=== PATIENT | female | born 1935 | race Caucasian/White ===

== ENCOUNTER 2017-08-16 13:00 | Outpatient (CLI) | payer MEDICARE, SELFPAY ==
[2017-08-16 13:05] VITALS: BMI 19.0
[2017-08-16 13:20] VITALS: BP 146/78; PULSE 76; RESP 16
--- NOTE | 2017-08-16 17:05 | PC.NURSE ---
PROLIA 60 MG GIVEN IN RIGHT TRICEP AT 1320.
== END 2017-08-16 13:35 | disposition home or self-care (01) ==
PROVIDERS: Family Provider Nurse Practitioner; PCP Nurse Practitioner Family; Visit Provider Family Medicine
DX: M81.0 Age-related osteoporosis without current pathological fracture (principal)
CPT/HCPCS: 96372; J0897

== ENCOUNTER 2017-08-21 08:33 | Day surgery (SDC) | payer MEDICARE, SELFPAY ==
[2017-08-20 13:24] VITALS: BMI 19.1
[2017-08-21] VITALS (8 sets, daily range): BP systolic 172–218; BP diastolic 84–97; PULSE 69–83; RESP 18; TEMP 36.6–37.2; O2SAT 92–98
== END 2017-08-21 12:10 | disposition home or self-care (01) ==
PROVIDERS: Family Provider Nurse Practitioner; PCP Family Medicine; Visit Provider Ophthalmology
DX: H26.9 Unspecified cataract (principal)
CPT/HCPCS: 66984; V2632

== ENCOUNTER 2017-09-04 06:21 | Day surgery (SDC) | payer MEDICARE, SELFPAY ==
[2017-08-31 15:40] VITALS: BMI 19.0
[2017-09-04] VITALS (8 sets, daily range): BP systolic 150–196; BP diastolic 61–91; PULSE 63–89; RESP 18–20; TEMP 36.7–37.5; O2SAT 93–100
== END 2017-09-04 08:39 | disposition home or self-care (01) ==
LOC: OR 06:30
PROVIDERS: Family Provider Nurse Practitioner; PCP Family Medicine; Visit Provider Ophthalmology
DX: H26.9 Unspecified cataract (principal)
CPT/HCPCS: 66984; V2632

== ENCOUNTER → 2018-02-20 14:45 | Outpatient (CLI) | payer MEDICARE, SELFPAY ==
--- NOTE | 2018-02-20 14:51 | XR_ITS ---
XR chest 2V HISTORY: ITS.REASON: COUGH ORDERING PHYSICIAN: Kobe Ramsey MD PATIENT AGE: 82 years COMPARISON: 12/28/2014 FINDINGS: The cardiomediastinal silhouette and pulmonary vascularity are within normal limits. There is hyperinflation with attenuation of the peripheral pulmonary vessels consistent with COPD with hyperlucency in the right midlung which could be due to underlying bullous change. No lobar consolidation or collapse. Mild upper thoracic kyphosis unchanged. IMPRESSION: COPD/emphysema, no change with no acute finding
== END ==
PROVIDERS: PCP Family Medicine; Visit Provider Family Medicine
DX: R05 Cough (principal)
CPT/HCPCS: 71046

== ENCOUNTER 2018-06-06 11:10 | Outpatient (CLI) | payer MEDICARE, SELFPAY ==
[2018-06-06 11:25] VITALS: BP 124/78; PULSE 81; RESP 18; TEMP 36.6; O2SAT 98
[2018-06-06 11:55] VITALS: BP 122/69; PULSE 78; RESP 18; TEMP 36.6; O2SAT 97
== END 2018-06-06 12:00 | disposition home or self-care (01) ==
LOC: INF 11:17
PROVIDERS: Visit Provider Family Medicine
DX: M81.0 Age-related osteoporosis without current pathological fracture (principal)
CPT/HCPCS: 96372; J0897

== ENCOUNTER 2018-12-05 11:17 | Outpatient (CLI) | payer MEDICARE, SELFPAY ==
[2018-12-05 11:22] VITALS: BP 137/88; PULSE 78; RESP 20; TEMP 36.5; O2SAT 94
== END 2018-12-05 11:40 | disposition home or self-care (01) ==
LOC: INF 11:17
PROVIDERS: Visit Provider Family Medicine
DX: M81.0 Age-related osteoporosis without current pathological fracture (principal)
CPT/HCPCS: 96372; J0897

== ENCOUNTER → 2019-01-14 12:05 | Outpatient (CLI) | payer MEDICARE, SELFPAY ==
--- NOTE | 2019-01-14 12:28 | XR_ITS ---
XR hip RT 2-3V w/pelvis HISTORY: ITS.REASON: RT HIP PAIN ORDERING PHYSICIAN: Kobe Ramsey MD PATIENT AGE: 83 years COMPARISON: None FINDINGS: No significant degenerative change. No lytic or blastic change. There are some faint increased density superior to the greater trochanter suggesting some minimal soft tissue calcification or an avulsion injury. No other significant anomalies are evident. IMPRESSION: There is a faint triangular-shaped density superior to the greater trochanter measuring approximately 1 cm and could be due to early heterotopic ossification or an avulsion fracture age indeterminate
== END ==
PROVIDERS: PCP Family Medicine; Visit Provider Family Medicine
DX: M25.551 Pain in right hip (principal)
CPT/HCPCS: 73502

== ENCOUNTER 2019-06-17 11:01 | Outpatient (CLI) | payer MEDICARE, SELFPAY ==
[2019-06-17 11:15] VITALS: BP 139/72; PULSE 83; RESP 18
== END 2019-06-17 11:15 | disposition home or self-care (01) ==
LOC: INF 11:01
PROVIDERS: Visit Provider Nurse Practitioner Family
DX: M81.0 Age-related osteoporosis without current pathological fracture (principal)
CPT/HCPCS: 96372; J0897

== ENCOUNTER → 2019-08-20 14:29 | Outpatient (CLI) | payer MEDICARE, SELFPAY ==
--- NOTE | 2019-08-20 14:34 | XR_ITS ---
PROCEDURE: XR LUMBAR SPINE MIN 4V CLINICAL INDICATION: BACK PAIN COMPARISON: No exams were available for comparison FINDINGS: Mild lumbar curvature convex right. There are degenerative changes of the SI joints on both sides. There is mild degenerative disc disease at L3-L4 and L4-5 with 3 mm anterolisthesis of L4 and 2-3 mm anterolisthesis of L3. There are mild facet arthritic changes at L5-S1. No acute fracture or dislocation. No lytic or blastic change. IMPRESSION: Degenerative changes as described above Dictated by: Dallas Osorio MD 08/20/2019 17:58 Electronically signed by Dallas Osorio MD in [place] 08/20/2019 17:58
== END ==
PROVIDERS: PCP Family Medicine; Visit Provider Family Medicine
DX: M54.9 Dorsalgia, unspecified (principal)
CPT/HCPCS: 72110

== ENCOUNTER 2019-12-16 10:40 | Outpatient (CLI) | payer MEDICARE, SELFPAY ==
[2019-12-16 10:55] VITALS: BP 157/78; PULSE 87; RESP 18; TEMP 37.3; O2SAT 93
== END 2019-12-16 10:55 | disposition home or self-care (01) ==
LOC: INF 10:43
PROVIDERS: Visit Provider Nurse Practitioner Family
DX: M81.0 Age-related osteoporosis without current pathological fracture (principal)
CPT/HCPCS: 96372; J0897

== ENCOUNTER → 2020-06-17 14:15 | Outpatient (CLI) | payer MEDICARE, SELFPAY ==
--- NOTE | 2020-06-17 14:16 | MR_ITS ---
PROCEDURE: MR LUMBAR SPINE WO CON CLINICAL INDICATION: ACUTE BACK PAIN WITH SCIATICA, RIGHT LOW BACK PAIN, RIGHT HIP PAIN DOWN LEG TO FOOT X1 MONTH. PRIOR XRAYS 1-8-20 COMPARISON: CR XR LUMBAR SPINE MIN 4V from 08/20/2019 TECHNIQUE: Standard multiplanar multiecho sequences are performed without contrast. 3-D MIP and myelographic images are also rendered and reviewed FINDINGS: Spinal cord ends at the L1 level. T12-L1: Unremarkable. L1-L2: Unremarkable. L2-L3: Minimal bulging disc. Mild facet and ligamentum hypertrophy. L3-L4: Degenerative disc disease with bulging disc. 5 mm anterolisthesis of L3. There is facet and ligamentum hypertrophy with severe bilateral lateral recess and foraminal narrowing along with canal stenosis L4-5: Degenerative disc disease with bulging disc and a medium sized right paracentral disc herniation with superior extrusion. This superior extruded portion of the disc measures approximately 10 mm. This is causing severe right lateral recess narrowing as well as severe right-sided foraminal narrowing impinging upon the right L5 nerve root and the exiting L4 nerve root. There is severe canal stenosis at this level at 7 mm. There is facet and ligamentum hypertrophy with severe right foraminal narrowing and mild left foraminal narrowing. L5-S1: Mild bulging disc. 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 IMPRESSION: 1. Mild multilevel lumbar spondylosis. Please see above for detailed description at each level. 2. L3-L4: Degenerative disc disease with bulging disc. 5 mm anterolisthesis of L3. There is facet and ligamentum hypertrophy with severe bilateral lateral recess and foraminal narrowing along with canal stenosis 3. L4-5: Degenerative disc disease with bulging disc and a medium sized right paracentral disc herniation with superior extrusion. This superior extruded portion of the disc measures approximately 10 mm. This is causing severe right lateral recess narrowing as well as severe right-sided foraminal narrowing impinging upon the right L5 nerve root and the exiting L4 nerve root. There is severe canal stenosis at this level at 7 mm. There is facet and ligamentum hypertrophy with severe right foraminal narrowing and mild left foraminal narrowing. Dictated by: Dallas Osorio MD 06/18/2020 10:00 Dallas Osorio MD in [place] 06/18/2020 10:00
== END ==
PROVIDERS: PCP Family Medicine; Visit Provider Family Medicine
DX: M54.41 Lumbago with sciatica, right side (principal)
CPT/HCPCS: 72148; 76376

== ENCOUNTER 2020-06-29 11:21 | Outpatient (CLI) | payer MEDICARE, SELFPAY ==
[2020-06-29 11:23] VITALS: BP 136/67; PULSE 88; RESP 18; TEMP 36.7; O2SAT 95
== END 2020-06-29 11:23 | disposition home or self-care (01) ==
LOC: INF 11:21
PROVIDERS: Visit Provider Family Medicine
DX: M81.0 Age-related osteoporosis without current pathological fracture (principal)
CPT/HCPCS: 96372; J0897

== ENCOUNTER → 2020-08-11 10:39 | Outpatient (CLI) | payer MEDICARE, SELFPAY ==
--- NOTE | 2020-08-11 10:47 | XR_ITS ---
PROCEDURE: XR CHEST 2V CLINICAL HISTORY: COPD, PREOP COMPARISON: DX CXR2V XR chest 2V from 02/20/2018 FINDINGS: Moderate emphysematous changes seen with hyperexpansion lung moralez and depression of the hemidiaphragms. 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 The lung moralez are clear of infiltrate. Overall cardiac size is normal though there is mild aortic tortuosity. There is no pulmonary congestion and no pleural fluid. IMPRESSION: Moderate COPD, no acute chest pathology noted Dictated by: Dr. Delano Lebron MD 08/11/2020 11:18 Dr. Delano Lebron MD in [place] 08/11/2020 11:18
== END ==
PROVIDERS: PCP Family Medicine; Visit Provider Family Medicine
DX: Z01.811 Encounter for preprocedural respiratory examination (principal); J44.9 Chronic obstructive pulmonary disease, unspecified
CPT/HCPCS: 71046

== ENCOUNTER 2020-12-28 11:04 | Outpatient (CLI) | payer MEDICARE, SELFPAY ==
[2020-12-28 11:00] VITALS: BP 147/81; PULSE 68; RESP 20; TEMP 36.9; O2SAT 95
== END 2020-12-28 11:20 | disposition home or self-care (01) ==
LOC: INF 11:04
PROVIDERS: Visit Provider Family Medicine
DX: M81.0 Age-related osteoporosis without current pathological fracture (principal)
CPT/HCPCS: 96372; J0897

== ENCOUNTER 2021-07-05 11:02 | Outpatient (CLI) | payer MEDICARE, SELFPAY ==
[2021-07-05 11:19] VITALS: BP 154/75; PULSE 75; RESP 20; TEMP 36.6; O2SAT 93
== END 2021-07-05 11:19 | disposition home or self-care (01) ==
LOC: INF 11:04
PROVIDERS: PCP Family Medicine; Visit Provider Family Medicine
DX: M81.0 Age-related osteoporosis without current pathological fracture (principal)
CPT/HCPCS: 96372; J0897

== ENCOUNTER 2022-01-03 11:08 | Outpatient (CLI) | payer MEDICARE, SELFPAY ==
[2022-01-03 11:25] VITALS: BP 140/72; PULSE 84; O2SAT 100
[2022-01-03 11:30] VITALS: BP 141/74; PULSE 84; O2SAT 100
== END 2022-01-03 11:30 | disposition home or self-care (01) ==
LOC: INF 11:11
PROVIDERS: PCP Family Medicine; Visit Provider Family Medicine
DX: M81.0 Age-related osteoporosis without current pathological fracture (principal)
CPT/HCPCS: 96372; J0897

== ENCOUNTER 2022-08-31 10:11 | Outpatient (CLI) | payer MEDICARE, SELFPAY ==
[2022-08-31 10:26] VITALS: BP 130/72; PULSE 95; RESP 18; TEMP 36.4; O2SAT 96
== END 2022-08-31 11:00 | disposition home or self-care (01) ==
LOC: INF 10:13
PROVIDERS: PCP Family Medicine; Visit Provider Family Medicine
DX: M81.0 Age-related osteoporosis without current pathological fracture (principal)
CPT/HCPCS: 96372; J0897

== ENCOUNTER → 2022-09-22 14:31 | Outpatient (CLI) | payer MEDICARE, SELFPAY ==
--- NOTE | 2022-09-22 14:42 | XR_ITS ---
FINAL REPORT CLINICAL HISTORY: CHEST PAIN IN THORACIC,COPD FINDINGS: TWO-VIEW CHEST The heart size is normal. The mediastinum is normal. There is scarring in the right perihilar region. The lungs are clear. There is no pneumothorax. IMPRESSION: No acute cardiopulmonary process. Reviewed, Interpreted and Dictated by Indra Ortiz MD Transcribed by Kathy Maguire Authenticated and [facility]
== END ==
PROVIDERS: PCP Family Medicine; Visit Provider Family Medicine
DX: M54.6 Pain in thoracic spine (principal); G89.29 Other chronic pain
CPT/HCPCS: 71046

== ENCOUNTER 2022-12-05 09:23 | Day surgery (SDC) | payer MEDICARE, SELFPAY ==
[2022-12-04 10:03] VITALS: BMI 19.1
[2022-12-05 10:12] VITALS: BP 172/93; PULSE 90; RESP 16; TEMP 36.9; O2SAT 91
[2022-12-05 11:01] VITALS: BP 172/93; PULSE 90; RESP 16; TEMP 36.9; O2SAT 91
== END 2022-12-05 11:02 | disposition home or self-care (01) ==
LOC: OUTP 09:27
PROVIDERS: PCP Family Medicine; Visit Provider Ophthalmology
PROC: (CPT 66821; principal; 2022-12-05 10:00)
DX: H26.40 Unspecified secondary cataract (principal); Z79.899 Other long term (current) drug therapy
CPT/HCPCS: 66821

== ENCOUNTER 2023-02-28 11:23 | Outpatient (CLI) | payer MEDICARE, SELFPAY ==
[2023-02-28 11:49] VITALS: BP 149/74; PULSE 76; RESP 18; TEMP 36.5; O2SAT 93
== END 2023-02-28 11:49 | disposition home or self-care (01) ==
LOC: INF 11:24
PROVIDERS: PCP Family Medicine; Visit Provider Family Medicine
DX: M81.0 Age-related osteoporosis without current pathological fracture (principal)
CPT/HCPCS: 96372; J0897

== ENCOUNTER → 2023-04-19 10:01 | Outpatient (CLI) | payer MEDICARE, SELFPAY ==
--- NOTE | 2023-04-19 10:09 | CT_ITS ---
FINAL REPORT CLINICAL HISTORY: DDD, right anterior leg pain x 7 mon COMPARISON: None FINDINGS: Axial imaging of the lumbar spine was obtained without contrast. Sagittal and coronal reformatted images were also obtained and reviewed.This study was performed with techniques to keep radiation doses as low as reasonably achievable (ALARA). Individualized dose reduction techniques using automated exposure control or adjustment of mA and/or kV according to the patient's size were employed. There is no fracture. There is 6 mm of anterolisthesis of L4 on L5. There are mild and moderate degenerative changes. There is facet arthropathy in the lower lumbar spine. L1-2: Annular disc bulge is present. No evidence of significant central canal stenosis or neuroforaminal narrowing. L2-3: Annular disc bulge is present. Mild bilateral neuroforaminal narrowing. L3-4: Annular disc bulge and facet arthropathy. Moderate bilateral neuroforaminal narrowing. Mild central canal stenosis with AP diameter of the thecal sac of 8 mm. L4-5: Annular disc bulge and facet arthropathy. Right paracentral and foraminal superiorly extruded disc. Right lateral recess stenosis. Right L5 nerve root impingement. Mild central canal stenosis with AP diameter of the thecal sac of 7 mm. Severe right and moderate left neuroforaminal narrowing. L5-S1: Annular disc bulge and facet arthropathy. Mild left neuroforaminal narrowing. IMPRESSION: Multilevel degenerative disc disease without acute bony abnormality. Extruded disc at L4-5 with recess stenosis and nerve root impingement as above. Reviewed, Interpreted and Dictated by Oumar Dukes III, MD Transcribed by Twila Marion Authenticated and [facility]
== END ==
PROVIDERS: PCP Family Medicine; Visit Provider Family Medicine
DX: M51.37 Other intervertebral disc degeneration, lumbosacral region (principal)
CPT/HCPCS: 72131

== ENCOUNTER 2023-09-07 10:49 | Outpatient (CLI) | payer MEDICARE, SELFPAY ==
[2023-09-07] MEDS: DENOSUMAB 60 MG/ML SYRINGE SQ (11:06)
[2023-09-07 11:16] VITALS: BP 128/86; PULSE 86; RESP 18; TEMP 36.8; O2SAT 95
== END 2023-09-07 11:18 | disposition home or self-care (01) ==
LOC: INF 10:51
PROVIDERS: PCP Family Medicine; Visit Provider Family Medicine
DX: M81.0 Age-related osteoporosis without current pathological fracture (principal)
CPT/HCPCS: 96372; J0897

== ENCOUNTER 2024-03-07 14:34 | Outpatient (CLI) | payer MEDICARE, SELFPAY ==
[2024-03-07] MEDS: DENOSUMAB 60 MG/ML SYRINGE SQ (14:50)
[2024-03-07 14:51] VITALS: BP 181/68; PULSE 78; RESP 18; O2SAT 91
== END 2024-03-07 14:54 | disposition home or self-care (01) ==
LOC: INF 14:36
PROVIDERS: PCP Family Medicine; Visit Provider Family Medicine
DX: M81.0 Age-related osteoporosis without current pathological fracture (principal)
CPT/HCPCS: 96372; J0897

== ENCOUNTER 2024-06-27 12:01 | Outpatient (CLI) | payer MEDICARE, SELFPAY ==
--- OUTSIDE RECORDS SUMMARY | 2024-06-27 12:05 | XMS_ITS | Encounter Summary ---
Author Organization [facility] Address [address] [place] [address] Care Team Providers Care Thermodynamic Physicist Name Role Phone Marck Ramsey MD Primary Care Provider [phone] Reason for Visit * Cardiac (Routine) - Closed Specialty Diagnoses / Procedures Referred By Rossy childs Referred To Contact Diagnoses Paroxysmal atrial fibrillation Dizziness Essential hypertension LBBB (left bundle branch block) Abnormal EKG Procedures Holter Monitor - 72 Hour Up To 15 Days Penine Antony APRN [address] [place] [address] Phone: tel: fax: [facility] [address] [place] [address] Phone: tel: Referral ID Status Reason Start Date Expiration Date Visits Re quested Visits Authorized [id number] Closed 03/19/2024 03/19/2025 1 1 Encounter Details Date Type Department Care Team (Late st Contact Info) Description 03/19/2024 2:45 PM EDT Ancillary Procedure [facility] [address] [id number] Social History Tobacco Use Types Packs/Day Years Used Date Smoking Tobacco: Former Cigarettes 0.5 10 0 08/13/1952 - 08/13/1962 Passive Smoke Exposure: Past Smokeless Tobacco: Never Alcohol Use Standard Drinks/Week Comments Yes 0 (1 standard drink = 0.6 oz pur e alcohol) social Abuse Screen Answer Date Recorded Unsafe at Home or Work/School Not on file Feels Threatened by Someone? Not on file 07/2023 Does Anyone Keep You from Co ntacting Others or Doint Things Outside the Home? Not on file 05/24/2023 Physical Sign of Abuse Present Not on file 1 Housing Stability Answer Date Recorded Current Living Arrangements Not on file 05/13 Potentially Unsafe Housing Conditions Not on cha e 05/24/2023 Family and Community Support Answer Odell e Recorded Help with Day-to-Day Activities Not on file 05/24/2023 Lonely or Isolated Not on file 05/24/2023 Employment Answer Date Recorded Do you want help finding or keeping work or a danielle b? Not on file 05/24/2023 Disabilities Answer Date Recorded Concentrating, Remembering, or Making Decisions Difficulty Not on file 05/24/2023 Doing Errands Independently Difficulty Not on fi le 05/24/2023 Education Answer Date Recorded Help with school or training? Not on file Preferred Language Not on file 05/24/2023 Comments No Sex and Gender Information Value Date Recorded Sex Assigned at Not on file Legal Sex Female 10:32 AM EST Gender Identity Not on file Sexual Orientation Not on file documented as of this encounter Plan of Treatment Upcoming Encounters Date Type Department Care Team (Late st Contact Info) Description 10/27/2024 11:00 AM EDT Office Visit [facility] [address] [place] [address] Patrica Otto MD [address] [place] [address] documented as of this encounter Procedures Procedure Name Priority Date/Time Associated Diagnosis Comments HOLTER MONITOR >7 DAYS UP TO 15 DAYS HOOK-UP & INTERP Routine 03/19/2024 2:50 PM EDT Paroxysmal atrial fibrillation Dizziness Essential hypertension LBBB (left bundle branch block) Abnormal EKG documented in this encounter Results * HOLTER MONITOR >7 DAYS UP TO 15 DAYS HOOK-UP & INTERP (03/19/2024 2:50 PM EDT) Anatomical Region Laterality Modality Ultrasound Narrative 04/21/2024 5:29 PM EDT ?A relatively benign monitor study. ?Some nonsustained SVT. ??Longest 19 beats. ??No atrial fibrillation seen. Otherwise no pauses. Study Description Monitor placed on patient by Rosalina Noel MA on 03/19/2024 at 10:30 EDT. Instructions were provided to patient on use of holter monitor and duration of monitoring. The monitor was scanned on 04/18/2024. The patient was monitored for 11 days 10 hours. Indications for this exam include Chronic atrial fibrillation. Average HR: 78. Min HR: 56. Max HR: 114. Study Impressions A relatively benign monitor study. Some nonsustained SVT. Longest 19 beats. No atrial fibrillation seen. Otherwise no pauses. Pennie Antony APRN [facility] ORDER[facility]LES Final Result documented in this encounter Visit Diagnoses Not on filedocumented in this encounter Care Teams Thermodynamic Physicist Relationship Specialty Start Date End Date Marck Ramsey MD [address] [place] [address] PCP - General Family Medicine 07/12/20 documented as of this encounter
--- OUTSIDE RECORDS SUMMARY | 2024-06-27 12:05 | XMS_ITS | Encounter Summary ---
Author Organization [facility] Address [address] [place] [address] Care Team Providers Care Hand Welt Butter Name Role Phone Marck Ramsey MD Primary Care Provider [phone] Reason for Visit * Reason Onset Date Comments Med Refill 12/27/2022 Encounter Details Date Type Department Care Team (Late st Contact Info) Description 12/27/2022 Refill [facility] [address] [phone] Kaye Cam PA-C [address] [place] [place] [id number] Social History Tobacco Use Types Packs/Day Years Used Date Smoking Tobacco: Former Cigarettes 0.5 10 0 08/13/1952 - 08/13/1962 Smokeless Tobacco: Never Alcohol Use Standard Drinks/Week Comments Yes 0 (1 standard drink = 0.6 oz pur e alcohol) social Comments No Sex and Gender Information Value Date Recorded Sex Assigned at Not on file Legal Sex Female 10:32 AM EST Gender Identity Not on file Sexual Orientation Not on file documented as of this encounter Plan of Treatment Upcoming Encounters Date Type Department Care Team (Late st Contact Info) Description 10/27/2024 11:00 AM EDT Office Visit [facility] [address] [phone] Patrica Otto MD [address] [address] documented as of this encounter Visit Diagnoses Not on filedocumented in this encounter Care Teams Hand Welt Butter Relationship Specialty Start Date End Date Marck Ramsey MD [address] [place] [address] PCP - General Family Medicine 07/12/20 documented as of this encounter
--- OUTSIDE RECORDS SUMMARY | 2024-06-27 12:05 | XMS_ITS | Encounter Summary ---
Author Organization [facility] Address [address] [place] [address] Care Team Providers Care Loss Prevention Auditor Name Role Phone Marck Ramsey MD Primary Care Provider [phone] Reason for Referral * Consultation (Routine) - Authorized - Pending Scheduling Specialty Diagnoses / Procedures Referred By Rossy t Referred To Contact Diagnoses Pulmonary emphysema, unspecified emphysema type Procedures NH OFFICE/OUTPATIENT NEW MODERATE MDM 45 MINUTES Patrica Otto MD [address] [address] Phone: tel: fax: Levy Em MD [address] [facility] [address] [place] [address] Phone: tel: fax: Referral ID Status Reason Start Date Expiration Date Visits Requested Visits Authorized [id number] Authorized - Pending Scheduling Specialty Services Required 04/28/2024 04/28/2025 1 1 Reason for Visit * Reason Comments Atrial Fibrillation Study results Encounter Details Date Type Department Care Team (Late st Contact Info) Description 04/28/2024 2:15 PM EDT Office Visit [facility] [address] [phone] Patrica Otto MD [address] [address] Pulmonary emphysema, unspecified emphysema type (Primary Dx); Paroxysmal atrial fibrillation; Essential hypertension; Dizziness Social History Tobacco Use Types Packs/Day Years [...] on file documented as of this encounter Last Filed Vital Signs Vital Sign Reading Time Taken Comments Blood Pressure 118/78 04/28/2024 2:25 PM EDT Pulse 92 04/28/2024 2:25 PM EDT Temperature - - Respiratory Rate - - Oxygen Saturation 98% 04/28/2024 2:25 PM EDT 2L O2 Inhaled Oxygen Concentration - - Weight 36.3 kg (80 lb) 04/28/2024 2:25 PM EDT Height 160 cm (5' 3 ) 04/28/2024 2:25 PM EDT Body Mass Index 14.17 04/28/2024 2:25 PM EDT documented in this encounter Progress Notes * Patrica Otto MD - 04/28/2024 5:12 PM EDTAssociated Problem(s): Paroxysmal atrial fibrillation Diagnosis unclear. She said it was something like atrial fibrillation but she is never been on anticoagulation. She says has not come back and maintained on digoxin alone. Monitor showed no A-fib. I think at this point putting her on anticoagulation would outweigh benefits. Especially since she is frail and underweight. * Patrica Otto MD - 04/28/2024 5:11 PM EDTAssociated Problem(s): Essential hypertension Well-controlled. I wonder if some of her dizziness is because of low body weight and over control. But she says her blood pressure will get higher at home. Continue to monitor. * Patrica Otto MD - 04/28/2024 5:11 PM EDTAssociated Problem(s): Dizziness Stable. No syncope. Monitor did not show any arrhythmias or pauses. I wonder if some of her dizziness is because of low body weight and over control. But she says her blood pressure will get higher at home. Continue to monitor. * Patrica Otto MD - 04/28/2024 2:15 PM EDT Images from the original note were not included. [facility] Provider Note Date: 04/28/2024 Name: Trudi Gleason : 1935 PCP: Marck Ramsey MD Chief Complaint Patient presents with ??? Atrial Fibrillation Study results Subjective History of Present Illness Trudi Gleason is a 88 y.o. female who presents today for follow-up on testing. After nuclear stress test she was sent to the emergency room for hypoxia. Wearing oxygen now. Has not fallen less than 90% at home. She now has a nebulizer but not using as regularly as she should. No chest pain, does getpain between shoulder blades withCOPD. Since last OV, no syncope. Dizziness stable. Monitoring BP at home. Can get very high. Not getting too low. Mostly controlled. 1. A-fib, paroxysmal. Questionable dx, remote history from [place]. Treated with digoxin only and was using vagal maneuvers to stop. Never on OAC. 2. Worsening dizziness, unclear cause. 3. COPD, Asthma since age 19. Using 2L o2 - sent to ER 04/07/24 after nuclear stress for hypoxia. 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 4. LBBB 04/08/2024 carotid ultrasound-bilateral less than 50%. 04/08/2024 echo-EF 51 to 55%. Mild pulmonary hypertension. 04/07/24 Nuclear stress- normal EF, moderate size septal scar, patient sent to the Er for hypoxia. 03/19/2024 history of A-fib. Declines sleep study. Ordered baseline echo, nuclear stress test due to left bundle branch block, Holter, and carotid artery duplex. 03/19/2024 EKG-sinus tachycardia with heart rate of 104. Possible left atrial enlargement. Inferior infarct. Moderate ST depression. Left bundle branch block. Abnormal EKG. Similar to 02/22/2020 for EKG. Allergies Allergen Reactions ??? Diazepam Mental Status Change and Irritability Agitation ??? Meperidine GI Intolerance and Nausea And Vomiting Current Outpatient Medications: ??? albuterol sulfate HFA 108 (90 Base) MCG/ACT inhaler, Inhale 2 puffs Every 4 (Four) Hours As Needed for Wheezing., Disp: , Rfl: ??? atorvastatin (LIPITOR) 10 MG tablet, Take 1 tablet by mouth Every Night., Disp: , Rfl: ??? OJLUCWJ-FCJLZJRXT-CAYR PO, Take 1 dose by mouth Every Morning., Disp: , Rfl: ??? celecoxib (CeleBREX) 200 MG capsule, Take 1 capsule by mouth Every Night., Disp: , Rfl: ??? cholecalciferol (VITAMIN D3) 25 MCG (1000 UT) tablet, Take 1 tablet by mouth Daily., Disp: , Rfl: ??? coenzyme Q10 100 MG capsule, Take 1 capsule by mouth Every Night., Disp: , Rfl: ??? Denosumab (PROLIA SC), Inject 1 dose under the skin into the appropriate area as directed Every6 (Six) Months., Disp: , Rfl: ??? digoxin (LANOXIN) 250 MCG tablet, Take 1 tablet by mouth Every Night., Disp: , Rfl: ??? EQ Aspirin Adult Low Dose 81 MG EC tablet, Take 1 tablet by mouth Daily., Disp: , Rfl: ??? ipratropium-albuterol (DUO-NEB) 0.5-2.5 mg/3 ml nebulizer, Take 3 mL by nebulization Every 4 (Four) Hours As Needed for Wheezing., Disp: , Rfl: ??? latanoprost (XALATAN) 0.005 % ophthalmic solution, Administer 1 drop to both eyes Every Night.,Disp: , Rfl: ??? multivitamin with minerals (MULTIVITAMIN ADULTS PO), Take 1 tablet by mouth Daily., Disp: , Rfl: ??? vitamin C (ASCORBIC ACID) 500 MG tablet, Take 1 tablet by mouth Daily., Disp: , Rfl: ??? amLODIPine (NORVASC) 2.5 MG tablet, Take 1 tablet by mouth Daily., Disp: , Rfl: Past Medical History: Diagnosis Date ??? Arthritis ??? Asthma nebs daily; inhaler ??? Back pain ??? COPD (chronic obstructive pulmonary disease) ??? Glaucoma ??? Hearing loss ??? History of bronchitis frequent; last time 08/09/20 ??? History of pneumonia hospitalized ??? Hypertension ??? Osteoporosis ??? PONV (postoperative nausea and vomiting) severe Past Surgical History: Procedure Laterality Date ??? APPENDECTOMY ??? BLADDER SURGERY 3 surgeries; last surgery required sphincter repair ??? CARDIAC CATHETERIZATION ??? CATARACT EXTRACTION Bilateral ??? COLONOSCOPY ??? GALLBLADDER SURGERY ??? HYSTERECTOMY ??? LUMBAR DISCECTOMY Right 08/27/2020 Procedure: LUMBAR DISCECTOMY L4-L5 RIGHT; Surgeon: Georgi Lewis MD; Location: [facility]; Service: Neurosurgery; Laterality: Right; ??? TONSILLECTOMY AND ADENOIDECTOMY ??? TUBAL ABDOMINAL LIGATION Family History Problem Relation Age of Onset ??? Cancer Father rectum ??? Stroke Brother ??? Hypertension Brother Social History Socioeconomic History ??? Marital status: Tobacco Use ??? Smoking status: Former Current packs/day: 0.00 Average packs/day: 0.5 packs/day for 10.0 years (5.0 ttl pk-yrs) Types: Cigarettes Start date: 08/13/1952 Quit date: 08/13/1962 Years since quittin.7 Passive exposure: Past ??? Smokeless tobacco: Never Vaping Use ??? Vaping status: Never Used Substance and Sexual Activity ??? Alcohol use: Yes Comment: social ??? Drug use: Defer ??? Sexual activity: Defer Objective Vital Signs: BP 118/78 Pulse 92 Ht 160 cm (63 ) Wt 36.3 kg (80 lb) SpO2 98% Comment: 2L O2 BMI 14.17 kg/m?? Estimated body mass index is 14.17 kg/m?? as calculated from the following: Height as of this encounter: 160 cm (63 ). Weight as of this encounter: 36.3 kg (80 lb). Physical Exam Constitutional: Appearance: Normal appearance. She is well-developed. HENT: Head: Normocephalic and atraumatic. Eyes: General: No scleral icterus. Pupils: Pupils are equal, round, and reactive to light. Cardiovascular: Rate and Rhythm: Normal rate and regular rhythm. Heart sounds: Normal heart sounds. No murmur heard. Pulmonary: Breath sounds: Wheezing present. No rhonchi. Musculoskeletal: Right lower leg: No edema. Left lower leg: No edema. Skin: Capillary Refill: Capillary refill takes less than 2 seconds. Coloration: Skin is not cyanotic. Nails: There is no clubbing. Neurological: Mental Status: She is alert and oriented to person, place, and time. Motor: No weakness. Gait: Gait normal. Psychiatric: Mood and Affect: Mood normal. Behavior: Behavior is cooperative. Thought Content: Thought content normal. Cognition and Memory: Memory normal. Assessment and Plan Diagnoses and all orders for this visit: 1. Pulmonary emphysema, unspecified emphysema type (Primary) Comments: Will refer to pulmonary. Encouraged to use nebulizer especially in the morning. Make sure she especially uses oxygen if sats get to 90 or below Orders: - Ambulatory Referral to Pulmonology 2. Paroxysmal atrial fibrillation Assessment & Plan: Diagnosis unclear. She said it was something like atrial fibrillation but she is never been on anticoagulation. She says has not come back and maintained on digoxin alone. Monitor showed no A-fib. I think at this point putting her on anticoagulation would outweigh benefits. Especially since she is frail and underweight. 3. Essential hypertension Assessment & Plan: Well-controlled. I wonder if some of her dizziness is because of low body weight and over control. But she says her blood pressure will get higher at home. Continue to monitor. 4. Dizziness Assessment & Plan: Stable. No syncope. Monitor did not show any arrhythmias or pauses. I wonder if some of her dizziness is because of low body weight and over control. But she says her blood pressure will get higher at home. Continue to monitor. Recommendations: Report if any new/changing symptoms immediately Follow Up Return in about 6 months (around 10/26/2024) for Next scheduled follow up. Patrica Otto MD 04/28/2024 Please note that this explicitly excludes time spent on other separate billable services such as performing procedures or test interpretation, when applicable. This note was created using dictation software which occasionally transcribes nonsensical phrases. Please contact the provider if any clarification is needed. documented in this encounter Plan of Treatment Upcoming Encounters Date Type Department Care Team (Late st Contact Info) Description 10/27/2024 11:00 AM EDT Office Visit [facility] [address] [phone] Patrica Otto MD [address] [address] documented as of this encounter Visit Diagnoses Diagnosis Pulmonary emphysema, unspecified emphysema type- Primary Paroxysmal atrial fibrillation Atrial fibrillation Essential hypertension Unspecified essential hypertension Dizziness Dizziness and giddiness documented in this encounter Care Teams Loss Prevention Auditor Relationship Specialty Start Date End Date Marck Ramsey MD [address] [place] [address] PCP - General Family Medicine 07/12/20 documented as of this encounter
--- OUTSIDE RECORDS SUMMARY | 2024-06-27 12:05 | XMS_ITS | Encounter Summary ---
Author Organization [facility] Address [address] [place] [address] Care Team Providers Care Web Development Manager Name Role Phone Marck Ramsey MD Primary Care Provider [phone] Encounter Details Date Type Department Care Team (Late st Contact Info) Description 10/06/2020 Telephone [facility] [address] [place] [address] Georgi Lewis MD Social History Tobacco Use Types Packs/Day Years [...] on file documented as of this encounter Miscellaneous Notes * Telephone Encounter - Ventura Martinez MA - 10/06/2020 4:51 PM EST Cathie dubon. * Telephone Encounter - Cathie Keene PA-C - 10/06/2020 4:49 PM EST Please call them and tell them she can be discharged. * Telephone Encounter - Areli Frederick - 10/06/2020 3:48 PM EST Provider: Joshua Caller: Cathie @ [facility] Time of call: 3:49pm Phone #: [phone] Surgery: L4-5 discectomy Surgery Date: 08/27/20 Last visit: 07/22/20 Next visit: 10/07/20 LUBNA: Reason for call: [facility] (home health) went to patient's home today for a visit. Patient declined services stating that she is doing well. Cathie called to get a verbal order to discharge patient. Her call back number is [phone]. documented in this encounter Plan of Treatment Upcoming Encounters Date Type Department Care Team (Late st Contact Info) Description 10/27/2024 11:00 AM EDT Office Visit [facility] C[facility] [address] [place] [address] Patrica Otto MD [address] [place] [address] documented as of this encounter Visit Diagnoses Not on filedocumented in this encounter Care Teams Web Development Manager Relationship Specialty Start Date End Date Marck Ramsey MD [address] [place] [address] PCP - General Family Medicine 07/12/20 documented as of this encounter
--- OUTSIDE RECORDS SUMMARY | 2024-06-27 12:05 | XMS_ITS | Encounter Summary ---
Author Organization [facility] Address [address] [place] [address] Care Team Providers Care Practice Or Student Teacher Name Role Phone Marck Ramsey MD Primary Care Provider [phone] Reason for Visit * Reason Comments Post-op Encounter Details Date Type Department Care Team (Late st Contact Info) Description 10/07/2020 3:00 PM EST Office Visit [facility]UR[facility] [address] [facility] [address] [place] [address] Cathie Keene PA-C [address] [facility] [address] [facility] [place] [address] Age-related osteoporosis without current pathological fracture (Primary Dx) Social History Tobacco Use Types Packs/Day Years [...] Sign Reading Time Taken Comments Blood Pressure 170/82 10/07/2020 3:05 PM EST Pulse - - Temperature 36.4 ??C (97.5 ??F) 10/07/2020 3:05 PM ES T Respiratory Rate - - Oxygen Saturation - - Inhaled Oxygen Concentration - - Weight 42.9 kg (94 lb 9.6 oz) 10/07/2020 3:05 PM EST Height 149.9 cm (4' 11 ) 10/07/2020 3:05 PM EST Body Mass Index 19.11 10/07/2020 3:05 PM EST documented in this encounter Progress Notes * Cathie Keene PA-C - 10/07/2020 3:00 PM EST Trudi Gleason 1935 10/07/2020 [id number] CC: chronic back pain HPI: S/P L4-5, right HNP. She has done well. Past Medical History: Diagnosis Date ??? Arthritis ??? Asthma nebs daily; inhaler ??? Back pain ??? COPD (chronic obstructive pulmonary disease) (CMS/HCC) ??? Glaucoma ??? Hearing loss ??? History of bronchitis frequent; last time 08/09/20 ??? History of pneumonia hospitalized ??? Hypertension ??? Osteoporosis ??? PONV (postoperative nausea and vomiting) severe Allergies Allergen Reactions ??? Demerol [Meperidine] GI Intolerance ??? Valium [Diazepam] Mental Status Change Agitation Current Outpatient Medications: ??? albuterol sulfate HFA 108 (90 Base) MCG/ACT inhaler, Inhale 2 puffs Every 4 (Four) Hours As Needed for Wheezing., Disp: , Rfl: ??? amLODIPine (NORVASC) 2.5 MG tablet, Take 2.5 mg by mouth Daily. FOR 30 DAYS, Disp: , Rfl: ??? atorvastatin (LIPITOR) 10 MG tablet, Take 10 mg by mouth Every Night., Disp: , Rfl: ??? ATIHTTA-VFYLLTIUU-KBDY PO, Take 1 dose by mouth Every Morning., Disp: , Rfl: ??? celecoxib (CeleBREX) 200 MG capsule, Take 200 mg by mouth Every Night., Disp: , Rfl: ??? cholecalciferol (VITAMIN D3) 25 MCG (1000 UT) tablet, Take 1,000 Units by mouth Daily., Disp: ,Rfl: ??? coenzyme Q10 100 MG capsule, Take 100 mg by mouth Every Night., Disp: , Rfl: ??? Denosumab (PROLIA SC), Inject 1 dose under the skin into the appropriate area as directed Every6 (Six) Months., Disp: , Rfl: ??? digoxin (LANOXIN) 250 MCG tablet, Take 250 mcg by mouth Every Night., Disp: , Rfl: ??? ipratropium-albuterol (DUO-NEB) 0.5-2.5 mg/3 ml nebulizer, Take 3 mL by nebulization Every 4 (Four) Hours As Needed for Wheezing., Disp: , Rfl: ??? latanoprost (XALATAN) 0.005 % ophthalmic solution, Administer 1 drop to both eyes Every Night.,Disp: , Rfl: ??? multivitamin with minerals (MULTIVITAMIN ADULTS PO), Take 1 tablet by mouth Daily., Disp: , Rfl: ??? oxyCODONE-acetaminophen (PERCOCET) 5-325 MG per tablet, Take 1 tablet by mouth Every 6 (Six) Hours As Needed for Severe Pain ., Disp: 45 tablet, Rfl: 0 ??? vitamin C (ASCORBIC ACID) 500 MG tablet, Take 500 mg by mouth Daily., Disp: , Rfl: ??? Wixela Inhub 250-50 MCG/DOSE DISKUS, Inhale 1 puff 2 (Two) Times a Day., Disp: , Rfl: Review of Systems Constitutional: Negative for activity change, appetite change, chills, diaphoresis, fatigue, fever and unexpected weight change. HENT: Positive for hearing loss, postnasal drip and sneezing. Negative for congestion, dental problem, drooling, ear discharge, ear pain, facial swelling, mouth sores, nosebleeds, rhinorrhea, sinus pressure, sinus pain, sore throat, tinnitus, trouble swallowing and voice change. Eyes: Negative for photophobia, pain, discharge, redness, itching and visual disturbance. Respiratory: Positive for cough and shortness of breath. Negative for apnea, choking, chest tightness, wheezing and stridor. Cardiovascular: Negative for chest pain, palpitations and leg swelling. Gastrointestinal: Negative for abdominal distention, abdominal pain, anal bleeding, blood in stool,constipation, diarrhea, nausea, rectal pain and vomiting. Endocrine: Positive for cold intolerance. Negative for heat intolerance, polydipsia, polyphagia andpolyuria. Genitourinary: Negative for decreased urine volume, difficulty urinating, dyspareunia, dysuria, enuresis, flank pain, frequency, genital sores, hematuria, menstrual problem, pelvic pain, urgency, vaginal bleeding, vaginal discharge and vaginal pain. Musculoskeletal: Positive for back pain and neck stiffness. Negative for arthralgias, gait problem,joint swelling, myalgias and neck pain. Skin: Negative for color change, pallor, rash and wound. Allergic/Immunologic: Positive for environmental allergies. Negative for food allergies and immunocompromised state. Neurological: Positive for dizziness, light-headedness and numbness. Negative for tremors, seizures, syncope, facial asymmetry, speech difficulty, weakness and headaches. Hematological: Negative for adenopathy. Does not bruise/bleed easily. Psychiatric/Behavioral: Positive for decreased concentration. Negative for agitation, behavioral problems, confusion, dysphoric mood, hallucinations, self- injury, sleep disturbance and suicidal ideas. The patient is not nervous/anxious and is not hyperactive. All other systems reviewed and are negative. PE: BP 170/82 (BP Location: Left arm, Patient Position: Sitting, Cuff Size: Adult) Temp 97.5 ??F (36.4 ??C) Ht 149.9 cm (59 ) Wt 42.9 kg (94 lb 9.6 oz) BMI 19.11 kg/m?? Heart- RRR Lungs- no wheezing, normal expansion Wound-healing well Neurologic Exam Ambulating without weakness. MDM S/p discectomy with resolution of her severe leg pain, she has a little residual pain at times. This should improve with time. Activities and restrictions were discussed. Wound care was discussed with the patient. It was a pleasure providing neurosurgical care. MARQUIS Payne documented in this encounter Plan of Treatment Upcoming Encounters Date Type Department Care Team (Late st Contact Info) Description 10/27/2024 11:00 AM EDT Office Visit [facility]IOLOG[facility] [address] [phone] Patrica Otto MD [address] [address] documented as of this encounter Visit Diagnoses Diagnosis Age-related osteoporosis without current pathological fracture- Primary documented in this encounter Care Teams Practice Or Student Teacher Relationship Specialty Start Date End Date Marck Ramsey MD [address] [place] [address] PCP - General Family Medicine 07/12/20 documented as of this encounter
--- OUTSIDE RECORDS SUMMARY | 2024-06-27 12:05 | XMS_ITS | Encounter Summary ---
Author Organization [facility] Address [address] [place] [address] Care Team Providers Care Guidance Director Name Role Phone Marck Ramsey MD Primary Care Provider [phone] Encounter Details Date Type Department Care Team (Latest Contact Info) Description 04/09/2024 1:56 PM EDT - 04/09/2024 11:59 PM EDT Hospital Encounter [facility] [address] [facility] [place] [address] Paroxysmal atrial fibrillation; Dizziness; Essential hypertension; LBBB (left bundle branch block); Abnormal EKG Discharge Disposition: Home or Self Care Social History Tobacco Use Types Packs/Day Years [...] on file documented as of this encounter Medications at Time of Discharge albuterol sulfate HFA 108 (90 Base) MCG/ACT inhaler Inhale 2 puffs Every 4 (Four) Hours As Needed for Wheezing. atorvastatin (LIPITOR) 10 MG tablet Take 1 tablet by mouth Every Night. 0 IUGBPEH-LVHUDSEEE-R INC PO Take 1 dose by mouth Every Morning. celecoxib (CeleBREX) 200 MG capsule Take 1 capsule by mouth Every Night. 0 cholecalciferol (VITAMIN D3) 25 MCG (1000 UT) tablet Take 1 tablet by mouth Daily. coenzyme Q10 100 MG capsule Take 1 capsule by mouth Every Night. Denosumab (PROLIA SC) Inject 1 dose under the skin into the appropriate area as directed Every 6 (Six) Months. digoxin (LANOXIN) 250 MCG tablet Take 1 tablet by mouth Every Night. 0 EQ Aspirin Adult Low Dose 81 MG EC tablet Take 1 tablet by mouth Daily. 4 ipratropium-albuter ol (DUO-NEB) 0.5-2.5 mg/3 ml nebulizer Take 3 mL by nebulization Every 4 (Four) Hours As Needed for Wheezing. latanoprost (XALATAN) 0.005 % ophthalmic solution Administer 1 drop to both eyes Every Night. 0 multivitamin with minerals (MULTIVITAMIN ADULTS PO) Take 1 tablet by mouth Daily. vitamin C (ASCORBIC ACID) 500 MG tablet Take 1 tablet by mouth Daily. oxyCODONE-acetamino phen (PERCOCET) 5-325 MG per tabletIndications:H erniated lumbar intervertebral disc Take 1 tablet by mouth Every 6 (Six) Hours As Needed for Severe Pain . 45 tablet 08/29/2020 1:33 PM EST 1 04/28/20 24 Sod Picosulfate-Mag Ox-Cit Acd 10-3.5-12 MG-GM -GM/160ML solution Take 350 mL by mouth Take As Directed. Please follow instructions that were mailed to your home. If you did not receive these instructions please call our office at [phone]. 350 mL 3 04/28/20 24 documented as of this encounter Plan of Treatment Upcoming Encounters Date Type Department Care Team (Late st Contact Info) Description 10/27/2024 11:00 AM EDT Office Visit [facility]IOLOG[facility] [address] [phone] Patrica Otto MD [address] [address] documented as of this encounter Procedures Procedure Name Priority Date/Time Associated Diagnosis Comments OUTSIDE NON-INVASIVE CARDIOLOGY STUDY Routine 04/09/2024 1:56 PM EDT Paroxysmal atrial fibrillation Dizziness Essential hypertension LBBB (left bundle branch block) Abnormal EKG documented in this encounter Results * External Stress Procedure (04/09/2024 1:56 PM EDT) Narrative 04/09/2024 1:56 PM EDT This procedure was auto-finalized with no dictation required. Procedure Note 04/09/2024 This procedure was auto-finalized with no dictation required. Pennie Antony APRN [facility] ORDERABLES Final Result documented in this encounter Visit Diagnoses Diagnosis Paroxysmal atrial fibrillation Atrial fibrillation Dizziness Dizziness and giddiness Essential hypertension Unspecified essential hypertension LBBB (left bundle branch block) Other left bundle branch block Abnormal EKG Nonspecific abnormal electrocardiogram (ECG) (EKG) documented in this encounter Care Teams Guidance Director Relationship Specialty Start Date End Date Marck Ramsey MD [address] [place] [address] PCP - General Family Medicine 07/12/20 documented as of this encounter
--- OUTSIDE RECORDS SUMMARY | 2024-06-27 12:05 | XMS_ITS | Encounter Summary ---
Author Organization [facility] Address [address] [place] [address] Care Team Providers Care Luster Repairer Name Role Phone Marck Ramsey MD Primary Care Provider [phone] Reason for Visit * Reason Comments Med Refill Encounter Details Date Type Department Care Team (Late Contact Info) Description 11/23/2022 Refill [facility] FAMILY MEDICINE [address] [place] [address] Thompson Rodas MD [address] [place] [address] Social History Tobacco Use Types Packs/Day Years [...] Encounters Date Type Department Care Team (Late Contact Info) Description 10/27/2024 11:00 AM EDT Office Visit [facility] CARDIOLOGY [address] [phone] Patrica Otto MD [address] [address] documented as of this encounter Visit Diagnoses Not on filedocumented in this encounter Care Teams Luster Repairer Relationship Specialty Start Date End Date Marck Ramsey MD [address] [place] [address] PCP - General Family Medicine 07/12/20 documented as of this encounter
--- OUTSIDE RECORDS SUMMARY | 2024-06-27 12:05 | XMS_ITS | Encounter Summary ---
Author Organization [facility] Address [address] [place] [address] Care Team Providers Care Regional Merchandising Manager Name Role Phone Marck Ramsey MD Primary Care Provider [phone] Encounter Details Date Type Department Care Team (Late st Contact Info) Description 08/31/2020 Telephone [facility] NEUROSURGERY [address] [place] [address] Georgi Lewis MD Social History [...] encounter Miscellaneous Notes * Telephone Encounter - Zahra Alexandre RegSched Rep - 09/10/2020 9:42 AM EST PT HAS SCHEDULED. * Telephone Encounter - Zahra Alexandre RegSched Rep - 09/06/2020 3:28 PM EST LVM WITH APARNAUNE/DAUGHTER. BEST TIME TO CALL HER IS 12:30 OR 2:30. SPOKE WITH PT AND SHE WILL REACH OUT TO KENN TO CALL OFFICE. * Telephone Encounter - Shanna Zimmerman MA - 09/03/2020 4:22 PM EST Daughter called regarding Trudi's follow-up that she would like to schedule. * Telephone Encounter - Shiloh Rubalcava MA - 08/31/2020 2:41 PM EST [facility] notified and was thankful for the call. * Telephone Encounter - Shiloh Sainz PA-C - 08/31/2020 12:38 PM EST Ok for verbal * Telephone Encounter - Shiloh Rubalcava MA - 08/31/2020 12:05 PM EST Provider: Joshua Caller: Jessica [facility] Time of call: 12:05 Phone #: [phone] Surgery: Lumbar discectomy Surgery Date: 08/27/20 Last visit: same Next visit: LUBNA: Reason for call: Home health called and would like a verbal order to see patient 2ce weekly for 2 weeks, then 1 time for 2 weeks and 1 visit every other week for the next 4 weeks. documented in this encounter Plan of Treatment Upcoming Encounters Date Type Department Care Team (Late st Contact Info) Description 10/27/2024 11:00 AM EDT Office Visit [facility] CARDIOLOGY [address] [phone] Patrica Otto MD [address] [address] documented as of this encounter Visit Diagnoses Not on filedocumented in this encounter Care Teams Regional Merchandising Manager Relationship Specialty Start Date End Date Marck Ramsey [place] [address] PCP - General Family Medicine 07/12/20 documented as of this encounter
--- OUTSIDE RECORDS SUMMARY | 2024-06-27 12:05 | XMS_ITS | Encounter Summary ---
Author Organization [facility] Address [address] [place] [address] Care Team Providers Care Base Filler Operator Name Role Phone Marck Ramsey MD Primary Care Provider [phone] Reason for Visit * Diagnostic Medical (Routine) - Closed Specialty Diagnoses / Procedures Referred By Rossy childs Referred To Contact Gastroenterology Diagnoses Encounter for screening for malignant neoplasm of colon Marck Ramsey MD [address] [place] [address] Phone: tel: fax: Dima Pickens MD [address] [address] Phone: tel: fax: Referral ID Status Reason Start Date Expiration Date Visits Re quested Visits Authorized [id number] Closed 09/21/2022 09/21/2023 1 1 Encounter Details Date Type Department Care Team (Late st Contact Info) Description 01/04/2023 9:00 AM EDT Outside Facility Service [facility] GASTROENTEROLOGY [address] [phone] Dima Pickens MD [address] [place] [address] Social History Tobacco Use Types Packs/Day Years [...] [facility] CARDIOLOGY [address] [place] [id number] Patrica Otto MD [address] [place] [address] documented as of this encounter Visit Diagnoses Not on filedocumented in this encounter Care Teams Base Filler Operator Relationship Specialty Start Date End Date Marck Ramsey MD [address] [place] [address] PCP - General Family Medicine 07/12/20 documented as of this encounter
--- OUTSIDE RECORDS SUMMARY | 2024-06-27 12:05 | XMS_ITS | Encounter Summary ---
Author Organization [facility] Address [address] [place] [address] Care Team Providers Care Historian Research Assistant Name Role Phone Marck Ramsey MD Primary Care Provider [phone] Reason for Visit * Reason Onset Date Comments BOWEL PREP PRESCRIPTION 12/29/2022 Encounter Details Date Type Department Care Team (Late Contact Info) Description 12/29/2022 Telephone [facility] GASTROENTEROLOGY [address] [phone] Kristopher Loya MA BOWEL PREP PRESCRIPTION Social History Tobacco Use Types Packs/Day Years [...] encounter Miscellaneous Notes * Telephone Encounter - Kristopher Loya MA - 12/29/2022 1:17 PM EDT PATIENT CALLED WITH QUESTIONS ABOUT BOWEL PREP, WHEN AND WHERE IT WAS SENT. QUESTIONS ANSWERED. documented in this encounter Plan of Treatment Upcoming Encounters Date Type Department Care Team (Late Contact Info) Description 10/27/2024 11:00 AM EDT Office Visit [facility] CARDIOLOGY [address] [place] [phone] Patrica Otto MD [address] [place] [address] documented as of this encounter Visit Diagnoses Not on filedocumented in this encounter Care Teams Historian Research Assistant Relationship Specialty Start Date End Date Marck Ramsey MD [address] [place] [address] PCP - General Family Medicine 07/12/20 documented as of this encounter
--- OUTSIDE RECORDS SUMMARY | 2024-06-27 12:05 | XMS_ITS | Encounter Summary ---
Author Organization [facility] Address [address] [place] [address] Care Team Providers Care Sock Examiner Name Role Phone Marck Ramsey MD Primary Care Provider [phone] Reason for Visit * Reason Onset Date Comments pathology results 01/10/2023 Encounter Details Date Type Department Care Team (Late st Contact Info) Description 01/10/2023 Telephone [facility] GASTROENTEROLOGY [address] [facility] [address] [place] [phone] Tamika Samano RMA pathology results Social History Tobacco Use Types Packs/Day Years [...] encounter Miscellaneous Notes * Telephone Encounter - Tamika Samano RMA - 01/10/2023 9:59 AM EDT I spoke with Ms Gleason. Pathology results given. * Telephone Encounter - Tamika Samano RMA - 01/10/2023 9:57 AM EDT ----- Message from Dima Pickens MD sent at 01/09/2023 2:16 PM EDT ----- Please let Trudi know she had adenomas. Follow up on a PRN basis is fine as discussed. documented in this encounter Plan of Treatment Upcoming Encounters Date Type Department Care Team (Late st Contact Info) Description 10/27/2024 11:00 AM EDT Office Visit [facility] CARDIOLOGY [address] [place] [address] Patrica Otto MD [address] [place] [address] documented as of this encounter Visit Diagnoses Not on filedocumented in this encounter Care Teams Sock Examiner Relationship Specialty Start Date End Date Marck Ramsey MD [address] [place] [address] PCP - General Family Medicine 07/12/20 documented as of this encounter
--- OUTSIDE RECORDS SUMMARY | 2024-06-27 12:05 | XMS_ITS | Encounter Summary ---
Author Organization [facility] Address [address] [place] [address] Care Team Providers Care Director Design Name Role Phone Marck Ramsey MD Primary Care Provider [phone] Reason for Referral * Physical Therapy (Urgent) - Closed Specialty Diagnoses / Procedures Referred By Rossy childs Referred To Contact Diagnoses Herniated lumbar intervertebral disc Lumbar herniated disc Lisbeth Lewis MD [place] [address] [facility], [place] [address] Phone: tel: fax: Referral ID Status Reason Start Date Expiration Date V isits Requested Visits Authorized [id number] Closed Specialty Services Required 08/29/2020 08/29/2021 1 1 * Physical Therapy (Urgent) - Closed Specialty Diagnoses / Procedures Referred By Rossy childs Referred To Contact Diagnoses Herniated lumbar intervertebral disc Lumbar herniated disc Lisbeth Lewis MD [facility] [address] [facility], [address] [place] [address] Phone: tel: fax: Referral ID Status Reason Start Date Expiration Date V isits Requested Visits Authorized [id number] Closed Specialty Services Required 08/29/2020 08/29/2021 1 1 * Home Health (Routine) - Closed Specialty Diagnoses / Procedures Referred By Contac t Referred To Contact Diagnoses Herniated lumbar intervertebral disc Lumbar herniated disc Lisbeth Lewis MD [facility] [address] [facility], [address] [place] [address] Phone: tel: fax: Referral ID Status Reason Start Date Expiration Date V isits Requested Visits Authorized [id number] Closed Specialty Services Required 08/29/2020 08/29/2021 1 1 * Home Health (Routine) - Closed Specialty Diagnoses / Procedures Referred By Rossy t Referred To Contact Home Health Services Diagnoses Herniated lumbar intervertebral disc Lumbar herniated disc Lisbeth Lewis MD Referral ID Status Reason Start Date Expiration Date V isits Requested Visits Authorized [id number] Closed Specialty Services Required 08/28/2020 08/28/2021 1 1 Reason for Visit * Auth/Cert Specialty Diagnoses / Procedures Referred By Contac t Referred To Contact Diagnoses Herniated lumbar intervertebral disc Herniated lumbar intervertebral disc [M51.26] Procedures DC LAMNOTMY INCL W/DCMPRSN NRV ROOT 1 INTRSPC LUMBR LUMBAR DISCECTOMY L4-L5, right Referral ID Status Reason Start Date Expiration Date Visits Re quested Visits Authorized [id number] 1 1 Encounter Details Date Type Department Care Team (Latest Contact Info) Description 08/27/2020 9:21 AM EST - 08/29/2020 3:27 PM EST Hospital Encounter [address] [place] [phone] Lisbeth Lewis MD Lumbar herniated disc (Primary Dx); Herniated lumbar intervertebral disc Discharge Disposition: Home or Self Care Social [...] Sign Reading Time Taken Comments Blood Pressure 144/76 08/29/2020 7:08 AM EST Pulse 77 08/29/2020 8:24 AM EST Temperature 36.4 ??C (97.6 ??F) 08/29/2020 7:08 AM ES T Respiratory Rate 16 08/29/2020 8:24 AM EST Oxygen Saturation 93% 08/29/2020 8:24 AM EST Inhaled Oxygen Concentration - - Weight - - Height - - Body Mass Index - - documented in this encounter Discharge Summaries * Lisbeth Lewis MD - 08/29/2020 12:55 PM EST Date of Discharge: 08/29/2020 Marck Ramsey MD Discharge Diagnosis: Herniated intervertebral disc L4-L5; spondylolisthesis L4-L5 Procedures Performed Procedure(s): LUMBAR DISCECTOMY L4-L5, right Summary of Hospitalization: 84-year-old female admitted to hospital at this time for surgical excision of a disc fragment extruded from the intradiscal space at L4-L5 with cephalad migration compressing the L5 nerve root manifesting itself is severe, unrelenting radiculopathy. This is in association with a grade 1 acquired spondylolisthesis. This appeared to be relatively stable therefore she wasadmitted to hospital only for the excision of the disc fragment. Surgical findings indeed showed a fragment of disc material which is migrated cephalad herniation compressing the dural cylinder and nerve root. She did well postoperatively. She has some mild confusion which prolonged hospitalization and resolved. She is discharged with home health services. [facility]. Condition on Discharge: Satisfactory Discharge Disposition Home or Self Care Discharge Medications Discharge Medications Continue These Medications Instructions Start Date albuterol sulfate HFA 108 (90 Base) MCG/ACT inhaler Commonly known as: PROVENTIL HFA;VENTOLIN HFA;PROAIR HFA 2 puffs, Inhalation, Every 4 Hours PRN amLODIPine 2.5 MG tablet Commonly known as: NORVASC 2.5 mg, Oral, Daily, FOR 30 DAYS atorvastatin 10 MG tablet Commonly known as: LIPITOR 10 mg, Oral, Nightly [id number] PO 1 dose, Oral, Every Morning celecoxib 200 MG capsule Commonly known as: CeleBREX 200 mg, Oral, Nightly cholecalciferol 25 MCG (1000 UT) tablet Commonly known as: VITAMIN D3 1,000 Units, Oral, Daily coenzyme Q10 100 MG capsule 100 mg, Oral, Nightly digoxin 250 MCG tablet Commonly known as: LANOXIN 250 mcg, Oral, Nightly ipratropium-albuterol 0.5-2.5 mg/3 ml nebulizer Commonly known as: DUO-NEB 3 mL, Nebulization, Every 4 Hours PRN latanoprost 0.005 % ophthalmic solution Commonly known as: XALATAN 1 drop, Both Eyes, Nightly multivitamin with minerals tablet tablet 1 tablet, Oral, Daily oxyCODONE-acetaminophen 5-325 MG per tablet Commonly known as: PERCOCET 1 tablet, Oral, Every 6 Hours PRN PROLIA SC 1 dose, Subcutaneous, Every 6 Months vitamin C 500 MG tablet Commonly known as: ASCORBIC ACID 500 mg, Oral, Daily Wixela Inhub 250-50 MCG/DOSE DISKUS Generic drug: fluticasone-salmeterol 1 puff, Inhalation, 2 Times Daily - RT Follow-up Appointments No future appointments. Additional Instructions for the Follow-ups that You Need to Schedule Ambulatory Referral to Home Health As directed Face to Face Visit Date: 08/28/2020 Follow-up provider for Plan of Care?: I treated the patient in an acute care facility and will not continue treatment after discharge. Follow-up provider: MARCK RAMSEY [[id number]] Reason/Clinical Findings: post op laminectomy Describe mobility limitations that make leaving home difficult: pain, limited endurance Nursing/Therapeutic Services Requested: Intermediate Physical Therapy nursing home orders: Other (Post surgical care) PT orders: Therapeutic exercise Gait Training Transfer training Strengthening Home safety assessment Weight Bearing Status: Full Weight Bearing Frequency: 1 Week 1 Ambulatory Referral to Home Health As directed Please check incision 2 days a week for 2 weeks. Thank you Order Comments: Please check incision 2 days a week for 2 weeks. Thank you Face to Face Visit Date: 08/29/2020 Follow-up provider for Plan of Care?: I will be treating the patient on an ongoing basis. Please send me the Plan of Care for signature. Follow-up provider: LISBETH LEWIS [[id number]] Reason/Clinical Findings: Wound check Describe mobility limitations that make leaving home difficult: Spinal surgery Nursing/Therapeutic Services Requested: Intermediate nursing home orders: Wound care dressing/changes Frequency: 1 Week 1 Ambulatory Referral to Physical Therapy Evaluate and treat; Strengthening As directed Patient had herniated disc excised. Has a spondylolisthesis L4-L5. Needs gentle increase activities. Avoid excessive range of motion's, etc. Order Comments: Patient had herniated disc excised. Has a spondylolisthesis L4- L5. Needs gentle increase activities. Avoid excessive range of motion's, etc. Specialty needed: Evaluate and treat Exercises: Strengthening Discharge Follow-up with Specialty: Neurosurgery; 6 Weeks As directed Specialty: Neurosurgery Follow Up: 6 Weeks Follow Up Details: Postoperative follow-up with Jassi/Joshua Referral to Occupational Therapy As directed Status post excision of herniated disc and marked deconditioning and generalized weakness. Order Comments: Status post excision of herniated disc and marked deconditioning and generalized weakness. Specialty needed: Evaluate and treat Lisbeth Lewis MD 08/29/20 12:55 EST * Celeste Crawley RN - 08/28/2020 12:29 PM EST Mohinder Walters (84 y.o. Female) Celeste Crawley, hotel maid [facility] [phone] Date of Social Security Number Address Home Phone MRN [id number] [id number] [employer] Marital Status None Admission Date Admission Type Admitting Provider Attending Provider Department, Room/Bed 08/27/20 Elective Lisbeth Lewis MD Brooks, William H, MD [facility] 3G, S364/1 Discharge Date Discharge Disposition Discharge Destination Attending Provider: Lisbeth Lewis MD Allergies: Demerol [Meperidine], Valium [Diazepam] Isolation: None Infection: None Code Status: CPR Ht: 149.9 cm (59 ) Wt: 43.6 kg (96 lb 3.2 oz) Admission Cmt: None Principal Problem: Herniated lumbar intervertebral disc [M51.26] More... Active Insurance as of 08/27/2020 Primary Coverage Payor Plan Insurance Group Employer/Plan Group HUMANA MEDICARE REPLACEMENT HU[employer]NA MEDICARE REPLACEMENT [id number] Payor Plan Address Payor Plan Phone Number Payor Plan Fax Number Effective Dates [address] [address] 08/13/2019 - None Entered [facility] [address] Subscriber Name Subscriber Date Member ID MOHINDER WALTERS 1935 [id number] Emergency Contacts Vegetable Farm Worker (Rel.) Home Phone Work Phone Mobile Phone VINI WALTERS (Son) -- -- [phone] BaudetteKaren solorzano (Relative) -- -- [phone] [address] Fax: Date: Aug 28, 2020 ?? Ambulatory Referral to Home Health ?? Patient: Mohinder Walters [address] [place] [address] : 1935 SSN: [id number] Sex: F ?? INSURANCE PAYOR PLAN GROUP # SUBSCRIBER ID Primary: ?? HU[employer]NA MEDICARE REPLACEMENT [id number] ?? Referring Provider Information: LISBETH LEWIS Fax: ?? Referral Information: # Visits: 1 Referral Type: Home Health [42] Urgency: Routine Referral Reason: Specialty Services Required Start Date: Aug 28, 2020 End Date: To be determined by Insurer Diagnosis: Herniated lumbar intervertebral disc (M51.26 [ICD-10-CM] 722.10 [ICD-9-CM]) Lumbar herniated disc (M51.26 [ICD-10-CM] 722.10 [ICD-9-CM]) ?? Refer to Dept: Refer to Provider: Refer to Facility: ?? Face to Face Visit Date: 08/28/2020 Follow-up provider for Plan of Care? I treated the patient in an acute care facility and will not continue treatment after discharge. Follow-up provider: MARCK RAMSEY [[id number]] Reason/Clinical Findings: post op laminectomy Describe mobility limitations that make leaving home difficult: pain, limited endurance Nursing/Therapeutic Services Requested: Intermediate Nursing/Therapeutic Services Requested: Physical Therapy nursing home orders: Other (Post surgical care) PT orders: Therapeutic exercise PT orders: Gait Training PT orders: Transfer training PT orders: Strengthening PT orders: Home safety assessment Weight Bearing Status: Full Weight Bearing Frequency: 1 Week 1 ?? This document serves as a request of services and does not constitute Insurance authorization or approval of services.?? To determine eligibility, please contact the members Insurance carrier to verify and review coverage. ?? If you have medical questions regarding this request for services. Please contact [address] at [phone] during normal business hours. ?? Verbal Order Mode: Verbal with readback Authorizing Provider: Lisbeth Lewis MD Authorizing Provider's ?? Order Entered By: Celeste Crawley RN 08/28/2020 11:46 AM ?? Electronically signed by: Lisbeth Lewis MD 08/28/2020 12:08 PM ?? History & Physical Gabi Arce APRN at 08/27/20 1050 Attestation signed by Lisbeth Lewis MD at 08/27/20 1056 k Pre-Op H&P Mohinder Walters [id number] 1935 Chief complaint: Back pain Subjective: Patient is a 84 y.o.female presents for scheduled surgery by Dr. Lewis. She anticipates a LUMBAR DISCECTOMY L4-L5, right today. Her back has been painful since May; she denies injury. She has intermittent pain that radiates down her RLE. She denies use of assistive device for ambulation or recent falls. She denies saddle anesthesia. Review of Systems: Constitutional-- No fever, chills or sweats. No fatigue. CV-- No chest pain, palpitation or syncope. +HTN, HLD Resp-- No SOB, cough, hemoptysis Skin--No rashes or lesions Allergies: Allergies Allergen Reactions ??? Demerol [Meperidine] GI Intolerance ??? Valium [Diazepam] Mental Status Change Agitation Home Meds: Medications Prior to Admission Medication Sig Dispense Refill Last Dose ??? amLODIPine (NORVASC) 2.5 MG tablet Take 2.5 mg by mouth Daily. FOR 30 DAYS 08/27/2020 at 0730 ??? atorvastatin (LIPITOR) 10 MG tablet Take 10 mg by mouth Every Night. 08/26/2020 at 2100 ??? [id number] PO Take 1 dose by mouth Every Morning. 08/26/2020 at 1000 ??? celecoxib (CeleBREX) 200 MG capsule Take 200 mg by mouth Every Night. 08/26/2020 at 2100 ??? cholecalciferol (VITAMIN D3) 25 MCG (1000 UT) tablet Take 1,000 Units by mouth Daily. 08/26/2020t 1000 ??? coenzyme Q10 100 MG capsule Take 100 mg by mouth Every Night. 08/26/2020 at 2100 ??? digoxin (LANOXIN) 250 MCG tablet Take 250 mcg by mouth Every Night. 08/26/2020 at 200 ??? ipratropium-albuterol (DUO-NEB) 0.5-2.5 mg/3 ml nebulizer Take 3 mL by nebulization Every 4 (Four) Hours As Needed for Wheezing. 08/27/2020 at 0600 ??? latanoprost (XALATAN) 0.005 % ophthalmic solution Administer 1 drop to both eyes Every Night. 08/26/2020 at 2100 ??? multivitamin with minerals (MULTIVITAMIN ADULTS PO) Take 1 tablet by mouth Daily. 08/26/2020 at 1000 ??? oxyCODONE-acetaminophen (PERCOCET) 5-325 MG per tablet Take 1 tablet by mouth Every 6 (Six) Hours As Needed for Severe Pain . 45 tablet 0 08/27/2020 at 0600 ??? vitamin C (ASCORBIC ACID) 500 MG tablet Take 500 mg by mouth Daily. 08/26/2020 at 1000 ??? Wixela Inhub 250-50 MCG/DOSE DISKUS Inhale 1 puff 2 (Two) Times a Day. 08/27/2020 at 0600 ??? albuterol sulfate HFA 108 (90 Base) MCG/ACT inhaler Inhale 2 puffs Every 4 (Four) Hours As Needed for Wheezing. More than a month at Unknown time ??? Denosumab (PROLIA SC) Inject 1 dose under the skin into the appropriate area as directed Every 6 (Six) Months. 06/27/2020 PMH: Past Medical History: Diagnosis Date ??? Arthritis ??? Asthma nebs daily; inhaler ??? Back pain ??? COPD (chronic obstructive pulmonary disease) (CMS/HCC) ??? Glaucoma ??? Hearing loss ??? History of bronchitis frequent; last time 08/09/20 ??? History of pneumonia hospitalized ??? Hypertension ??? Osteoporosis ??? PONV (postoperative nausea and vomiting) severe PSH: Past Surgical History: Procedure Laterality Date ??? APPENDECTOMY ??? BLADDER SURGERY 3 surgeries; last surgery required sphincter repair ??? CARDIAC CATHETERIZATION ??? CATARACT EXTRACTION Bilateral ??? COLONOSCOPY ??? GALLBLADDER SURGERY ??? HYSTERECTOMY ??? TONSILLECTOMY AND ADENOIDECTOMY ??? TUBAL ABDOMINAL LIGATION Immunization History: Influenza: 2019 Pneumococcal: UTD Tetanus: No Social History: Tobacco: Social History Tobacco Use Smoking Status Former Smoker ??? Packs/day: 0.50 ??? Years: 10.00 ??? Pack years: 5.00 ??? Types: Cigarettes ??? Quit date: 08/13/1962 ??? Years since quittin.0 Smokeless Tobacco Never Used Alcohol: Social History Substance and Sexual Activity Alcohol Use Yes Comment: social Physical Exam:BP 176/89 (BP Location: Right arm, Patient Position: Lying) Pulse 90 Temp 98.2 ??F (36.8 ??C) (Temporal) Resp 18 SpO2 91% General Appearance: Alert, cooperative, no distress, appears stated age Head: Normocephalic, without obvious abnormality, atraumatic Lungs: Clear to auscultation bilaterally, respirations unlabored Heart: Regular rate and rhythm, S1 and S2 normal Abdomen: Soft without tenderness Breast Exam: deferred Genitalia: deferred Extremities: Extremities normal, atraumatic, no cyanosis or edema Skin: Skin color, texture, turgor normal, no rashes or lesions Neurologic: Grossly intact Results Review: LABS: Lab Results Component Value Date WBC 20.63 (H) 08/25/2020 HGB 15.4 08/25/2020 HCT 47.4 (H) 08/25/2020 MCV 91.5 08/25/2020 PLT 287 08/25/2020 GLUCOSE 126 (H) 08/09/2020 BUN 24 (H) 08/09/2020 CREATININE 0.75 08/09/2020 EGFRIFNONA 73 08/09/2020 NA 141 08/09/2020 K 4.0 08/25/2020 CL 100 08/09/2020 CO2 30.0 (H) 08/09/2020 CALCIUM 10.7 (H) 08/09/2020 ALBUMIN 4.50 08/09/2020 AST 29 08/09/2020 ALT 53 (H) 08/09/2020 BILITOT 0.6 08/09/2020 RADIOLOGY: Imaging Results (Last 72 Hours) No results found for the last 72 hours. I reviewed the patient's new clinical results. Cancer Staging (if applicable) Cancer Patient: __ yes __no __unknown; If yes, clinical stage T:__ N:__M:__, stage group or __N/A Impression: Herniated lumbar intervertebral disc Plan: LUMBAR DISCECTOMY L4-L5, right Gabi Arce, CLINICAL ACCOUNT MANAGER 08/27/2020 10:50 EST 1056 Physician Progress Notes (most recent note) Lisbeth Lewis MD at 08/28/20 0748 FOLLOW UP ENCOUNTER CHIEF COMPLAINT:: POD #1: Laminotomy discectomy L4-5, right MEDICAL HISTORY SINCE LAST ENCOUNTER : She has had good relief from her radiculopathy; incisional pain as anticipated. No unusual complaints or needs at this time. ASSESSMENT/DISPOSITION : 1. We will check with case management and physical therapy as to post hospital plans and care. 0749 Consult Notes (most recent note) No notes of this type exist for this encounter. Nutrition Notes (most recent note) No notes exist for this encounter. Physical Therapy Notes (most recent note) No notes exist for this encounter. Occupational Therapy Notes (most recent note) No notes exist for this encounter. documented in this encounter Discharge Instructions * Attachments The following attachments cannot be sent through Care Everywhere. * Lumbar Diskectomy Care After (Uruguayan) * Acetaminophen; Oxycodone capsules (Uruguayan) * Preventing Constipation After Surgery (Uruguayan) documented in this encounter Medications at Time of Discharge albuterol sulfate HFA 108 (90 Base) MCG/ACT inhaler Inhale 2 puffs Every 4 (Four) Hours As Needed for Wheezing. atorvastatin (LIPITOR) 10 MG tablet Take 1 tablet by mouth Every Night. 0 [id number]-[id number]-S INC PO Take 1 dose by mouth [...] 1 tablet by mouth Every Night. 0 ipratropium-albuter ol (DUO-NEB) 0.5-2.5 mg/3 ml nebulizer Take 3 mL by nebulization Every 4 (Four) Hours As Needed for Wheezing. latanoprost (XALATAN) 0.005 % ophthalmic solution Administer 1 drop to both eyes Every Night. 0 multivitamin with minerals (MULTIVITAMIN ADULTS PO) Take 1 tablet by mouth Daily. vitamin C (ASCORBIC ACID) 500 MG tablet Take 1 tablet by mouth Daily. amLODIPine (NORVASC) 2.5 MG tablet Take 1 tablet by mouth Daily. FOR 30 DAYS 0 03/19/20 24 oxyCODONE-acetamino phen (PERCOCET) 5-325 MG per tabletIndications:H erniated lumbar intervertebral disc Take 1 tablet by mouth Every 6 (Six) Hours As Needed for Severe Pain . 45 tablet 08/29/2020 1:33 PM EST 1 04/28/20 24 Wixela Inhub 250-50 MCG/DOSE DISKUS Inhale 1 puff 2 (Two) Times a Day. 0 03/19/20 24 documented as of this encounter Progress Notes * Celeste Crawley RN - 08/29/2020 1:03 PM EST Faxed discharge summary to [facility]. Patient is scheduled for initial visit on 08-31-20. * Lisbeth Lewis MD - 08/29/2020 8:15 AM EST FOLLOW UP ENCOUNTER CHIEF COMPLAINT:: POD #2: Laminotomy and disc excision MEDICAL HISTORY SINCE LAST ENCOUNTER : I have reviewed the notes and recommendations of physical and Occupational Therapy. In my opinion, this elderly lady with the cognitive issues that she is exhibiting (longstanding) and rehabilitationis required she would clearly benefit from a short stay with inpatient rehabilitation. I realize all health services for PT/nursing care and OT are available. However she states that shewill have difficulty getting in and out of her bed which is exceedingly high. ASSESSMENT/DISPOSITION : 1. We will ask case management to review this morning. If she is to be discharged that can be done this afternoon. I will await to hear from them prior to moving forward. * Celeste Crawley RN - 08/28/2020 12:56 PM EST Case Management Discharge Note Final Note: Home with home health Selected Continued Care - Admitted Since 08/27/2020 Destination No services have been selected for the patient. Durable Medical Equipment No services have been selected for the patient. Dialysis/Infusion No services have been selected for the patient. Home Medical Care No services have been selected for the patient. Therapy No services have been selected for the patient. Community Resources No services have been selected for the patient. Final Discharge Disposition Code: 06 - home with home health care * Celeste Crawley RN - 08/28/2020 11:47 AM EST Continued Stay Note AMPARO Pereira Patient Name: Mohinder Walters Today's Date: 08/28/2020 Admit Date: 08/27/2020 Discharge Plan Row Name 08/28/20 1146 Plan Plan Home with home health Patient/Family in Agreement with Plan yes Plan Comments Home with home health Final Discharge Disposition Code 06 - home with home health care Discharge Codes No documentation. Celeste Crawley RN * Celeste Crawley RN - 08/28/2020 11:42 AM EST Spoke to therapist, Airam, regarding patient physical status. Airam recommends home with assistance and home health. Spoke to daughter, Mansi, who requests [facility] at discharge. She states her sister will be in the home and available 05/03. They now have a life alert system for patient to use. Will arrange home health for discharge. * Celeste Crawley RN - 08/28/2020 9:58 AM EST Case Management order received to evaluate home needs and determine who is going to provide care [facility] states she is going to an extended care facility. Case management awaiting therapy recommendations to determine level of function prior to contacting daughter to discuss home vs rehab. * Lisbeth Lewis MD - 08/28/2020 7:48 AM EST FOLLOW UP ENCOUNTER CHIEF COMPLAINT:: POD #1: Laminotomy discectomy L4-5, right MEDICAL HISTORY SINCE LAST ENCOUNTER : She has had good relief from her radiculopathy; incisional pain as anticipated. No unusual complaints or needs at this time. ASSESSMENT/DISPOSITION : 1. We will check with case management and physical therapy as to post hospital plans and care. documented in this encounter H&P Notes * Gabi Arce APRN - 08/27/2020 10:50 AM EST Pre-Op H&P Mohinder M [place] [id number] 1935 Chief complaint: Back pain Subjective: Patient is a 84 y.o.female presents for scheduled surgery by Dr. Lewis. She anticipates a LUMBAR DISCECTOMY L4-L5, right today. Her back has been painful since May; she denies injury. She has intermittent pain that radiates down her RLE. She denies use of assistive device for ambulation or recent falls. She denies saddle anesthesia. Review of Systems: Constitutional-- No fever, chills or sweats. No fatigue. CV-- No chest pain, palpitation or syncope. +HTN, HLD Resp-- No SOB, cough, hemoptysis Skin--No rashes or lesions Allergies: Allergies Allergen Reactions ??? Demerol [Meperidine] GI Intolerance ??? Valium [Diazepam] Mental Status Change Agitation Home Meds: Medications Prior to Admission Medication Sig Dispense Refill Last Dose ??? amLODIPine (NORVASC) 2.5 MG tablet Take 2.5 mg by mouth Daily. FOR 30 DAYS 08/27/2020 at 0730 ??? atorvastatin (LIPITOR) 10 MG tablet Take 10 mg by mouth Every Night. 08/26/2020 at 2100 ??? [id number]-[id number] PO Take 1 dose by mouth Every Morning. 08/26/2020 at 1000 ??? celecoxib (CeleBREX) 200 MG capsule Take 200 mg by mouth Every Night. 08/26/2020 at 2100 ??? cholecalciferol (VITAMIN D3) 25 MCG (1000 UT) tablet Take 1,000 Units by mouth Daily. 08/26/2020t 1000 ??? coenzyme Q10 100 MG capsule Take 100 mg by mouth Every Night. 08/26/2020 at 2100 ??? digoxin (LANOXIN) 250 MCG tablet Take 250 mcg by mouth Every Night. 08/26/2020 at 200 ??? ipratropium-albuterol (DUO-NEB) 0.5-2.5 mg/3 ml nebulizer Take 3 mL by nebulization Every 4 (Four) Hours As Needed for Wheezing. 08/27/2020 at 0600 ??? latanoprost (XALATAN) 0.005 % ophthalmic solution Administer 1 drop to both eyes Every Night. 08/26/2020 at 2100 ??? multivitamin with minerals (MULTIVITAMIN ADULTS PO) Take 1 tablet by mouth Daily. 08/26/2020 at 1000 ??? oxyCODONE-acetaminophen (PERCOCET) 5-325 MG per tablet Take 1 tablet by mouth Every 6 (Six) Hours As Needed for Severe Pain . 45 tablet 0 08/27/2020 at 0600 ??? vitamin C (ASCORBIC ACID) 500 MG tablet Take 500 mg by mouth Daily. 08/26/2020 at 1000 ??? Wixela Inhub 250-50 MCG/DOSE DISKUS Inhale 1 puff 2 (Two) Times a Day. 08/27/2020 at 0600 ??? albuterol sulfate HFA 108 (90 Base) MCG/ACT inhaler Inhale 2 puffs Every 4 (Four) Hours As Needed for Wheezing. More than a month at Unknown time ??? Denosumab (PROLIA SC) Inject 1 dose under the skin into the appropriate area as directed Every 6 (Six) Months. 06/27/2020 PMH: Past Medical History: Diagnosis Date ??? Arthritis ??? Asthma nebs daily; inhaler ??? Back pain ??? COPD (chronic obstructive pulmonary disease) (CMS/HCC) ??? Glaucoma ??? Hearing loss ??? History of bronchitis frequent; last time 08/09/20 ??? History of pneumonia hospitalized ??? Hypertension ??? Osteoporosis ??? PONV (postoperative nausea and vomiting) severe PSH: Past Surgical History: Procedure Laterality Date ??? APPENDECTOMY ??? BLADDER SURGERY 3 surgeries; last surgery required sphincter repair ??? CARDIAC CATHETERIZATION ??? CATARACT EXTRACTION Bilateral ??? COLONOSCOPY ??? GALLBLADDER SURGERY ??? HYSTERECTOMY ??? TONSILLECTOMY AND ADENOIDECTOMY ??? TUBAL ABDOMINAL LIGATION Immunization History: Influenza: 2019 Pneumococcal: UTD Tetanus: No Social History: Tobacco: Social History Tobacco Use Smoking Status Former Smoker ??? Packs/day: 0.50 ??? Years: 10.00 ??? Pack years: 5.00 ??? Types: Cigarettes ??? Quit date: 08/13/1962 ??? Years since quittin.0 Smokeless Tobacco Never Used Alcohol: Social History Substance and Sexual Activity Alcohol Use Yes Comment: social Physical Exam:BP 176/89 (BP Location: Right arm, Patient Position: Lying) Pulse 90 Temp 98.2 ??F (36.8 ??C) (Temporal) Resp 18 SpO2 91% General Appearance: Alert, cooperative, no distress, appears stated age Head: Normocephalic, without obvious abnormality, atraumatic Lungs: Clear to auscultation bilaterally, respirations unlabored Heart: Regular rate and rhythm, S1 and S2 normal Abdomen: Soft without tenderness Breast Exam: deferred Genitalia: deferred Extremities: Extremities normal, atraumatic, no cyanosis or edema Skin: Skin color, texture, turgor normal, no rashes or lesions Neurologic: Grossly intact Results Review: LABS: Lab Results Component Value Date WBC 20.63 (H) 08/25/2020 HGB 15.4 08/25/2020 HCT 47.4 (H) 08/25/2020 MCV 91.5 08/25/2020 PLT 287 08/25/2020 GLUCOSE 126 (H) 08/09/2020 BUN 24 (H) 08/09/2020 CREATININE 0.75 08/09/2020 EGFRIFNONA 73 08/09/2020 NA 141 08/09/2020 K 4.0 08/25/2020 CL 100 08/09/2020 CO2 30.0 (H) 08/09/2020 CALCIUM 10.7 (H) 08/09/2020 ALBUMIN 4.50 08/09/2020 AST 29 08/09/2020 ALT 53 (H) 08/09/2020 BILITOT 0.6 08/09/2020 RADIOLOGY: Imaging Results (Last 72 Hours) No results found for the last 72 hours. I reviewed the patient's new clinical results. Cancer Staging (if applicable) Cancer Patient: __ yes __no __unknown; If yes, clinical stage T:__ N:__M:__, stage group or __N/A Impression: Herniated lumbar intervertebral disc Plan: LUMBAR DISCECTOMY L4-L5, right Gabi Arce APRN 08/27/2020 10:50 EST Cosigned by Lisbeth Lewis MD at 08/27/2020 10:56 AM EST Associated attestation - Lisbeth Lewis MD - 08/27/2020 10:56 AM EST k documented in this encounter Nursing Notes * Jan Woods RN - 08/29/2020 3:42 AM EST Problem: Adult Inpatient Plan of Care Goal: Absence of Hospital-Acquired Illness or Injury Intervention: Identify and Manage Fall Risk Recent Flowsheet Documentation Taken 08/29/2020 0200 by Jan Woods RN Safety Promotion/Fall Prevention: activity supervised assistive device/personal items within reach clutter free environment maintained fall prevention program maintained gait belt mobility aid in reach nonskid shoes/slippers when out of bed room organization consistent safety round/check completed Taken 08/29/2020 0000 by Jan Woods RN Safety Promotion/Fall Prevention: activity supervised assistive device/personal items within reach clutter free environment maintained fall prevention program maintained gait belt nonskid shoes/slippers when out of bed room organization consistent safety round/check completed Taken 08/28/20202199 by Jan Woods RN Safety Promotion/Fall Prevention: activity supervised assistive device/personal items within reach clutter free environment maintained fall prevention program maintained nonskid shoes/slippers when out of bed room organization consistent safety round/check completed gait belt Taken 08/28/20201999 by Jan Woods RN Safety Promotion/Fall Prevention: activity supervised assistive device/personal items within reach clutter free environment maintained fall prevention program maintained nonskid shoes/slippers when out of bed room organization consistent safety round/check completed gait belt mobility aid in reach Intervention: Prevent Skin Injury Recent Flowsheet Documentation Taken 08/29/2020 0200 by Jan Woods RN Body Position: position changed independently side-lying, right Taken 08/29/2020 0000 by Jan Woods RN Body Position: position changed independently Taken 08/28/20202199 by Jan Woods RN Body Position: position changed independently tilted, right Taken 08/28/20201999 by Jan Woods RN Body Position: position changed independently neutral body alignment Intervention: Prevent and Manage VTE (venous thromboembolism) Risk Recent Flowsheet Documentation Taken 08/28/20201999 by Jan Woods RN VTE Prevention/Management: bilateral sequential compression devices on Goal: Optimal Comfort and Wellbeing Intervention: Provide Person-Centered Care Recent Flowsheet Documentation Taken 08/28/20201999 by Jan Woods RN Trust Relationship/Rapport: care explained choices provided emotional support provided empathic listening provided questions answered questions encouraged reassurance provided thoughts/feelings acknowledged Goal Outcome Evaluation: Plan of Care Reviewed With: patient Progress: improving * Angelina Ahmadi, OT - 08/28/2020 2:31 PM EST Goal Outcome Evaluation: Plan of Care Reviewed With: patient Progress: improving Outcome Summary: OT evaluation completed. Pt. demonstrating mild decrease strength and balance impacting ADL and mobility independence, but biggest deficit is with STM remembering spinal precauationsand applying precautions to functional task performance. Pt needing cues throughout session, but able to log roll in and out of bed and perform toileting and wiping pérez area, wash hands at sink and reshma and doff socks by crossing LE up, but with pain so educated on how to use AE to retrieve item from floor and reshma and doff socks and pt. demonstrated back with cues. Educated on other uses of AE.Pt. will benefit from continued skilled OT services to continue work with AE and education for maint aining spinal precautions with functional tasks. Recommend home with 24/7 A/S and HH OT at discharge. * Airam Mcnally, PT - 08/28/2020 1:34 PM EST Goal Outcome Evaluation: Plan of Care Reviewed With: patient Progress: improving Outcome Summary: PT eval completed. Patient presents w/ post-surgical weakness and decreased independence w/ functional mobility. She completed bed mobility w/ CGA, transfers w/ CGA, and ambulated 350ft w/out AD w/ CGA. Issued illustrated handout w/ spinal precautions and HEP and initiated TherEx. Pt. would benefit from skilled IPPT to improve pt's safety and independence w/ functional mobility, including stair training. Recommend home w/ assist and HHPT at D/C. * Anna Raman RN - 08/28/2020 4:37 AM EST Goal Outcome Evaluation: Plan of Care Reviewed With: patient Progress: improving PT HAS NOT SLEPT. REMAINS ON RA. COMPLAINTS OF PAIN TIMES ONE, RECEIVED PO PAIN MED. VOIDING WITHOUT DIFFICULTY. AMBULATING TO BATHROOM WITHOUT DIFFICULTY. documented in this encounter OR Notes * Op Note - Lisbeth Lewis MD - 08/27/2020 11:41 AM EST Preoperative diagnosis: [Herniated intervertebral disc L4-L5, right] Postoperative diagnosis: Same Operation performed: Laminotomy and excision of intervertebral disc L4-L5 right Surgeon: Lisbeth Lewis Oliving Machine Operator: Blessing Keene was responsible for performing the following activities: Retraction,Suction, Irrigation, Suturing, Closing, Placing Dressing, Hemostasis, Dissection, Preparation and Draping, and their skilled assistance was necessary for the success of this case. Indication:[This is an 84-year-old female who has a protracted history of back pain rating into herright leg. Diagnostic studies showed a grade 1 acquired spondylolisthesis at L4-5 with a fragment of disc which extruded from the disc space cephalad compressing the nerve root. Failing to respond toconservative-ism she was admitted to hospital at this time for extraction of the disc fragment and not PLIF.]. The risks and benefits of the procedure were discussed with the patient preoperatively. Consent forms were given and signatures obtained. All questions were answered satisfactorily and thepatient wished to proceed with with the procedure. Operative report: Subsequent to the induction of general anesthesia the patient was placed in a prone and flexed position. Prep and drape was performed in the usual fashion. Through a linear incision, the paraspinal musculature was dissected exposing the spinous process and lamina of L4. The appropriate level was determined radiographically. A self-retaining retractor was inserted. A laminotomy was performed using the Kerrison punch and Mid[employer] Colton high-speed drill. Medial facetectomy and foraminotomy was carried out.. The ligamentum flavum was excised and the nerve root identified. The surgical findings included : A very small and limited laminotomy was performed. Care was made to preserve the integrity of the facet complex and well within the medial border of the pars interarticularis. The ligamentum flavum was excised. The nerve root was retracted medially to reveal a fragment of disc material which is extended subligamentous cephalad from the intervertebral disc space which itself was relatively empty. The ligament was open and the degenerative fragments were removed thereby decompressing the L5 nerve root. A foraminotomy was not performed nor was the medial aspect of the facet compromise. There was a spondylolisthesis of L4 anterior to the superior margin of L5 which was left unattended. A minimal procedure was performed in order to attempt to prevent more extensive surgery which would be required such as a PLIF should the facet complex be violated. The nerve root and dura were widely decompressed. A blunt probe passed freely through the neural foramen. No additional compressive elements were identified. Hemostasis was obtained with the use of Gelfoam and FloSeal. The wound was closed with multiple layers of Vicryl. A sterile dressing was applied and the patient was taken to recovery in satisfactory condition. Complications: None appreciated []. documented in this encounter Miscellaneous Notes * Therapy Evaluation - Angelina Ahmadi, OT - 08/28/2020 2:31 PM EST Patient Name: Mohinder Walters : 1935 Today's Date: 08/28/2020 Admit Date: 08/27/2020 Visit Dx: ICD-10-CM ICD-9-CM 1. Lumbar herniated disc M51.26 722.10 2. Herniated lumbar intervertebral disc M51.26 722.10 Patient Active Problem List Diagnosis ??? Lumbar herniated disc ??? Herniated lumbar intervertebral disc Past Medical History: Diagnosis Date ??? Arthritis [...] COLONOSCOPY ??? GALLBLADDER SURGERY ??? HYSTERECTOMY ??? TONSILLECTOMY AND ADENOIDECTOMY ??? TUBAL ABDOMINAL LIGATION General Information Row Name 08/28/20 1511 OT Time and Intention Document Type evaluation -CAMILA Mode of Treatment individual therapy;occupational therapy -CAMILA Row Name 08/28/20 151 General Information Patient Profile Reviewed yes -CAMILA Prior Level of Function independent:;all household mobility;ADL's;dependent:;cooking;max assist:;cleaning per pt. DIL cooks and clean all but her area of the house -CAMILA Existing Precautions/Restrictions fall;spinal -CAMILA Barriers to Rehab cognitive status;hearing deficit pt. with hearing aids. Pt. needing constant reminder throughout session to keep spinal precauations. -CAMILA Row Name 08/28/20 1511 Living Environment Lives With child(iza), adult son and DIL -CAMILA Row Name 08/28/20 1511 Home Main Entrance Number of Stairs, Main Entrance six -CAMILA Stair Railings, Main Entrance railings on both sides of stairs -CAMILA Row Name 08/28/20 1511 Stairs Within Home, Primary Number of Stairs, Within Home, Primary none -CAMILA Row Name 08/28/20 1511 Cognition Orientation Status (Cognition) oriented x 4 -CAMILA Row Name 08/28/20 1511 Safety Issues, Functional Mobility Safety Issues Affecting Function (Mobility) safety precaution awareness;safety precautions follow-through/compliance -CAMILA Impairments Affecting Function (Mobility) balance;strength -CAMILA Row Name 08/28/20 151 Relationship/Environment Name(s) of Who Lives With Patient tub shower, but no grab bars, per pt. she drives -CAMILA User Montoya (r) = Recorded By, (t) = Taken By, (c) = Cosigned By Initials Name Provider Type Angelina Machado, OT Occupational Therapist Mobility/ADL's Row Name 08/28/20 1514 Bed Mobility Rolling Left Cascade (Bed Mobility) supervision;verbal cues -CAMILA Rolling Right Cascade (Bed Mobility) supervision;verbal cues -CAMILA [place] Cascade (Bed Mobility) supervision;verbal cues -CAMILA Bed Mobility, Safety Issues cognitive deficits limit understanding -CAMILA Comment (Bed Mobility) placed bed flat without a rail to simulate home setting. Pt. needed cues forlog roll and to keep precautions. - Row Name 08/28/20 151 Transfers Transfers sit-stand transfer;toilet transfer - Comment (Transfers) cues throughout not to bend forward or to twist. Cues for hand placement. Pt. wanting to hold to walker getting on and off toilet. -CAMILA Sit-Stand Cascade (Transfers) contact guard;verbal cues -CAMILA Cascade Level (Toilet Transfer) verbal cues;contact guard - Assistive Device (Toilet Transfer) walker, front-wheeled;raised toilet seat - Row Name 08/28/20 1514 Toilet Transfer Type (Toilet Transfer) sit-stand;stand-sit - Row Name 08/28/20 1514 Functional Mobility Functional Mobility- Ind. Level contact guard assist - Functional Mobility- Device rolling walker - Functional Mobility-Distance (Feet) 35 - Row Name 08/28/20 1535 08/28/20 1514 Activities of Daily Living BADL Assessment/Intervention grooming - bathing;lower body dressing;toileting - Row Name 08/28/20 1514 Bathing Assessment/Intervention Comment (Bathing) OT simulated for patient 2 time how to use LH bath sponge to clean LE's and keep spinal precauations. - Row Name 08/28/20 1514 Lower Body Dressing Assessment/Training Cascade Level (Lower Body Dressing) doff;don;socks;minimum assist (75% patient effort);verbal cues - Assistive Devices (Lower Body Dressing) sock-aid;long-handled shoe horn;academic support specialist - Position (Lower Body Dressing) edge of bed sitting -CAMILA Comment (Lower Body Dressing) educated pt. on spinal precauations and how could cross up LE, but not bend. Pt. able to perform, but with strain to back so educated on AE and pt. able to reshma sock andpull on with min A and mod cues. Educated on other uses of AE and pt. able to use academic support specialist to picking machine operator items from floor in sitting. - Row Name 08/28/20 1514 Toileting Assessment/Training Cascade Level (Toileting) toileting skills;standby assist;verbal cues -CAMILA Assistive Devices (Toileting) raised toilet seat;grab bar/safety frame -CAMILA Position (Toileting) supported sitting -CAMILA Comment (Toileting) pt. wanting to use wx instead of grab bar to raise and lower, per pt. sink beside toilet can use. Pt. able to wipe pérez area and keep spinal precautions, but not buttocks. Issued short toilet aid and pt. able to simulate use in standing. Pt. intially wanting to twist to grab toilet paper, but corrected technique when cued. - Row Name 08/28/20 1535 Grooming Assessment/Training Cascade Level (Grooming) wash face, hands;verbal cues -CAMILA Position (Grooming) sink side -CAMILA Comment (Grooming) cues to maintain precauations - User Montoya (r) = Recorded By, (t) = Taken By, (c) = Cosigned By Initials Name Provider Type Angelina Machado, OT Occupational Therapist Obj/Interventions Row Name 08/28/20 1521 Sensory Assessment (Somatosensory) Sensory Assessment (Somatosensory) UE sensation intact -[facility] Name 08/28/20 1521 Vision Assessment/Intervention Visual Impairment/Limitations WFL for evaluation purposes. - Row Name 08/28/20 1521 Range of Motion Comprehensive General Range of Motion bilateral upper extremity ROM WNL -[facility] Name 08/28/20 1521 Strength Comprehensive (MMT) General Manual Muscle Testing (MMT) Assessment no strength deficits identified - Comment, General Manual Muscle Testing (MMT) Assessment BUE's, functional for ADL task performance.- Row Name 08/28/20 1521 Balance Static Sitting Balance unsupported;sitting, edge of bed;WFL -CAMILA Dynamic Sitting Balance unsupported;sitting, edge of bed;WFL -CAMILA Static Standing Balance WFL;unsupported -CAMILA Dynamic Standing Balance WFL;supported pt. unsupported standing EOB leaning back and weaving a few time so used walker to go to bathroom and back. - User Montoya (r) = Recorded By, (t) = Taken By, (c) = Cosigned By Initials Name Provider Type Angelina Machado, OT Occupational Therapist Goals/Plan Row Name 08/28/20 153 Bed Mobility Goal 1 (OT) Activity/Assistive Device (Bed Mobility Goal 1, OT) sidelying to sit/sit to sidelying -CAMILA Cascade Level/Cues Needed (Bed Mobility Goal 1, OT) independent -CAMILA Time Frame (Bed Mobility Goal 1, OT) terminal gauger goal (LTG);3 days -CAMILA Strategies/Barriers (Bed Mobility Goal 1, OT) performing good logroll -CAMILA Progress/Outcomes (Bed Mobility Goal 1, OT) goal ongoing -CAMILA Row Name 08/28/20 153 Bathing Goal 1 (OT) Activity/Device (Bathing Goal 1, OT) bathing skills, all;long-handled sponge -CAMILA Cascade Level/Cues Needed (Bathing Goal 1, OT) minimum assist (75% or more patient effort);verbal cues required -CAMILA Time Frame (Bathing Goal 1, OT) terminal gauger goal (LTG);10 days -CAMILA Strategies/Barriers (Bathing Goal 1, OT) maintaining spinal precautions -CAMILA Progress/Outcomes (Bathing Goal 1, OT) goal ongoing -CAMILA Row Name 08/28/201531 Dressing Goal 1 (OT) Activity/Device (Dressing Goal 1, OT) lower body dressing;long-handled shoe horn;academic support specialist;sock-aid -CAMILA Cascade/Cues Needed (Dressing Goal 1, OT) standby assist;tactile cues required;verbal cues required -CAMILA Time Frame (Dressing Goal 1, OT) terminal gauger goal (LTG);5 days -CAMILA Strategies/Barriers (Dressing Goal 1, OT) maintaining spinal precauations and I AE use. -CAMILA Progress/Outcome (Dressing Goal 1, OT) goal ongoing -CAMILA Row Name 08/28/201531 Therapy Assessment/Plan (OT) Planned Therapy Interventions (OT) adaptive equipment training;BADL retraining;occupation/activity based interventions;patient/caregiver education/training;transfer/mobility retraining -CAMILA User Montoya (r) = Recorded By, (t) = Taken By, (c) = Cosigned By Initials Name Provider Type Angelina Machado, OT Occupational Therapist Clinical Impression Row Name 08/28/20 1528 Pain Scale: Numbers Pre/Post-Treatment Pretreatment Pain Rating 5/10 -CAMILA Posttreatment Pain Rating 5/10 -CAMILA Pain Location - Orientation lower -CAMILA Pain Location back -CAMILA Pain Intervention(s) Ambulation/increased activity;Repositioned per pt. she thinks it is 2 hours until due for pain meds -CAMILA Row Name 08/28/20 152 Plan of Care Review Plan of Care Reviewed With patient -CAMILA Progress improving -CAMILA Outcome Summary OT evaluation completed. Pt. demonstrating mild decrease strength and balance impacting ADL and mobility independence, but biggest deficit is with STM remembering spinal precauations and applying precautions to functional task performance. Pt needing cues throughout session, but able to log roll in and out of bed and perform toileting and wiping pérez area, wash hands at sink and reshma and doff socks by crossing LE up, but with pain so educated on how to use AE to retrieve item from floor and reshma and doff socks and pt. demonstrated back with cues. Educated on other uses of AE. Pt. will benefit from continued skilled OT services to continue work with AE and education for mainta ining spinal precautions with functional tasks. Recommend home with 24/7 A/S and OT at discharge. - Row Name 08/28/20 152 Therapy Assessment/Plan (OT) Patient/Family Therapy Goal Statement (OT) return to PLOF -CAMILA Rehab Potential (OT) good, to achieve stated therapy goals - Criteria for Skilled Therapeutic Interventions Met (OT) yes;meets criteria;skilled treatment is necessary - Therapy Frequency (OT) daily - Row Name 08/28/20 1523 Therapy Plan Review/Discharge Plan (OT) Equipment Needs Upon Discharge (OT) -- grab bars tub, possible 02 use due to pt. to 87% onn 2L - Row Name 08/28/20 1523 Vital Signs Pre Systolic BP Rehab 129 -CAMILA Pre Treatment Diastolic BP 52 -CAMILA Pre SpO2 (%) 94 -CAMILA O2 Delivery Pre Treatment supplemental O2 -CAMILA Intra SpO2 (%) 87 -CAMILA O2 Delivery Intra Treatment room air -CAMILA Post SpO2 (%) 90 -CAMILA O2 Delivery Post Treatment supplemental O2 -CAMILA Pre Patient Position Supine -CAMILA Intra Patient Position Standing -CAMILA Post Patient Position Supine -CAMILA Row Name 08/28/20 1523 Positioning and Restraints Pre-Treatment Position in bed -CAMILA Post Treatment Position bed -CAMILA In Bed supine;call light within reach;encouraged to call for assist;exit alarm on;SCD pump applied educated on proper sleeping positions. -CAMILA User Montoya (r) = Recorded By, (t) = Taken By, (c) = Cosigned By Initials Name Provider Type Angelina Machado OT Occupational Therapist Outcome Measures Row Name 08/28/20 1534 How much help from another is currently needed... Putting on and taking off regular lower body clothing? 2 -CAMILA Bathing (including washing, rinsing, and drying) 3 -CAMILA Toileting (which includes using toilet bed damico or urinal) 3 -CAMILA Putting on and taking off regular upper body clothing 3 -CAMILA Taking care of personal grooming (such as brushing teeth) 3 -CAMILA Eating meals 4 -CAMILA AM-PAC 6 Clicks Score (OT) 18 -CAMILA Row Name 08/28/20 1534 Functional Assessment Outcome Measure Options AM-PAC 6 Clicks Daily Activity (OT) -CAMILA User Montoya (r) = Recorded By, (t) = Taken By, (c) = Cosigned By Initials Name Provider Type Angelina Machado OT Occupational Therapist Occupational Therapy Education Title: PT OT ANIMAL CRUELTY INVESTIGATOR Therapies (In Progress) Topic: Occupational Therapy (In Progress) Point: ADL training (Done) Description: Instruct learner(s) on proper safety adaptation and remediation techniques during self care or transfers. Instruct in proper use of assistive devices. Learning Progress Summary Patient Acceptance, E,D, VU,NR by CAMILA at 08/28/2020 1534 Comment: spinal precauations, AE use with ADL task and item retrieval, sleeping positioning Point: Home exercise program (Not Started) Description: Instruct learner(s) on appropriate technique for monitoring, assisting and/or progressing therapeutic exercises/activities. Learner Progress: Not documented in this visit. Point: Precautions (Done) Description: Instruct learner(s) on prescribed precautions during self-care and functional transfers. Learning Progress Summary Patient Acceptance, E,D, VU,NR by CAMILA at 08/28/2020 1534 Comment: spinal precauations, AE use with ADL task and item retrieval, sleeping positioning Point: Body mechanics (Done) Description: Instruct learner(s) on proper positioning and spine alignment during self-care, functional mobilityactivities and/or exercises. Learning Progress Summary Patient Acceptance, E,D, VU,NR by CAMILA at 08/28/2020 1534 Comment: spinal precauations, AE use with ADL task and item retrieval, sleeping positioning User Montoya Initials Effective Dates Name Provider Type Discipline 01/18/18 - Angelina Ahmadi OT Occupational Therapist OT OT Recommendation and Plan Planned Therapy Interventions (OT): adaptive equipment training, BADL retraining, occupation/activity based interventions, patient/caregiver education/training, transfer/mobility retraining Therapy Frequency (OT): daily Plan of Care Review Plan of Care Reviewed With: patient Progress: improving Outcome Summary: OT evaluation completed. Pt. demonstrating mild decrease strength and balance impacting ADL and mobility independence, but biggest deficit is with STM remembering spinal precauationsand applying precautions to functional task performance. Pt needing cues throughout session, but able to log roll in and out of bed and perform toileting and wiping pérez area, wash hands at sink and reshma and doff socks by crossing LE up, but with pain so educated on how to use AE to retrieve item from floor and reshma and doff socks and pt. demonstrated back with cues. Educated on other uses of AE.Pt. will benefit from continued skilled OT services to continue work with AE and education for maint aining spinal precautions with functional tasks. Recommend home with 24/7 A/S and OT at discharge. Time Calculation: Time Calculation- OT Row Name 08/28/20 1537 Time Calculation- OT OT Start Time 1431 -CAMILA OT Received On 08/28/20 -CAMILA OT Goal Re-Cert Due Date 09/07/20 -CAMILA Timed Charges 21336 - OT Therapeutic Activity Minutes 10 -CAMILA 44196 - OT Self Care/Mgmt Minutes 30 -CAMILA User Montoya (r) = Recorded By, (t) = Taken By, (c) = Cosigned By Initials Name Provider Type Angelina Machado OT Occupational Therapist Therapy Charges for Today Code Description Service Date Service Provider Modifiers Qty 60689103206 HC OT THERAPEUTIC ACT EA 15 MIN 08/28/2020 Angelina Ahmadi OT GO 1 67797789052 HC OT SELF CARE/MGMT/TRAIN EA 15 MIN 08/28/2020 Angelina Ahmadi OT GO 2 10779073043 HC OT EVAL LOW COMPLEXITY 2 08/28/2020 Angelina Ahmadi OT GO 1 Angelina Ahmadi OT 08/28/2020 * Therapy Evaluation - Airam Mcnally, PT - 08/28/2020 9:30 AM EST Patient Name: Mohinder Walters : 1935 Today's Date: 08/28/2020 Admit Date: 08/27/2020 Visit Dx: ICD-10-CM ICD-9-CM 1. Lumbar herniated disc M51.26 722.10 2. Herniated lumbar intervertebral disc M51.26 722.10 Patient Active Problem List Diagnosis ??? Lumbar herniated disc ??? Herniated lumbar intervertebral disc Past Medical History: Diagnosis Date ??? Arthritis [...] COLONOSCOPY ??? GALLBLADDER SURGERY ??? HYSTERECTOMY ??? TONSILLECTOMY AND ADENOIDECTOMY ??? TUBAL ABDOMINAL LIGATION General Information Row Name 08/28/20929 Physical Therapy Time and Intention Document Type evaluation -MB Mode of Treatment physical therapy -MB Row Name 08/28/20929 General Information Patient Profile Reviewed yes -MB Prior Level of Function independent:;all household mobility;community mobility;gait;transfer;bed mobility;ADL's;driving;using stairs -MB Existing Precautions/Restrictions fall;spinal Issued illustrated spinal precautions/HEP handout. -MB Barriers to Rehab hearing deficit -MB Row Name 08/28/20929 Living Environment Lives With child(iza), adult - Row Name 08/28/20929 Home Main Entrance Number of Stairs, Main Entrance six -MB Stair Railings, Main Entrance railings on both sides of stairs -MB Row Name 08/28/20929 Stairs Within Home, Primary Number of Stairs, Within Home, Primary none -MB Row Name 08/28/20929 Cognition Orientation Status (Cognition) oriented x 4 -MB Row Name 08/28/20929 Safety Issues, Functional Mobility Safety Issues Affecting Function (Mobility) awareness of need for assistance;insight into deficits/self-awareness;safety precaution awareness;safety precautions follow-through/compliance -MB Impairments Affecting Function (Mobility) pain;strength -MB Row Name 08/28/20929 Relationship/Environment Name(s) of Who Lives With Patient Pt. lives w/ her dtr and CHRIS in a 1-story home w/ 5-6 KOBY w/ B handrails; tub shower no grab bars; drives. -MB User Montoya (r) = Recorded By, (t) = Taken By, (c) = Cosigned By Initials Name Provider Type Airam Martínez, PT Physical Therapist Mobility Row Name 08/28/20929 Bed Mobility Bed Mobility rolling right;rolling left;[id number] -MB Rolling Left Cascade (Bed Mobility) supervision;verbal cues -MB Rolling Right Cascade (Bed Mobility) supervision;verbal cues -MB Ixmbaxsek-Gic-Vityvobhc Cascade (Bed Mobility) contact guard;verbal cues -MB Assistive Device (Bed Mobility) bed rails -MB Comment (Bed Mobility) Pt required VCs/tactile cues for log roll technique to maintain spinal precautions. -MB Row Name 08/28/20929 Transfers Comment (Transfers) VCs for safe hand placement and avoiding twisting in standing. (Pt. attempted to look over L shoulder and later bend at waist to tidy bed upon return to room despite cues.) -MB Row Name 08/28/20929 Sit-Stand Transfer Sit-Stand Cascade (Transfers) contact guard;verbal cues -MB Assistive Device (Sit-Stand Transfers) other (see comments) gait belt, no AD -MB Row Name 08/28/20929 Gait/Stairs (Locomotion) Cascade Level (Gait) standby assist;verbal cues -MB Assistive Device (Gait) other (see comments) No AD, gait belt -MB Distance in Feet (Gait) 350 -MB Comment (Gait/Stairs) Patient ambulated w/ step through gait pattern, fereman WNL; no LOB or instability. VCs for adaptive breathing. -MB User Montoya (r) = Recorded By, (t) = Taken By, (c) = Cosigned By Initials Name Provider Type Airam Martínez, PT Physical Therapist Obj/Interventions Row Name 08/28/20929 Range of Motion Comprehensive General Range of Motion bilateral lower extremity ROM WFL;bilateral upper extremity ROM WFL - Row Name 08/28/20929 Strength Comprehensive (MMT) Comment, General Manual Muscle Testing (MMT) Assessment BLEs functionally 4/5 - Row Name 08/28/20929 Motor Skills Coordination gross motor deficit;WFL - Therapeutic Exercise hip;knee;ankle;shoulder - Row Name 08/28/20929 Shoulder (Therapeutic Exercise) Shoulder (Therapeutic Exercise) AROM (active range of motion) - Shoulder AROM (Therapeutic Exercise) bilateral;flexion;10 repetitions - Row Name 08/28/20929 Hip (Therapeutic Exercise) Hip (Therapeutic Exercise) AROM (active range of motion);isometric exercises abdominal sets - Hip AROM (Therapeutic Exercise) bilateral;external rotation x15 -MB Hip Isometrics (Therapeutic Exercise) bilateral;gluteal sets x15 - Row Name 08/28/20929 Knee (Therapeutic Exercise) Knee (Therapeutic Exercise) isometric exercises - Knee Isometrics (Therapeutic Exercise) bilateral;quad sets x15 -MB Knee Strengthening (Therapeutic Exercise) -- x15 - Row Name 08/28/20929 Ankle (Therapeutic Exercise) Ankle (Therapeutic Exercise) AROM (active range of motion) - Ankle AROM (Therapeutic Exercise) bilateral;dorsiflexion;plantarflexion x15 - Row Name 08/28/20929 Balance Balance Assessment sitting static balance;sitting dynamic balance;standing static balance;standing dynamic balance - Static Sitting Balance unsupported;sitting, edge of bed;WNL -MB Dynamic Sitting Balance unsupported;sitting, edge of bed;WNL -MB Static Standing Balance WFL;unsupported -MB Dynamic Standing Balance WFL;unsupported -MB Balance Interventions standing;sit to stand;narrowed base of support;tandem standing;weight shifting activity - Row Name 08/28/20929 Sensory Assessment (Somatosensory) Sensory Assessment (Somatosensory) sensation intact - User Montoya (r) = Recorded By, (t) = Taken By, (c) = Cosigned By Initials Name Provider Type Airam Martínez, PT Physical Therapist Goals/Plan Row Name 08/28/20929 Bed Mobility Goal 1 (PT) Activity/Assistive Device (Bed Mobility Goal 1, PT) bed mobility activities, all -MB Cascade Level/Cues Needed (Bed Mobility Goal 1, PT) independent -MB Time Frame (Bed Mobility Goal 1, PT) 1 week -MB Progress/Outcomes (Bed Mobility Goal 1, PT) goal ongoing -MB Row Name 08/28/20929 Transfer Goal 1 (PT) Activity/Assistive Device (Transfer Goal 1, PT) transfers, all -MB Cascade Level/Cues Needed (Transfer Goal 1, PT) independent -MB Time Frame (Transfer Goal 1, PT) 1 week -MB Progress/Outcome (Transfer Goal 1, PT) goal ongoing -MB Row Name 08/28/20929 Gait Training Goal 1 (PT) Activity/Assistive Device (Gait Training Goal 1, PT) gait (walking locomotion) -MB Cascade Level (Gait Training Goal 1, PT) independent -MB Distance (Gait Training Goal 1, PT) 250 -MB Time Frame (Gait Training Goal 1, PT) 1 week -MB Progress/Outcome (Gait Training Goal 1, PT) goal ongoing -MB Row Name 08/28/20929 Stairs Goal 1 (PT) Activity/Assistive Device (Stairs Goal 1, PT) stairs, all skills;using handrail, left;using handrail, right -MB Cascade Level/Cues Needed (Stairs Goal 1, PT) supervision required -MB Number of Stairs (Stairs Goal 1, PT) 6 -MB Time Frame (Stairs Goal 1, PT) 1 week -MB Progress/Outcome (Stairs Goal 1, PT) goal ongoing -MB Row Name 08/28/20929 Patient Education Goal (PT) Activity (Patient Education Goal, PT) HEP, spinal precautions -MB Cascade/Cues/Accuracy (Memory Goal 2, PT) demonstrates adequately;verbalizes understanding -MB Time Frame (Patient Education Goal, PT) 1 week -MB Progress/Outcome (Patient Education Goal, PT) goal ongoing -MB User Montoya (r) = Recorded By, (t) = Taken By, (c) = Cosigned By Initials Name Provider Type Airam Martínez, PT Physical Therapist Clinical Impression Row Name 08/28/20929 Pain Additional Documentation Pain Scale: Numbers Pre/Post-Treatment (Group) -MB Row Name 08/28/20929 Pain Scale: Numbers Pre/Post-Treatment Pretreatment Pain Rating 4/10 -MB Posttreatment Pain Rating 4/10 -MB Pain Location - Orientation incisional -MB Pain Location back -MB Pain Intervention(s) Medication (See MAR);Ambulation/increased activity;Repositioned -MB Row Name 08/28/20929 Plan of Care Review Plan of Care Reviewed With patient -MB Progress improving -MB Outcome Summary PT eval completed. Patient presents w/ post-surgical weakness and decreased independence w/ functional mobility. She completed bed mobility w/ CGA, transfers w/ CGA, and ambulated 350ft w/out AD w/ CGA. Issued illustrated handout w/ spinal precautions and HEP and initiated TherEx. Pt. would benefit from skilled IPPT to improve pt's safety and independence w/ functional mobility, including stair training. Recommend home w/ assist and HHPT at D/C. - Row Name 08/28/20929 Therapy Assessment/Plan (PT) Patient/Family Therapy Goals Statement (PT) Return to PLOF. -MB Rehab Potential (PT) good, to achieve stated therapy goals -MB Criteria for Skilled Interventions Met (PT) yes;meets criteria;skilled treatment is necessary -MB Row Name 08/28/20929 Vital Signs Pre Systolic BP Rehab 145 -MB Pre Treatment Diastolic BP 91 -MB Pre SpO2 (%) 93 -MB O2 Delivery Pre Treatment supplemental O2 -MB Intra SpO2 (%) 89 Pt. removed O2 upon arrival, desaturated to 89% w/ bed mobility. O2 reapplied andSpO2 remained >90% throughout. -MB O2 Delivery Intra Treatment room air -MB Pre Patient Position Supine -MB Intra Patient Position Standing -MB Post Patient Position Supine -MB Row Name 08/28/20929 Positioning and Restraints Pre-Treatment Position in bed -MB Post Treatment Position bed -MB In Bed notified nsg;supine;call light within reach;encouraged to call for assist;exit alarm on;SCD pump applied -MB User Montoya (r) = Recorded By, (t) = Taken By, (c) = Cosigned By Initials Name Provider Type Airam Martínez, PT Physical Therapist Outcome Measures Row Name 08/28/20929 How much help from another person do you currently need... Turning from your back to your side while in flat bed without using bedrails? 4 -MB Moving from lying on back to sitting on the side of a flat bed without bedrails? 3 -MB Moving to and from a bed to a chair (including a wheelchair)? 3 -MB Standing up from a chair using your arms (e.g., wheelchair, bedside chair)? 3 -MB Climbing 3-5 steps with a railing? 3 -MB To walk in hospital room? 3 -MB AM-PAC 6 Clicks Score (PT) 19 -MB Row Name 08/28/20 0930 Functional Assessment Outcome Measure Options AM-PAC 6 Clicks Basic Mobility (PT) - User Montoya (r) = Recorded By, (t) = Taken By, (c) = Cosigned By Initials Name Provider Type Airam Martínez, PT Physical Therapist Physical Therapy Education Title: PT OT ANIMAL CRUELTY INVESTIGATOR Therapies (Done) Topic: Physical Therapy (Done) Point: Mobility training (Done) Learning Progress Summary Patient Acceptance, E,D,H, VU,NR by DANNY at 08/28/2020 1333 Comment: Provided educ re: spinal precautions, log roll technique, home safety, fall precautions, gait safety/mechanics, transfer safety/mechanics, POC progression. Point: Home exercise program (Done) Learning Progress Summary Patient Acceptance, E,D,H, VU,NR by MB at 08/28/2020 1333 Comment: Provided educ re: spinal precautions, log roll technique, home safety, fall precautions, gait safety/mechanics, transfer safety/mechanics, POC progression. Point: Body mechanics (Done) Learning Progress Summary Patient Acceptance, E,D,H, VU,NR by DANNY at 08/28/2020 1333 Comment: Provided educ re: spinal precautions, log roll technique, home safety, fall precautions, gait safety/mechanics, transfer safety/mechanics, POC progression. Point: Precautions (Done) Learning Progress Summary Patient Acceptance, E,D,H, VU,NR by DANNY at 08/28/2020 1333 Comment: Provided educ re: spinal precautions, log roll technique, home safety, fall precautions, gait safety/mechanics, transfer safety/mechanics, POC progression. User Montoya Initials Effective Dates Name Provider Type Discipline DANNY 10/25/15 - Airam Mcnally, PT Physical Therapist PT PT Recommendation and Plan Planned Therapy Interventions (PT): balance training, bed mobility training, gait training, home exercise program, patient/family education, stair training, strengthening, transfer training Plan of Care Reviewed With: patient Progress: improving Outcome Summary: PT eval completed. Patient presents w/ post-surgical weakness and decreased independence w/ functional mobility. She completed bed mobility w/ CGA, transfers w/ CGA, and ambulated 350ft w/out AD w/ CGA. Issued illustrated handout w/ spinal precautions and HEP and initiated TherEx. Pt. would benefit from skilled IPPT to improve pt's safety and independence w/ functional mobility, including stair training. Recommend home w/ assist and HHPT at D/C. Time Calculation: PT Charges Row Name 08/28/20 1335 Time Calculation Start Time 929 - PT Received On 08/28/20 PT Goal Re-Cert Due Date 09/07/20 - User Montoya (r) = Recorded By, (t) = Taken By, (c) = Cosigned By Initials Name Provider Type Airam Martínez, PT Physical Therapist Therapy Charges for Today Code Description Service Date Service Provider Modifiers Qty [id number] HC PT EVAL LOW COMPLEXITY 4 08/28/2020 Airam Mcnally, PT GP 1 PT G-Codes Outcome Measure Options: AM-PAC 6 Clicks Basic Mobility (PT) AM-PAC 6 Clicks Score (PT): 19 Airam Mcnally PT 08/28/2020 documented in this encounter Plan of Treatment Upcoming Encounters Date Type Department Care Team (Late st Contact Info) Description 10/27/2024 11:00 AM EDT Office Visit [facility] [address] [place] [address] Patrica Otto MD [address] [place] [address] Scheduled Referrals Name Type Priority Associated Diagnoses Orde r Schedule Ambulatory Referral to Home Health Outpatient Referral Routine Herniated lumbar intervertebral disc Lumbar herniated disc Ordered: 08/28/2020 Ambulatory Referral to Home Health Outpatient Referral Routine Herniated lumbar intervertebral disc Lumbar herniated disc Ordered: 08/29/2020 Ambulatory Referral to Physical Therapy Evaluate and treat; Strengthening Outpatient Referral Routine Herniated lumbar intervertebral disc Lumbar herniated disc Ordered: 08/29/2020 Referral to Occupational Therapy Outpatient Referral Routine Herniated lumbar intervertebral disc Lumbar herniated disc Ordered: 08/29/2020 documented as of this encounter Procedures Procedure Name Priority Date/Time Associated Diagnosis Comments URINE CULTURE Routine 08/27/2020 12:04 PM EST Herniated lumbar intervertebral disc XR SPINE LUMBAR 1 VW Routine 08/27/2020 12:00 PM EST XR SPINE LUMBAR 1 VW Routine 08/27/2020 11:40 AM EST DC LAMNOTMY INCL W/DCMPRSN NRV ROOT 1 INTRSPC LUMBR 08/27/2020 11:06 AM EST Herniated lumbar intervertebral disc Special Needs FILMS ON PAX+ documented in this encounter Results * Urine Culture - Urine, Urine, Catheter (08/27/2020 12:04 PM EST) Urine Culture No growth AYALA 08/28/2020 2:18 PM EST [facility] Urine Urine specimen obtained via straight catheter / Unknown 08/27/2020 12:04 PM EST 08/27/2020 12:46 PM EST Lisbeth Lewis MD MICROBIOLOGY - GENERAL ORDER TENISHA Final Result [facility]
[address] [place] [address], * XR Spine Lumbar 1 View (08/27/2020 12:00 PM EST) Anatomical Region Laterality Modality Spine, L-spine N/A Radiographic Julia ging 08/27/2020 5:38 PM EST Impressions 08/28/2020 1:50 PM EST Radiopaque marker seen posteriorly to the L4/L5 disc space. DICTATED: ?? 08/27/2020 EDITED/ls : ?? 08/27/2020 This report was finalized on 08/28/2020 1:[address] Beryl Iyer MD. Narrative 08/28/2020 1:50 PM EST EXAMINATION: XR ??LUMBAR SPINE, SINGLE VIEW - 08/27/2020 INDICATION: M51.26-Other intervertebral disc displacement, lumbar region. COMPARISON: 08/27/2020 FINDINGS: Portable lateral lumbar spine reveals a radiopaque marker seen posteriorly to the L4/L5 disc space. Please see the procedure performed for full details. ?? Procedure Note Beryl Iyer MD - 08/28/2020 EXAMINATION: XR LUMBAR SPINE, SINGLE VIEW - 08/27/2020 INDICATION: M51.26-Other intervertebral disc displacement, lumbar region. COMPARISON: 08/27/2020 FINDINGS: Portable lateral lumbar spine reveals a radiopaque marker seen posteriorly to the L4/L5 disc space. Please see the procedure performed for full details. IMPRESSION: Radiopaque marker seen posteriorly to the L4/L5 disc space. DICTATED: 08/27/2020 EDITED/ls : 08/27/2020 This report was finalized on 08/28/2020 1:[address] Beryl Iyer MD. us Lisbeth Lewis MD IMG DIAGNOSTIC IMAGING ORDER TENISHA Final Result * XR Spine Lumbar 1 View (08/27/2020 11:40 AM EST) Anatomical Region Laterality Modality Spine, L-spine N/A Radiographic Julia ging 08/27/2020 5:29 PM EST Impressions 08/28/2020 1:50 PM EST Radiopaque marker seen posteriorly at the L4/L5 disc space. DICTATED: ?? 08/27/2020 EDITED/ls : ?? 08/27/2020 This report was finalized on 08/28/2020 1:[address] Beryl Iyer MD. Narrative 08/28/2020 1:50 PM EST EXAMINATION: XR ??LUMBAR SPINE SINGLE VIEW INDICATION: L4-L5; M51.26-Other intervertebral disc displacement, lumbar region. COMPARISON: None. FINDINGS: Portable lateral lumbar spine reveals no fracture with anterolisthesis seen of L3 on L4 and L4 on L5 with radiopaque marker seen posteriorly at the L4/L5 disc space. ?? Procedure Note Beryl Iyer MD - 08/28/2020 EXAMINATION: XR LUMBAR SPINE SINGLE VIEW INDICATION: L4-L5; M51.26-Other intervertebral disc displacement, lumbar region. COMPARISON: None. FINDINGS: Portable lateral lumbar spine reveals no fracture with anterolisthesis seen of L3 on L4 and L4 on L5 with radiopaque marker seen posteriorly at the L4/L5 disc space. IMPRESSION: Radiopaque marker seen posteriorly at the L4/L5 disc space. DICTATED: 08/27/2020 EDITED/ls : 08/27/2020 This report was finalized on 08/28/2020 1:[address] Beryl Iyer MD. us Lisbeth Lewis MD IMG DIAGNOSTIC IMAGING ORDER TENISHA Final Result documented in this encounter Visit Diagnoses Diagnosis Herniated lumbar intervertebral disc- Primary Displacement of lumbar intervertebral disc without myelopathy Herniated lumbar intervertebral disc Displacement of lumbar intervertebral disc without myelopathy Lumbar herniated disc Lumbar herniated disc documented in this encounter Admitting Diagnoses Diagnosis Herniated lumbar intervertebral disc Displacement of lumbar intervertebral disc without myelopathy Lumbar herniated disc documented in this encounter Administered Medications Inactive Administered Medications - up to 3 most recent administrations Medication Order MAR Action Action Date Dose Rate Site acetaminophen (TYLENOL) tablet 500 mg 500 mg, Oral, Every 6 Hours Scheduled, First dose on Sun08/27/20 at 1800, Do not exceed 4 grams of acetaminophen in a 24 hr period. Max dose of 2gm for AST/ALT greater than 120 units/L If given for pain, use the following pain scale: Mild Pain = Pain Score of 1-3, CPOT 1-2 Moderate Pain = Pain Score of 4-6, CPOT 3-4 Severe Pain = Pain Score of 7-10, CPOT 5-8 Given 08/29/2020 12:38 AM EST 500 mg Given 08/28/2020 6:25 PM EST 500 mg Given 08/28/2020 5:26 AM EST 500 mg acetaminophen (TYLENOL) tablet 650 mg 650 mg, Oral, Once, On Sun08/27/20 at 1001, For 1 dose, Give 30 minutes prior to procedure. Do not exceed 4 grams of acetaminophen in a 24 hr period. Max dose of 2gm for AST/ALT greater than 120 units/L If given for pain, use the following pain scale: Mild Pain = Pain Score of 1-3, CPOT 1-2 Moderate Pain = Pain Score of 4-6, CPOT 3-4 Severe Pain = Pain Score of 7-10, CPOT 5-8Indications:Herniated lumbar intervertebral disc Given 08/27/2020 10:26 AM EST 650 mg amLODIPine (NORVASC) tablet 2.5 mg 2.5 mg, Oral, Daily, First dose on Sun08/28/20 at 0900, Caution: Look alike/sound alike drug alert. Avoid grapefruit juice. Given 08/29/2020 8:02 AM EST 2. 5 mg Given 08/28/2020 10:22 AM EST 2.5 mg atorvastatin (LIPITOR) tablet 10 mg 10 mg, Oral, Nightly, First dose on Sun08/27/20 at 2100, Avoid grapefruit juice. Given 08/28/2020 8:10 PM EST 10 mg Given 08/27/2020 8:07 PM EST 10 mg budesonide-formoterol (SYMBICORT) 160-4.5 MCG/ACT inhaler 2 puff 2 puff, Inhalation, 2 Times Daily - RT, First dose on Sun08/27/20 at 2130, {SP} Shake well. Rinse mouth after use, do not swallow water. Send aerosols to pharmacy in ziplock bag for proper disposal. Given 08/29/2020 8:24 AM EST 2 puffs Given 08/28/2020 8:58 PM EST 2 puffs Given 08/28/2020 9:06 AM EST 2 puffs celecoxib (CeleBREX) capsule 200 mg 200 mg, Oral, Nightly, First dose on Sun08/27/20 at 2100, Take with food if GI upset occurs. If given for pain, use the following pain scale: Mild Pain = Pain Score of 1-3, CPOT 1-2 Moderate Pain = Pain Score of 4-6, CPOT 3-4 Severe Pain = Pain Score of 7-10, CPOT 5-8 Given 08/28/2020 8:10 PM EST 200 mg Given 08/27/2020 8:07 PM EST 200 mg cholecalciferol (VITAMIN D3) tablet 1,000 Units 1,000 Units, Oral, Daily, First dose on Sun08/27/20 at 1600 Given 08/29/2020 8:01 AM EST 1,000 Units Given 08/28/2020 10:23 AM EST 1,000 Units Given 08/27/2020 5:12 PM EST 1,000 Units dexamethasone (DECADRON) tablet 4 mg 4 mg, Oral, Every 6 Hours Scheduled, First dose on Sun08/27/20 at 1800, Take with food. Given 08/28/2020 5:26 AM EST 4 mg Given 08/27/2020 11:38 PM EST 4 mg Given 08/27/2020 5:12 PM EST 4 mg digoxin (LANOXIN) tablet 250 mcg 250 mcg, Oral, Nightly, First dose on Sun08/27/20 at 2100, Check and record heart rate. Given 08/28/2020 8:10 PM EST 250 mcg Given 08/27/2020 8:06 PM EST 250 mcg famotidine (PEPCID) tablet 20 mg 20 mg, Oral, Once, On Sun08/27/20 at 1001, For 1 dose Given 08/27/2020 10:26 AM EST 20 mg HYDROcodone-acetaminophen (NORCO) 7.5-325 MG per tablet 1 tablet 1 tablet, Oral, Once, On Sun08/27/20 at 1001, For 1 dose, Give 30 minutes prior to procedure [ALFONSO] Do not exceed 4 grams of acetaminophen in a 24 hr period. If given for pain, use the following pain scale: Mild Pain = Pain Score of 1-3, CPOT 1-2 Moderate Pain = Pain Score of 4-6, CPOT 3-4 Severe Pain = Pain Score of 7-10, CPOT 5-8Indications:Herniated lumbar intervertebral disc Given 08/27/2020 10:26 AM EST 1 tablet HYDROmorphone (DILAUDID) injection 0.5 mg 0.5 mg, Intravenous, Every 2 Hours PRN, Severe Pain, Starting on Sun08/27/20 at 1430, For 10 days, If given for pain, use the following pain scale: Mild Pain = Pain Score of 1-3, CPOT 1-2 Moderate Pain = Pain Score of 4-6, CPOT 3-4 Severe Pain = Pain Score of 7-10, CPOT 5-8 ibuprofen (ADVIL,MOTRIN) tablet 800 mg 800 mg, Oral, Once, On Sun08/27/20 at 1001, For 1 dose, GIve 30 minutes prior to procedure If given for pain, use the following pain scale: Mild Pain = Pain Score of 1-3, CPOT 1-2 Moderate Pain = Pain Score of 4-6, CPOT 3-4 Severe Pain = Pain Score of 7-10, CPOT 5-8Indications:Herniated lumbar intervertebral disc Given 08/27/2020 10:26 AM EST 800 mg lactated ringers infusion 9 mL/hr, Intravenous, Continuous, Starting on Sun08/27/20 at 1001, May switch to NS IV at K[facility] if renal / if indicated Currently Infusing 08/27/2020 11:20 AM EST New Bag 08/27/2020 10:05 AM EST 9 mL/hr 9 mL/hr latanoprost (XALATAN) 0.005 % ophthalmic solution 1 drop 1 drop, Both Eyes, Nightly, First dose on Sun08/27/20 at 2100 Given 08/28/2020 8:10 PM EST 1 drop Given 08/27/2020 8:12 PM EST 1 drop lidocaine PF 1% (XYLOCAINE) injection 0.5 mL 0.5 mL, Injection, Once As Needed, IV Start, Starting on Sun08/27/20 at 0959, For 1 dose Given 08/27/2020 10:05 AM EST 0.2 mL multivitamin with minerals 1 tablet 1 tablet, Oral, Daily, First dose on Sun08/27/20 at 1800, {BKC} Given 08/29/2020 8:02 AM EST 1 tablet Given 08/28/2020 10:22 AM EST 1 tablet Given 08/27/2020 5:12 PM EST 1 tablet naloxone (NARCAN) injection 0.4 mg 0.4 mg, Intravenous, Every 5 Minutes PRN, Respiratory Depression, Starting on Sun08/27/20 at 1430, If respiratory rate is less than 8 breaths/minute or patient is difficult to arouse stop any narcotics and contact physician. Administer slow IV push. Repeat as ordered until patient's respiratory rate is greater than 12 breaths/minute. oxyCODONE-acetaminophen (PERCOCET) 7.5-325 MG per tablet 1 tablet 1 tablet, Oral, Every 4 Hours PRN, Severe Pain, Starting on Sun08/27/20 at 1430, For 7 days, [ALFONSO] Do not exceed 4 grams of acetaminophen in a 24 hr period. Max dose of 2gm for AST/ALT greater than 120 units/L If given for pain, use the following pain scale: Mild Pain = Pain Score of 1-3, CPOT 1-2 Moderate Pain = Pain Score of 4-6, CPOT 3-4 Severe Pain = Pain Score of 7-10, CPOT 5-8 Given 08/29/2020 8:05 AM EST 1 tablet Given 08/29/2020 1:57 AM EST 1 tablet Given 08/28/2020 7:39 AM EST 1 tablet promethazine (PHENERGAN) suppository 12.5 mg 12.5 mg, Rectal, Every 6 Hours PRN, Nausea, Vomiting, Starting on Sun08/27/20 at 1430, If BOTH ondansetron (ZOFRAN) and promethazine (PHENERGAN) are ordered use ondansetron first and THEN promethazine IF ondansetron is ineffective promethazine (PHENERGAN) tablet 12.5 mg 12.5 mg, Oral, Every 6 Hours PRN, Nausea, Vomiting, Starting on Sun08/27/20 at 1430, If BOTH ondansetron (ZOFRAN) and promethazine (PHENERGAN) are ordered use ondansetron first and THEN promethazine IF ondansetron is ineffective. {BKC} sodium chloride 0.45 % with KCl 20 mEq/L infusion 75 mL/hr, Intravenous, Continuous, Starting on Sun08/27/20 at 1348 Currently Infusing 08/29/2020 6:45 AM EST 75 mL/hr 75 mL/hr New Bag 08/28/2020 11:50 PM EST 75 mL/hr 75 mL/hr Currently Infusing 08/28/2020 6:17 PM EST 75 mL/hr 75 mL /hr sodium chloride 0.9 % flush 3 mL 3 mL, Intravenous, Every 12 Hours Scheduled, First dose on Sun08/27/20 at 1432 Given 08/29/2020 8:01 AM EST 3 mL Given 08/28/2020 10:23 AM EST 3 mL documented in this encounter Active and Recently Administered Medications Times are shown in EST. Scheduled Medication Order 08/27/2020 08/28/2020 08/29/2020 acetaminophen (TYLENOL) tablet 500 mg 500 mg, Oral, Every 6 Hours Scheduled, First dose on Sun08/27/20 at 1800, Do not exceed 4 grams of acetaminophen in a 24 hr period. Max dose of 2gm for AST/ALT greater than 120 units/L If given for pain, use the following pain scale: Mild Pain = Pain Score of 1-3, CPOT 1-2 Moderate Pain = Pain Score of 4-6, CPOT 3-4 Severe Pain = Pain Score of 7-10, CPOT 5-8 1712 (Given - Provider: Elissa Rowe, LINSEY)2338 (Given - Provider: Anna Raman, RN) 0526 (Given - Provider: Anna Raman, RN)1544 (Not Given - Provider: Kaye Campos RN - Reason: Patient/family refused)1825 (Given - Provider: Kaye Campos RN) 0038 (Given - Provider: Jan Woods RN)0645 (Not Given - Provider: Jan Woods RN - Reason: Patient/family refused)1200 (Due) acetaminophen (TYLENOL) tablet 650 mg (COMPLETED)(Linked Group 1) 650 mg, Oral, Once, On Sun08/27/20 at 1001, For 1 dose, Give 30 minutes prior to procedure. Do not exceed 4 grams of acetaminophen in a 24 hr period. Max dose of 2gm for AST/ALT greater than 120 units/L If given for pain, use the following pain scale: Mild Pain = Pain Score of 1-3, CPOT 1-2 Moderate Pain = Pain Score of 4-6, CPOT 3-4 Severe Pain = Pain Score of 7-10, CPOT 5-8 1026 (Given - Provider: Marianna Holden RN) amLODIPine (NORVASC) tablet 2.5 mg 2.5 mg, Oral, Daily, First dose on Sun08/28/20 at 0900, Caution: Look alike/sound alike drug alert. Avoid grapefruit juice. 1022 (Given - Provider: Kaye Campos RN) 0802 (Given - Provider: Kaye Campos RN) atorvastatin (LIPITOR) tablet 10 mg 10 mg, Oral, Nightly, First dose on Sun08/27/20 at 2100, Avoid grapefruit juice. 2006 (Given - Provider: Anna Raman, RN) 2009 (Given - Provider: Jan Woods, RN) budesonide-formoterol (SYMBICORT) 160-4.5 MCG/ACT inhaler 2 puff 2 puff, Inhalation, 2 Times Daily - RT, First dose on Sun08/27/20 at 2130, {SP} Shake well. Rinse mouth after use, do not swallow water. Send aerosols to pharmacy in ziplock bag for proper disposal. 2111 (Given - Provider: Alida Lopez, FIRE ENGINE PUMP OPERATOR) 905 (Given - Provider: Jan Muñiz, FIRE ENGINE PUMP OPERATOR)2057 (Given - Provider: Cora Frederick, FIRE ENGINE PUMP OPERATOR) 08 (Given - Provider: Alan Cedeño, FIRE ENGINE PUMP OPERATOR)0930 (Canceled Entry - Provider: Alan Cedeño RRT) ceFAZolin in dextrose (ANCEF) IVPB solution 2 g (COMPLETED) 2 g, Intravenous, Administer over 30 Minutes, Once, On Sun08/27/20 at 1001, For 1 dose, Administer within 1 hour of surgical incision. Redose 4 hours from pre-op dose if procedure ongoing or >1.5 L blood loss. Caution: Look alike/sound alike drug alert, Indications: Surgical Prophylaxis 1120 (Given - Provider: Cosme Velazquez CRNA) celecoxib (CeleBREX) capsule 200 mg 200 mg, Oral, Nightly, First dose on Sun08/27/20 at 2100, Take with food if GI upset occurs. If given for pain, use the following pain scale: Mild Pain = Pain Score of 1-3, CPOT 1-2 Moderate Pain = Pain Score of 4-6, CPOT 3-4 Severe Pain = Pain Score of 7-10, CPOT 5-8 2006 (Given - Provider: Anna Raman, RN) 2009 (Given - Provider: Jan Woods, RN) cholecalciferol (VITAMIN D3) tablet 1,000 Units 1,000 Units, Oral, Daily, First dose on Sun08/27/20 at 1600 1712 (Given - Provider: Elissa Rowe, LINSEY) 1023 (Given - Provider: Kaye Campos, LINSEY) 0801 (Given - Provider: Kaye Campos, LINSEY) dexamethasone (DECADRON) tablet 4 mg (CANCELED)(Linked Group 2) 4 mg, Oral, Every 6 Hours Scheduled, First dose on Sun08/27/20 at 1800, Take with food. 1712 (Given - Provider: Elissa Rowe RN)2338 (Given - Provider: Anna Raman RN) 0526 (Given - Provider: Anna Raman RN) digoxin (LANOXIN) tablet 250 mcg 250 mcg, Oral, Nightly, First dose on Sun08/27/20 at 2100, Check and record heart rate. 2005 (Given - Provider: Anna Raman RN) 2009 (Given - Provider: Jan Woods RN) famotidine (PEPCID) tablet 20 mg (COMPLETED) 20 mg, Oral, Once, On Sun08/27/20 at 1001, For 1 dose 1026 (Given - Provider: Marianna Holden RN) HYDROcodone-acetaminophe n (NORCO) 7.5-325 MG per tablet 1 tablet (COMPLETED)(Linked Group 1) 1 tablet, Oral, Once, On Sun08/27/20 at 1001, For 1 dose, Give 30 minutes prior to procedure [ALFONSO] Do not exceed 4 grams of acetaminophen in a 24 hr period. If given for pain, use the following pain scale: Mild Pain = Pain Score of 1-3, CPOT 1-2 Moderate Pain = Pain Score of 4-6, CPOT 3-4 Severe Pain = Pain Score of 7-10, CPOT 5-8 1026 (Given - Provider: Marianna Holden RN) ibuprofen (ADVIL,MOTRIN) tablet 800 mg (COMPLETED)(Linked Group 1) 800 mg, Oral, Once, On Sun08/27/20 at 1001, For 1 dose, GIve 30 minutes prior to procedure If given for pain, use the following pain scale: Mild Pain = Pain Score of 1-3, CPOT 1-2 Moderate Pain = Pain Score of 4-6, CPOT 3-4 Severe Pain = Pain Score of 7-10, CPOT 5-8 1026 (Given - Provider: Marianna Holden RN) latanoprost (XALATAN) 0.005 % ophthalmic solution 1 drop 1 drop, Both Eyes, Nightly, First dose on Sun08/27/20 at 2100 2011 (Given - Provider: Anna Raman RN) 2009 (Given - Provider: Jan Woods, RN) multivitamin with minerals 1 tablet 1 tablet, Oral, Daily, First dose on Sun08/27/20 at 1800, {BKC} 1712 (Given - Provider: Elissa Rowe, RN) 1022 (Given - Provider: Kaye Campos, LINSEY) 0802 (Given - Provider: Kaye Campos RN) sodium chloride 0.9 % flush 3 mL 3 mL, Intravenous, Every 12 Hours Scheduled, First dose on Sun08/27/20 at 1432 1502 (Canceled Entry - Provider: Elissa Rowe, LINSEY)2006 (Not Given - Provider: Anna Raman RN - Reason: Given from running infusion) 1023 (Given - Provider: Kaye Campos RN) 0038 (Not Given - Provider: Jan Woods RN - Reason: Given from running infusion)0801 (Given - Provider: Kaye Campos RN) Continuous Medication Order 08/27/2020 08/28/2020 08/29/2020 lactated ringers infusion 9 mL/hr, Intravenous, Continuous, Starting on Sun08/27/20 at 1001, May switch to NS IV at KVO if renal / if indicated 1005 (New Bag - Provider: Marianna Holden RN)1120 (Currently Infusing - Provider: Cosme Velazquez CRNA)1239 (Anesthesia Volume Adjustment - Provider: oCsme Velazquez CRNA) sodium chloride 0.45 % with KCl 20 mEq/L infusion 75 mL/hr, Intravenous, Continuous, Starting on Sun08/27/20 at 1348 1407 (New Bag - Provider: Nirali Langford RN) 0357 (New Bag - Provider: Anna Raman, LINSEY)0713 (Currently Infusing - Provider: Madeline Ross RN)1348 (Currently Infusing - Provider: Kaye Campos, LINSEY)1817 (Currently Infusing - Provider: Kaye Campos RN)2350 (New Bag - Provider: Jan Woods, RN) 0645 (Currently Infusing - Provider: Jan Woods, RN) PRN Medication Order 08/27/2020 08/28/2020 08/29/2020 albuterol (PROVENTIL) nebulizer solution 0.083% 2.5 mg/3mL 2.5 mg, Nebulization, Every 4 Hours PRN, Wheezing, Starting on Sun08/27/20 at 1430 ALPRAZolam (XANAX) tablet 0.5 mg 0.5 mg, Oral, 3 Times Daily PRN, Anxiety, Starting on Sun08/27/20 at 1430, For 10 days, {ALFONSO} Caution: Look alike/sound alike drug alert. Avoid grapefruit juice, Indications: Anxiety bupivacaine liposome (EXPAREL) 1.3 % injection (CANCELED) As Needed, Starting on Sun08/27/20 at 1153 1153 (Given - Provider: Lisbeth Lewis MD) floseal injection (CANCELED) As Needed, Starting on Sun08/27/20 at 1152 1152 (Given - Provider: Lisbeth Lewis MD) HYDROmorphone (DILAUDID) injection 0.5 mg(Linked Group 3) 0.5 mg, Intravenous, Every 2 Hours PRN, Severe Pain, Starting on Sun08/27/20 at 1430, For 10 days, If given for pain, use the following pain scale: Mild Pain = Pain Score of 1-3, CPOT 1-2 Moderate Pain = Pain Score of 4-6, CPOT 3-4 Severe Pain = Pain Score of 7-10, CPOT 5-8 ipratropium-albuterol (DUO-NEB) nebulizer solution 3 mL 3 mL, Nebulization, Every 4 Hours PRN, Wheezing, Starting on Sun08/27/20 at 1430 lidocaine PF 1% (XYLOCAINE) injection 0.5 mL (COMPLETED) 0.5 mL, Injection, Once As Needed, IV Start, Starting on Sun08/27/20 at 0959, For 1 dose 1005 (Given - Provider: Marianna Holden RN) naloxone (NARCAN) injection 0.4 mg(Linked Group 3) 0.4 mg, Intravenous, Every 5 Minutes PRN, Respiratory Depression, Starting on Sun08/27/20 at 1430, If respiratory rate is less than 8 breaths/minute or patient is difficult to arouse stop any narcotics and contact physician. Administer slow IV push. Repeat as ordered until patient's respiratory rate is greater than 12 breaths/minute. oxyCODONE-acetaminophen (PERCOCET) 7.5-325 MG per tablet 1 tablet 1 tablet, Oral, Every 4 Hours PRN, Severe Pain, Starting on Sun08/27/20 at 1430, For 7 days, [ALFONSO] Do not exceed 4 grams of acetaminophen in a 24 hr period. Max dose of 2gm for AST/ALT greater than 120 units/L If given for pain, use the following pain scale: Mild Pain = Pain Score of 1-3, CPOT 1-2 Moderate Pain = Pain Score of 4-6, CPOT 3-4 Severe Pain = Pain Score of 7-10, CPOT 5-8 2006 (Given - Provider: Anna Raman, RN) 0739 (Given - Provider: Madeline Ross, LINSEY) 0157 (Given - Provider: Jan Woods, LINSEY)0805 (Given - Provider: Kaye Campos RN) promethazine (PHENERGAN) suppository 12.5 mg(Linked Group 4) 12.5 mg, Rectal, Every 6 Hours PRN, Nausea, Vomiting, Starting on Sun08/27/20 at 1430, If BOTH ondansetron (ZOFRAN) and promethazine (PHENERGAN) are ordered use ondansetron first and THEN promethazine IF ondansetron is ineffective promethazine (PHENERGAN) tablet 12.5 mg(Linked Group 4) 12.5 mg, Oral, Every 6 Hours PRN, Nausea, Vomiting, Starting on Sun08/27/20 at 1430, If BOTH ondansetron (ZOFRAN) and promethazine (PHENERGAN) are ordered use ondansetron first and THEN promethazine IF ondansetron is ineffective. {BKC} sodium chloride (NS) irrigation solution (CANCELED) As Needed, Starting on Sun08/27/20 at 1152 1152 (Given - Provider: Lisbeth Lewis MD) sodium chloride 0.9 % flush 10 mL 10 mL, Intravenous, As Needed, Line Care, Starting on Sun08/27/20 at 1430 sodium chloride 0.9 % solution (CANCELED) As Needed, Starting on Sun08/27/20 at 1152 1152 (Given - Provider: Lisbeth Lewis MD) sodium chloride 5 mL with gelatin absorbable 1 each, thrombin 5,000 Units mixture (CANCELED) As Needed, Starting on Sun08/27/20 at 1153 1153 (Given - Provider: Lisbeth Lewis MD) sterile water irrigation solution (CANCELED) As Needed, Starting on Sun08/27/20 at 1152 1152 (Given - Provider: Lisbeth Lewis MD) temazepam (RESTORIL) capsule 30 mg 30 mg, Oral, Nightly PRN, Sleep, Anxiety, Starting on Sun08/27/20 at 1430, For 10 days, {ALFONSO}, Indications: Insomnia, Restless Leg Syndrome Linked Groups Order Group 1: HYDROcodone-acetaminophen (NORCO) 7.5-325 MG per tablet 1 tablet (COMPLETED)Jump to med 1 tablet, Oral, Once, On Sun08/27/20 at 1001, For 1 dose, Give 30 minutes prior to procedure [ALFONSO] Do not exceed 4 grams of acetaminophen in a 24 hr period. If given for pain, use the following pain scale: Mild Pain = Pain Score of 1-3, CPOT 1-2 Moderate Pain = Pain Score of 4-6, CPOT 3-4 Severe Pain = Pain Score of 7-10, CPOT 5-8 And ibuprofen (ADVIL,MOTRIN) tablet 800 mg (COMPLETED)Jump to med 800 mg, Oral, Once, On Sun08/27/20 at 1001, For 1 dose, GIve 30 minutes prior to procedure If given for pain, use the following pain scale: Mild Pain = Pain Score of 1-3, CPOT 1-2 Moderate Pain = Pain Score of 4-6, CPOT 3-4 Severe Pain = Pain Score of 7-10, CPOT 5-8 And acetaminophen (TYLENOL) tablet 650 mg (COMPLETED)Jump to med 650 mg, Oral, Once, On Sun08/27/20 at 1001, For 1 dose, Give 30 minutes prior to procedure. Do not exceed 4 grams of acetaminophen in a 24 hr period. Max dose of 2gm for AST/ALT greater than 120 units/L If given for pain, use the following pain scale: Mild Pain = Pain Score of 1-3, CPOT 1-2 Moderate Pain = Pain Score of 4-6, CPOT 3-4 Severe Pain = Pain Score of 7-10, CPOT 5-8 Group 2: dexamethasone (DECADRON) tablet 4 mg (CANCELED)Jump to med 4 mg, Oral, Every 6 Hours Scheduled, First dose on Sun08/27/20 at 1800, Take with food. Or dexamethasone (DECADRON) injection 4 mg (CANCELED) 4 mg, Intravenous, Every 6 Hours Scheduled, First dose on Sun08/27/20 at 1800, For IV administration. May be pushed over a minimum of 1 minute. Group 3: HYDROmorphone (DILAUDID) injection 0.5 mgJump to med 0.5 mg, Intravenous, Every 2 Hours PRN, Severe Pain, Starting on Sun08/27/20 at 1430, For 10 days, If given for pain, use the following pain scale: Mild Pain = Pain Score of 1-3, CPOT 1-2 Moderate Pain = Pain Score of 4-6, CPOT 3-4 Severe Pain = Pain Score of 7-10, CPOT 5-8 And naloxone (NARCAN) injection 0.4 mgJump to med 0.4 mg, Intravenous, Every 5 Minutes PRN, Respiratory Depression, Starting on Sun08/27/20 at 1430, If respiratory rate is less than 8 breaths/minute or patient is difficult to arouse stop any narcotics and contact physician. Administer slow IV push. Repeat as ordered until patient's respiratory rate is greater than 12 breaths/minute. Group 4: promethazine (PHENERGAN) tablet 12.5 mgJump to med 12.5 mg, Oral, Every 6 Hours PRN, Nausea, Vomiting, Starting on Sun08/27/20 at 1430, If BOTH ondansetron (ZOFRAN) and promethazine (PHENERGAN) are ordered use ondansetron first and THEN promethazine IF ondansetron is ineffective. {BKC} Or promethazine (PHENERGAN) suppository 12.5 mgJump to med 12.5 mg, Rectal, Every 6 Hours PRN, Nausea, Vomiting, Starting on Sun08/27/20 at 1430, If BOTH ondansetron (ZOFRAN) and promethazine (PHENERGAN) are ordered use ondansetron first and THEN promethazine IF ondansetron is ineffective documented in this encounter Care Teams Director Design Relationship Specialty Start Date End Date Marck Ramsey MD [address] [place] [address] PCP - General Family Medicine 07/12/20 documented as of this encounter
--- OUTSIDE RECORDS SUMMARY | 2024-06-27 12:05 | XMS_ITS | Encounter Summary ---
Author Organization [facility] Address [address] [place] [address] Care Team Providers Care Sectionizer Name Role Phone Marck Ramsye MD Primary Care Provider [phone] Encounter Details Date Type Department Care Team (Late st Contact Info) Description 04/07/2024 5:05 AM EDT Outside Facility Service [facility] [address] [place] [address] Patrica Otto MD [address] [place] [address] Social History Tobacco Use Types Packs/Day Years [...] Description 10/27/2024 11:00 AM EDT Office Visit [facility] [address] [place] [id number] Patrica Otto MD [address] [place] [address] documented as of this encounter Visit Diagnoses Not on filedocumented in this encounter Care Teams Sectionizer Relationship Specialty Start Date End Date Marck Ramsey MD [address] [place] [address] PCP - General Family Medicine 07/12/20 documented as of this encounter
--- OUTSIDE RECORDS SUMMARY | 2024-06-27 12:05 | XMS_ITS | Encounter Summary ---
Author Organization [facility] Address [address] [place] [address] Care Team Providers Care Reed Worker Name Role Phone Marck Ramsey MD Primary Care Provider [phone] Encounter Details Date Type Department Care Team (Late st Contact Info) Description 03/07/2024 Telephone [facility] [address] [place] [address] Pennie Antony APRN [address] [place] [address] Social History Tobacco Use Types [...] encounter Miscellaneous Notes * Telephone Encounter - Bridget Roman RegSched Rep - 03/07/2024 10:50 AM EDT Summary: REQ'D LABS FROM PCP'S OFFICE CALLED [facility] OFFICE IN [place] AND REQUESTED THE PATIENT'S LABS FROM [facility] ON 03.07.24 documented in this encounter Plan of Treatment Upcoming Encounters Date Type Department Care Team (Late st Contact Info) Description 10/27/2024 11:00 AM EDT Office Visit [facility] [address] [place] [address] Patrica Otto MD [address] [place] [address] documented as of this encounter Visit Diagnoses Not on filedocumented in this encounter Care Teams Reed Worker Relationship Specialty Start Date End Date Marck Ramsey MD [address] [place] [address] PCP - General Family Medicine 07/12/20 documented as of this encounter
--- OUTSIDE RECORDS SUMMARY | 2024-06-27 12:05 | XMS_ITS | Clinical Summary ---
Author Organization [facility] Address [address] [place] [address] Care Team Providers Care Digital Traffic Coordinator Name Role Phone Marck Ramsey MD Primary Care Provider [phone] Allergies Active Allergy Reactions Criticality Noted Date Comments Diazepam Mental Status Change,Irritability Low Agitation Meperidine GI Intolerance,Nausea And Vomiting Low 0 08/20/2017 Medications atorvastatin (LIPITOR) 10 MG tablet Take 1 tablet by mouth Every Night. 0 Active celecoxib (CeleBREX) 200 MG capsule Take 1 capsule by mouth Every Night. 0 Active digoxin (LANOXIN) 250 MCG tablet Take 1 tablet by mouth Every Night. 0 Active latanoprost (XALATAN) 0.005 % ophthalmic solution Administer 1 drop to both eyes Every Night. 0 Active vitamin C (ASCORBIC ACID) 500 MG tablet Take 1 tablet by mouth Daily. Active cholecalciferol (VITAMIN D3) 25 MCG (1000 UT) tablet Take 1 tablet by mouth Daily. Active ipratropium-alb uterol (DUO-NEB) 0.5-2.5 mg/3 ml nebulizer Take 3 mL by nebulization Every 4 (Four) Hours As Needed for Wheezing. Active albuterol sulfate HFA 108 (90 Base) MCG/ACT inhaler Inhale 2 puffs Every 4 (Four) Hours As Needed for Wheezing. Active coenzyme Q10 100 MG capsule Take 1 capsule by mouth Every Night. Active multivitamin with minerals (MULTIVITAMIN ADULTS PO) Take 1 tablet by mouth Daily. Active CALCIUM-MAGNESI UM-ZINC PO Take 1 dose by mouth Every Morning. Active Denosumab (PROLIA SC) Inject 1 dose under the skin into the appropriate area as directed Every 6 (Six) Months. Active EQ Aspirin Adult Low Dose 81 MG EC tablet Take 1 tablet by mouth Daily. 4 Active amLODIPine (NORVASC) 2.5 MG tablet Take 1 tablet by mouth Daily. Active Active Problems Problem Noted Date Diagnosed Date Paroxysmal atrial fibrillation 03/19/2024 Overview (04/28/2024): Diagnosis unclear. She said it was something like atrial fibrillation but she is never been on anticoagulation. She says has not come back and maintained on digoxin alone. Monitor showed no A-fib. I think at this point putting her on anticoagulation would outweigh benefits. Especially since she is frail and underweight. Assessment & Plan (04/28/2024 5:12 PM EDT): Diagnosis unclear. She said it was something like atrial fibrillation but she is never been on anticoagulation. She says has not come back and maintained on digoxin alone. Monitor showed no A-fib. I think at this point putting her on anticoagulation would outweigh benefits. Especially since she is frail and underweight. Dizziness 03/19/2024 Overview (03/19/2024): Check Holter, nuclear stress test, echo, carotid ultrasound. Assessment & Plan (04/28/2024 5:11 PM EDT): Stable. No syncope. Monitor did not show any arrhythmias or pauses. I wonder if some of her dizziness is because of low body weight and over control. But she says her blood pressure will get higher at home. Continue to monitor. Essential hypertension 03/19/2024 Overview (03/19/2024): At goal. Continue plan of care. Assessment & Plan (04/28/2024 5:11 PM EDT): Well-controlled. I wonder if some of her dizziness is because of low body weight and over control. But she says her blood pressure will get higher at home. Continue to monitor. LBBB (left bundle branch block) 03/19/2024 Overview (03/19/2024): Will need nuclear instead of KOBY due to left bundle branch block. Abnormal EKG 03/19/2024 Overview (03/19/2024): Will check echo and nuclear stress test. Herniated lumbar intervertebral disc 07/26/2020 Overview (07/26/2020): Added automatically from request for surgery [id number] Lumbar herniated disc 07/22/2020 Osteoporosis Encounters Date Type Department Care Team Description 04/28/2024 2:15 PM EDT Office Visit [facility] [address] [place] [phone] Patrica Otto MD Pulmonary emphysema, unspecified emphysema type (Primary Dx); Paroxysmal atrial fibrillation; Essential hypertension; Dizziness 04/09/2024 1:56 PM EDT - 04/09/2024 11:59 PM EDT Hospital Encounter [facility] 1720 COUNTS INCLUDE 234 BEDS AT [facility] 3rd [place] [address] Paroxysmal atrial fibrillation; Dizziness; Essential hypertension; LBBB (left bundle branch block); Abnormal EKG Discharge Disposition: Home or Self Care 04/07/2024 5:05 AM EDT Outside Facility Service [facility] [address] [place] [phone] Patrica Otto MD 04/04/2024 3:30 PM EDT Ancillary Procedure [facility] [address] [place] [phone] Paroxysmal atrial fibrillation; Dizziness; Essential hypertension; LBBB (left bundle branch block); Abnormal EKG 04/04/2024 2:30 PM EDT Ancillary Procedure [facility] [address] [place] [phone] Paroxysmal atrial fibrillation; Dizziness; Essential hypertension; LBBB (left bundle branch block); Abnormal EKG from Last 3 Months Family History Medical History Relation Name Comments Hypertension Brother Stroke Brother Cancer Father rectum Relation Name Status Comments Brother Father Mother Social History Tobacco Use Types Packs/Day Years [...] on file Sexual Orientation Not on file Last Filed Vital Signs Vital Sign Reading Time Taken Comments Blood Pressure 118/78 04/28/2024 2:25 PM EDT Pulse 92 04/28/2024 2:25 PM EDT Temperature 36.4 ??C (97.5 ??F) 10/07/2020 3:05 PM ES T Respiratory Rate 16 08/29/2020 8:24 AM EST Oxygen Saturation 98% 04/28/2024 2:25 PM EDT 2L O2 Inhaled Oxygen Concentration - - Weight 36.3 kg (80 lb) 04/28/2024 2:25 PM EDT Height 160 cm (5' 3 ) 04/28/2024 2:25 PM EDT Body Mass Index 14.17 04/28/2024 2:25 PM EDT Plan of Treatment Upcoming Encounters Date Type Department Care Team (Late st Contact Info) Description 10/27/2024 11:00 AM EDT Office Visit [facility] [address] [place] [address] Patrica Otto MD [address] [place] [address] Health Maintenance Due Date Last Done Comments DXA SCAN 1934 Pneumococcal Vaccine 65+ (1 of 2 - PCV) 1940 TDAP/TD VACCINES (1 - Tdap) 1953 RSV Vaccine - Adults (1 - 1- dose 75+ series) 2009 ANNUAL WELLNESS VISIT 07/21/2020 BMI FOLLOWUP 08/29/2021 08/29/2020 INFLUENZA VACCINE 03/13/2024 07/18/2023, , 09/11/2017, Additional history exists COVID-19 Vaccine (1 - 2023-2 5 season) 2024 ZOSTER VACCINE (2 of 3) 06/10/2024 04/15/2024 Medical Devices Implanted Type Area Drafting Layout Worker Device Identifier Shelf Expiration Date Model / Serial / Lot Hemost Abs Surgifoam Sz100 8x12 10mm - [id number] Implanted:Qty : 1 on 08/27/2020 by Georgi Lewis MD at [facility] Implant Right: Spine Lumbar [employer] J [employer] J 1974 / / Kt Seal Hemos Abs Floseal Matrx Fast/Prep 10ml - [id number] Implanted:Qty : 1 on 08/27/2020 by Georgi Lewis MD at [facility] Implant Right: Spine Lumbar [employer] [id number] / / Procedures Procedure Name Priority Date/Time Associated Diagnosis Comments OUTSIDE NON-INVASIVE CARDIOLOGY STUDY Routine 04/09/2024 1:56 PM EDT Paroxysmal atrial fibrillation Dizziness Essential hypertension LBBB (left bundle branch block) Abnormal EKG SCANNED EKG 04/07/2024 SCANNED - LABS 04/07/2024 SCANNED - IMAGING 04/07/2024 DUPLEX CAROTID BILATERAL CAR - PERFORMED PROCEDURE Routine 04/04/2024 3:50 PM EDT Paroxysmal atrial fibrillation Dizziness Essential hypertension LBBB (left bundle branch block) Abnormal EKG ECHO COMPLETE W/ DOPPLER AND COLOR FLOW Routine 04/04/2024 3:31 PM EDT Paroxysmal atrial fibrillation Dizziness Essential hypertension LBBB (left bundle branch block) Abnormal EKG from Last 3 Months Results * External Stress Procedure (04/09/2024 1:56 PM EDT) Narrative 04/09/2024 1:56 PM EDT This procedure was auto-finalized with no dictation required. Procedure Note 04/09/2024 This procedure was auto-finalized with no dictation required. Pennie Antony APRN CV CARDIAC SERVICES ORDERABLES Final Result * ECG Scan (04/07/2024) us Patrica Otto MD ECG ORDERABLES Final Result * IMAGING SCANNED (04/07/2024) Anatomical Region Laterality Modality Radiographic Julia ging Patrica Otto MD IMG DIAGNOSTIC IMAGING ORDER TENISHA Final Result * LABS SCANNED (04/07/2024) us Patrica Otto MD LAB BLOOD ORDERABLES Final R esult * DUPLEX CAROTID BILATERAL CAR - PERFORMED PROCEDURE (04/04/2024 3:50 PM EDT) Right Mid CCA PSV 51.50 cm/sec right Mid CCA EDV 12.70 cm/sec Prox ICA PSV -52.8 cm/sec Prox ICA EDV -14.8 cm/sec Mid ICA PSV -86.1 cm/sec Mid ICA EDV -21.5 cm/sec Dist ICA PSV -111.0 cm/sec Dist ICA EDV -29.4 cm/sec Prox ECA PSV -71.6 cm/sec Prox ECA EDV -6.5 cm/sec Vertebral A PSV -61.6 cm/sec Vertebral A EDV -10.0 cm/sec Prox SCLA PSV 65.0 cm/sec Dist CCA PSV 62.3 cm/sec Dist CCA EDV 14.7 cm/sec Prox ICA PSV -90.1 cm/sec Prox ICA EDV -21.1 cm/sec Mid ICA PSV -105.0 cm/sec Mid ICA EDV -17.1 cm/sec Dist ICA PSV -79.0 cm/sec Dist ICA EDV -25.7 cm/sec Prox ECA PSV -117.0 cm/sec Vertebral A PSV -71.7 cm/sec Vertebral A EDV -16.4 cm/sec Prox SCLA PSV -58.8 cm/sec Dist CCA PSV 54.00 cm/sec Dist CCA EDV 13.50 cm/sec ICA/CCA ratio 2.13 Diastolic ICA/CCA Ratio 2.23 left Mid CCA PSV 66.50 cm/sec left Mid CCA EDV 16.50 cm/sec ICA/CCA ratio 1.69 ICA/CCA diastolic ratio 1.73 Right arm BP 140/80 mmHg Left arm BP 138/70 mmHg Anatomical Region Laterality Modality Ultrasound Narrative 04/08/2024 12:05 PM EDT ?Right internal carotid artery demonstrates a less than 50%??stenosis. ?Antegrade right vertebral flow. ?Antegrade right vertebral flow. ?Left internal carotid artery demonstrates a less than 50%??stenosis. ?Antegrade left vertebral flow. ?Antegrade left vertebral flow. Study Impression ? ? Right ICA: Imaging indicates <50% stenosis and a tortuous arterial path. ? ? Right ECA: Imaging indicates atherosclerotic plaque. ? ? Right Vertebral: Antegrade flow is present. ? ? Left ICA: Imaging indicates <50% stenosis and a tortuous arterial path. ? ? Left ECA: Imaging indicates atherosclerotic plaque. ? ? Left Vertebral: Antegrade flow is present. Study Findings ? ? Right CCA Prox: Intima-medial thickening noted. ? Right CCA Mid: Smooth plaque present. Intima-medial thickening noted. ? ? Right CCA Dist: Smooth plaque present. ? Right Carotid Bulb: Irregular plaque present. ? ? Right ICA Prox: Irregular heterogeneous plaque present. ? ? Right ICA Mid: Tortuous vessel. ? ? Right ICA Dist: Tortuous vessel. ? ? Right ECA: Smooth irregular heterogeneous plaque present. ? ? Right Vertebral: Antegrade flow noted. ? ? Left CCA Prox: Intima-medial thickening noted. ? Left CCA Mid: Smooth irregular heterogeneous plaque present. ? ? Left CCA Dist: Smooth irregular plaque present. ? Left Carotid Bulb: Smooth irregular heterogeneous plaque present. ? ? Left ICA Prox: Irregular heterogeneous plaque present. ? ? Left ICA Mid: Tortuous vessel. ? ? Left ICA Dist: Tortuous vessel. ? ? Left ECA: Irregular heterogeneous plaque present. ? ? Left Vertebral: Antegrade flow noted. Additional Study Details The study is technically difficult for diagnosis. The quality of the study is limited due to patient positioning. Pennie Antony APRN CV VASCULAR ORDERAB LES Final Result * ECHO COMPLETE W/ DOPPLER AND COLOR FLOW (04/04/2024 3:31 PM EDT) [facility] EF(MOD-bp) 49.7 % LVIDd 3.6 cm LVIDs 2.9 cm IVSd 1.22 cm LVPWd 1.10 cm FS 19.9 % IVS/LVPW 1.11 cm ESV(cubed) 23.4 ml EDV(cubed) 45.5 ml LV mass(C)d 132.8 grams LVOT area 3.1 cm2 LVOT diam 2.00 cm EDV(MOD-sp2) 51.5 ml EDV(MOD-sp4) 58.7 ml ESV(MOD-sp2) 32.4 ml ESV(MOD-sp4) 29.5 ml SV(MOD-sp2) 19.1 ml SV(MOD-sp4) 29.2 ml EF(MOD-sp2) 37.1 % EF(MOD-sp4) 49.7 % MV E max shaun 57.6 cm/sec MV A max shaun 126.0 cm/sec MV dec time 0.23 sec MV E/A 0.46 Med Peak E' Shaun 4.0 cm/sec Lat Peak E' Shaun 7.1 cm/sec TR max shaun 296.0 cm/sec Avg E/e' ratio 10.38 SV(LVOT) 46.5 ml RVIDd 2.21 cm RV Base 2.8 cm RV Mid 2.7 cm RV Length 5.7 cm TAPSE (>1.6) 1.68 cm LA dimension (2D) 2.5 cm LV V1 max 85.0 cm/sec LV V1 max PG 2.9 mmHg LV V1 mean PG 2.00 mmHg LV V1 VTI 14.8 cm Ao pk shaun 108.0 cm/sec Ao max PG 4.7 mmHg Ao mean PG 3.0 mmHg Ao V2 VTI 20.1 cm ORVILLE(I,D) 2.31 cm2 MV max PG 6.1 mmHg MV mean PG 2.00 mmHg MV V2 VTI 23.2 cm MVA(VTI) 2.00 cm2 MV dec slope 257.0 cm/sec2 TR max PG 35.1 mmHg RVSP(TR) 38.1 mmHg RAP systole 3.0 mmHg PA V2 max 141.0 cm/sec Ao root diam 3.3 cm Sinus 3.4 cm Dimensionless Index 0.75 (DI) MAPSE 1.4 MV P1/2t 126.00 msec MVA(P1/2t) 3.33 cm2 Anatomical Region Laterality Modality Ultrasound Narrative 04/08/2024 12:05 PM EDT ?Left ventricular ejection fraction appears to be 51 - 55%. ?Left ventricular diastolic dysfunction is noted. ?Mild pulmonary hypertension is present. Left Ventricle Left ventricular ejection fraction appears to be 51 - 55%. Septal wall motion is abnormal, consistent with a bundle branch block. Normal left ventricular cavity size noted. Left ventricular wall thickness is consistent with mild asymmetric hypertrophy. Sigmoid-shaped ventricular septum is present. Left ventricular diastolic dysfunction is noted. Right Ventricle Normal right ventricular cavity size, wall thickness and septal motion noted. Borderline low right ventricular systolic function noted. Left Atrium Normal left atrial size and volume noted. Right Atrium Normal right atrial cavity size noted. Mitral Valve Mild mitral annular calcification is present. There is moderate calcification of the mitral valve posterior leaflet(s). Mild mitral valve regurgitation is present. No significant mitral valve stenosis is present. Tricuspid Valve The tricuspid valve is grossly normal in structure. Mild tricuspid valve regurgitation is present. Estimated right ventricular systolic pressure from tricuspid regurgitation is mildly elevated (35-45 mmHg). Mild pulmonary hypertension is present. No evidence of significant tricuspid valve stenosis is present. Aortic Valve The aortic valve is abnormal in structure. The aortic valve exhibits sclerosis. The aortic valve appears trileaflet. No significant aortic valve regurgitation is present. No hemodynamically significant aortic valve stenosis is present. Pulmonic Valve The pulmonic valve is grossly normal in structure. There is trace pulmonic valve regurgitation present. There is no pulmonic valve stenosis present. Pericardium The pericardium is normal. There is no evidence of pericardial effusion. . Greater Vessels No dilation of the aortic root is present. No dilation of the sinuses of Valsalva is present. No dilation of the proximal aorta is present. The inferior vena cava is normally sized. Study Quality The study is technically difficult for diagnosis. The quality of the study is limited due to patient positioningwith poor acoustic windows. Bundle branch block was observed for the duration of the procedure. Wall Scoring Score Index: 1.35 The following segments are dyskinetic: mid anteroseptal and mid inferoseptal. All other segments are normal. Pennie Antony APRN CV ECHO ORDERABLES Final Result from Last 3 Months Insurance [employer] MED ADV HMO Advance Directives Documents on File Type Date Recorded Patient Meat Team Member Expl anation LIVING WILL - SCAN 08/28/2020 3:28 PM [employer]VA NCE HEALTH CARE DIRECTIVE, BHLEX, 06/04/03 * CPR (Attempt to Resuscitate) (Latest Code Status on File) Date Activated Date Inactivated Comments 08/27/2020 2:30 PM 08/29/2020 5:32 PM Question Answer Comments Code Status (Patient has no pulse and is not breathing): CPR (Attempt to Resuscitate) Medical Interventions (Patie nt has pulse or is breathing): Full Level Of Support Discussed With: Patient Healthcare Agents on File Name Relationship Healthcare Agent [facility] Communication Vini Gleason [facility] Care Surrogate Care Teams Digital Traffic Coordinator Relationship Specialty Start Date End Date Marck Ramsey MD [address] [place] [address] PCP - General Family Medicine 07/12/20
--- OUTSIDE RECORDS SUMMARY | 2024-06-27 12:05 | XMS_ITS | Encounter Summary ---
Author Organization [facility] Address [address] [place] [address] Care Team Providers Care Post Closing Specialist Name Role Phone Marck Ramsey MD Primary Care Provider [phone] Reason for Visit * Reason Onset Date Comments CONFIRMED APPT. 12/27/2022 Encounter Details Date Type Department Care Team (Late st Contact Info) Description 12/27/2022 Telephone [facility] [address] [facility] [address] [place] [address] Kristopher Loya MA CONFIRMED APPT. Social History Tobacco Use Types Packs/Day Years [...] Telephone Encounter - Kristopher Loya MA - 12/27/2022 11:14 AM EDT PATIENT RETURNED CALL TO CONFIRM APPT. AND PHARMACY THAT [facility] WAS SENT TO. ALL QUESTIONS ANSWERED. documented in this encounter Plan of Treatment Upcoming Encounters Date Type Department Care Team (Late st Contact Info) Description 10/27/2024 11:00 AM EDT Office Visit [facility] [address] [place] [id number] Patrica Otto MD [address] [place] [address] documented as of this encounter Visit Diagnoses Not on filedocumented in this encounter Care Teams Post Closing Specialist Relationship Specialty Start Date End Date Marck Ramsey MD [address] [place] [address] PCP - General Family Medicine 07/12/20 documented as of this encounter
--- OUTSIDE RECORDS SUMMARY | 2024-06-27 12:05 | XMS_ITS | Encounter Summary ---
Author Organization [facility] Address [address] [address] Care Team Providers Care Cable Swager Name Role Phone Marck Ramsey MD Primary Care Provider [phone] Reason for Visit * Diagnostic Imaging (Routine) - Closed Specialty Diagnoses / Procedures Referred By Arunac t Referred To Contact Diagnoses Paroxysmal atrial fibrillation Dizziness Essential hypertension LBBB (left bundle branch block) Abnormal EKG Procedures Adult Transthoracic Echo Complete W/ Cont if Necessary Per Protocol Pennie Antony APRN [address] [place] [address] Phone: tel: fax: [facility] [address] [place] [address] Phone: tel: fax: Referral ID Status Reason Start Date Expiration Date Visits Re quested Visits Authorized [id number] Closed 03/19/2024 03/19/2025 1 1 Encounter Details Date Type Department Care Team (Latest Contact Info) Description 04/04/2024 2:30 PM EDT Ancillary Procedure [facility] [address] [place] [address] [place] [phone] Paroxysmal atrial fibrillation; Dizziness; Essential hypertension; LBBB (left bundle branch block); Abnormal EKG Social History Tobacco Use Types Packs/Day Years [...] Sign Reading Time Taken Comments Blood Pressure 138/70 04/04/2024 2:45 PM EDT Pulse - - Temperature - - Respiratory Rate - - Oxygen Saturation - - Inhaled Oxygen Concentration - - Weight 35.4 kg (78 lb) 04/04/2024 2:45 PM EDT Height 160 cm (5' 3 ) 04/04/2024 2:45 PM EDT Body Mass Index 13.82 04/04/2024 2:45 PM EDT documented in this encounter Plan of Treatment Upcoming Encounters Date Type Department Care Team (Late st Contact Info) Description 10/27/2024 11:00 AM EDT Office Visit [facility] [address] [place] [phone] Patrica Otto MD [address] [place] [address] documented as of this encounter Procedures Procedure Name Priority Date/Time Associated Diagnosis Comments ECHO COMPLETE W/ DOPPLER AND COLOR FLOW Routine 04/04/2024 3:31 PM EDT Paroxysmal atrial fibrillation Dizziness Essential hypertension LBBB (left bundle branch block) Abnormal EKG documented in this encounter Results * ECHO COMPLETE W/ DOPPLER AND COLOR FLOW (04/04/2024 3:31 PM EDT) EF(MOD-bp) 49.7 % LVIDd 3.6 cm LVIDs [...] mid inferoseptal. All other segments are normal. [facility] Maria Teresa Arpan REA CV ECHO ORDERABLES Final Result documented in this encounter Visit Diagnoses Diagnosis Paroxysmal atrial fibrillation Atrial fibrillation Dizziness Dizziness and giddiness Essential hypertension Unspecified essential hypertension LBBB (left bundle branch block) Other left bundle branch block Abnormal EKG Nonspecific abnormal electrocardiogram (ECG) (EKG) documented in this encounter Care Teams Cable Swager Relationship Specialty Start Date End Date Marck Ramsey MD [address] [place] [address] PCP - General Family Medicine 07/12/20 documented as of this encounter
--- OUTSIDE RECORDS SUMMARY | 2024-06-27 12:05 | XMS_ITS | Encounter Summary ---
Author Organization [facility] Address [address] [place] [address] Care Team Providers Care Pan Helper Name Role Phone Marck Ramsey MD Primary Care Provider [phone] Reason for Visit * Diagnostic Imaging (Routine) - Closed Specialty Diagnoses / Procedures Referred By Rossy childs Referred To Contact Diagnoses Paroxysmal atrial fibrillation Dizziness Essential hypertension LBBB (left bundle branch block) Abnormal EKG Procedures Duplex Carotid Ultrasound CAR Pennie Antony APRN [address] [place] [address] Phone: tel: fax: [facility] [address] [place] [address] Phone: tel: fax: Referral ID Status Reason Start Date Expiration Date Visits Re quested Visits Authorized [id number] Closed 03/19/2024 03/19/2025 1 1 Encounter Details Date Type Department Care Team (Latest Contact Info) Description 04/04/2024 3:30 PM EDT Ancillary Procedure [facility] [address] [place] [address] [place] [phone] Paroxysmal atrial fibrillation; Dizziness; [...] Time Taken Comments Blood Pressure 138/70 04/04/2024 3:15 PM EDT Pulse - - Temperature - - Respiratory Rate - - Oxygen Saturation - - Inhaled Oxygen Concentration - - Weight 35.4 kg (78 lb) 04/04/2024 3:15 PM EDT Height 160 cm (5' 3 ) 04/04/2024 3:15 PM EDT Body Mass Index 13.82 04/04/2024 3:15 PM EDT documented in this encounter Plan of Treatment Upcoming Encounters Date Type Department Care Team (Late st Contact Info) Description 10/27/2024 11:00 AM EDT Office Visit [facility] [address] [place] [phone] Patrica Otto MD [address] [place] [address] documented as of this encounter Procedures Procedure Name Priority Date/Time Associated Diagnosis Comments DUPLEX CAROTID BILATERAL CAR - PERFORMED PROCEDURE Routine 04/04/2024 3:50 PM EDT Paroxysmal atrial fibrillation Dizziness Essential hypertension LBBB (left bundle branch block) Abnormal EKG documented in this encounter Results * DUPLEX CAROTID BILATERAL CAR - PERFORMED [...] is limited due to patient positioning. Pennie Maria Teresa Arpan [employer] CV VASCULAR ORDERAB LES Final Result documented in this encounter Visit Diagnoses Diagnosis Paroxysmal atrial fibrillation Atrial fibrillation Dizziness Dizziness and giddiness Essential hypertension Unspecified essential hypertension LBBB (left bundle branch block) Other left bundle branch block Abnormal EKG Nonspecific abnormal electrocardiogram (ECG) (EKG) documented in this encounter Care Teams Pan Helper Relationship Specialty Start Date End Date Marck Ramsey MD [address] [place] [address] PCP - General Family Medicine 07/12/20 documented as of this encounter
--- OUTSIDE RECORDS SUMMARY | 2024-06-27 12:05 | XMS_ITS | Encounter Summary ---
Author Organization [facility] Address [address] [place] [address] Care Team Providers Care Director [employer] Name Role Phone Marck Ramsey MD Primary Care Provider [phone] Reason for Visit * Reason Onset Date Comments BACK SURGERY 09/06/2020 Encounter Details Date Type Department Care Team (Late st Contact Info) Description 09/06/2020 Telephone [facility] [address] [facility] [address] [place] [address] Georgi Lewis MD BACK SURGERY Social History Tobacco Use Types Packs/Day Years [...] encounter Miscellaneous Notes * Telephone Encounter - Jerilyn Valentin MA - 09/06/2020 12:58 PM EST Called and relayed over Chante's note. * Telephone Encounter - Chante Durham PA-C - 09/06/2020 11:57 AM EST Should be fine as long as no new or worsening leg pain or b/b dysfunction. Back pain is to be expected following the surgery. * Telephone Encounter - AshleyEulalia bojorquezAdithyaAlyssia Rep - 09/06/2020 9:18 AM EST Caller: TRUDI WALTERS Relationship to patient: PT/SELF Best call back number: [phone] Patient is needing: PT CALLED STATING THAT SHE WAS CONSTIPATED THIS Sunday AND HAD A HARD BOWEL MOVEMENT. SURGERY DISCECTOMY L4-L5 ON 08/27/2020. PT STATES SHE MOVED HER BACK AROUND DURING HAVING THE BOWEL MOVEMENT AND IS CONCERNED THAT SHE MAY HAVE DONE SOMETHING TO THE SURGERY SITE. STATES SHE IS NOT HAVING ANY ADDITIONAL PAIN BUT WAS JUST WORRIED. STATES SHE HAS A COUGH FROM BEING INTUBATED AND WORRIED THAT SHE IS GOING TO HURT HER SITE WITH THIS WELL. PT STATES SHE WOULD LIKE TO NOTIFDANAYR HEATH. PT STATES SHE DID HAVE BOWEL MOVEMENT AND THEY ARE REGULAR OF THIS MORNING. PLEASE CONTACT PT REGARDING THIS MATTER, QUESTIONS OR CONCERNS. THANK YOU! documented in this encounter Plan of Treatment Upcoming Encounters Date Type Department Care Team (Late st Contact Info) Description 10/27/2024 11:00 AM EDT Office Visit [facility] C[facility] [address] [place] [phone] Patrica Otto MD [address] [place] [address] documented as of this encounter Visit Diagnoses Not on filedocumented in this encounter Care Teams Director [employer] Relationship Specialty Start Date End Date Marck Ramsey MD [address] [place] [address] PCP - General Family Medicine 07/12/20 documented as of this encounter
--- OUTSIDE RECORDS SUMMARY | 2024-06-27 12:05 | XMS_ITS | Encounter Summary ---
Author Organization [facility] Address [address] [place] [address] Care Team Providers Care Diagnostic Radiologic Technologist Name Role Phone Mrack Ramsey MD Primary Care Provider [phone] Reason for Referral * Cardiac (Routine) - Closed Specialty Diagnoses / Procedures Referred By Rossy childs Referred To Contact Diagnoses Paroxysmal atrial fibrillation Dizziness Essential hypertension LBBB (left bundle branch block) Abnormal EKG Procedures Holter Monitor - 72 Hour Up To 15 Days Pennie Antony APRN [address] [place] [address] Phone: tel: fax: [facility] [address] [place] [address] Phone: tel: Referral ID Status Reason Start Date Expiration Date Visits Re quested Visits Authorized [id number] Closed 03/19/2024 03/19/2025 1 1 * Diagnostic Imaging (Routine) - Closed Specialty Diagnoses / Procedures Referred By Rossy childs Referred To Contact Diagnoses Paroxysmal atrial fibrillation Dizziness Essential hypertension LBBB (left bundle branch block) Abnormal EKG Procedures Duplex Carotid Ultrasound CAR Pennie Antony APRN [address] [place] [address] Phone: tel: fax: [facility] [address] [place] [address] Phone: tel: fax: Referral ID Status Reason Start Date Expiration Date Visits Re quested Visits Authorized [id number] Closed 03/19/2024 03/19/2025 1 1 * Diagnostic Imaging (Routine) - Closed Specialty Diagnoses / Procedures Referred By Rossy childs Referred To Contact Diagnoses Paroxysmal atrial fibrillation Dizziness Essential hypertension LBBB (left bundle branch block) Abnormal EKG Procedures Adult Transthoracic Echo Complete W/ Cont if Necessary Per Protocol Pennie Antony APRN [address] [place] [address] Phone: tel: fax: [address] [place] [id number] Phone: tel: fax: Referral ID Status Reason Start Date Expiration Date Visits Re quested Visits Authorized [id number] Closed 03/19/2024 03/19/2025 1 1 Reason for Visit * Reason Comments Establish Care Cardiac Eval * Consultation (Routine) - Authorized Specialty Diagnoses / Procedures Referred By Rossy childs Referred To Contact Cardiology Diagnoses Flores Greene, PHARM TECH [address] [place] [address] Phone: tel: fax: [address] [place] [address] Phone: tel: fax: Referral ID Status Reason Start Date Expiration Date V isits Requested Visits Authorized [id number] Authorized 02/25/2024 02/24/2025 3 3 Encounter Details Date Type Department Care Team (Late st Contact Info) Description 03/19/2024 2:00 PM EDT Office Visit [facility] [address] [place] [address] [place] [phone] Arpan Pennie Morel, PHARM TECH [address] [place] [address] Paroxysmal atrial fibrillation; Dizziness; Essential hypertension; LBBB (left bundle branch block); Abnormal EKG Social History Tobacco Use Types Packs/Day Years Used Date Smoking Tobacco: Former Cigarettes 0.5 10 0 08/13/1952 - 08/13/1962 Passive Smoke Exposure: Past Smokeless Tobacco: Never Tobacco Cessation:Counseling Given: Yes Alcohol Use Standard Drinks/Week Comments Yes 0 [...] Sign Reading Time Taken Comments Blood Pressure 120/80 03/19/2024 2:01 PM EDT Pulse 96 03/19/2024 2:01 PM EDT Temperature - - Respiratory Rate - - Oxygen Saturation 91% 03/19/2024 2:01 PM EDT Inhaled Oxygen Concentration - - Weight 35.4 kg (78 lb) 03/19/2024 2:01 PM EDT Height 160 cm (5' 3 ) 03/19/2024 2:01 PM EDT Body Mass Index 13.82 03/19/2024 2:01 PM EDT documented in this encounter Patient Instructions * Attachments The following attachments cannot be sent through Care Everywhere. * Sleep Apnea [id number] (Finnish) * Hypersomnia (Finnish) documented in this encounter Progress Notes * Pennie Antony, RONA - 03/19/2024 2:00 PM EDTAssociated Order(s): ECG 12 Lead Pre-Procedure Diagnose(s): Paroxysmal atrial fibrillation; Dizziness; Essential hypertension; LBBB (left bundle branch block); Abnormal EKG Post-Procedure Diagnose(s): Paroxysmal atrial fibrillation; Dizziness; Essential hypertension; LBBB(left bundle branch block); Abnormal EKG Images from the original note were not included. [facility] Provider Note Date: 03/19/2024 Name: Trudi Gleason : 1935 PCP: Marck Ramsey MD Chief Complaint Patient presents with ??? Establish Care Cardiac Eval Subjective History of Present Illness Trudi Gleason is a 88 y.o. female who presents today to establish cardiac care for known history of A-fib with recent worsening of dizziness and weakness. Patient reports that she has had nearly lifelong dizziness but feels like it has gotten worse and that she has increased dyspnea on exertion but feels like that related to her worsening COPD. She said her dizziness has gotten so bad that she gave her car away to her son so that she would not drive anymore. A couple weeks ago she got up off the couch and saw something on the floor so she bent over to pick it up and fell over in the floor due to dizziness. She stated she did not get hurt but it scared her that she became that dizzythat that was worse than her normal dizziness. She said she called and made the appointment for next available. She said she has not had a stress test in over 20 years. Her heart rate is higher than I would like for it to be today given her A-fib and she does report at home it goes between 88 and 90. She takes digoxin for her A-fib. She denies any palpitations, chest pain, or edema. She said it is just the dizziness and worsening dyspnea on exertion. She said she has never had a sleep study. Antionette is a 9 today. Neck size 13 inches. I offered her a home sleep study given her history of A-fib but patient declines. Patient's EKG today sinus tachycardia with heart rate of 104. Possible left atrial enlargement. Oldinferior infarct. Moderate ST depression. Left bundle branch block. EKG is abnormal but similar to 02/22/2020 for EKG. Patient feels like she would be able to walk on treadmill for stress test but given her left bundlebranch block she will need a nuclear stress test. Discussed case with Dr. Tiffanie Otto, and attending tape sewing machine operator. We will order a Holter, echo, nuclear stress test, carotid ultrasound and patient declines home sleep study. We will see her back after testing for follow-up. She will need a Sunday as asked today her son is off work. 1. A-fib 2. Worsening dizziness 3. Worsening dyspnea on exertion-known COPD 4. Atrial fibrillation 5. LBBB 03/19/2024 history of A-fib. Declines sleep study. [...] mouth Every Night., Disp: , Rfl: ??? [id number] PO, Take 1 dose by mouth Every [...] ., Disp: 45 tablet, Rfl: 0 ??? Sod Picosulfate-Mag Ox-Cit Acd 10-3.5-12 MG-GM -GM/160ML solution, Take 350 mL by mouth Take AsDirected. Please follow instructions that were mailed to your home. If you did not receive these instructions please call our office at ., Disp: 350 mL, Rfl: 0 ??? vitamin C (ASCORBIC ACID) [...] L4-L5 RIGHT; Surgeon: Georgi Lewis MD; Location: [facility]; Service: Neurosurgery; Laterality: Right; ??? [...] date: 08/13/1952 Quit date: 08/13/1962 Years since quittin.6 Passive exposure: Past ??? Smokeless tobacco: Never Vaping Use ??? Vaping status: Never Used Substance and Sexual Activity ??? Alcohol use: Yes Comment: social ??? Drug use: Defer ??? Sexual activity: Defer Objective Vital Signs: BP 120/80 (BP Location: Right arm, Patient Position: Sitting, Cuff Size: Adult) Pulse 96 Ht 160cm (63 ) Wt 35.4 kg (78 lb) SpO2 91% BMI 13.82 kg/m?? Estimated body mass index is 13.82 kg/m?? as calculated from the following: Height as of this encounter: 160 cm (63 ). Weight as of this encounter: 35.4 kg (78 lb). Physical Exam Constitutional: Appearance: Normal appearance. She is well-developed. HENT: Head: Normocephalic and atraumatic. Eyes: General: No scleral icterus. Pupils: Pupils are equal, round, and reactive to light. Cardiovascular: Rate and Rhythm: Normal rate and regular rhythm. Heart sounds: Normal heart sounds. No murmur heard. 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 No wheezing or rhonchi. Musculoskeletal: General: Normal range of motion. Right lower leg: No edema. Left lower leg: No edema. Skin: General: Skin is warm and dry. Capillary Refill: Capillary refill takes less than 2 seconds. Coloration: Skin is not cyanotic. Nails: There is no clubbing. Neurological: Mental Status: She is alert and oriented to person, place, and time. Motor: No weakness. Gait: Gait normal. Psychiatric: Mood and Affect: Mood normal. Behavior: Behavior is cooperative. Thought Content: Thought content normal. Cognition and Memory: Memory normal. ECG 12 Lead Date/Time: 03/19/2024 4:40 PM Performed by: Pennie Antony APRN Authorized by: Pennie Antony APRN Comparison: compared with previous ECG from 02/22/2024 Similar to previous ECG Rhythm: sinus tachycardia BPM: 104 Clinical impression: abnormal EKG Comments: Sinus tachycardia. Possible left atrial enlargement. Left bundle branch block. Inferior infarct. Moderate ST depression. Abnormal. Assessment and Plan Diagnoses and all orders for this visit: 1. Paroxysmal atrial fibrillation Comments: May need better rate control. Will assess Holter monitor first. Patient reports runs between 88 and90 at home. Declines HST Orders: - Adult Transthoracic Echo Complete W/ Cont if Necessary Per Protocol; Future - Duplex Carotid Ultrasound CAR; Future - Holter Monitor - 72 Hour Up To 15 Days - Cancel: Home Sleep Study; Future - ECG 12 Lead - Stress Test With Myocardial Perfusion One Day; Future 2. Dizziness Comments: Check Holter, nuclear stress test, echo, carotid ultrasound. Orders: - Adult Transthoracic Echo Complete W/ Cont if Necessary Per Protocol; Future - Duplex Carotid Ultrasound CAR; Future - Holter Monitor - 72 Hour Up To 15 Days - Cancel: Home Sleep Study; Future - ECG 12 Lead - Stress Test With Myocardial Perfusion One Day; Future 3. Essential hypertension Comments: At goal. Continue plan of care. Orders: - Adult Transthoracic Echo Complete W/ Cont if Necessary Per Protocol; Future - Duplex Carotid Ultrasound CAR; Future - Holter Monitor - 72 Hour Up To 15 Days - Cancel: Home Sleep Study; Future - ECG 12 Lead - Stress Test With Myocardial Perfusion One Day; Future 4. LBBB (left bundle branch block) Comments: Will need nuclear instead of KOBY due to left bundle branch block. Orders: - Adult Transthoracic Echo Complete W/ Cont if Necessary Per Protocol; Future - Duplex Carotid Ultrasound CAR; Future - Holter Monitor - 72 Hour Up To 15 Days - Cancel: Home Sleep Study; Future - ECG 12 Lead - Stress Test With Myocardial Perfusion One Day; Future 5. Abnormal EKG Comments: Will check echo and nuclear stress test. Orders: - Adult Transthoracic Echo Complete W/ Cont if Necessary Per Protocol; Future - Duplex Carotid Ultrasound CAR; Future - Holter Monitor - 72 Hour Up To 15 Days - Cancel: Home Sleep Study; Future - ECG 12 Lead - Stress Test With Myocardial Perfusion One Day; Future Follow Up Return for after testing; needs a Sunday appt. Pennie Antony APRN 03/19/2024 Please note that this explicitly excludes time [...] Visit [facility] [address] [place], [place] [id number] Patrica Otto MD [address] [place] [address] documented as of this encounter Procedures Procedure Name Priority Date/Time Associated Diagnosis Comments ECG 12-LEAD Routine 03/19/2024 4:40 PM EDT Paroxysmal atrial fibrillation Dizziness Essential hypertension LBBB (left bundle branch block) Abnormal EKG HOLTER MONITOR >7 DAYS UP TO 15 [...] CV CARDIAC SERVICES ORDERABLES Final Result * DUPLEX CAROTID BILATERAL CAR - PERFORMED [...] Antony APRN CV ECHO ORDERABLES Final Result * ECG 12-LEAD (03/19/2024 4:40 PM EDT) Narrative ECG - 03/19/2024 4:40 PM EDT Pennie Antony APRN ? 03/19/2024 ??4:44 PM ECG 12 Lead Date/Time: 03/19/2024 4:40 PM Performed by: Pennie Antony APRN Authorized by: Pennie Antony APRN ??Comparison: compared with previous ECG from 02/22/2024 Similar to previous ECG Rhythm: sinus tachycardia BPM: 104 Clinical impression: abnormal EKG Comments: Sinus tachycardia. ??Possible left atrial enlargement. ??Left bundle branch block. ??Inferior infarct. ??Moderate ST depression. ?? Abnormal. Procedure Note Pennie Antony APRN - 03/19/2024 2:00 PM EDT Images from the original note were not included. [facility] Provider Note Date: 03/19/2024 Name: Trudi Gleason : 1935 PCP: Marck Ramsey MD Chief Complaint Patient presents with ? ? Establish Care Cardiac Eval Subjective History of Present Illness Trudi Gleason is a 88 y.o. female who presents today to establishcardiac care for known history of A-fib with recent worsening of dizzinessand weakness. Patient reports that she has had nearly lifelong dizzinessbut feels like it has gotten worse and that she has increased dyspnea onexertion but feels like that related to her worsening COPD. She said herdizziness has gotten so bad that she gave her car away to her son so thate would not drive anymore. A couple weeks ago she got up off the couchand saw something on the floor so she bent over to pick it up and fellover in the floor due to dizziness. She stated she did not get hurt butit scared her that she became that dizzy that that was worse than hernormal dizziness. She said [facility] She said she has not had a stress test in over 20 years. Herheart rate is higher than I would like for it to be today given her A-fiband she does report at home it goes between 88 and 90. She takes digoxinfor her A-fib. She denies any palpitations, chest pain, or edema. Shesaid it is just the dizziness and worsening dyspnea on exertion. She said she has never had a sleep study. Lamont is a 9 today. Necksize 13 inches. I offered her a home sleep study given her history ofA-fib but patient declines. Patient's EKG today sinus tachycardia with heart rate of 104. Possibleleft atrial enlargement. Old inferior infarct. Moderate ST depression.Left bundle branch block. EKG is abnormal but similar to 02/22/2020 forEKG. Patient feels like she would be able to walk on treadmill for stress testbut given her left bundle branch block she will need a nuclear stresstest. Discussed case with Dr. Tiffanie Otto, and attending tape sewing machine operator.We will order a Holter, echo, nuclear stress test, carotid ultrasound andpatient declines home sleep study. We will see her back after testing forfollow-up. She will need a Sunday as asked today her son is off work. 1. A-fib 2. Worsening dizziness 3. Worsening dyspnea on exertion-known COPD 4. Atrial fibrillation 5. LBBB 03/19/2024 history of A-fib. Declines sleep study. Ordered baseline echo,nuclear stress test due to left bundle branch block, Holter, and carotidartery duplex. 03/19/2024 EKG-sinus tachycardia with heart rate of 104. Possible leftatrial enlargement. Inferior infarct. Moderate ST depression. Leftbundle branch block. Abnormal EKG. Similar to 02/22/2020 for EKG. Allergies Allergen Reactions ? ? Diazepam Mental Status Change and Irritability Agitation ? ? Meperidine GI Intolerance and Nausea And Vomiting Current Outpatient Medications: ? ? albuterol sulfate HFA 108 (90 Base) MCG/ACT inhaler, Inhale 2 puffsEvery 4 (Four) Hours As Needed for Wheezing., Disp: , Rfl: ? ? atorvastatin (LIPITOR) 10 MG tablet, Take 1 tablet by mouth EveryNight., Disp: , Rfl: ? ? [id number] PO, Take 1 dose by mouth Every Morning., Disp: ,Rfl: ? ? celecoxib (CeleBREX) 200 MG capsule, Take 1 capsule by mouth EveryNight., Disp: , Rfl: ? ? cholecalciferol (VITAMIN D3) 25 MCG (1000 UT) tablet, Take 1 tablet bymouth Daily., Disp: , Rfl: ? ? coenzyme Q10 100 MG capsule, Take 1 capsule by mouth Every Night.,Disp: , Rfl: ? ? Denosumab (PROLIA SC), Inject 1 dose under the skin into theappropriate area as directed Every 6 (Six) Months., Disp: , Rfl: ? ? digoxin (LANOXIN) 250 MCG tablet, Take 1 tablet by mouth Every Night.,Disp: , Rfl: ? ? ipratropium-albuterol (DUO-NEB) 0.5-2.5 mg/3 ml nebulizer, Take 3 mL bynebulization Every 4 (Four) Hours As Needed for Wheezing., Disp: , Rfl: ? ? latanoprost (XALATAN) 0.005 % ophthalmic solution, Administer 1 drop toboth eyes Every Night., Disp: , Rfl: ? ? multivitamin with minerals (MULTIVITAMIN ADULTS PO), Take 1 tablet bymouth Daily., Disp: , Rfl: ? ? oxyCODONE-acetaminophen (PERCOCET) 5-325 MG per tablet, Take 1 tabletby mouth Every 6 (Six) Hours As Needed for Severe Pain ., Disp: 45 tablet,Rfl: 0 ? ? Sod Picosulfate-Mag Ox-Cit Acd 10-3.5-12 MG-GM -GM/160ML solution, Gipz114 mL by mouth Take As Directed. Please follow instructions that weremailed to your home. If you did not receive these instructions please callour office at ., Disp: 350 mL, Rfl: 0 ? ? vitamin C (ASCORBIC ACID) 500 MG tablet, Take 1 tablet by mouth Daily.,Disp: , Rfl: Past Medical History: Diagnosis Date ? ? Arthritis ? ? Asthma nebs daily; inhaler ? ? Back pain ? ? COPD (chronic obstructive pulmonary disease) ? ? Glaucoma ? ? Hearing loss ? ? History of bronchitis frequent; last time 08/09/20 ? ? History of pneumonia hospitalized ? ? Hypertension ? ? Osteoporosis ? ? PONV (postoperative nausea and vomiting) severe Past Surgical History: Procedure Laterality Date ? ? APPENDECTOMY ? ? BLADDER SURGERY 3 surgeries; last surgery required sphincter repair ? ? CARDIAC CATHETERIZATION ? ? CATARACT EXTRACTION Bilateral ? ? COLONOSCOPY ? ? GALLBLADDER SURGERY ? ? HYSTERECTOMY ? ? LUMBAR DISCECTOMY Right 08/27/2020 Procedure: LUMBAR DISCECTOMY L4-L5 RIGHT; Surgeon: Georgi Lewis MD; Location: [facility]; Service: Neurosurgery; Laterality: Right; ? ? TONSILLECTOMY AND ADENOIDECTOMY ? ? TUBAL ABDOMINAL LIGATION Family History Problem Relation Age of Onset ? ? Cancer Father rectum ? ? Stroke Brother ? ? Hypertension Brother Social History Socioeconomic History ? ? Marital status: Tobacco Use ? ? Smoking status: Former Current packs/day: 0.00 Average packs/day: 0.5 packs/day for 10.0 years (5.0 ttl pk-yrs) Types: Cigarettes Start date: 08/13/1952 Quit date: 08/13/1962 Years since quittin.6 Passive exposure: Past ? ? Smokeless tobacco: Never Vaping Use ? ? Vaping status: Never Used Substance and Sexual Activity ? ? Alcohol use: Yes Comment: social ? ? Drug use: Defer ? ? Sexual activity: Defer Objective Vital Signs: BP 120/80 (BP Location: Right arm, Patient Position: Sitting, Cuff Size:Adult) Pulse 96 Ht 160 cm (63 ) Wt 35.4 kg (78 lb) SpO2 91% BMI 13.82 kg/m?? Estimated body mass index is 13.82 kg/m?? as calculated from thefollowing: Height as of this encounter: 160 cm (63 ). Weight as of this encounter: 35.4 kg (78 lb). Physical Exam Constitutional: Appearance: Normal appearance. She is well-developed. HENT: Head: Normocephalic and atraumatic. Eyes: General: No scleral icterus. Pupils: Pupils are equal, round, and reactive to light. Cardiovascular: Rate and Rhythm: Normal rate and regular rhythm. Heart sounds: Normal heart sounds. No murmur heard. Comments: Normal, but higher than I would like nursing home Pulmonary: Breath sounds: Normal breath sounds. No wheezing or rhonchi. Musculoskeletal: General: Normal range of motion. Right lower leg: No edema. Left lower leg: No edema. Skin: General: Skin is warm and dry. Capillary Refill: Capillary refill takes less than 2 seconds. Coloration: Skin is not cyanotic. Nails: There is no clubbing. Neurological: Mental Status: She is alert and oriented to person, place, and time. Motor: No weakness. Gait: Gait normal. Psychiatric: Mood and Affect: Mood normal. Behavior: Behavior is cooperative. Thought Content: Thought content normal. Cognition and Memory: Memory normal. ECG 12 Lead Date/Time: 03/19/2024 4:40 PM Performed by: Pennie Antony APRN Authorized by: Pennie Antony APRN Comparison: compared withprevious ECG from 02/22/2024 Similar to previous ECG Rhythm: sinus tachycardia BPM: 104 Clinical impression: abnormal EKG Comments: Sinus tachycardia. Possible left atrial enlargement. Leftbundle branch block. Inferior infarct. Moderate ST depression.Abnormal. Assessment and Plan Diagnoses and all orders for this visit: 1. Paroxysmal atrial fibrillation Comments: May need better rate control. Will assess Holter monitor first. Patientreports runs between 88 and 90 at home. Declines HST Orders: - Adult Transthoracic Echo Complete W/ Cont if Necessary Per Protocol;Future - Duplex Carotid Ultrasound CAR; Future - Holter Monitor - 72 Hour Up To 15 Days - Cancel: Home Sleep Study; Future - ECG 12 Lead - Stress Test With Myocardial Perfusion One Day; Future 2. Dizziness Comments: Check Holter, nuclear stress test, echo, carotid ultrasound. Orders: - Adult Transthoracic Echo Complete W/ Cont if Necessary Per Protocol;Future - Duplex Carotid Ultrasound CAR; Future - Holter Monitor - 72 Hour Up To 15 Days - Cancel: Home Sleep Study; Future - ECG 12 Lead - Stress Test With Myocardial Perfusion One Day; Future 3. Essential hypertension Comments: At goal. Continue plan of care. Orders: - Adult Transthoracic Echo Complete W/ Cont if Necessary Per Protocol;Future - Duplex Carotid Ultrasound CAR; Future - Holter Monitor - 72 Hour Up To 15 Days - Cancel: Home Sleep Study; Future - ECG 12 Lead - Stress Test With Myocardial Perfusion One Day; Future 4. LBBB (left bundle branch block) Comments: Will need nuclear instead of KOBY due to left bundle branch block. Orders: - Adult Transthoracic Echo Complete W/ Cont if Necessary Per Protocol;Future - Duplex Carotid Ultrasound CAR; Future - Holter Monitor - 72 Hour Up To 15 Days - Cancel: Home Sleep Study; Future - ECG 12 Lead - Stress Test With Myocardial Perfusion One Day; Future 5. Abnormal EKG Comments: Will check echo and nuclear stress test. Orders: - Adult Transthoracic Echo Complete W/ Cont if Necessary Per Protocol;Future - Duplex Carotid Ultrasound CAR; Future - Holter Monitor - 72 Hour Up To 15 Days - Cancel: Home Sleep Study; Future - ECG 12 Lead - Stress Test With Myocardial Perfusion One Day; Future Follow Up Return for after testing; needs a Sunday appt. Pennie Antony APRN 03/19/2024 Please note that this explicitly excludes time spent on other separatebillable services such as performing procedures or test interpretation,when applicable. This note was created using dictation software which occasionallytranscribes nonsensical phrases. Please contact the provider if anyclarification is needed. Pennie Antony APRN ECG ORDERABLES Fin al Result BH ECG * HOLTER MONITOR >7 DAYS UP TO [...] Abnormal EKG Nonspecific abnormal electrocardiogram (ECG) (EKG) Paroxysmal atrial fibrillation Atrial fibrillation Dizziness Dizziness and giddiness Essential hypertension Unspecified essential hypertension LBBB (left bundle branch block) Other left bundle branch block Abnormal EKG Nonspecific abnormal electrocardiogram (ECG) (EKG) Paroxysmal atrial fibrillation Atrial fibrillation Dizziness Dizziness and giddiness Essential hypertension Unspecified essential hypertension LBBB (left bundle branch block) Other left bundle branch block Abnormal EKG Nonspecific abnormal electrocardiogram (ECG) (EKG) Paroxysmal atrial fibrillation Atrial fibrillation Dizziness Dizziness and giddiness Essential hypertension Unspecified essential hypertension LBBB (left bundle branch block) Other left bundle branch block Abnormal EKG Nonspecific abnormal electrocardiogram (ECG) (EKG) documented in this encounter Care Teams Diagnostic Radiologic Technologist Relationship Specialty Start Date End Date Marck Ramsey MD [address] [place] [address] PCP - General Family Medicine 07/12/20 documented as of this encounter
--- OUTSIDE RECORDS SUMMARY | 2024-06-27 12:05 | XMS_ITS | Encounter Summary ---
Author Organization [facility] Address [address] [place] [address] Care Team Providers Care Gum Cook Name Role Phone Marck Ramsey MD Primary Care Provider [phone] Reason for Visit * Reason Onset Date Comments ANDREA REEDER REQUEST 12/27/2022 Encounter Details Date Type Department Care Team (Latest Contact Info) Description 12/27/2022 Prior Authorization [facility] [address] [phone] Tamika Smaano RMA SUPREP PA REQUEST Social History Tobacco Use Types Packs/Day Years [...] Telephone Encounter - Tamika Samano RMA - 12/27/2022 2:52 PM EDT VARINDER REQUEST SENT THROUGH [employer] PROVIDER PORTAL. Reference Id [id number] documented in this encounter Plan of Treatment Upcoming Encounters Date Type Department Care Team (Late st Contact Info) Description 10/27/2024 11:00 AM EDT Office Visit [facility] CARDIOLOGY [address] [place] [address] Patrica Otto MD [address] [place] [address] documented as of this encounter Visit Diagnoses Not on filedocumented in this encounter Care Teams Gum Cook Relationship Specialty Start Date End Date Marck Ramsey MD [address] [place] [address] PCP - General Family Medicine 07/12/20 documented as of this encounter
--- OUTSIDE RECORDS SUMMARY | 2024-06-27 12:06 | XMS_ITS | Encounter Summary ---
Author Organization [facility] Address [address] [place] [address] Care Team Providers Care Agricultural Sales Representative Name Role Phone Marck Ramsey MD Primary Care Provider [phone] Reason for Visit * Reason Onset Date Comments DR. ARNULFO SANCHEZ APPT/ NEW PATIENT 07/21/2020 Encounter Details Date Type Department Care Team (Late st Contact Info) Description 07/21/2020 Telephone [facility] [address] [place] [address] BROOKS- SOONER APPT/ NEW PATIENT Social History Tobacco Use Types Packs/Day Years Used Date Smoking Tobacco: Never Assessed Abuse Screen Answer Date Recorded Unsafe at [...] Preferred Language Not on file 05/24/2023 Comments Unknown Sex and Gender Information Value Date Recorded Sex Assigned at Not on file Legal Sex Female 10:32 AM EST Gender Identity Not on file Sexual Orientation Not on file documented as of this encounter Miscellaneous Notes * Telephone Encounter - Jelly Echeverria - 07/21/2020 10:28 AM EST Patient appointment moved to 07/22/2020 * Telephone Encounter - Shiloh Sainz PA-C - 07/21/2020 10:[address] lewis has a 940 new patient opening on Sundayjul 26... * Telephone Encounter - Shiloh Rubalcava MA - 07/21/2020 10:00 AM EST Any chance this patient can get in sooner to see Dr. Lewis? * Telephone Encounter - Jackelyn Narvaez RegSched Rep - 07/21/2020 9:29 AM EST Caller: LOURDES Relationship to patient: PCP Best call back number: [phone] Chief complaint: BACK PAIN Type of visit: NEW PATIENT Requested date: SOONER APPT If rescheduling, when is the original appointment: 08/10/20 Additional notes: PATIENT WAS ALREADY SCHEDULED PRIOR TO CALL BUT PCP STAFF CALLED REQUESTING TO CANCEL/RESCHEDULE INITIAL APPT FOR SOONER APPT. UNABLE TO COMPLETE REQUEST AT TIME OF CALL DUE TO IT BEING THE NEXT AVAILABLE AT TIME OF CALL. STAFF STATES THAT OUR PROVIDER CAN CALL DIRECTLY ON CELL AT [phone]. PCP CAN BE CONTACTED WITH FURTHER ASSISTANCE. documented in this encounter Plan of Treatment Upcoming Encounters Date Type Department Care Team (Late st Contact Info) Description 10/27/2024 11:00 AM EDT Office Visit [facility] C[facility] [address] [place] [address] Patrica Otto MD [address] [place] [address] documented as of this encounter Visit Diagnoses Not on filedocumented in this encounter Additional Health Concerns Infection Onset Date Last Indicated Resolved Time COVID Screen (preop/placement) 08/09/2020 08/09/2020 08/10/2020 11:50 AM EST COVID Screen (preop/placement) 08/25/2020 08/25/2020 08/26/2020 12:40 PM EST documented as of this encounter Care Teams Agricultural Sales Representative Relationship Specialty Start Date End Date Marck Ramsey MD [address] [place] [address] PCP - General Family Medicine 07/12/20 documented as of this encounter
--- OUTSIDE RECORDS SUMMARY | 2024-06-27 12:06 | XMS_ITS | Encounter Summary ---
Author Organization [facility] Address [address] [place] [address] Care Team Providers Care Bundles Hanger Name Role Phone Macrk Ramsey MD Primary Care Provider [phone] Encounter Details Date Type Department Care Team (Late st Contact Info) Description 08/09/2020 Telephone [facility] NEUROS[facility]GERY [address] [place] [address] Georgi Lewis MD Social History [...] encounter Miscellaneous Notes * Telephone Encounter - Arleth Garcia MA - 08/09/2020 12:58 PM EST Rx was mailed on . Pt should receive it in the mail today or tomorrow. S/w Mansi who states rx has not been received. She will let us know if a day or two if rx does not arrive in the mail. * Telephone Encounter - Cecile Dsouza - 08/09/2020 12:51 PM EST Female left message stating that prescription that was mailed last week to patient did not get to them yet and the patient is in need of the prescription. They are coming to hospital today and could come by to pick it up. Please call [phone] to let them know what they should do. Enriqueta Dsouza documented in this encounter Plan of Treatment Upcoming Encounters Date Type Department Care Team (Late st Contact Info) Description 10/27/2024 11:00 AM EDT Office Visit [facility] C[facility]IOLOG[facility] [address] [place] [address] Patrica Otto MD [address] [address] documented as of this encounter Visit Diagnoses Not on filedocumented in this encounter Care Teams Bundles Hanger Relationship Specialty Start Date End Date Marck Ramsey MD [address] [place] [address] PCP - General Family Medicine 07/12/20 documented as of this encounter
--- OUTSIDE RECORDS SUMMARY | 2024-06-27 12:06 | XMS_ITS | Encounter Summary ---
Author Organization [facility] Address [address] [place] [address] Care Team Providers Care Animal Anatomist Name Role Phone Marck Ramsey MD Primary Care Provider [phone] Reason for Visit * Reason Comments Back Pain * Consultation (Routine) - Closed Specialty Diagnoses / Procedures Referred By Contac t Referred To Contact Neurosurgery Diagnoses Back pain Other intervertebral disc degeneration, lumbosacral region Marck Ramsey MD [address] [place] [address] Phone: tel: fax: Georgi Lewis MD Referral ID Status Reason Start Date Expiration Date Visits Re quested Visits Authorized [id number] Closed 07/12/2020 07/12/2021 1 1 Encounter Details Date Type Department Care Team (Latest Contact Info) Description 07/22/2020 11:00 AM EST Office Visit [facility] NEUROSURGERY [address] [place] [phone] Georgi Lewis MD Herniated lumbar intervertebral disc (Primary Dx); Right leg pain; Acquired spondylolisthesis; DDD (degenerative disc disease), lumbar Social History Tobacco Use Types Packs/Day Years Used Date Smoking Tobacco: Former Cigarettes 1 09/22/1969 - 07/22/1980 Smokeless Tobacco: Never Alcohol Use Standard Drinks/Week Comments Yes 0 (1 standard drink = 0.6 oz pur e alcohol) social Comments Unknown Sex and Gender Information Value Date Recorded Sex Assigned at Not on file Legal Sex Female 10:32 AM EST Gender Identity Not on file Sexual Orientation Not on file documented as of this encounter Last Filed Vital Signs Vital Sign Reading Time Taken Comments Blood Pressure 130/70 07/22/2020 12:45 PM EST Pulse - - Temperature 36.6 ??C (97.8 ??F) 07/22/2020 12:[address] Respiratory Rate - - Oxygen Saturation - - Inhaled Oxygen Concentration - - Weight 45.4 kg (100 lb) 07/22/2020 12:45 PM EST Height 144.8 cm (4' 9 ) 07/22/2020 12:45 PM EST Body Mass Index 21.64 07/22/2020 12:45 PM EST documented in this encounter Progress Notes * Georgi Lewis MD - 07/22/2020 11:00 AM EST Trudi Paz Victorino 1935 [id number] Chief Complaint Patient presents with ??? 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 She has difficulty with walking because of severe pain and weakness in her right hip and quadricep function. She has been to physical therapy without benefit. Lumbar MRI was performed she referred for neurosurgical consultation.] Past Medical History: Diagnosis Date ??? Arthritis ??? Asthma ??? Bronchitis ??? Cervical disc disorder ??? Hearing loss ??? Heart disease ??? Hypertension ??? Osteoporosis Past Surgical History: Procedure Laterality Date ??? BLADDER SURGERY ??? GALLBLADDER SURGERY ??? HYSTERECTOMY ??? TONSILLECTOMY AND ADENOIDECTOMY ??? TUBAL ABDOMINAL LIGATION Family History Problem Relation Age of Onset ??? Cancer Father rectum ??? Stroke Brother ??? Hypertension Brother Social History Socioeconomic History ??? Marital status: Single Spouse name: Not on file ??? Number of children: Not on file ??? Years of education: Not on file ??? Highest education level: Not on file Tobacco Use ??? Smoking status: Former Smoker Years: 10.00 Types: Cigarettes Quit date: 07/22/1980 Years since quittin.0 ??? Smokeless tobacco: Never Used Substance and Sexual Activity ??? Alcohol use: Yes Comment: social ??? Drug use: Defer ??? Sexual activity: Defer Allergies Allergen Reactions ??? Demerol [Meperidine] GI Intolerance ??? Valium [Diazepam] Mental Status Change Current Outpatient Medications: ??? amLODIPine (NORVASC) 2.5 MG tablet, Take 2.5 mg by mouth Daily. FOR 30 DAYS, Disp: , Rfl: ??? atorvastatin (LIPITOR) 10 MG tablet, , Disp: , Rfl: ??? celecoxib (CeleBREX) 200 MG capsule, , Disp: , Rfl: ??? cholecalciferol (VITAMIN D3) 25 MCG (1000 UT) tablet, Take 1,000 Units by mouth Daily., Disp: ,Rfl: ??? digoxin (LANOXIN) 250 MCG tablet, , Disp: , Rfl: ??? latanoprost (XALATAN) 0.005 % ophthalmic solution, INSTILL 1 DROP INTO EACH EYE AT BEDTIME, Disp: , Rfl: ??? vitamin C (ASCORBIC ACID) 500 MG tablet, Take 500 mg by mouth Daily., Disp: , Rfl: ??? Wixela Inhub 250-50 MCG/DOSE DISKUS, , Disp: , Rfl: Review of Systems Constitutional: [...] All other systems reviewed and are negative. Vitals: 07/22/20 1245 BP: 130/70 BP Location: Right arm Patient Position: Sitting Cuff Size: Adult Temp: 97.8 ??F (36.6 ??C) TempSrc: Infrared Weight: 45.4 kg (100 lb) Height: 144.8 cm (57 ) Neurological Examination: Mental status/speech: The patient is alert and oriented. Speech is clear without aphysia or dysarthria. No overt cognitive deficits. Cranial nerve examination: Olfaction: Smell is intact. Vision: Vision is intact without visual field abnormalities. Funduscopic examination is normal. No pupillary irregularity. Ocular motor examination: The extraocular muscles are intact. There is no diplopia. The pupil is round and reactive to both light and accommodation. There is no nystagmus. Facial movement/sensation: There is no facial weakness. Sensation is intact in the first, second, and third divisions of the trigeminal nerve. The corneal reflex is intact. Auditory: Hearing is intact to finger rub bilaterally. Cranial nerves IX, X, XI, XII: Phonation is normal. No dysphagia. Tongue is protruded in the midline without atrophy. The gag reflex is intact. Shoulder shrug is normal. Musculoligamentous ligamentous examination: BMI 21.67 weight 100 pounds. She has weakness of her quadriceps on the right with an absent patellar reflex while the others are elicitable easily. Sensation also is decreased at L4. Gait is normal with exception of the weakness. No Babinski Kaiser or clonus Medical Decision Making: Diagnostic Data Set: MRI data set show a large disc herniation at L4-L5 on the right which has migrated cephalad. It is also associated with a spondylolisthesis L4-5. There is listhesis also at L3-I1eerkgamipb with mild stenosis. Assessment: Symptomatic disc herniation L4-L5, right Recommendations: I have recommended discectomy L4-L5, right. Although she has a spondylolisthesis at 2 levels I do not think that PLIF is absolutely necessary. I would think that removal of the largefragment would ameliorate her radiculopathy. Elastic bracing subsequent may be of some benefit to her. She wishes to pursue this. We will get this done as soon as possible and I will certainly keep you informed. I greatly appreciate the opportunity to see and evaluate this individual. If you have questions or concerns regarding issues that I may have overlooked please call me at any time: [phone]. Kenroy Lewis M.D. [facility] [address] [place] [address] documented in this encounter Plan of Treatment Upcoming Encounters Date Type Department Care Team (Late st Contact Info) Description 10/27/2024 11:00 AM EDT Office Visit [facility] C[facility]IOLOG[facility] [address] [phone] Patrica Otto MD [address] [address] documented as of this encounter Visit Diagnoses Diagnosis Herniated lumbar intervertebral disc- Primary Displacement of lumbar intervertebral disc without myelopathy Right leg pain Pain in soft tissues of limb Acquired spondylolisthesis DDD (degenerative disc disease), lumbar Degeneration of lumbar or lumbosacral intervertebral disc documented in this encounter Care Teams Animal Anatomist Relationship Specialty Start Date End Date Marck Ramsey MD [address] [place] [address] PCP - General Family Medicine 07/12/20 documented as of this encounter
--- OUTSIDE RECORDS SUMMARY | 2024-06-27 12:06 | XMS_ITS | Encounter Summary ---
Author Organization [facility] Address [address] [place] [address] Care Team Providers Care Executive Administrator Name Role Phone Marck Ramsey MD Primary Care Provider [phone] Encounter Details Date Type Department Care Team (Late st Contact Info) Description 07/30/2020 Refill [facility] [address] [place] [address] Georgi Lewis MD Social History [...] Telephone Encounter - Ventura Martinez MA - 07/30/2020 2:50 PM EST Provider: Joshua Caller: self Time of call: 2:55 Phone #: [phone] Surgery: Upcoming disc Surgery Date: 08/12/2020 Last visit: 07/22/2020 Next visit: TBD LUBNA: 07/22/2020 Oxycodone/Acetaminophen 325MG/5MG 1935 [address] [facility] [phone] [facility] 30 1 Reason for call: Patient called requesting a refill on her Percocet. documented in this encounter Plan of Treatment Upcoming Encounters Date Type Department Care Team (Late st Contact Info) Description 10/27/2024 11:00 AM EDT Office Visit [facility] [address] [place] [phone] Patrica Otto MD [address] [place] [address] documented as of this encounter Visit Diagnoses Not on filedocumented in this encounter Care Teams Executive Administrator Relationship Specialty Start Date End Date Marck Ramsey MD [address] [place] [address] PCP - General Family Medicine 07/12/20 documented as of this encounter
--- OUTSIDE RECORDS SUMMARY | 2024-06-27 12:06 | XMS_ITS | Encounter Summary ---
Author Organization [facility] Address [address] [place] [address] Care Team Providers Care Property Assessment Monitor Name Role Phone Marck Ramsey MD Primary Care Provider [phone] Reason for Visit * Auth/Cert Specialty Diagnoses / Procedures Referred By Rossy t Referred To Contact Diagnoses Herniated lumbar intervertebral disc Herniated lumbar intervertebral disc [M51.26] Procedures MN LAMNOTMY INCL W/DCMPRSN NRV ROOT 1 INTRSPC LUMBR LUMBAR DISCECTOMY L4-L5, right Referral ID Status Reason Start Date Expiration Date Visits Re quested Visits Authorized [id number] 1 1 Encounter Details Date Type Department Care Team (Late st Contact Info) Description 08/27/2020 11:20 AM EST Anesthesia Event [facility] OR [address] [place] [id number] Neptali Choudhury MD [address] [place] [id number] Anesthesia Record Procedure Summary Procedure Name Responsible Anesthesiologist Anesthesia Start Time Anesthesia Stop Time LUMBAR DISCECTOMY L4-L5 RIGHT (Right: Spine Lumbar) Neptali Choudhury MD 08/27/20 1120 08/27/20 1249 Events Date Time Event Comment 08/27/2020 1031 1110 AN Equip Check 1110 An Start Data 1120 An Start The patient was reevaluated immediately before moderate or deep sedation use and before anesthesia induction. 1124 An Induction 1125 An Intubation 1244 An Extubation 1248 an stop data 1249 Handoff to RN The following has been completed: 1. Identification of Patient, tejada family member(s) or patient surrogate 2. Identification of the responsible Practitioner (primary service) 3. Discussion of the pertinent/attainable medical history 4. Discussion of the surgical/procedure course (procedure, reason for surgery, procedure performed) 5. Intraoperative anesthetic management and issue/concerns to include things such as airway, hemodynamics, narcotic, sedation level and paralytic management and intravenous fluids/blood products and urine output during the procedure 6. Expectations/Plans for the early post-procedure period to include things such as anticipated course (anticipatory guidance), complications, need for laboratory or ECG and medication administration 7. Opportunity for questions and acknowledgment of understanding of report from the receiving PACU/ICU team 1249 An Stop Meds Name Total lidocaine PF (XYLOCAINE) local injection 1% 50 mg propofol (DIPRIVAN) injection 100 mg Rocuronium 50 mg/5mL 50 mg neostigmine injection 10 mg/10 mL 3 mg glycopyrrolate (ROBINUL) injection 0.4 m g/2 mL 0.4 mg dexamethasone (DECADRON) 4 mg/mL 10 mg ePHEDrine injection 10 mg fentaNYL citrate (PF) 100 MCG/2ML 100 mc g ceFAZolin in dextrose (ANCEF) IVPB solut ion 2 g 2 g lactated ringers infusion 750 mL * Agents Name O2 Desflurane * Blood No blood administrations on file. Lines, Drains, and Airways Type Details Placement Removal Wound 08/27/20; 1156; posterior; lumbar spine; Incision; N 08/27/20 1156 by Nirali Leon RN Peripheral IV Placement Date: 08/13 12/31; Placement Time: 1005; Catheter Size: 18 G; Orientation: Posterior, Right; Location: Forearm; Site Prep: Chlorhexidine; Local Anes: Injectable; Inserted by: Jackson GOMEZ RN; Insertion Attempts: 1; Patient Tolerance: Tolerated well; Removal Date: 08/29/20; Removal Time: 1400 08/27/20 1005 by Marianna Holden RN 08/29/20 1400 by Kaye Campos RN ETT Placement Date: 08/13 12/31; Placement Time: 1125 (created via procedure documentation); Type: Reinforced ETT; Tube Size: 7 mm; Blade Size: 3; Location: Oral; Removal Date: 08/27/20; Removal Time: 1244 08/27/20 1125 by Cosme Velazquez CRNA 08/27/20 1244 by Cosme Velazquez CRNA documented in this encounter Social History Tobacco Use Types Packs/Day Years [...] on file documented as of this encounter OR Notes * Anesthesia Postprocedure Evaluation - Cosme Velazquez CRNA - 08/27/2020 12:49 PM EST Patient: Trudi Gleason Procedure Summary Date: 08/27/20 Room / Location: [facility] OR [address] [place] [address] [facility] OR Anesthesia Start: 1120 Anesthesia Stop: Procedure: LUMBAR DISCECTOMY L4-L5, right (Right Spine Lumbar) Diagnosis: Herniated lumbar intervertebral disc (Herniated lumbar intervertebral disc [M51.26]) Surgeon: Georgi Lewis MD Provider: Neptali Choudhury MD Anesthesia Type: general ASA Status: 3 Anesthesia Type: general Vitals No vitals data found for the desired time range. Post Anesthesia Care and Evaluation Patient location during evaluation: PACU Patient participation: complete - patient participated Level of consciousness: awake and responsive to verbal stimuli Pain score: 2 Pain management: adequate Airway patency: patent Anesthetic complications: No anesthetic complications Cardiovascular status: acceptable Respiratory status: acceptable Hydration status: acceptable Comments: Pt awake and responsive. SV. VSS. Report to RN. Patient Vitals in the past 24 hrs: 08/27/20 1017, BP:176/89, Temp:98.2 ??F (36.8 ??C), Temp src:Temporal, Pulse:90, Resp:18, SpO2:91 % 133/78. p 72. r 16. t 98.1 * Anesthesia Procedure Notes - Cosme Velazquez CRNA - 08/27/2020 11:35 AM EST Associated Order(s): Airway Airway Urgency: elective Date/Time: 08/27/2020 11:25 AM Airway not difficult General Information and Staff Patient location during procedure: OR PRODUCT ACCOUNTANT: Cosme Velazquez CRNA Indications and Patient Condition Indications for airway management: airway protection Preoxygenated: yes MILS not maintained throughout Mask difficulty assessment: 1 - vent by mask Final Airway Details Final airway type: endotracheal airway Successful airway: ETT and reinforced tube Cuffed: yes Successful intubation technique: direct laryngoscopy Facilitating devices/methods: intubating stylet Endotracheal tube insertion site: oral Blade: Mary Blade size: 3 ETT size (mm): 7.0 Cormack-Lehane Classification: grade IIb - view of arytenoids or posterior of glottis only Placement verified by: chest auscultation and capnometry Measured from: lips ETT/EBT to lips (cm): 20 Number of attempts at approach: 1 Assessment: lips, teeth, and gum same as pre-op and atraumatic intubation Additional Comments Negative epigastric sounds, Breath sound equal bilaterally with symmetric chest rise and fall * Anesthesia Preprocedure Evaluation - Neptali Choudhury MD - 08/27/2020 10:26 AM EST Anesthesia Evaluation Patient summary reviewed and Nursing notes reviewed no history of anesthetic complications: NPO Solid Status: > 8 hours NPO Liquid Status: > 2 hours Airway Mallampati: II TM distance: >3 FB Neck ROM: full No difficulty expected Dental - normal exam Pulmonary - normal exam breath sounds clear to auscultation (+) COPD moderate, Cardiovascular - normal exam ECG reviewed Rhythm: regular Rate: normal (+) hypertension, Neuro/Psych- negative ROS GI/Hepatic/Renal/Endo - negative ROS Musculoskeletal (+) back pain, 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 Plan discussed with PRODUCT ACCOUNTANT. documented in this encounter Plan of Treatment Upcoming Encounters Date Type Department Care Team (Late st Contact Info) Description 10/27/2024 11:00 AM EDT Office Visit [facility] CARDIOLOGY [address] [place], [place] [phone] Patrica Otto MD [address] [place], [place] [address] documented as of this encounter Procedures Procedure Name Priority Date/Time Associated Diagnosis Comments ANESTHESIA INTUBATION Routine 08/27/2020 11:35 AM EST documented in this encounter Results * BH AN ETT AIRWAY (08/27/2020 11:35 AM EST) Narrative Cosme Velazquez CRNA - 08/27/2020 11:35 AM EST Cosme Velazquez CRNA ? 08/27/2020 11:35 AM Airway Urgency: elective Date/Time: 08/27/2020 11:25 AM Airway not difficult General Information and Staff Patient location during procedure: OR PRODUCT ACCOUNTANT: Cosme Velazquez CRNA Indications and Patient Condition Indications for airway management: airway protection Preoxygenated: yes MILS not maintained throughout Mask difficulty assessment: 1 - vent by mask Final Airway Details Final airway type: endotracheal airway Successful airway: ETT and reinforced tube Cuffed: yes Successful intubation technique: direct laryngoscopy Facilitating devices/methods: intubating stylet Endotracheal tube insertion site: oral Blade: Mary Blade size: 3 ETT size (mm): 7.0 Cormack-Lehane Classification: grade IIb - view of arytenoids or posterior of glottis only Placement verified by: chest auscultation and capnometry Measured from: lips ETT/EBT ??to lips (cm): 20 Number of attempts at approach: 1 Assessment: lips, teeth, and gum same as pre-op and atraumatic intubation Additional Comments Negative epigastric sounds, Breath sound equal bilaterally with symmetric chest rise and fall us Neptali Choudhury MD ANESTHESIA ORDERABLES Final Res ult documented in this encounter Visit Diagnoses Not on filedocumented in this encounter Administered Medications Inactive Administered Medications - up to 3 most recent administrations Medication Order MAR Action Action Date Dose Rate Site ceFAZolin in dextrose (ANCEF) IVPB solution 2 g 2 g, Intravenous, Administer over 30 Minutes, Once, On Sun08/27/20 at 1001, For 1 dose, Administer within 1 hour of surgical incision. Redose 4 hours from pre-op dose if procedure ongoing or >1.5 L blood loss. Caution: Look alike/sound alike drug alert, Indications: Surgical ProphylaxisIndications:Surg ical Prophylaxis Given 08/27/2020 11:20 AM EST 2 g dexamethasone (DECADRON) injection Intravenous, As Needed, Starting on Sun08/27/20 at 1127 Given 08/27/2020 11:27 AM EST 10 mg ePHEDrine injection Intravenous, As Needed, Starting on Sun08/27/20 at 1158 Given 08/27/2020 11:58 AM EST 10 mg fentaNYL citrate (PF) (SUBLIMAZE) injection As Needed, Starting on Sun08/27/20 at 1124 Given 08/27/2020 11:24 AM EST 100 mcg glycopyrrolate (ROBINUL) injection Intravenous, As Needed, Starting on Sun08/27/20 at 1232 Given 08/27/2020 12:32 PM EST 0.4 mg lactated ringers infusion 9 mL/hr, Intravenous, Continuous, Starting on Sun08/27/20 at 1001, May switch to NS IV at KVO if renal / if indicated Currently Infusing 08/27/2020 11:20 AM EST New Bag 08/27/2020 10:05 AM EST 9 mL/hr 9 mL/hr lidocaine PF 1% (XYLOCAINE) injection As Needed, Starting on Sun08/27/20 at 1124 Given 08/27/2020 11:24 AM EST 50 mg neostigmine injection Intravenous, As Needed, Starting on Sun08/27/20 at 1232 Given 08/27/2020 12:32 PM EST 3 mg Propofol (DIPRIVAN) injection Intravenous, As Needed, Starting on Sun08/27/20 at 1124 Given 08/27/2020 11:24 AM EST 100 mg rocuronium (ZEMURON) injection Intravenous, As Needed, Starting on Sun08/27/20 at 1124 Given 08/27/2020 11:24 AM EST 50 mg documented in this encounter Care Teams Property Assessment Monitor Relationship Specialty Start Date End Date Marck Ramsey MD [address] [place] [address] PCP - General Family Medicine 07/12/20 documented as of this encounter
--- OUTSIDE RECORDS SUMMARY | 2024-06-27 12:06 | XMS_ITS | Encounter Summary ---
Author Organization [facility] Address [address] [place] [address] Care Team Providers Care Front Office Administrator Name Role Phone Marck Ramsey MD Primary Care Provider [phone] Encounter Details Date Type Department Care Team (Late st Contact Info) Description 08/18/2020 Telephone [facility]UR[facility] [address] [facility] [address] [place] [address] Georgi Lewis MD Social History [...] Telephone Encounter - Arleth Garcia MA - 08/18/2020 9:[address] Lewis, Pt left msg requesting a call back to discuss post operative care. She would like to discuss where she will be transferred to after surgery. documented in this encounter Plan of Treatment Upcoming Encounters Date Type Department Care Team (Late st Contact Info) Description 10/27/2024 11:00 AM EDT Office Visit [facility] CARDIOLOGY [address] [place] [phone] Patrica Otto MD [address] [place] [address] documented as of this encounter Visit Diagnoses Not on filedocumented in this encounter Care Teams Front Office Administrator Relationship Specialty Start Date End Date Marck Ramsey MD [address] [place] [address] PCP - General Family Medicine 07/12/20 documented as of this encounter
--- OUTSIDE RECORDS SUMMARY | 2024-06-27 12:06 | XMS_ITS | Encounter Summary ---
Author Organization [facility] Address [address] [place] [address] Care Team Providers Care Ict Quality Assurance Engineer Name Role Phone Marck Ramsey MD Primary Care Provider [phone] Reason for Visit * Auth/Cert Specialty Diagnoses / Procedures Referred By Rossy t Referred To Contact Diagnoses Herniated lumbar intervertebral disc Herniated lumbar intervertebral disc [M51.26] Procedures IA LAMNOTMY INCL W/DCMPRSN NRV ROOT 1 INTRSPC LUMBR LUMBAR DISCECTOMY L4-L5, right Referral ID Status Reason Start Date Expiration Date Visits Re quested Visits Authorized [id number] 1 1 Encounter Details Date Type Department Care Team (Late st Contact Info) Description 08/27/2020 11:57 AM EST - 08/27/2020 2:14 PM EST Surgery [address] [id number] Lisbeth Lewis MD LUMBAR DISCECTOMY L4-L5 RIGHT [70752 (CPT??)] Social History Tobacco Use Types Packs/Day Years [...] Sign Reading Time Taken Comments Blood Pressure 148/72 08/27/2020 2:00 PM EST Pulse 88 08/27/2020 2:00 PM EST Temperature 36.5 ??C (97.7 ??F) 08/27/2020 1:45 PM ES T Respiratory Rate 16 08/27/2020 2:00 PM EST Oxygen Saturation 94% 08/27/2020 2:00 PM EST Inhaled Oxygen Concentration - - Weight [...] known as: LIPITOR 10 mg, Oral, Nightly [id number]-[id number]-[id number] PO 1 dose, Oral, Every Morning celecoxib [...] treatment after discharge. Follow-up provider: MARCK RAMSEY [[id number]] Reason/Clinical Findings: post op laminectomy Describe mobility limitations that make leaving home difficult: pain, limited endurance Nursing/Therapeutic Services Requested: Custodial Physical Therapy half-way orders: Other (Post surgical care) PT orders: [...] home difficult: Spinal surgery Nursing/Therapeutic Services Requested: Custodial half-way orders: Wound care dressing/changes Frequency: 1 Week [...] Mohinder Walters (84 y.o. Female) Celeste Crawley, lead caregiver [facility] [phone] Date of Social Security Number Address Home Phone MRN 1935 [id number] [address] [id number] Quaker Marital Status None Admission Date Admission Type Admitting Provider Attending Provider Department, Room/Bed 08/27/20 Elective Lisbeth Lewis MD Brooks, William H, MD [facility] 3G, S364/1 Discharge Date Discharge Disposition [...] Group HUMANA MEDICARE REPLACEMENT HUMANA MEDICARE REPLACEMENT [id number] Payor Plan Address Payor Plan Phone Number Payor Plan Fax Number Effective Dates [address] [address] 08/13/2019 - None Entered [facility] [id number] Subscriber Name Subscriber Date Member ID MOHINDER WALTERS 1935 [id number] Emergency Contacts It Security Specialist (Rel.) Home Phone Work Phone Mobile Phone VINI WALTERS (Son) -- -- [phone] Leon, Reggiemarcie (Relative) -- -- [phone] [address] Fax: Date: Aug 28, 2020 ?? Ambulatory Referral to Home Health ?? Patient: Mohinder Walters [address] [id number] : 1935 SSN: [id number] Sex: F ?? INSURANCE PAYOR PLAN GROUP # SUBSCRIBER ID Primary: ?? HUMANA MEDICARE REPLACEMENT [id number] ?? Referring Provider Information: LISBETH LEWIS Fax: [...] treatment after discharge. Follow-up provider: MARCK RAMSEY [[id number]] Reason/Clinical Findings: post op laminectomy Describe mobility limitations that make leaving home difficult: pain, limited endurance Nursing/Therapeutic Services Requested: Custodial Nursing/Therapeutic Services Requested: Physical Therapy half-way orders: Other (Post surgical care) PT orders: [...] regarding this request for services. Please contact [address] at [phone] during normal business hours. ?? Verbal Order Mode: Verbal with readback Authorizing Provider: Lisbeth Lewis MD Authorizing Provider's ?? Order Entered By: Celeste Crawley RN 08/28/2020 11:46 AM ?? Electronically signed by: Lisbeth Lewis MD 08/28/2020 12:08 PM ?? History & Physical Gabi Arce APRN at 08/27/20 1050 Attestation signed by Lisbeth Lewis MD at 08/27/20 1056 k Pre-Op H&P Mohindernaz Walters [id number] 1935 Chief complaint: Back pain Subjective: Patient [...] mouth Every Night. 08/26/2020 at 2100 ??? [id number] PO Take 1 dose by mouth Every [...] Plan: LUMBAR DISCECTOMY L4-L5, right Gabi Arce, SPACE ENGINEER 08/27/2020 10:50 EST 1056 Physician Progress Notes [...] Care Everywhere. * Lumbar Diskectomy Care After (Zimbabwean) * Acetaminophen; Oxycodone capsules (Zimbabwean) * Preventing Constipation After Surgery (Zimbabwean) documented in this encounter Medications at Time of Discharge albuterol sulfate HFA 108 (90 Base) MCG/ACT inhaler Inhale 2 puffs Every 4 (Four) Hours As Needed for Wheezing. atorvastatin (LIPITOR) 10 MG tablet Take 1 tablet by mouth Every Night. 0 EPUPRWD-UUQNXRVPO-J INC PO Take 1 dose by mouth [...] 08/28/2020 11:47 AM EST Continued Stay Note Kelli Patient Name: Mohinder Walters Today's Date: 08/28/2020 [...] health. Spoke to daughter, Mansi, who requests [facility] at discharge. She states her sister will be in the home and available 05/03. They now have a life alert system for patient to use. Will arrange home health for discharge. * Celeste Crawley RN - 08/28/2020 9:58 AM EST Case Management order received to evaluate home needs and determine who is going to provide care [facility] states she is going to an extended [...] 08/27/2020 10:50 AM EST Pre-Op H&P Mohinder Walters [id number] 1935 Chief complaint: Back pain Subjective: Patient [...] mouth Every Night. 08/26/2020 at 2100 ??? [id number] PO Take 1 dose by mouth Every [...] room organization consistent safety round/check completed Taken 08/28/2020 2200 by Jan Woods RN Safety Promotion/Fall Prevention: [...] RN Body Position: position changed independently Taken 08/28/2020 2200 by Jan Woods RN Body Position: position changed independently tilted, right Taken 08/28/20201999 by Jan Woods RN Body Position: position changed independently neutral body alignment Intervention: Prevent and Manage VTE (venous thromboembolism) Risk Recent Flowsheet Documentation Taken 08/28/20201999 by Jan Wodos RN VTE Prevention/Management: bilateral sequential compression devices on Goal: Optimal Comfort and Wellbeing Intervention: Provide Person-Centered Care Recent Flowsheet Documentation Taken 08/28/2020 2000 by Jan Woods RN Trust Relationship/Rapport: care [...] and HH OT at discharge. * Airam Mcnally PT - 08/28/2020 1:34 PM EST Goal [...] intervertebral disc L4-L5 right Surgeon: Lisbeth Lewis Stitcher Feeder: Blessing Keene was responsible for performing the [...] Notes * Therapy Evaluation - Angelina Ahmadi, HERO - 08/28/2020 2:31 PM EST Patient Name: [...] individual therapy;occupational therapy -CAMILA Row Name 08/28/20 1511 General Information Patient Profile Reviewed yes -CAMILA [...] Home, Primary none -CAMILA Row Name 08/28/20 151 Cognition Orientation Status (Cognition) oriented x 4 -CAMILA Row Name 08/28/20 151 Safety Issues, Functional Mobility Safety Issues Affecting [...] OT Occupational Therapist Mobility/ADL's Row Name 08/28/20 151 Bed Mobility Rolling Left [place] (Bed Mobility) supervision;verbal cues -CAMILA Rolling Right [place] (Bed Mobility) supervision;verbal cues -CAMILA Geksnzsqz-Wfj-Tykljblbq [place] (Bed Mobility) supervision;verbal cues -CAMILA Bed Mobility, Safety Issues cognitive deficits limit understanding -CAMILA Comment (Bed Mobility) placed bed flat without a rail to simulate home setting. Pt. needed cues forlog roll and to keep precautions. - Row Name 08/28/20 151 Transfers Transfers sit-stand transfer;toilet transfer -CAMILA Comment (Transfers) cues throughout not to bend forward or to twist. Cues for hand placement. Pt. wanting to hold to walker getting on and off toilet. -CAMILA Sit-Stand [place] (Transfers) contact guard;verbal cues -CAMILA [place] Level (Toilet Transfer) verbal cues;contact guard - Assistive Device (Toilet Transfer) walker, front-wheeled;raised toilet seat - Row Name 08/28/20 151 Toilet Transfer Type (Toilet Transfer) sit-stand;stand-sit - Row Name 08/28/20 151 Functional Mobility Functional Mobility- Ind. Level contact guard assist - Functional Mobility- Device rolling walker - Functional Mobility-Distance (Feet) 35 - Row Name 08/28/20 1535 08/28/20 151 Activities of Daily Living BADL Assessment/Intervention grooming - bathing;lower body dressing;toileting - Row Name 08/28/20 151 Bathing Assessment/Intervention Comment (Bathing) OT simulated for patient 2 time how to use LH bath sponge to clean LE's and keep spinal precauations. - Row Name 08/28/20 151 Lower Body Dressing Assessment/Training [place] Level (Lower Body Dressing) doff;don;socks;minimum assist (75% patient effort);verbal cues - Assistive Devices (Lower Body Dressing) sock-aid;long-handled shoe horn;wine bottle inspector - Position (Lower Body Dressing) edge of [...] of AE and pt. able to use wine bottle inspector to pickle solution maker items from floor in sitting. - Row Name 08/28/20 151 Toileting Assessment/Training [place] Level (Toileting) toileting skills;standby assist;verbal cues -CAMILA Assistive Devices (Toileting) raised toilet seat;grab bar/safety frame -CAMIAL Position (Toileting) supported sitting -CAMILA Comment (Toileting) [...] - Row Name 08/28/20 1535 Grooming Assessment/Training [place] Level (Grooming) wash face, hands;verbal cues -CAMILA Position (Grooming) sink side -CAMILA Comment (Grooming) cues to maintain precauations -CAMILA User Montoya (r) = Recorded By, (t) = Taken By, (c) = Cosigned By Initials Name Provider Type Angelina Machado OT Occupational Therapist Obj/Interventions Row Name 08/28/20 1521 Sensory Assessment (Somatosensory) Sensory Assessment (Somatosensory) UE sensation intact -[facility] Name 08/28/20 1521 Vision Assessment/Intervention Visual Impairment/Limitations WFL for evaluation purposes. -[facility] Name 08/28/20 1521 Range of Motion Comprehensive General Range of Motion bilateral upper extremity ROM WNL -[facility] Name 08/28/20 1521 Strength Comprehensive (MMT) General Manual Muscle Testing (MMT) Assessment no strength deficits identified -CAMILA Comment, General Manual Muscle Testing (MMT) Assessment BUE's, functional for ADL task performance.- Row Name 08/28/20 1521 Balance Static Sitting Balance unsupported;sitting, edge of bed;WFL -CAMILA Dynamic Sitting Balance unsupported;sitting, edge of bed;WFL -CAMILA Static Standing Balance WFL;unsupported -CAMILA Dynamic Standing Balance WFL;supported pt. unsupported standing EOB leaning back and weaving a few time so used walker to go to bathroom and back. -CAMILA User Montoya (r) = Recorded By, (t) = Taken By, (c) = Cosigned By Initials Name Provider Type Angelina Machado OT Occupational Therapist Goals/Plan Row Name 08/28/20 1532 Bed Mobility Goal 1 (OT) Activity/Assistive Device (Bed Mobility Goal 1, OT) sidelying to sit/sit to sidelying -CAMILA [place] Level/Cues Needed (Bed Mobility Goal 1, OT) independent -CAMILA Time Frame (Bed Mobility Goal 1, OT) exterminator goal (LTG);3 days -CAMILA Strategies/Barriers (Bed Mobility Goal 1, OT) performing good logroll -CAMILA Progress/Outcomes (Bed Mobility Goal 1, OT) goal ongoing -CAMILA Row Name 08/28/20 153 Bathing Goal 1 (OT) Activity/Device (Bathing Goal 1, OT) bathing skills, all;long-handled sponge -CAMILA [place] Level/Cues Needed (Bathing Goal 1, OT) minimum assist (75% or more patient effort);verbal cues required -CAMILA Time Frame (Bathing Goal 1, OT) senior care goal (LTG);10 days -CAMILA Strategies/Barriers (Bathing Goal 1, OT) maintaining spinal precautions -CAMILA Progress/Outcomes (Bathing Goal 1, OT) goal ongoing -CAMILA Row Name 08/28/20 153 Dressing Goal 1 (OT) Activity/Device (Dressing Goal 1, OT) lower body dressing;long-handled shoe horn;wine bottle inspector;sock-aid -CAMILA [place]/Cues Needed (Dressing Goal 1, OT) standby assist;tactile cues required;verbal cues required -CAMILA Time Frame (Dressing Goal 1, OT) senior care goal (LTG);5 days -CAMILA Strategies/Barriers (Dressing Goal 1, OT) maintaining spinal precauations and I AE use. -CAMILA Progress/Outcome (Dressing Goal 1, OT) goal ongoing -CAMILA Row Name 08/28/20 1532 Therapy Assessment/Plan (OT) Planned Therapy Interventions (OT) adaptive equipment training;BADL retraining;occupation/activity based interventions;patient/caregiver education/training;transfer/mobility retraining -CAMILA User Montoya (r) = Recorded By, (t) = Taken By, (c) = Cosigned By Initials Name Provider Type Angelina Machado, OT Occupational Therapist Clinical Impression Row Name 08/28/20 1522 Pain Scale: Numbers Pre/Post-Treatment Pretreatment Pain Rating 5/10 -CAMILA Posttreatment Pain Rating 5/10 -CAMILA Pain Location - Orientation lower -CAMILA Pain Location back -CAMILA Pain Intervention(s) Ambulation/increased activity;Repositioned per pt. she thinks it is 2 hours until due for pain meds -CAMILA Row Name 08/28/20 1523 Plan of Care Review Plan of Care [...] precautions with functional tasks. Recommend home with 24/ A/S and OT at discharge. - Row Name 08/28/20 1523 Therapy Assessment/Plan (OT) Patient/Family Therapy Goal Statement (OT) return to OF -CAMILA Rehab Potential (OT) good, to achieve stated therapy goals -CAMILA Criteria for Skilled Therapeutic Interventions Met (OT) yes;meets criteria;skilled treatment is necessary - Therapy Frequency (OT) daily - Row Name 08/28/20 1523 Therapy Plan Review/Discharge Plan (OT) Equipment Needs Upon Discharge (OT) -- grab bars tub, possible 02 use due to pt. to 87% onn 2L -CAMILA Row Name 08/28/20 1523 Vital Signs Pre [...] Therapist Occupational Therapy Education Title: PT OT GAS ADJUSTER Therapies (In Progress) Topic: Occupational Therapy (In Progress) Point: ADL training (Done) Description: Instruct learner(s) on proper safety adaptation and remediation techniques during self care or transfers. Instruct in proper use of assistive devices. Learning Progress Summary Patient Acceptance, E,D, VU,NR by at 08/28/2020 1534 Comment: spinal precauations, AE [...] Progress Summary Patient Acceptance, E,D, VU,NR by at 08/28/2020 1534 Comment: spinal precauations, AE use with ADL task and item retrieval, sleeping positioning User Montoya Initials Effective Dates Name Provider Type [facility] CAMILA 01/18/18 - Ahmadi, Angelina Dominique, OT Occupational Therapist OT OT Recommendation and [...] Re-Cert Due Date 09/07/20 -CAMILA Timed Charges 83101 - OT Therapeutic Activity Minutes 10 -CAMILA 66791 - OT Self Care/Mgmt Minutes 30 -CAMILA User Montoya (r) = Recorded By, (t) = Taken By, (c) = Cosigned By Initials Name Provider Type Angelina Machado OT Occupational Therapist Therapy Charges for Today Code Description Service Date Service Provider Modifiers Qty 00235095933 HC OT THERAPEUTIC ACT EA 15 MIN 08/28/2020 Angelina Ahmadi OT GO 1 41352261624 HC OT SELF CARE/MGMT/TRAIN EA 15 MIN 08/28/2020 Angelina Ahmadi OT GO 2 00534430009 HC OT EVAL LOW COMPLEXITY 2 08/28/2020 [...] Therapy Time and Intention Document Type evaluation - Mode of Treatment physical therapy - Row Name 08/28/20929 General Information Patient Profile Reviewed yes -MB Prior Level of Function independent:;all household mobility;community mobility;gait;transfer;bed mobility;ADL's;driving;using stairs - Existing Precautions/Restrictions fall;spinal Issued illustrated spinal precautions/HEP handout. -MB Barriers to Rehab hearing deficit -MB Row Name 08/28/20929 Living Environment Lives With child(iza), adult -MB Row Name 08/28/20929 Home Main Entrance Number [...] 08/28/20929 Bed Mobility Bed Mobility rolling right;rolling left;saaqfryds-rxc-lnvwkizgn -MB Rolling Left [place] (Bed Mobility) supervision;verbal cues -MB Rolling Right [place] (Bed Mobility) supervision;verbal cues -MB Lcxndrmeq-Hgk-Phrhvsaal [place] (Bed Mobility) contact guard;verbal cues -MB Assistive [...] -MB Row Name 08/28/20929 Sit-Stand Transfer Sit-Stand [place] (Transfers) contact guard;verbal cues -MB Assistive Device (Sit-Stand Transfers) other (see comments) gait belt, no AD -MB Row Name 08/28/20929 Gait/Stairs (Locomotion) [place] Level (Gait) standby assist;verbal cues -MB Assistive Device (Gait) other (see comments) No AD, gait belt -MB Distance in Feet (Gait) 350 -MB Comment (Gait/Stairs) Patient ambulated w/ step through gait pattern, freeman WNL; no LOB or instability. VCs for [...] Muscle Testing (MMT) Assessment BLEs functionally 4/5 -MB Row Name 08/28/20929 Motor Skills Coordination gross motor deficit;WFL -MB Therapeutic Exercise hip;knee;ankle;shoulder - Row Name 08/28/20929 Shoulder (Therapeutic Exercise) Shoulder (Therapeutic Exercise) AROM (active range of motion) -MB Shoulder AROM (Therapeutic Exercise) bilateral;flexion;10 repetitions - Row Name 08/28/20929 Hip (Therapeutic Exercise) Hip (Therapeutic Exercise) AROM (active range of motion);isometric exercises abdominal sets - Hip AROM (Therapeutic Exercise) bilateral;external rotation x15 -MB Hip Isometrics (Therapeutic Exercise) bilateral;gluteal sets x15 -MB Row Name 08/28/20929 Knee (Therapeutic Exercise) Knee (Therapeutic Exercise) isometric exercises - Knee Isometrics (Therapeutic Exercise) bilateral;quad sets x15 -MB Knee Strengthening (Therapeutic Exercise) -- x15 -MB Row Name 08/28/20929 Ankle (Therapeutic Exercise) Ankle (Therapeutic Exercise) AROM (active range of motion) - Ankle AROM (Therapeutic Exercise) bilateral;dorsiflexion;plantarflexion x15 -MB Row Name 08/28/20929 Balance Balance Assessment sitting [...] 1, PT) bed mobility activities, all -MB [place] Level/Cues Needed (Bed Mobility Goal 1, PT) independent -MB Time Frame (Bed Mobility Goal 1, PT) 1 week -MB Progress/Outcomes (Bed Mobility Goal 1, PT) goal ongoing -MB Row Name 08/28/20929 Transfer Goal 1 (PT) Activity/Assistive Device (Transfer Goal 1, PT) transfers, all -MB [place] Level/Cues Needed (Transfer Goal 1, PT) independent -MB Time Frame (Transfer Goal 1, PT) 1 week -MB Progress/Outcome (Transfer Goal 1, PT) goal ongoing -MB Row Name 08/28/20929 Gait Training Goal 1 (PT) Activity/Assistive Device (Gait Training Goal 1, PT) gait (walking locomotion) -MB [place] Level (Gait Training Goal 1, PT) independent -MB Distance (Gait Training Goal 1, PT) 250 -MB Time Frame (Gait Training Goal 1, PT) 1 week -MB Progress/Outcome (Gait Training Goal 1, PT) goal ongoing -MB Row Name 08/28/20929 Stairs Goal 1 (PT) Activity/Assistive Device (Stairs Goal 1, PT) stairs, all skills;using handrail, left;using handrail, right -MB [place] Level/Cues Needed (Stairs Goal 1, PT) supervision required -MB Number of Stairs (Stairs Goal 1, PT) 6 -MB Time Frame (Stairs Goal 1, PT) 1 week -MB Progress/Outcome (Stairs Goal 1, PT) goal ongoing -MB Row Name 08/28/20929 Patient Education Goal (PT) Activity (Patient Education Goal, PT) HEP, spinal precautions -MB [place]/Cues/Accuracy (Memory Goal 2, PT) demonstrates adequately;verbalizes understanding [...] home w/ assist and HHPT at D/C. -MB Row Name 08/28/20929 Therapy Assessment/Plan (PT) Patient/Family [...] Therapist Physical Therapy Education Title: PT OT GAS ADJUSTER Therapies (Done) Topic: Physical Therapy (Done) Point: [...] Montoya Initials Effective Dates Name Provider Type eY DELGADO 10/25/15 - Airam Mcnally, PT Physical Therapist [...] Time 929 - PT Received On 08/28/20 - PT Goal Re-Cert Due Date 09/07/20 - User Montoya (r) = Recorded By, (t) = Taken By, (c) = Cosigned By Initials Name Provider Type Airam Martínez, PT Physical Therapist Therapy Charges for Today Code Description Service Date Service Provider Modifiers Qty 22157281922 HC PT EVAL LOW COMPLEXITY 4 08/28/2020 [...] Visit [facility] [address] [id number] Patrica Otto MD [address] [address] Scheduled Referrals Name Type Priority Associated Diagnoses [...] 1 VW Routine 08/27/2020 11:40 AM EST IA LAMNOTMY INCL W/DCMPRSN NRV ROOT 1 INTRSPC LUMBR 08/27/2020 11:06 AM EST Herniated lumbar intervertebral disc Special Needs FILMS ON PAX+ documented in this encounter Results * Urine Culture - Urine, Urine, Catheter (08/27/2020 12:04 PM EST) Urine Culture No growth AYALA 08/28/2020 2:18 PM EST [facility] Urine Urine specimen obtained via straight catheter / Unknown 08/27/2020 12:04 PM EST 08/27/2020 12:46 PM EST Lisbeth Lewis MD MICROBIOLOGY - GENERAL ORDER TENISHA Final Result [facility]
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 {BKC} sodium chloride (NS) irrigation solution As Needed, Starting on Sun08/27/20 at 1152 Given 08/27/2020 11:52 AM EST 1,000 mL sodium chloride 0.45 % with KCl 20 [...] Given 08/28/2020 10:23 AM EST 3 mL sodium chloride 0.9 % solution As Needed, Starting on Sun08/27/20 at 1152 Given 08/27/2020 11:[address] 250 mL sodium chloride 5 mL with gelatin absorbable 1 each, thrombin 5,000 Units mixture As Needed, Starting on Sun08/27/20 at 1153 Given 08/27/2020 11:53 AM EST 5 mL sterile water irrigation solution As Needed, Starting on Sun08/27/20 at 1152 Given 08/27/2020 11:52 AM EST 1,000 mL documented in this encounter Active and [...] CPOT 5-8 1712 (Given - Provider: Elissa Rowe RN)2338 (Given - Provider: Anna Raman RN) 0526 (Given - Provider: Anna Raman RN)1544 (Not Given - Provider: Kaye Campos RN - Reason: Patient/family refused)1825 (Given - Provider: Kaye Campos RN) 0038 (Given - Provider: Jan Woods, LINSEY)0645 (Not Given - Provider: Jan Woods RN [...] CPOT 5-8 1026 (Given - Provider: Marianna Holden, LINSEY) amLODIPine (NORVASC) tablet 2.5 mg 2.5 mg, Oral, Daily, First dose on Sun08/28/20 at 0900, Caution: Look alike/sound alike drug alert. Avoid grapefruit juice. 1022 (Given - Provider: Kaye Campos, LINSEY) 0802 (Given - Provider: Kaye Campos RN) atorvastatin (LIPITOR) tablet 10 mg 10 mg, Oral, Nightly, First dose on Sun08/27/20 at 2100, Avoid grapefruit juice. 2006 (Given - Provider: Anna Raman RN) 2009 (Given - Provider: Jan Woods RN) budesonide-formoterol (SYMBICORT) 160-4.5 MCG/ACT inhaler 2 puff 2 puff, Inhalation, 2 Times Daily - RT, First dose on Sun08/27/20 at 2130, {SP} Shake well. Rinse mouth after use, do not swallow water. Send aerosols to pharmacy in ziplock bag for proper disposal. 2111 (Given - Provider: Alida Lopez, PEPE) 09 (Given - Provider: Jan Muñiz, PEPE)2057 (Given - Provider: Cora Frederick RRT) 0824 (Given - Provider: Alan Cedeño, PEPE)0930 (Canceled Entry - Provider: Alan Cedeño RRT) [...] CPOT 5-8 2006 (Given - Provider: Anna Raman RN) 2009 (Given - Provider: Jan Woods, LINSEY) cholecalciferol (VITAMIN D3) tablet 1,000 Units 1,000 Units, Oral, Daily, First dose on Sun08/27/20 at 1600 1712 (Given - Provider: Elissa Rowe RN) 1023 (Given - Provider: Kaye Campos, LINSEY) 0801 (Given - Provider: Kaye Campos RN) dexamethasone (DECADRON) tablet 4 mg (CANCELED)(Linked Group 2) 4 mg, Oral, Every 6 Hours Scheduled, First dose on Sun08/27/20 at 1800, Take with food. 171 (Given - Provider: Elissa Rowe RN)2338 (Given - Provider: Anna Raman RN) 0526 (Given - Provider: Anna Raman, LINSEY) digoxin (LANOXIN) tablet 250 mcg 250 mcg, Oral, Nightly, First dose on Sun08/27/20 at 2100, Check and record heart rate. 2005 (Given - Provider: Anna Raman RN) 2009 (Given - Provider: Jan Woods, LINSEY) famotidine (PEPCID) tablet 20 mg (COMPLETED) 20 mg, Oral, Once, On Sun08/27/20 at 1001, For 1 dose 102 (Given - Provider: Marianna Holden RN) HYDROcodone-acetaminophe [...] RN) 2009 (Given - Provider: Jan Woods, LINSEY) multivitamin with minerals 1 tablet 1 tablet, Oral, Daily, First dose on Sun08/27/20 at 1800, {BK} 1712 (Given - Provider: Elissa Rowe RN) 1022 (Given - Provider: Kaye Campos RN) 0802 (Given - Provider: Kaye Campos RN) sodium chloride 0.9 % flush 3 mL 3 mL, Intravenous, Every 12 Hours Scheduled, First dose on Sun08/27/20 at 1432 1502 (Canceled Entry - Provider: Elissa Rowe RN)2006 (Not Given - Provider: Anna Raman RN [...] Velazquez CRNA)1239 (Anesthesia Volume Adjustment - Provider: Cosme Velazquez CRNA) sodium chloride 0.45 % with KCl 20 mEq/L infusion 75 mL/hr, Intravenous, Continuous, Starting on Sun08/27/20 at 1348 1407 (New Bag - Provider: Nirali Langford, RN) 0357 (New Bag - Provider: Anna Raman, RN)0713 (Currently Infusing - Provider: Madeline Ross, RN)1348 (Currently Infusing - Provider: Kaye Campos, RN)1817 (Currently Infusing - Provider: Kaye Campos, RN)2350 (New Bag - Provider: Jan Woods, [...] CPOT 5-8 2006 (Given - Provider: Anna Raman RN) 0739 (Given - Provider: Madeline Ross RN) 0157 (Given - Provider: Jan Woods RN)0805 (Given - Provider: Kaye Campos RN) promethazine [...] ineffective documented in this encounter Care Teams Ict Quality Assurance Engineer Relationship Specialty Start Date End Date Marck Ramsey MD [address] [place] [address] PCP - General Family Medicine 07/12/20 documented as of this encounter
--- OUTSIDE RECORDS SUMMARY | 2024-06-27 12:06 | XMS_ITS | Encounter Summary ---
Author Organization [facility] Address [address] [place] [address] Care Team Providers Care Chiropractic Practice Manager Name Role Phone Marck Ramsey MD Primary Care Provider [phone] Encounter Details Date Type Department Care Team (Late st Contact Info) Description 08/02/2020 Refill [facility] [address] [place] [address] Georgi Lewis MD Herniated lumbar intervertebral disc (Primary Dx) Social History Tobacco Use Types [...] encounter Miscellaneous Notes * Telephone Encounter - Bianca Ross MA - 08/02/2020 12:27 PM EST Spoke with Mansijayne's daughter in law. They are unable to come to the office to p/u script andrequest this be mailed to address on file. Rx placed in outgoing mail. * Telephone Encounter - Bianca Ross MA - 08/02/2020 11:50 AM EST Called pt to let her know RX is ready, need to know if she would like to p/u or have placed in the mail. Will also send message to Angelina in regard to PA. RX in the reading room with Bianca. * Telephone Encounter - Bianca Ross MA - 08/02/2020 11:32 AM EST RX on Dr. Nazario's desk for sig * Telephone Encounter - Charisse Davis MA - 08/02/2020 10:53 AM EST Provider: Joshua Caller: Patient Time of call: ? - Voicemail was transferred Phone #: [phone] Surgery: UPCOMING - Lumbar Discectomy L4-5, Right Surgery Date: 08/12/2020 Last visit: 07/22/2020 Next visit: Surgery LUBNA: 07/22/2020 Oxycodone/Acetaminophen 325MG/5MG 1934 28 7 JOSHUA BOB [facility]- [address] [facility] 30 1 Reason for call: Patient called stating her pharmacy would only allow her to fill a 7 day supply ofthe Percocet that Dr. Lewis sent in for her on 07/22/2020. Patient stated she had to forgo the remaining amount of pills on the Rx, and now she needs a new Rx to called into her pharmacy. I called and talked to Kun, the pharmacist at [facility] in [place], [place]. Kun stated for a first fill on a Narcotic medication they are only allowed to give a 7 day supply. Kun stated the Rx received next would be filled completely, but it would need a PA through the patients insurance as well. Patient wanting to know if someone can get this refilled for her. Medication pended for approval. documented in this encounter Plan of Treatment Upcoming Encounters Date Type Department Care Team (Late st Contact Info) Description 10/27/2024 11:00 AM EDT Office Visit [facility] [address] [place] [address] Patrica Otto MD [address] [place] [address] documented as of this encounter Visit Diagnoses Diagnosis Herniated lumbar intervertebral disc- Primary Displacement of lumbar intervertebral disc without myelopathy documented in this encounter Care Teams Chiropractic Practice Manager Relationship Specialty Start Date End Date Marck Ramsey MD [address] [place] [address] PCP - General Family Medicine 07/12/20 documented as of this encounter
--- OUTSIDE RECORDS SUMMARY | 2024-06-27 12:06 | XMS_ITS | Encounter Summary ---
Author Organization [facility] Address [address] [place] [address] Care Team Providers Care Education Department Chair Name Role Phone Markc Ramsey MD Primary Care Provider [phone] Reason for Referral * Surgical (Routine) - Closed Specialty Diagnoses / Procedures Referred By Rossy childs Referred To Contact Diagnoses Herniated lumbar intervertebral disc Procedures Case Request HI LAMNOTMY INCL W/DCMPRSN NRV ROOT 1 INTRSPC LUMBR Georgi Lewis MD [address] [address] Phone: tel: Referral ID Status Reason Start Date Expiration Date Visits Re quested Visits Authorized [id number] Closed 07/22/2020 07/22/2021 1 1 Encounter Details Date Type Department Care Team (Latest Contact Info) Description 07/22/2020 Prep for Surgery [facility] ORDERS ONLY [address] [place] [phone] Georgi Lewis MD Herniated lumbar intervertebral disc [...] on file documented as of this encounter H&P Notes * Georgi Lewis MD - 07/22/2020 4:28 PM EST Chief Complaint Patient presents with ??? Back [...] was performed she referred for neurosurgical consultation.] Medical History Past Medical History: Diagnosis Date ??? Arthritis ??? Asthma ??? Bronchitis ??? Cervical disc disorder ??? Hearing loss ??? Heart disease ??? Hypertension ??? Osteoporosis Surgical History Past Surgical History: Procedure Laterality Date ??? BLADDER SURGERY ??? GALLBLADDER SURGERY ??? HYSTERECTOMY ??? TONSILLECTOMY AND ADENOIDECTOMY ??? TUBAL ABDOMINAL LIGATION Family History Problem Relation Age of Onset ??? Cancer Father rectum ??? Stroke Brother ??? Hypertension Brother Social History Social History Socioeconomic History ??? Marital status: [...] All other systems reviewed and are negative. Vitals Vitals: 07/22/20 1245 BP: 130/70 BP Location: [...] spondylolisthesis L4-5. There is listhesis also at L3-[id number] with mild stenosis. Assessment: Symptomatic disc herniation [...] and I will certainly keep you informed. documented in this encounter Plan of Treatment Upcoming Encounters Date Type Department Care Team (Late st Contact Info) Description 10/27/2024 11:00 AM EDT Office Visit [facility] [address] [place] [address] Patrica Otto MD [address] [place] [address] documented as of this encounter Results * MRSA Screen Culture (Outpatient) - Swab, Nares (08/09/2020 4:41 PM EST) [facility] MRSA Screen Cx No Methicillin Resistant Staphylococcus aureus isolated AYALA 08/10/2020 6:48 PM EST [facility] Swab Anterior nares swab / Unknown Collection / Unknown 08/09/2020 4:41 PM EST 08/09/2020 4:55 PM EST Georgi Lewis MD MICROBIOLOGY - GENERAL ORDER TENISHA Final Result [facility]
[address] [place] [address], [place] [phone] * Urinalysis With Culture If Indicated - Urine, Clean Catch (08/09/2020 4:41 PM EST) Pathologist [facility] Color, UA Yellow Yellow, Straw 08/09/2020 5:52 PM EST [facility] Appearance, UA Clear Clear 08/09/2020 5:52 PM EST [facility] pH, UA 6.0 5.0 - 8.0 08/09/2020 5:52 PM EST [facility] Specific [place], UA 1.015 1.001 - 1.030 08/09/2020 5:52 PM EST [facility] Glucose, UA Negative Negative 08/09/2020 5:52 PM EST [facility] Ketones, UA Negative Negative 08/09/2020 5:52 PM EST [facility] Bilirubin, UA Negative Negative 08/09/2020 5:52 PM EST [facility] Blood, UA Negative Negative 08/09/2020 5:52 PM EST [facility] Protein, UA Negative Negative 08/09/2020 5:52 PM EST [facility] Leuk Esterase, UA Negative Negative 08/09/2020 5:52 PM EST [facility] Nitrite, UA Negative Negative 08/09/2020 5:52 PM EST [facility] Urobilinogen, UA 0.2 E.U./dL 0.2 - 1.0 E.U./dL 08/09/2020 5:52 PM EST [facility] Urine Urine specimen collection, clean catch / Unknown Collection / Unknown 08/09/2020 4:41 PM EST 08/09/2020 5:48 PM EST [facility] - 08/09/2020 5:52 PM EST Urine microscopic not indicated. us Georgi Lewis MD URINE ORDERABLES Final Resul t [facility]
[address] [place] [address], * (ABNORMAL) Comprehensive metabolic panel (08/09/2020 4:41 PM EST) Glucose 126(H) 65 - 99 mg/dL 08/09/2020 5:11 PM EST [facility] BUN 24(H) 8 - 23 mg/dL 08/09/2020 5:11 PM EST [facility] Creatinine 0.75 0.57 - 1.00 mg/dL 08/09/2020 5:11 PM EST [facility] Sodium 141 136 - 145 mmol/L 08/09/2020 5:11 PM EST [facility] Potassium 5.0 3.5 - 5.2 mmol/L 08/09/2020 5:11 PM EST [facility] Comment:Slight hemolysis det ected by analyzer. Results may be affected. Chloride 100 98 - 107 mmol/L 08/09/2020 5:11 PM [facility] CO2 30.0(H) 22.0 - 29.0 mmol/L 08/09/2020 5:11 PM [facility] Calcium 10.7(H) 8.6 - 10.5 mg/dL 08/09/2020 5:11 PM [facility] Total Protein 7.3 6.0 - 8.5 g/dL 08/09/2020 5:11 PM [facility] Albumin 4.50 3.50 - 5.20 g/dL 08/09/2020 5:11 PM [facility] ALT (SGPT) 53(H) 1 - 33 U/L 08/09/2020 5:11 PM [facility] AST (SGOT) 29 1 - 32 U/L 08/09/2020 5:11 PM [facility] Alkaline Phosphatase 55 39 - 117 U/L 08/09/2020 5:11 PM [facility] Total Bilirubin 0.6 0.0 - 1.2 mg/dL 08/09/2020 5:11 PM [facility] eGFR Non Amer 73 >60 mL/min/1.7 3 08/09/2020 5:11 PM [facility] Globulin 2.8 gm/dL 08/09/2020 5:11 PM [facility] A/G Ratio 1.6 g/dL 08/09/2020 5:11 PM [facility] BUN/Creatinine Ratio 32.0(H) 7.0 - 25.0 08/09/2020 5:11 PM [facility] Anion Gap 11.0 5.0 - 15.0 mmol/L 08/09/2020 5:11 PM [facility] Blood Venipuncture / Unknown 08/09/2020 4:41 PM EST 08/09/2020 4:48 PM EST [facility] - 08/09/2020 5:11 PM EST GFR Normal >60 Chronic Kidney Disease <60 Kidney Failure <15 Georgi Lewis MD LAB BLOOD ORDERABLES Final R esult [facility]
[address] [place] [address], * (ABNORMAL) CBC (No diff) (08/09/2020 4:41 PM EST) WBC 21.56(H) 3.40 - 10.80 10*3/mm3 08/09/2020 5:03 PM EST [facility] RBC 5.48(H) 3.77 - 5.28 10*6/mm3 08/09/2020 5:03 PM EST [facility] Hemoglobin 16.0(H) 12.0 - 15.9 g/dL 08/09/2020 5:03 PM [facility] Hematocrit 50.2(H) 34.0 - 46.6 % 08/09/2020 5:03 PM EST [facility] MCV 91.6 79.0 - 97.0 fL 08/09/2020 5:03 PM EST [facility] MCH 29.2 26.6 - 33.0 pg 08/09/2020 5:03 PM EST [facility] MCHC 31.9 31.5 - 35.7 g/dL 08/09/2020 5:03 PM EST [facility] RDW 12.5 12.3 - 15.4 % 08/09/2020 5:03 PM [facility] RDW-SD 42.0 37.0 - 54.0 fl 08/09/2020 5:03 PM EST [facility] MPV 10.7 6.0 - 12.0 fL 08/09/2020 5:03 PM EST [facility] Platelets 363 140 - 450 10*3/mm3 08/09/2020 5:03 PM [facility] Blood Venipuncture / Unknown 08/09/2020 4:41 PM EST 08/09/2020 4:48 PM EST Georgi Lewis MD LAB BLOOD ORDERABLES Final R esult [facility]
[address] [place] [address], documented in this encounter Visit Diagnoses Diagnosis Herniated lumbar intervertebral disc- Primary Displacement of lumbar intervertebral disc without myelopathy documented in this encounter Care Teams Education Department Chair Relationship Specialty Start Date End Date Marck Ramsey MD [address] [place] [address] PCP - General Family Medicine 07/12/20 documented as of this encounter
--- OUTSIDE RECORDS SUMMARY | 2024-06-27 12:06 | XMS_ITS | Encounter Summary ---
Author Organization [facility] Address [address] [place] [address] Care Team Providers Care Wire Bender Name Role Phone Marck Ramsey MD Primary Care Provider [phone] Reason for Visit * Reason Onset Date Comments [facility] - SURGERY 08/17/2020 Encounter Details Date Type Department Care Team (Late st Contact Info) Description 08/17/2020 Telephone [facility] [address] [facility] [address] [place] [address] Georgi Lewis MD [place] - SURGERY Social History Tobacco Use Types Packs/Day [...] encounter Miscellaneous Notes * Telephone Encounter - Kaylyn Salazar - 08/17/2020 3:27 PM EST Spoke with the patient and rescheduled her surgery to 08/27/20. * Telephone Encounter - Shiloh Rubalcava MA - 08/17/2020 1:08 PM EST Please see Kailey's note. * Telephone Encounter - Kailey Christiansen RegSched Rep - 08/17/2020 12:50 PM EST Caller: TRUDI ROMEO Relationship to patient: SELF Best call back number: [phone] Chief complaint: THE PATIENT WAS SCHEDULED FOR SURGERY WITH DR LEWIS ON 08/12 BUT IT WAS CANCELLEDBECAUSE THE PATIENT HAD BRONCHITIS. SHE SAID SOMEONE TRIED TO CALL HER DAUGHTER IN LAW TODAY (KENN WALTERS, HER PHONE NUMBER IS LISTED IN THE EMERGENCY CONTACT), SHE WAS RETURNING THE CALL IN CASE IT WAS ABOUT RESCHEDULING HER SURGERY. Type of visit: SURGERY Requested date: SOON IT IS SAFE FOR HER TO HAVE SURGERY If rescheduling, when is the original appointment: 08/12/20 Additional notes: SHE HAD A XRAY AT [facility] ON 08/11 THAT DETERMINED THAT SHE HAD BRONCHITIS documented in this encounter Plan of Treatment Upcoming Encounters Date Type Department Care Team (Late st Contact Info) Description 10/27/2024 11:00 AM EDT Office Visit [facility] [address] [place] [phone] Patrica Otto MD [address] [address] documented as of this encounter Visit Diagnoses Not on filedocumented in this encounter Care Teams Wire Bender Relationship Specialty Start Date End Date Marck Ramsey MD [address] [facility] [place] [address] PCP - General Family Medicine 07/12/20 documented as of this encounter
[2024-06-27 12:42] LABS: Basophils # 0.2 K/mm3 (0-0.2); Basophils % 1.7 % (0.1-2.0); Eosinophils # 1.8 K/mm3 (0.0-0.4); Eosinophils % 16.7 % (0.1-12.0); Hematocrit 47.8 % (37.0-47.0); Hemoglobin 15.9 g/dL (12.2-16.2); Lymphocytes # 1.7 K/mm3 (0.7-4.5); Lymphocytes % 15.6 % (10-50); Mean Corpuscular HGB Conc 33.3 g/dL (31.8-35.4); Mean Corpuscular Hemoglobin 29.9 pg (27.0-31.2); Mean Corpuscular Volume 89.9 fl (81-99); Mean Platelet Volume 8.2 fl (7.4-10.4); Monocytes # 0.6 K/mm3 (0.1-1.0); Monocytes % 5.6 % (1.7-9.3); Neutrophils # 6.6 K/mm3 (1.8-7.8); Neutrophils % 60.4 % (37.0-80.0); Platelet Count 294 K/mm3 (142-424); Red Blood Count 5.31 M/mm3 (4.20-5.40); White Blood Count 10.9 K/mm3 (4.8-10.8)
[2024-06-27 13:06] LABS: C-Reactive Protein 0.4 mg/L (0-4)
[2024-07-02 22:08] LABS: D001-IgE D pteronyssinus <0.10 kU/L (Class 0); D002-IgE D farinae <0.10 kU/L (Class 0); E001-IgE Cat Dander 0.14 kU/L (Class 0/I); E005-IgE Dog Dander 0.13 kU/L (Class 0/I); E072-IgE Mouse Urine <0.10 kU/L (Class 0); G002-IgE Bermuda Grass 0.15 kU/L (Class 0/I); G006-IgE Timothy Grass 0.13 kU/L (Class 0/I); Immunoglobulin E, Total 1113 IU/mL (6-495); M001-IgE Penicillium chrysogen 1.54 kU/L (Class III); M002-IgE Cladosporium herbarum <0.10 kU/L (Class 0); M003-IgE Aspergillus fumigatus 4.93 kU/L (Class IV); M006-IgE Alternaria alternata <0.10 kU/L (Class 0); T001-IgE Maple/Box Elder 0.32 kU/L (Class I); T003-IgE Common Silver Birch 0.22 kU/L (Class 0/I); T006-IgE Cedar, Mountain 0.24 kU/L (Class 0/I); T007-IgE Oak, White 0.25 kU/L (Class 0/I); T008-IgE Elm, American 0.84 kU/L (Class II); T010-IgE Walnut 0.56 kU/L (Class II); T011-IgE Maple Leaf Sycamore 0.36 kU/L (Class I); T014-IgE Cottonwood 0.39 kU/L (Class I); T015-IgE Ash, White 0.68 kU/L (Class II); T022-IgE Pecan, Hickory 0.34 kU/L (Class I); T070-IgE White Mulberry 0.11 kU/L (Class 0/I); W001-IgE Ragweed, Short 0.28 kU/L (Class 0/I); W011-IgE Thistle, Russian 0.21 kU/L (Class 0/I); W014-IgE Pigweed, Common 0.13 kU/L (Class 0/I); W018-IgE Sheep Sorrel <0.10 kU/L (Class 0)
== END 2024-06-27 23:59 | disposition home or self-care (01) ==
LOC: LAB 12:03
PROVIDERS: PCP Family Medicine; Visit Provider Internal Medicine Pulmonary Disease
DX: J30.9 Allergic rhinitis, unspecified (principal); R06.09 Other forms of dyspnea
CPT/HCPCS: 36415; 82785; 85025; 86003; 86140

== ENCOUNTER 2024-09-04 07:38 | Outpatient (CLI) | payer MEDICARE, SELFPAY ==
--- NOTE | 2024-09-04 09:16 | XR_ITS ---
FINAL REPORT CLINICAL HISTORY: SOB COMPARISON: 09/22/2022 FINDINGS: CHEST 2 VIEWS PA AND LATERAL The heart is normal in size. The mediastinum is unremarkable. The lungs are hyperinflated consistent with obstructive airways disease. There is no pneumothorax. IMPRESSION: Obstructive airways disease. Reviewed, Interpreted and Dictated by Indra Ortiz MD Transcribed by Kathy Maguire Authenticated and [facility]
== END 2024-09-04 23:59 | disposition home or self-care (01) ==
PROVIDERS: PCP Family Medicine; Visit Provider Internal Medicine Pulmonary Disease
DX: R06.02 Shortness of breath (principal)
CPT/HCPCS: 71046; 94060; 94618

== ENCOUNTER 2024-09-29 12:47 | Inpatient (IN) | payer MEDICARE, SELFPAY ==
[2024-09-29] VITALS (14 sets, daily range): BP systolic 108–157; BP diastolic 61–110; PULSE 72–95; RESP 12–25; TEMP 36.9–38.4; O2SAT 93–98; BMI 15.5; BMI 16.2
--- NOTE | 2024-09-29 12:43 | CT_ITS ---
FINAL REPORT TECHNIQUE: Thin section axial images are obtained through the brain after intravenous contrast injection. Multiplanar reconstructions were obtained from the axial data. Exam was performed using dose reduction techniques such as automated exposure control, adjustment of the mA and kV according to patient size, and use of iterative reconstruction technique. CLINICAL HISTORY: possible stroke. left side facial drooping FINDINGS: The intracerebral portions of the carotid arteries are patent. The anterior and middle cerebral arteries are patent. The posterior cerebral arteries arise from the basilar artery. They are patent. [place] of [place] is intact. The basilar artery is patent. The vertebral arteries are patent. There is no significant stenosis, aneurysm, or AVM. IMPRESSION: No evidence of large vessel occlusion or significant stenosis. Reviewed, Interpreted and Dictated by Marimar Sargent MD Transcribed by Anna Narvaez Authenticated and . [facility]
--- NOTE | 2024-09-29 12:43 | CT_ITS ---
FINAL REPORT CLINICAL HISTORY: possible stroke, left sided facial droop FINDINGS: CTA NECK: Aortic arch: There is a normal three-vessel configuration to the aortic arch. There is no significant stenosis of the great vessels at their origins. Right carotid artery: The right common carotid artery is patent without stenosis. There is calcification at the carotid bulb. The cervical portions of the right internal carotid artery are patent without stenosis. 0% stenosis per NASCET criteria. Left carotid artery: The left common carotid artery is patent without stenosis. There is plaque at the carotid bulb. The cervical portions of the left internal carotid artery are patent without stenosis. 20% stenosis per NASCET criteria. Vertebral arteries: The vertebral arteries are patent. No significant stenosis. Other soft tissues: Remaining soft tissues are without acute abnormality. IMPRESSION: 0% stenosis in the right carotid artery. 20% stenosis in the left carotid artery. Patent vertebral arteries. Reviewed, Interpreted and Dictated by Marimar Sargent MD Transcribed by Anna Narvaez Authenticated and . [facility]
--- NOTE | 2024-09-29 12:43 | CT_ITS ---
FINAL REPORT TECHNIQUE: Thin section axial images were obtained from skull base to vertex without contrast. Coronal reconstruction images were obtained from the axial data. Exam was performed using dose reduction techniques such as automated exposure control, adjustment of the mA and kV according to patient size, and use of iterative reconstruction technique. CLINICAL HISTORY: possible stroke, L sided facial droop COMPARISON: None FINDINGS: There is atrophy. No mass effect or midline shift. No intracranial hemorrhage. No hydrocephalus. Periventricular low density is likely related to changes of chronic small vessel ischemia. The basilar cisterns are preserved. The posterior fossa is without acute abnormality. There is complete opacification of the left maxillary sinus with partial opacification of the right maxillary sinus. There is opacification of the sphenoid sinus, ethmoid air cells, and left frontal sinus. These are all likely related to chronic sinusitis. No acute osseous abnormality is identified. IMPRESSION: No intracranial hemorrhage or evidence of acute large cortical infarct. Atrophy and changes suggesting chronic small vessel ischemia. Pansinusitis. Reviewed, Interpreted and Dictated by Marimar Sargent MD Transcribed by Kizzy Davis Authenticated and [facility]
--- NOTE | 2024-09-29 12:43 | XR_ITS ---
FINAL REPORT CLINICAL HISTORY: AMS, slurred speech, facial droop FINDINGS: A portable view of the chest was obtained. Cardiac and mediastinal silhouettes are within normal limits. Emphysema is noted. There is no focal infiltrate, pleural effusion, or pneumothorax. IMPRESSION: No acute process on this portable exam. Reviewed, Interpreted and Dictated by Marimar Sargent MD Transcribed by Anna Narvaez Authenticated and [facility]
[2024-09-29] MEDS: SODIUM CHLORIDE 0.9% 10ML SYR (RAD ONLY) 10 ML IV ×2 (12:46→14:55)
[2024-09-29] MEDS: IOPAMIDOL-370 (76%);100ML BOTTLE 80 ML IV (12:46)
[2024-09-29] MEDS: 0.9 % SODIUM CHLORIDE 50 ML VIAL IV ×2 (12:47→14:56)
--- NOTE | 2024-09-29 12:47 | PC.NURSE ---
pt went straight to CT on arrival. pt glucose is 94 on arrival.
--- NOTE | 2024-09-29 12:52 | PC.NURSE ---
Radiology and Registration notified prior to pt arrival at 1229 Paged Code stroke overhead at 1232
[2024-09-29 12:58] LABS: Chloride 98 mmol/L (98-107); Potassium 4.3 mmoL/L (3.5-5.1); Sodium 138 mmol/L (136-145)
[2024-09-29 13:00] LABS: Alanine Aminotransferase 68 U/L (12-78); Anion Gap 5.3 mEq/L (5-15); Aspartate Amino Transferase 95 U/L (14-36); Blood Urea Nitrogen 20 mg/dl (7-17); Carbon Dioxide 39 mmol/L (22.0-30.0); Estimated Glomerular Filt Rate 94 ml/min (>60); GFR (African American) 114 ML/MIN (>60)
[2024-09-29 13:01] LABS: Activated Partial Thrombo Time 26.9 seconds (22.5-28.5); Albumin/Globulin Ratio 0.8 (1.1-1.8); Alkaline Phosphatase 109 U/L (38-126); Bilirubin,Total 0.4 mg/dl (0.2-1.3); Calcium 8.4 mg/dl (8.4-10.2); Chol/HDL Ratio 3.8 (1-3.5); Cholesterol 117 mg/dl (140-200); Globulin 3.7 g/dL (1.3-3.2); Glucose 119 mg/dl (74-100); HDL Cholesterol 31 mg/dl (40-60); INR 0.94 (0.9-1.1); Prothrombin Time 10.4 seconds (9.2-12.1); Total Protein,Serum 6.7 g/dl (6.3-8.2); Triglycerides 86 mg/dl (30-150); VLDL Cholesterol 17 mg/dL (0-40)
--- NOTE | 2024-09-29 13:02 | PC.NURSE ---
called CT and spoke to noble about pt ct head w/o because there is only a chest xray on the chart at this time
--- NOTE | 2024-09-29 13:03 | ED_ITS ---
Discharge Plan Disposition Patient Disposition: Xfer Short-Term Hosp Condition: Fair Clinical Impressions Clinical Impression: Stroke-like symptoms, Leukocytosis, Abnormal ECG, Thrombocytosis, Hyperviscosity syndrome, Eosinophilia Discharge ED Provider: Cody Quinn General Adult HPI <Nirali Bomo Lewis, - Last Filed: 09/29/24 15:56> General Chief complaint: Neuro Symptoms/Deficit Stated complaint: Stroke Time Seen by Provider: 09/29/24 12:50 History of Present Illness HPI narrative: This patient is an 88-year-old female with history of hypertension, hyperlipidemia, COPD, and irregular heart rate on digoxin presenting to the emergency department for evaluation with concern for possible stroke. According to EMS, they were called to the scene because the patient was found to have facial droop and slurred speech this morning upon waking up. Patient states that she is feeling fine and has no concerns or complaints. I spoke with the patient's family who noted that the patient was last seen normal around 7:00 PM last night. They state that she went to bed early, as she sleeps almost all the time. They noted that when she woke up this morning, she had facial droop and slurred speech. No other deficits noted, she is still able to walk without significant issue. They sent her medications, I do not see blood thinners. Related Data Home Medications ?Medication ?Instructions ?Recorded ?Confirmed ascorbic acid (vitamin C) 500 mg 500 mg PO BID Supplement 08/16/17 09/04/24 tablet (Vitamin C) atorvastatin 10 mg tablet 10 mg PO HS High cholesterol 08/16/17 09/29/24 coenzyme Q10 300 mg capsule (Co 300 mg PO DAILY Supplement 08/16/17 09/04/24 Q-10) digoxin 250 mcg (0.25 mg) tablet 250 mcg PO HS Heart disease 08/16/17 09/29/24 (Digox) multivitamin 1 ea PO DAILY Supplement 08/16/17 09/04/24 ipratropium 0.5 mg-albuterol 3 mg 3 ml inhalation NEEDED PRN sob 12/05/18 09/04/24 (2.5 mg base)/3 mL nebulization soln albuterol sulfate 90 mcg/actuation 2 puff inhalation Q4-6H PRN Asthma 06/27/24 09/29/24 aerosol inhaler celecoxib 200 mg capsule 200 mg PO DAILY 06/27/24 09/29/24 latanoprost 0.005 % eye drops 1 drp Eye-Both HS 06/27/24 09/29/24 amlodipine 2.5 mg tablet 2.5 mg PO DAILY 09/04/24 09/29/24 Previous Rx's ?Medication ?Instructions ?Recorded fluticasone propionate 50 2 spray intranasal DAILY 90 days 06/30/24 mcg/actuation nasal #16 grams spray,suspension (Flonase Allergy Relief) albuterol sulfate 90 mcg/actuation 2 inh inhalation Q6H PRN shortness 09/04/24 aerosol inhaler of breath or wheezing 90 days #8.5 grams fluticasone 500 mcg-salmeterol 50 1 inh inhalation BID #180 ea 09/04/24 mcg/dose blistr powdr for inhalation (Advair Diskus) fluticasone propionate 50 2 spray intranasal DAILY #16 grams 09/04/24 mcg/actuation nasal spray,suspension (24 Hour Allergy Relief) ipratropium 0.5 mg-albuterol 3 mg 3 ml inhalation Q6H PRN shortness 09/04/24 (2.5 mg base)/3 mL nebulization of breath or wheezing #90 mL soln montelukast 10 mg tablet 10 mg PO QPM 90 days #90 tabs 09/04/24 Allergies Allergy/AdvReac Type Severity Reaction Status Date / Time diazepam AdvReac Unknown AGITATION Verified 09/04/24 10:05 meperidine AdvReac Unknown NA-NAUSEA/V Verified 09/04/24 10:05 OMITING [facility] <Nirali Lewis DO - Last Filed: 09/29/24 15:56> [facility] Disclaimer: The information contained in this section may have been updated after the patient was seen, as this information can be updated by other users. Medical History Has been smoking tobacco for 10 years History of nasal polyp Allergic rhinitis Asthma HTN (hypertension) HLD (hyperlipidemia) Arthritis Heart disease COPD (chronic obstructive pulmonary disease) Irregular heart rate Surgical History History of hysterectomy History of appendectomy History of tonsillectomy History of phacoemulsification of cataract of both eyes with intraocular lens implantation Family History Other Family history of COPD (chronic obstructive pulmonary disease) Family history of cancer Social History (Updated 09/29/24 @ 21:02 by Kaylyn Hernández RN) Smoking Status: Never smoker years smoked: 10 alcohol intake: never current occupational status: retired Travel in the last 8 weeks: None household members: family housing: house current occupational exposures/hazards: No caffeine: Yes Have you lived/traveled outside [place] in past 30 days?: No Contact w/someone who lives/traveled outside [place] past 30 days?: No Exposure to someone with infectious disease in past 14 days?: No Do you have a fever (greater than 100.4 F or 38 C)?: No Have you tested positive for COVID-19: No Exposed to someone with COVID-19 in past 14 days?: No Do you have a sore throat?: No Do you have a cough?: No Do you have any weakness?: No Do you have any diarrhea?: No Are you experiencing any unusual bleeding?: No Do you have any muscle aches/pain?: No Do you have any abdominal pain?: No Are you experiencing loss of taste or smell?: No Other Medical History Have you received the Pneumonia Vaccine: Yes <Nirali Lewis DO - Last Filed: 09/29/24 15:56> ROS Obtained: Yes All systems reviewed & no additional complaints except as documented Physical Exam <Nirali Lewis DO - Last Filed: 09/29/24 15:56> General General appearance: alert and in no apparent distress Head Head exam: atraumatic and normocephalic Eye Eye exam: Present normal appearance, PERRL and EOMI ENT ENT exam: Present normal exam, normal oropharynx, mucous membranes moist and normal external ear exam Neck Neck exam: Present normal inspection, full ROM and trachea midline; Absent tenderness Chest Chest inspection: Present normal inspection and symmetric chest wall rise; Absent tenderness Respiratory Respiratory exam: Present normal lung sounds bilaterally; Absent respiratory distress, wheezes, stridor or accessory muscle use Cardiovascular Cardiovascular exam: Present regular rate and normal rhythm Abdominal Exam Abdominal exam: Present soft; Absent distention, tenderness or guarding Extremities Exam Extremities exam: Present normal inspection, full ROM and normal capillary refill; Absent tenderness or edema Back Exam Back exam: Present normal inspection and full ROM; Absent tenderness Neurological Exam Neurological exam: Present alert, oriented X3 and other (L facial droop, mild. Mild dysarthria. NIHSS 2) Psychiatric Psychiatric exam: Present normal affect and normal mood Skin Skin exam: Present warm and dry Medical Decision Making <Nirali Lewis, DO - Last Filed: 09/29/24 15:56> Medical Records Medical records reviewed: Yes I reviewed the patient's medical records. Screening: Per USPSTF and CDC recommendations, given the prevalence of disease in our region, it is our hospital?s policy to screen for HIV and viral Hepatitis for all patients aged 18 and over and those with ongoing risk factors. Jhonathan Inquiry Pt receiving controlled substance: No Vital Signs: 09/29/24 12:47 09/29/24 13:30 09/29/24 14:00 Temperature 98.5 F Temperature Source Oral Pulse Rate 72 76 Pulse Rate [Left Radial] 75 Respiratory Rate 17 12 17 Blood Pressure 135/79 144/61 H Blood Pressure [Right Arm] 135/79 Blood Pressure Mean 95 Blood Pressure Mean [Right Arm] 97 Blood Pressure Source [Right Arm] Automatic Cuff Blood Pressure Position [Right Arm] Sitting 02 Sat by Pulse Oximetry 93 L 98 98 Oxygen Delivery Method Nasal Cannula Nasal Cannula Oxygen Flow Rate (LPM) 2 2 09/29/24 14:30 09/29/24 15:30 09/29/24 16:00 Temperature Temperature Source Pulse Rate 73 78 Pulse Rate [Left Radial] Respiratory Rate 16 Blood Pressure 134/62 130/61 142/67 H Blood Pressure [Right Arm] Blood Pressure Mean 86 82 92 Blood Pressure Mean [Right Arm] Blood Pressure Source [Right Arm] Blood Pressure Position [Right Arm] 02 Sat by Pulse Oximetry 97 96 96 Oxygen Delivery Method Oxygen Flow Rate (LPM) 09/29/24 16:30 09/29/24 17:16 09/29/24 19:09 Temperature Temperature Source Pulse Rate 85 81 95 H Pulse Rate [Left Radial] Respiratory Rate 25 H Blood Pressure 116/88 108/91 L 157/110 H Blood Pressure [Right Arm] Blood Pressure Mean 94 93 Blood Pressure Mean [Right Arm] Blood Pressure Source [Right Arm] Blood Pressure Position [Right Arm] 02 Sat by Pulse Oximetry 97 97 96 Oxygen Delivery Method Nasal Cannula Oxygen Flow Rate (LPM) 3 09/29/24 19:30 09/29/24 20:00 09/29/24 20:30 Temperature Temperature Source Pulse Rate 86 86 84 Pulse Rate [Left Radial] Respiratory Rate 25 H 24 19 Blood Pressure 139/62 144/93 H 146/96 H Blood Pressure [Right Arm] Blood Pressure Mean Blood Pressure Mean [Right Arm] Blood Pressure Source [Right Arm] Blood Pressure Position [Right Arm] 02 Sat by Pulse Oximetry 96 96 96 Oxygen Delivery Method Nasal Cannula Nasal Cannula Nasal Cannula Oxygen Flow Rate (LPM) 3 3 3 09/29/24 20:30 09/29/24 20:37 Temperature 98.4 F Temperature Source Oral Pulse Rate 86 Pulse Rate [Left Radial] Respiratory Rate 14 Blood Pressure 146/96 H Blood Pressure [Right Arm] Blood Pressure Mean Blood Pressure Mean [Right Arm] Blood Pressure Source [Right Arm] Blood Pressure Position [Right Arm] 02 Sat by Pulse Oximetry Oxygen Delivery Method Nasal Cannula Room Air Nasal Cannula Oxygen Flow Rate (LPM) 3 3 Lab Data Lab results reviewed: Yes I reviewed the patient's lab results. Lab Results 09/29/24 12:20: WBC 52.9 H*, RBC 4.35, Hgb 13.0, Hct 39.1, MCV 89.9, MCH 29.9, MCHC 33.2, RDW 15.0, Plt Count 512 H, MPV 10.5 H, Neut % (Auto) 52.0, Lymph % (Auto) 5.9 L, Dunn % (Auto) 3.2, Eos % (Auto) 35.7 H, Baso % (Auto) 0.8, Neut # (Auto) 27.5 H, Lymph # (Auto) 3.1, Dunn # (Auto) 1.7 H, Eos # (Auto) 18.9 H, B aso # (Auto) 0.4 H, Total Counted 100, Neutrophils % (Manual) 55, Lymphocytes % (Manual) 7 L, Monocytes % (Manual) 5, Eosinophils % (Manual) 33 H, Platelet Estimate Slight increase, RBC Morphology Normal, ESR 24, Retic Count (auto) 1.7, PT 10.4, INR 0.94, APTT 26.9, D-Dimer 1.16 H, Sodium 138, Potassium 4.3, Chloride 98, Carbon Dioxide 39 H, Anion Gap 5.3, BUN 20 H, Creatinine 0.60, Estimated GFR 94, Est GFR ( Amer) 114, Glucose 119 H, Uric Acid 4.3, Calcium 8.4, Phosphorus 3.6, Magnesium 1.8, Total Bilirubin 0.4, AST 95 H, ALT 68, Alkaline Phosphatase 109, Lactate Dehydrogenase 244 L, Troponin I < 0.01, C- Reactive Protein 93.6 H, Total Protein 6.7, Albumin 3.0 L, Globulin 3.7 H, A lbumin/Globulin Ratio 0.8 L, Triglycerides 86, Cholesterol 117 L, LDL Cholesterol Direct 51.63 L, VLDL Cholesterol 17, HDL Cholesterol 31 L, C holesterol/HDL Ratio 3.8 H, Plasma/Serum Alcohol < 10 09/29/24 17:30: Urine Color Yellow, Urine Appearance Clear, Urine pH 7.0, Ur Specific [place] 1.010, Urine Protein Negative, Urine Glucose (UA) Negative, Urine Ketones Negative, Urine Blood Negative, Urine Nitrate Negative, Urine Bilirubin Negative, Urine Urobilinogen 0.2, Ur Leukocyte Esterase Negative, Urine RBC None, Urine WBC None, Ur Squamous Epith Cells None, Urine Bacteria None, Urine Opiates Screen Negative, Urine Methadone Screen Negative, Ur Barbituates Screen Negative, Ur Phencyclidine Scrn Negative, Ur Amphetamines Screen Negative, U Benzodiazepines Scrn Negative, Urine Cocaine Screen Negative, U Marijuana (THC) Screen Negative 09/29/24 12:20 09/29/24 12:20 Orders (Tests/Meds): ED MEDICATIONS Generic Name Dose Route Start Last Admin Trade Name Freq PRN Reason Stop Dose Admin Acetaminophen 650 mg 09/29/24 20:20 09/29/24 21:18 Acetaminophen 325mg Tab PO 10/29/24 20:19 650 mg Q4HP PRN Administration Fever or Mild Pain (1-3) Hydrocodone Bitart/Acetaminophen 1 tab 09/29/24 20:20 Hydrocodone/Apap 5/325 Mg Tablet PO 10/29/24 20:19 Q4HP PRN Mild to Moderate Pain (1-6) Albuterol/Ipratropium 3 ml 09/29/24 21:46 Ipratropium/Albuterol 3 Ml Neb 10/29/24 21:45 Q6HP PRN Shortness Of Breath Amlodipine Besylate 2.5 mg 09/30/24 09:00 Amlodipine 2.5mg Tablet PO 10/30/24 08:59 DAILY ALYSSA Atorvastatin Calcium 10 mg 09/30/24 21:00 Atorvastatin 10mg Tablet PO 10/30/24 20:59 HS [facility] Digoxin 250 mcg 09/30/24 21:00 Digoxin 0.25mg Tablet PO 10/30/24 20:59 HS [facility] Sodium Chloride 1,000 mls @ 100 mls/hr 09/29/24 20:30 09/29/24 21:51 Sod Chlor 0.9% 1000ml Bag IV 10/29/24 20:29 100 mls/hr .Q10H ALYSSA Administration Ceftriaxone Sodium 2 gm/ 100 mls @ 200 mls/hr 09/29/24 21:45 09/29/24 22:00 Sodium Chloride IV 10/09/24 21:44 200 mls/hr Q24H ALYSSA Administration Vancomycin HCl 750 mg/ Sodium 250 mls @ 125 mls/hr 09/29/24 22:30 09/29/24 22:45 Chloride IV 09/30/24 00:29 125 mls/hr ONCE ONE Administration Miscellaneous 1 each 09/29/24 21:45 09/29/24 22:31 Vancomycin Consult Request NOTAPPLIC 10/29/24 21:44 1 each CONSULT PHARMACY ALYSSA Administration Sodium Chloride 10 ml 09/29/24 12:43 Sodium Chloride 0.9% 10ml Flush Syringe IV 10/29/24 12:42 NEEDED PRN Maintain IV Site Sodium Chloride 10 ml 09/29/24 12:46 09/29/24 12:46 Sodium Chloride 0.9% 10ml Syr (Rad Only) IV 10/29/24 12:45 10 ml NEEDED PRN Administration Maintain IV Site Sodium Chloride 10 ml 09/29/24 14:54 09/29/24 14:55 Sodium Chloride 0.9% 10ml Syr (Rad Only) IV 10/29/24 14:53 10 ml NEEDED PRN Administration Maintain IV Site Discontinued Medications Generic Name Dose Route Start Last Admin Trade Name Freq PRN Reason Stop Dose Admin Aspirin 324 mg 09/29/24 14:27 09/29/24 20:37 Aspirin 81mg Chewable Tablet PO 09/29/24 14:28 324 mg ONCE ONE Administration Lactated Ringer's 1,000 mls @ 999 mls/hr 09/29/24 13:13 09/29/24 14:06 Lactated Ringer's 1000 Ml Bag IV 09/29/24 14:13 999 mls/hr .Q1H1M ONE Administration Iopamidol 80 ml 09/29/24 12:46 09/29/24 12:46 Iopamidol-370 (76%);100ml Bottle IV 09/29/24 12:47 80 ml ONCE ONE Administration Iopamidol 70 ml 09/29/24 14:54 09/29/24 14:56 Iopamidol-370 (76%);100ml Bottle IV 09/29/24 14:55 70 ml ONCE ONE Administration Sodium Chloride 50 ml 09/29/24 12:46 09/29/24 12:47 0.9 % Sodium Chloride 50 Ml Vial IV 09/29/24 12:47 50 ml ONCE ONE Administration Sodium Chloride 50 ml 09/29/24 14:54 09/29/24 14:56 0.9 % Sodium Chloride 50 Ml Vial IV 09/29/24 14:55 50 ml ONCE ONE Administration ORDERS Category Date Time Status CT abdomen pelvis w con Stat Cat Scan 09/29/24 14:[address] angio chest PE protocol Stat Cat Scan 09/29/24 14:[address] angio head Stat Cat Scan 09/29/24 12:[address] angio neck Stat Cat Scan 09/29/24 12:[address] head/brain wo con Stat Cat Scan 09/29/24 12:43 Completed XR chest portable Stat Exams 09/29/24 12:43 Completed Activated Partial Thrombo Time Stat Lab 09/29/24 12:20 Completed Basic Metabolic Panel AMLAB Lab 09/30/24 06:00 Ordered CRP [C-Reactive Protein] Stat Lab 09/29/24 12:20 Completed Complete Blood Count Auto Diff AMLAB Lab 09/30/24 06:00 Ordered Complete Blood Count Auto Diff Stat Lab 09/29/24 12:20 Completed Comprehensive Metabolic Panel Stat Lab 09/29/24 12:20 Completed D-Dimer Stat Lab 09/29/24 12:20 Completed Drug Screen,Urine Stat Lab 09/29/24 17:30 Completed ESR [Erythrocyte Sedimentation Rate] Stat Lab 09/29/24 12:20 Results Ethyl Alcohol Stat Lab 09/29/24 12:20 Completed Flow Cytometry Stat Lab 09/29/24 14:25 Received LDH [Lactate Dehydrogenase] Stat Lab 09/29/24 12:20 Completed Lipid Panel Stat Lab 09/29/24 12:20 Completed MAG [Magnesium] Stat Lab 09/29/24 12:20 Completed PHOS [Phosphorous] Stat Lab 09/29/24 12:20 Completed Peripheral Smear Review Stat Lab 09/29/24 12:20 Results Prothrombin Time INR Stat Lab 09/29/24 12:20 Completed Reticulocyte % (Auto) Stat Lab 09/29/24 12:20 Results Troponin I Stat Lab 09/29/24 12:20 Completed Uric Acid Stat Lab 09/29/24 12:20 Completed Urinalysis and Microscopic Stat Lab 09/29/24 17:30 Completed Blood Culture Stat Micro 09/29/24 14:06 Received ECG Data Tracing #1: I reviewed this ECG and interpreted as documented below: Sinus rhythm with a ventricular to [address] changes. Changes appear to be consistent with digoxin use. No STEMI. Normal QTc at 374 ms. ECG initial impression date: 09/29/24 ECG initial impression time: 13:04 Medical Decision Narrative: In summary, this patient is a 88-year-old female presenting to the Emergency Department for evaluation of strokelike symptoms including left facial droop, dysarthria. Differential diagnoses considered include but are not limited to intracranial hemorrhage, CVA, intracranial mass, electrolyte derangements, hypoglycemia, other stroke mimic. Ruling out the most morbid conditions drove assessment. It should be noted patient's history includes hypertension, hyperlipidemia, COPD, irregular heart rate on digoxin which may or may not be at goal therapy. This complicates all aspects of care by increasing patient's risk for morbidity. I reviewed patient's past medical records and noted previous pulmonology evaluations. On exam, the patient is sitting upright in no acute distress. She has an NIH stroke scale of 2 for mild left facial droop and mild dysarthria. Otherwise, she has no focal neurologic deficits on full neuroexam. Fingerstick blood glucose is normal. Patient was taken emergently to CT scan as a stroke alert, though she is outside of window for tPA/TNK with last known normal 7 PM last night 09/28/2024. Workup included broad lab evaluation to evaluate for infectious, metabolic, cardiac causes in addition to the stroke CT scans and CT angiograms of the head and neck. I independently interpreted CT scan immediately and noted no intracranial hemorrhage. Please see radiology read for final interpretation. Imaging powershared to [facility] via [facility]. I considered transfer for thrombectomy, however she has no large vessel occlusion. EKG was obtained and demonstrates nonspecific ST changes without acute STEMI. I feel is most likely consistent with her digoxin use. On multiple subsequent reassessments, NIH stroke scale remains 2. Nursing noted seemed nonspecific changes on cardiac telemetry, for which they obtained repeat EKG. On my independent interpretation of repeat EKG, she has some more pronounced T waves/ST segments but no acute STEMI, no significant changes otherwise. I did share with Dr. Tam who advised this is not a STEMI on interactive discussion. Labs were obtained that demonstrated significant leukocytosis, which is new. No prior history of hematologic malignancy. Patient is being worked up for nasal polyps, for which she was on steroids and antibiotics 2 weeks ago. No recent infections/illnesses, no recent steroids or other changes. Family does note unintentional weight loss over the last several months. I had interactive discussion with hematology at who advised sending peripheral smear and flow cytometry, which were both sent and are pending. I also had sent LDH, uric acid, D-dimer, other labs to screen for possible tumor lysis syndrome. I considered that her high white blood cell count could be causing her neurologic symptoms via hyperviscosity syndrome. I discussed this with hematology at who advised that she does not need transfer for this, as it is unlikely to contribute to her symptoms but they did recommend outpatient follow-up. They stated that if her peripheral smear or flow cytometry came back abnormal, then we can consider transfer at that point, especially since other labs are reassuring (normal creatinine, normal uric acid, normal potassium, normal calcium). They did recommend CT chest, abdomen, pelvis for workup of malignancy, which were ordered. I also discussed her stroke symptoms with Dr. Busch at with neurology who recommended initiation of aspirin and MRI for further workup of possible stroke. He did not recommend transfer given that she is outside of tPA window and is not a candidate for thrombectomy with no large vessel occlusion. I did load with oral ASA. Patient has complex presentation with a new significant leukocytosis without determined etiology at this time, new strokelike symptoms, EKG changes. I feel she would benefit from transfer to higher level of care with inpatient hematology/oncology as well as neurology. did not accept the patient, so I then reached out to [facility] for recommendations. I spoke with Dr. Coppola at who advised that the patient would benefit from heme/onc eval but this likely isn't causing symptoms or any sort of tumor lysis/blast crisis with the rest of her labs being normal. They will call back with hospital medicine. Dr. Young called back and accepted the patient for transfer to for further evaluation. Patient care signed out to the oncoming provider, Dr. Quinn at [address] chest/abdomen/pelvis and bed placement at . <Cody Quinn MD - Last Filed: 09/29/24 23:28> Vital Signs: 09/29/24 12:47 09/29/24 13:30 09/29/24 14:00 Temperature 98.5 F Temperature Source Oral Pulse Rate 72 76 Pulse Rate [Left Radial] 75 Respiratory Rate 17 12 17 Blood Pressure 135/79 144/61 H Blood Pressure [Right Arm] 135/79 Blood Pressure Mean 95 Blood Pressure Mean [Right Arm] 97 Blood Pressure Source [Right Arm] Automatic Cuff Blood Pressure Position [Right Arm] Sitting 02 Sat by Pulse Oximetry 93 L 98 98 Oxygen Delivery Method Nasal Cannula Nasal Cannula Oxygen Flow Rate (LPM) 2 2 09/29/24 14:30 09/29/24 15:30 09/29/24 16:00 Temperature Temperature Source Pulse Rate 73 78 Pulse Rate [Left Radial] Respiratory Rate 16 Blood Pressure 134/62 130/61 142/67 H Blood Pressure [Right Arm] Blood Pressure Mean 86 82 92 Blood Pressure Mean [Right Arm] Blood Pressure Source [Right Arm] Blood Pressure Position [Right Arm] 02 Sat by Pulse Oximetry 97 96 96 Oxygen Delivery Method Oxygen Flow Rate (LPM) 09/29/24 16:30 09/29/24 17:16 09/29/24 19:09 Temperature Temperature Source Pulse Rate 85 81 95 H Pulse Rate [Left Radial] Respiratory Rate 25 H Blood Pressure 116/88 108/91 L 157/110 H Blood Pressure [Right Arm] Blood Pressure Mean 94 93 Blood Pressure Mean [Right Arm] Blood Pressure Source [Right Arm] Blood Pressure Position [Right Arm] 02 Sat by Pulse Oximetry 97 97 96 Oxygen Delivery Method Nasal Cannula Oxygen Flow Rate (LPM) 3 09/29/24 19:30 09/29/24 20:00 09/29/24 20:30 Temperature Temperature Source Pulse Rate 86 86 84 Pulse Rate [Left Radial] Respiratory Rate 25 H 24 19 Blood Pressure 139/62 144/93 H 146/96 H Blood Pressure [Right Arm] Blood Pressure Mean Blood Pressure Mean [Right Arm] Blood Pressure Source [Right Arm] Blood Pressure Position [Right Arm] 02 Sat by Pulse Oximetry 96 96 96 Oxygen Delivery Method Nasal Cannula Nasal Cannula Nasal Cannula Oxygen Flow Rate (LPM) 3 3 3 09/29/24 20:30 09/29/24 20:37 Temperature 98.4 F Temperature Source Oral Pulse Rate 86 Pulse Rate [Left Radial] Respiratory Rate 14 Blood Pressure 146/96 H Blood Pressure [Right Arm] Blood Pressure Mean Blood Pressure Mean [Right Arm] Blood Pressure Source [Right Arm] Blood Pressure Position [Right Arm] 02 Sat by Pulse Oximetry Oxygen Delivery Method Nasal Cannula Room Air Nasal Cannula Oxygen Flow Rate (LPM) 3 3 Lab Data Lab Results 09/29/24 12:20: WBC 52.9 H*, RBC 4.35, Hgb 13.0, Hct 39.1, MCV 89.9, MCH 29.9, MCHC 33.2, RDW 15.0, Plt Count 512 H, MPV 10.5 H, Neut % (Auto) 52.0, Lymph % (Auto) 5.9 L, Dunn % (Auto) 3.2, Eos % (Auto) 35.7 H, Baso % (Auto) 0.8, Neut # (Auto) 27.5 H, Lymph # (Auto) 3.1, Dunn # (Auto) 1.7 H, Eos # (Auto) 18.9 H, B aso # (Auto) 0.4 H, Total Counted 100, Neutrophils % (Manual) 55, Lymphocytes % (Manual) 7 L, Monocytes % (Manual) 5, Eosinophils % (Manual) 33 H, Platelet Estimate Slight increase, RBC Morphology Normal, ESR 24, Retic Count (auto) 1.7, PT 10.4, INR 0.94, APTT 26.9, D-Dimer 1.16 H, Sodium 138, Potassium 4.3, Chloride 98, Carbon Dioxide 39 H, Anion Gap 5.3, BUN 20 H, Creatinine 0.60, Estimated GFR 94, Est GFR ( Amer) 114, Glucose 119 H, Uric Acid 4.3, Calcium 8.4, Phosphorus 3.6, Magnesium 1.8, Total Bilirubin 0.4, AST 95 H, ALT 68, Alkaline Phosphatase 109, Lactate Dehydrogenase 244 L, Troponin I < 0.01, C- Reactive Protein 93.6 H, Total Protein 6.7, Albumin 3.0 L, Globulin 3.7 H, A lbumin/Globulin Ratio 0.8 L, Triglycerides 86, Cholesterol 117 L, LDL Cholesterol Direct 51.63 L, VLDL Cholesterol 17, HDL Cholesterol 31 L, C holesterol/HDL Ratio 3.8 H, Plasma/Serum Alcohol < 10 09/29/24 17:30: Urine Color Yellow, Urine Appearance Clear, Urine pH 7.0, Ur Specific [place] 1.010, Urine Protein Negative, Urine Glucose (UA) Negative, Urine Ketones Negative, Urine Blood Negative, Urine Nitrate Negative, Urine Bilirubin Negative, Urine Urobilinogen 0.2, Ur Leukocyte Esterase Negative, Urine RBC None, Urine WBC None, Ur Squamous Epith Cells None, Urine Bacteria None, Urine Opiates Screen Negative, Urine Methadone Screen Negative, Ur Barbituates Screen Negative, Ur Phencyclidine Scrn Negative, Ur Amphetamines Screen Negative, U Benzodiazepines Scrn Negative, Urine Cocaine Screen Negative, U Marijuana (THC) Screen Negative Orders (Tests/Meds): ED MEDICATIONS Generic Name Dose Route Start Last Admin Trade Name Freq PRN Reason Stop Dose Admin Acetaminophen 650 mg 09/29/24 20:20 09/29/24 21:18 Acetaminophen 325mg Tab PO 10/29/24 20:19 650 mg Q4HP PRN Administration Fever or Mild Pain (1-3) Hydrocodone Bitart/Acetaminophen 1 tab 09/29/24 20:20 Hydrocodone/Apap 5/325 Mg Tablet PO 10/29/24 20:19 Q4HP PRN Mild to Moderate Pain (1-6) Albuterol/Ipratropium 3 ml 09/29/24 21:46 Ipratropium/Albuterol 3 Ml Neb IH 10/29/24 21:45 Q6HP PRN Shortness Of Breath Amlodipine Besylate 2.5 mg 09/30/24 09:00 Amlodipine 2.5mg Tablet PO 10/30/24 08:59 DAILY ALYSSA Atorvastatin Calcium 10 mg 09/30/24 21:00 Atorvastatin 10mg Tablet PO 10/30/24 20:59 HS ALYSSA Digoxin 250 mcg 09/30/24 21:00 Digoxin 0.25mg Tablet PO 10/30/24 20:59 HS ALYSSA Sodium Chloride 1,000 mls @ 100 mls/hr 09/29/24 20:30 09/29/24 21:51 Sod Chlor 0.9% 1000ml Bag IV 10/29/24 20:29 100 mls/hr .Q10H ALYSSA Administration Ceftriaxone Sodium 2 gm/ 100 mls @ 200 mls/hr 09/29/24 21:45 09/29/24 22:00 Sodium Chloride IV 10/09/24 21:44 200 mls/hr Q24H ALYSSA Administration Vancomycin HCl 750 mg/ Sodium 250 mls @ 125 mls/hr 09/29/24 22:30 09/29/24 22:45 Chloride IV 09/30/24 00:29 125 mls/hr ONCE ONE Administration Miscellaneous 1 each 09/29/24 21:45 09/29/24 22:31 Vancomycin Consult Request NOTAPPLIC 10/29/24 21:44 1 each CONSULT PHARMACY ALYSSA Administration Sodium Chloride 10 ml 09/29/24 12:43 Sodium Chloride 0.9% 10ml Flush Syringe IV 10/29/24 12:42 NEEDED PRN Maintain IV Site Sodium Chloride 10 ml 09/29/24 12:46 09/29/24 12:46 Sodium Chloride 0.9% 10ml Syr (Rad Only) IV 10/29/24 12:45 10 ml NEEDED PRN Administration Maintain IV Site Sodium Chloride 10 ml 09/29/24 14:54 09/29/24 14:55 Sodium Chloride 0.9% 10ml Syr (Rad Only) IV 10/29/24 14:53 10 ml NEEDED PRN Administration Maintain IV Site Discontinued Medications Generic Name Dose Route Start Last Admin Trade Name Freq PRN Reason Stop Dose Admin Aspirin 324 mg 09/29/24 14:27 09/29/24 20:37 Aspirin 81mg Chewable Tablet PO 09/29/24 14:28 324 mg ONCE ONE Administration Lactated Ringer's 1,000 mls @ 999 mls/hr 09/29/24 13:13 09/29/24 14:06 Lactated Ringer's 1000 Ml Bag IV 09/29/24 14:13 999 mls/hr .Q1H1M ONE Administration Iopamidol 80 ml 09/29/24 12:46 09/29/24 12:46 Iopamidol-370 (76%);100ml Bottle IV 09/29/24 12:47 80 ml ONCE ONE Administration Iopamidol 70 ml 09/29/24 14:54 09/29/24 14:56 Iopamidol-370 (76%);100ml Bottle IV 09/29/24 14:55 70 ml ONCE ONE Administration Sodium Chloride 50 ml 09/29/24 12:46 09/29/24 12:47 0.9 % Sodium Chloride 50 Ml Vial IV 09/29/24 12:47 50 ml ONCE ONE Administration Sodium Chloride 50 ml 09/29/24 14:54 09/29/24 14:56 0.9 % Sodium Chloride 50 Ml Vial IV 09/29/24 14:55 50 ml ONCE ONE Administration ORDERS Category Date Time Status CT abdomen pelvis w con Stat Cat Scan 09/29/24 14:[address] angio chest PE protocol Stat Cat Scan 09/29/24 14:[address] angio head Stat Cat Scan 09/29/24 12:[address] angio neck Stat Cat Scan 09/29/24 12:[address] head/brain wo con Stat Cat Scan 09/29/24 12:43 Completed XR chest portable Stat Exams 09/29/24 12:43 Completed Activated Partial Thrombo Time Stat Lab 09/29/24 12:20 Completed Basic Metabolic Panel AMLAB Lab 09/30/24 06:00 Ordered CRP [C-Reactive Protein] Stat Lab 09/29/24 12:20 Completed Complete Blood Count Auto Diff AMLAB Lab 09/30/24 06:00 Ordered Complete Blood Count Auto Diff Stat Lab 09/29/24 12:20 Completed Comprehensive Metabolic Panel Stat Lab 09/29/24 12:20 Completed D-Dimer Stat Lab 09/29/24 12:20 Completed Drug Screen,Urine Stat Lab 09/29/24 17:30 Completed ESR [Erythrocyte Sedimentation Rate] Stat Lab 09/29/24 12:20 Results Ethyl Alcohol Stat Lab 09/29/24 12:20 Completed Flow Cytometry Stat Lab 09/29/24 14:25 Received LDH [Lactate Dehydrogenase] Stat Lab 09/29/24 12:20 Completed Lipid Panel Stat Lab 09/29/24 12:20 Completed MAG [Magnesium] Stat Lab 09/29/24 12:20 Completed PHOS [Phosphorous] Stat Lab 09/29/24 12:20 Completed Peripheral Smear Review Stat Lab 09/29/24 12:20 Results Prothrombin Time INR Stat Lab 09/29/24 12:20 Completed Reticulocyte % (Auto) Stat Lab 09/29/24 12:20 Results Troponin I Stat Lab 09/29/24 12:20 Completed Uric Acid Stat Lab 09/29/24 12:20 Completed Urinalysis and Microscopic Stat Lab 09/29/24 17:30 Completed Blood Culture Stat Micro 09/29/24 14:06 Received Medical Decision Narrative: In summary, this patient is a 88-year-old female presenting to the Emergency Department for evaluation of strokelike symptoms including left facial droop, dysarthria. Differential diagnoses considered include but are not limited to intracranial hemorrhage, CVA, intracranial mass, electrolyte derangements, hypoglycemia, other stroke mimic. Ruling out the most morbid conditions drove assessment. It should be noted patient's history includes hypertension, hyperlipidemia, COPD, irregular heart rate on digoxin which may or may not be at goal therapy. This complicates all aspects of care by increasing patient's risk for morbidity. I reviewed patient's past medical records and noted previous pulmonology evaluations. On exam, the patient is sitting upright in no acute distress. She has an NIH stroke scale of 2 for mild left facial droop and mild dysarthria. Otherwise, she has no focal neurologic deficits on full neuroexam. Fingerstick blood glucose is normal. Patient was taken emergently to CT scan as a stroke alert, though she is outside of window for tPA/TNK with last known normal 7 PM last night 09/28/2024. Workup included broad lab evaluation to evaluate for infectious, metabolic, cardiac causes in addition to the stroke CT scans and CT angiograms of the head and neck. I independently interpreted CT scan immediately and noted no intracranial hemorrhage. Please see radiology read for final interpretation. Imaging powershared to [facility] via [facility]. I considered transfer for thrombectomy, however she has no large vessel occlusion. EKG was obtained and demonstrates nonspecific ST changes without acute STEMI. I feel is most likely consistent with her digoxin use. On multiple subsequent reassessments, NIH stroke scale remains 2. Nursing noted seemed nonspecific changes on cardiac telemetry, for which they obtained repeat EKG. On my independent interpretation of repeat EKG, she has some more pronounced T waves/ST segments but no acute STEMI, no significant changes otherwise. I did share with Dr. Tam who advised this is not a STEMI on interactive discussion. Labs were obtained that demonstrated significant leukocytosis, which is new. No prior history of hematologic malignancy. Patient is being worked up for nasal polyps, for which she was on steroids and antibiotics 2 weeks ago. No recent infections/illnesses, no recent steroids or other changes. Family does note unintentional weight loss over the last several months. I had interactive discussion with hematology at who advised sending peripheral smear and flow cytometry, which were both sent and are pending. I also had sent LDH, uric acid, D-dimer, other labs to screen for possible tumor lysis syndrome. I considered that her high white blood cell count could be causing her neurologic symptoms via hyperviscosity syndrome. I discussed this with hematology at who advised that she does not need transfer for this, as it is unlikely to contribute to her symptoms but they did recommend outpatient follow-up. They stated that if her peripheral smear or flow cytometry came back abnormal, then we can consider transfer at that point, especially since other labs are reassuring (normal creatinine, normal uric acid, normal potassium, normal calcium). They did recommend CT chest, abdomen, pelvis for workup of malignancy, which were ordered. I also discussed her stroke symptoms with Dr. Busch at with neurology who recommended initiation of aspirin and MRI for further workup of possible stroke. He did not recommend transfer given that she is outside of tPA window and is not a candidate for thrombectomy with no large vessel occlusion. I did load with oral ASA. Patient has complex presentation with a new significant leukocytosis without determined etiology at this time, new strokelike symptoms, EKG changes. I feel she would benefit from transfer to higher level of care with inpatient hematology/oncology as well as neurology. did not accept the patient, so I then reached out to [facility] for recommendations. I spoke with Dr. Coppola at who advised that the patient would benefit from heme/onc eval but this likely isn't causing symptoms or any sort of tumor lysis/blast crisis with the rest of her labs being normal. They will call back with hospital medicine. Dr. Young called back and accepted the patient for transfer to for further evaluation. Patient care signed out to the oncoming provider, Dr. Quinn at [address] chest/abdomen/pelvis and bed placement at . Kai: I assumed primary responsibility for this patient after signout from previous physician. On my independent evaluation, patient has no complaints other than that the bed is uncomfortable. I had prolonged conversation with patient and family. Patient has never been told that she had a history of hematologic malignancy including leukemia, lymphoma, etc. Family states that patient has been weak and a little confused. Robust workup ordered by previous physician. On independent interpretation, patient has leukocytosis nearly 53,000 which is an increase from 11,000 just 3 months prior to this. Patient has thrombocytosis, eosinophilia and neutrophilia. PT and PTT nonactionable, dimer mildly elevated at 1.2. LDH elevated, CRP also elevated. Independent interpretation of CT imaging without CVA acutely, no evidence of PE. No intracranial hemorrhage. No evidence of pneumonia or intrathoracic process. Preceding physician contacted [facility] and patient was accepted by Dr. Young at . They were waiting to call back with a bed. Unable to obtain after nearly 5 hours, hospitalist here was contacted and patient was admitted to [facility] prior to transfer. 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 Critical Care <Nirali Lewis, DO - Last Filed: 09/29/24 15:56> Critical Care Time Critical Care Time: Yes Attestation: On 09/29/24, the high probability of a clinically significant, sudden or life threatening deterioration of the following system(s) required my full and direct attention, intervention and personal management. The time I documented below is in addition to time spent performing reported procedures but includes the following listed in this critical care notation. Total Time Total Critical Care Time: 50
--- NOTE | 2024-09-29 13:03 | ECG_ITS ---
APPROVED REPORT Exam: Resting ECG HR:69 bpm ECG Measurements Heart Rate 69 AXES SC 150 P 72 QRSd 94 QRS 65 QT 354 T 70 QTc 374 Conclusion Normal sinus rhythm LBBB No STEMI Electronically signed by : JACKIE JOE, 09/29/2024 15:09:43
[2024-09-29 13:05] LABS: Basophils # 0.4 K/mm3 (0-0.2); Basophils % 0.8 % (0.1-2.0); Eosinophils # 18.9 K/mm3 (0.0-0.4); Eosinophils % 35.7 % (0.1-12.0); Hematocrit 39.1 % (37.0-47.0); Lymphocytes # 3.1 K/mm3 (0.7-4.5); Lymphocytes % 5.9 % (10-50); Mean Corpuscular HGB Conc 33.2 g/dL (31.8-35.4); Mean Corpuscular Hemoglobin 29.9 pg (27.0-31.2); Mean Corpuscular Volume 89.9 fl (81-99); Mean Platelet Volume 10.5 fl (7.4-10.4); Monocytes # 1.7 K/mm3 (0.1-1.0); Monocytes % 3.2 % (1.7-9.3); Neutrophils # 27.5 K/mm3 (1.8-7.8); Platelet Count 512 K/mm3 (142-424); Red Blood Count 4.35 M/mm3 (4.20-5.40)
[2024-09-29 13:08] LABS: Ethyl Alcohol < 10 mg/dl (0-10); White Blood Count 52.9 K/mm3 (4.8-10.8)
--- NOTE | 2024-09-29 13:08 | PC.NURSE ---
WBC 52.0 per lab
[2024-09-29 13:09] LABS: MANUAL DIFFERENTIAL MANUAL DIFFERENTIAL (MANUAL DIFF)
[2024-09-29 13:12] LABS: Direct LDL Cholesterol 51.63 mg/dL (100-129)
[2024-09-29 13:29] LABS: Troponin I < 0.01 ng/ml (0.00-0.034)
--- NOTE | 2024-09-29 13:47 | ECG_ITS ---
APPROVED REPORT Exam: Resting ECG HR:74 bpm ECG Measurements Heart Rate 74 AXES MD 145 P 65 QRSd 137 QRS -73 QT 383 T 71 QTc 410 Conclusion LBBB with larger T waves than prior No STEMI per cardiology Electronically signed by : JACKIE JOE, 09/29/2024 15:10:16
[2024-09-29 13:59] LABS: Eosinophils % 33 % (0-3); Lymphocytes % 7 % (10-50); Monocytes % 5 % (2-9); Neutrophils % 55 % (42-76); Platelet Estimate Slight Increase; Total Cells Counted 100
--- NOTE | 2024-09-29 13:59 | PC.NURSE ---
1st blood culture sent to lab
[2024-09-29 14:00] LABS: RBC Morphology Normal
--- NOTE | 2024-09-29 14:00 | PC.NURSE ---
Calling [facility] transfer center for possible transfer
--- NOTE | 2024-09-29 14:05 | PC.NURSE ---
speaking to [facility] at this time
[2024-09-29] MEDS: LACTATED RINGERS 1000ML 1,000 ML 999 ML IV (14:06)
--- NOTE | 2024-09-29 14:08 | PC.NURSE ---
2nd blood culture sent to lab; blue band placed on left wrist. no other needs at this time
[2024-09-29 14:21] LABS: Lactate Dehydrogenase 244 U/L (313-618); Magnesium 1.8 mg/dl (1.6-2.3); Phosphorous 3.6 mg/dl (2.5-4.5); Uric Acid 4.3 mg/dl (2.5-6.2)
[2024-09-29 14:22] LABS: Reticulocyte % (Auto) 1.7 % (0.9-3.2)
[2024-09-29 14:26] LABS: C-Reactive Protein 93.6 mg/L (0-4)
[2024-09-29 14:27] LABS: D-Dimer 1.16 ug/mL (0.0-0.5)
--- NOTE | 2024-09-29 14:28 | PC.NURSE ---
Call out to [facility]
--- NOTE | 2024-09-29 14:41 | CT_ITS ---
FINAL REPORT TECHNIQUE: Thin section axial images are obtained through the abdomen and pelvis after intravenous contrast. Reconstruction images were obtained from the axial data. Exam was performed using dose reduction techniques. CLINICAL HISTORY: new white count 53k, eval malignancy FINDINGS: LIVER: Homogeneous. No focal lesion. GALLBLADDER/BILIARY SYSTEM: Gallbladder is absent. No biliary dilatation. SPLEEN: Unremarkable. PANCREAS: There is subtle, abnormal attenuation surrounding the tail of the pancreas. No pancreatic mass is identified. ADRENALS: Unremarkable. KIDNEYS/URETERS/BLADDER: There is an extrarenal pelvis of the right kidney. There is no hydronephrosis or renal mass. The urinary bladder is distended with contrast from CTA from earlier today. GI TRACT: There is wall thickening of the stomach with surrounding abnormal attenuation. Gastritis is not excluded. No small bowel obstruction or dilatation. The appendix is not visualized but there are no secondary signs of appendicitis. There is a long segment wall thickening of the distal colon which could be related to distention or mild colitis. PELVIC ORGANS: The uterus is absent. LYMPH NODES/RETROPERITONEUM/MESENTERY: No lymphadenopathy. No abdominal aortic aneurysm. ABDOMINAL WALL: The abdominal wall is intact. FREE FLUID: There is a small amount of pelvic ascites. Etiology is unclear. BONES: No acute osseous abnormality. IMPRESSION: Wall thickening of the stomach with surrounding abnormal attenuation. Gastritis is not excluded. Clinical correlation and potential endoscopy is recommended. Abnormal attenuation surrounding the tail of the pancreas may be related to the abnormality in the stomach described in #1. Correlation with pancreatic enzymes is recommended. Incomplete distention of the distal colon versus mild colitis. Reviewed, Interpreted and Dictated by Marimar Sargent MD Transcribed by Anna Narvaez Authenticated and [facility]
--- NOTE | 2024-09-29 14:41 | CT_ITS ---
FINAL REPORT TECHNIQUE: Axial imaging of the chest is obtained after the administration of contrast. 3-D MIP reformatted images were also obtained and reviewed per PE protocol. CLINICAL HISTORY: new white count 53k, elev dimer, eval malignancy FINDINGS: The pulmonary arteries are well filled. There is no evidence of pulmonary embolus. There is no aortic dissection. Heart size is normal. There is no axillary lymphadenopathy. There are multiple, borderline sized AP window and right paratracheal lymph nodes. There is no hilar lymphadenopathy. There is right greater than left lower lobe atelectasis. There is mild bronchial wall thickening in the lower lungs. The lungs are otherwise clear. There is no pleural or pericardial effusion. No acute osseous abnormality. IMPRESSION: No evidence of pulmonary embolism or aortic dissection. Bilateral lower lobe atelectasis. Reviewed, Interpreted and Dictated by Marimar Sargent MD Transcribed by Anna Narvaez Authenticated and . [facility]
[2024-09-29] MEDS: IOPAMIDOL-370 (76%);100ML BOTTLE 70 ML IV (14:56)
--- NOTE | 2024-09-29 15:03 | PC.NURSE ---
Emery took pt to the bathroom for a UA. pt accidentally dropped urine hat into toilet while giving sample. will attempt again
[2024-09-29 16:26] LABS: Erythrocyte Sedimentation Rate 24 mm/hr (0-30)
--- NOTE | 2024-09-29 16:45 | PC.NURSE ---
no needs at this time. pt family at bedside
[2024-09-29 17:36] LABS: Microscopic, Urine URINE MICROSCOPIC (MICROSCOPIC)
[2024-09-29 18:11] LABS: Appearance,Urine CLEAR (Clear); Bilirubin,Urine Negative (Negative); Blood, Urine Negative (Negative); Color,Urine YELLOW (Yellow); Glucose,Urine (UA) Negative (Negative); Ketones,Urine Negative (Negative); Leukocyte Esterase,Urine Negative (Negative); Nitrate,Urine Negative (Negative); Protein,Urine Negative (Negative); Urobilinogen,Urine 0.2 EU/dl (0.2)
--- NOTE | 2024-09-29 19:21 | PC.NURSE ---
Pt AOx4, NAD noted, RR Even and non labored, skin pwd. Pt aware of bed situation, awaiting call from for bed placement.
[2024-09-29] MEDS: ASPIRIN 81MG CHEWABLE TABLET 324 MG PO (20:37)
--- NOTE | 2024-09-29 20:46 | PC.NURSE ---
Patient arrived to floor via stretcher from ED at 20:44.
[2024-09-29 20:47] LABS: Barbiturates Screen,Urine Negative ng/ml (<200); Benzodiazepines Screen,Urine Negative ng/ml (<200)
[2024-09-29 20:48] LABS: Amphetamine/Metha Screen,Urine Negative ng/ml (<1000)
[2024-09-29 20:49] LABS: Cannabinoid Screen,Urine Negative ng/ml (<50); Methadone Screen,Urine Negative ng/ml (<300)
[2024-09-29 20:50] LABS: Cocaine Screen,Urine Negative ng/ml (<300); Opiate Screen,Urine Negative ng/ml (<300)
[2024-09-29 20:51] LABS: Phencyclidine Screen,Urine Negative ng/ml (<25)
[2024-09-29] MEDS: ACETAMINOPHEN 325MG TAB 650 MG PO (21:18)
[2024-09-29] MEDS: 0.9 % SODIUM CHLORIDE 1000ML 1,000 ML 100 ML IV (21:51)
--- NOTE | 2024-09-29 21:53 | P.HP_ITS ---
History of Present Illness *Admission Date: 09/29/24 *Reason for visit:: Concern for stroke *History of present illness: This is an 88-year-old female with a past medical history of hypertension, hyperlipidemia, COPD, irregular heart rate on digoxin who presents emergency department with her byldkixs-nh-iat for concerns for stroke. Jiacupoy-gr-alv states that she was last known normal around 7 PM last night. At some point today she developed possible slurring speech with may be some left-sided facial droop. They waited several hours to see if it would get better and it did not so they brought her to the emergency department. Patient has recently been undergoing allergen testing for allergic rhinitis and sinus polyps. Has seen ENT at [facility] (DR Yoon). Per fymglkyw-ga-dxy, recently received 1 dose of steroids IM to hopefully improve sinus congestion. Was set to undergo CT of her sinuses tomorrow. Tsioesbf-xn-igc denies any history of cancer, blood dyscrasias or any other history is associated with abnormal white blood cell counts Emergency department workup notable for significant leukocytosis with a white blood cell count of 52,000 primary predominance of eosinophils and neutrophil. Neurological workup negative. CT scan of the head does show near opacification of all sinuses to include maxillary, ethmoid, sphenoid and frontal sinuses. CT chest CT abdomen pelvis negative. On further chart review patient did see Dr. Em (pulmonology) in office on 09/04/2024 and was noted to have significant elevated IgE levels at 1113, allergy testing panel positive as well as peripheral eosinophil count of 1800. Given her predominant leukocytosis it was felt that she would benefit from tertiary transfer for hematology/oncology consult. Peripheral blood smear has been sent but is send out and will be not available until tomorrow Initial presentation patient did not appear septic or infectious. But on admission patient was noted to have a rectal temp of 101.2. Blood cultures obtained and broad-spectrum antibiotics initiated. Given some neurological concerns, [facility] was consulted for neurology and recommends aspirin and MRI in AM. Patient has been accepted by to Dr. Young but awaiting bed. Given prolonged wait time, it was felt she would benefit from hospitalization until bed available. [facility] Disclaimer: The information contained in this section may have been updated after the patient was seen, as this information can be updated by other users. Medical History (Updated 09/30/24 @ 12:58 by Levy Em MD) Pneumonia Has been smoking tobacco for 10 years History of nasal polyp Allergic rhinitis Asthma HTN (hypertension) HLD (hyperlipidemia) Arthritis Heart disease COPD (chronic obstructive pulmonary disease) Irregular heart rate Surgical History History of hysterectomy History of appendectomy History of tonsillectomy History of phacoemulsification of cataract of both eyes with intraocular lens implantation Family History Other Family history of COPD (chronic obstructive pulmonary disease) Family history of cancer Social History (Updated 09/29/24 @ 21:02 by Kaylyn Hernández RN) Smoking Status: Never smoker years smoked: 10 alcohol intake: never current occupational status: retired Travel in the last 8 weeks: None household members: family housing: house current occupational exposures/hazards: No caffeine: Yes Have you lived/traveled outside [place] in past 30 days?: No Contact w/someone who lives/traveled outside US past 30 days?: No Exposure to someone with infectious disease in past 14 days?: No Do you have a fever (greater than 100.4 F or 38 C)?: No Have you tested positive for COVID-19: No Exposed to someone with COVID-19 in past 14 days?: No Do you have a sore throat?: No Do you have a cough?: No Do you have any weakness?: No Do you have any diarrhea?: No Are you experiencing any unusual bleeding?: No Do you have any muscle aches/pain?: No Do you have any abdominal pain?: No Are you experiencing loss of taste or smell?: No Other Medical History Have you received the Flu Vaccine for this season: No Have you received the Pneumonia Vaccine: No Review of Systems Review of Systems Review of systems:: pertinent systems reviewed and negative unless documented below Review of systems (narrative): Negative except for HPI Meds Home Medications and Allergies Home Medications ?Medication ?Instructions ?Recorded ?Confirmed ?Type atorvastatin 10 mg tablet 10 mg PO HS 08/16/17 09/29/24 History coenzyme Q10 300 mg capsule (Co 300 mg PO DAILY Supplement 08/16/17 09/04/24 History Q-10) celecoxib 200 mg capsule 200 mg PO DAILY 06/27/24 09/29/24 History fluticasone propionate 50 2 spray intranasal DAILY 90 days 06/30/24 09/30/24 Rx mcg/actuation nasal #16 grams spray,suspension (Flonase Allergy Relief) amlodipine 2.5 mg tablet 2.5 mg PO DAILY 09/04/24 09/29/24 History fluticasone 500 mcg-salmeterol 50 1 inh inhalation BID #180 ea 09/04/24 09/29/24 Rx mcg/dose blistr powdr for inhalation (Advair Diskus) albuterol sulfate 90 mcg/actuation 2 inh inhalation Q6HP PRN 09/30/24 09/30/24 History aerosol inhaler shortness of breath or wheezing digoxin 250 mcg (0.25 mg) tablet 250 mcg PO DAILY 09/30/24 09/30/24 History montelukast 10 mg tablet 10 mg PO PM 09/30/24 09/30/24 History New Prescriptions to Start Prescriptions: Allergies Allergy/AdvReac Type Severity Reaction Status Date / Time diazepam AdvReac Unknown AGITATION Verified 09/04/24 10:05 meperidine AdvReac Unknown NA-NAUSEA/V Verified 09/04/24 10:05 OMITING Exam Data for Last 24 hours Vital signs and Labs for Last 24 Hours: Temp Pulse Resp BP Pulse Ox O2 Del Method O2 Flow Rate 101.2 F H 90 20 148/74 H 97 Nasal Cannula 3 09/29/24 21:14 09/29/24 21:14 09/29/24 21:14 09/29/24 21:14 09/29/24 21:14 09/29/24 21:14 09/29/24 21:14 Laboratory Results - last 24 hr 09/29/24 12:20: WBC 52.9 H*, RBC 4.35, Hgb 13.0, Hct 39.1, MCV 89.9, MCH 29.9, MCHC 33.2, RDW 15.0, Plt Count 512 H, MPV 10.5 H, Neut % (Auto) 52.0, Lymph % (Auto) 5.9 L, [place] % (Auto) 3.2, Eos % (Auto) 35.7 H, Baso % (Auto) 0.8, Neut # (Auto) 27.5 H, Lymph # (Auto) 3.1, [place] # (Auto) 1.7 H, Eos # (Auto) 18.9 H, Baso # (Auto) 0.4 H, Total Counted 100, Neutrophils % (Manual) 55, Lymphocytes % (Manual) 7 L, Monocytes % (Manual) 5, Eosinophils % (Manual) 33 H, Platelet Estimate Slight increase, RBC Morphology Normal, ESR 24, Retic Count (auto) 1.7, PT 10.4, INR 0.94, APTT 26.9, D-Dimer 1.16 H, Sodium 138, Potassium 4.3, Chloride 98, Carbon Dioxide 39 H, Anion Gap 5.3, BUN 20 H, Creatinine 0.60, Estimated GFR 94, Est GFR ( Amer) 114, Glucose 119 H, Uric Acid 4.3, Calcium 8.4, Phosphorus 3.6, Magnesium 1.8, Total Bilirubin 0.4, AST 95 H, ALT 68, Alkaline Phosphatase 109, Lactate Dehydrogenase 244 L, Troponin I < 0.01, C- Reactive Protein 93.6 H, Total Protein 6.7, Albumin 3.0 L, Globulin 3.7 H, Albumin/Globulin Ratio 0.8 L, Triglycerides 86, Cholesterol 117 L, LDL Cholesterol Direct 51.63 L, VLDL Cholesterol 17, HDL Cholesterol 31 L, Cholesterol/HDL Ratio 3.8 H, Plasma/Serum Alcohol < 10 09/29/24 17:30: Urine Color Yellow, Urine Appearance Clear, Urine pH 7.0, Ur Specific [place] 1.010, Urine Protein Negative, Urine Glucose (UA) Negative, Urine Ketones Negative, Urine Blood Negative, Urine Nitrate Negative, Urine B ilirubin Negative, Urine Urobilinogen 0.2, Ur Leukocyte Esterase Negative, Urine RBC None, Urine WBC None, Ur Squamous Epith Cells None, Urine Bacteria None, Urine Opiates Screen Negative, Urine Methadone Screen Negative, Ur Barbituates Screen Negative, Ur Phencyclidine Scrn Negative, Ur Amphetamines Screen Negative, U Benzodiazepines Scrn Negative, Urine Cocaine Screen Negative, U Marijuana (THC) Screen Negative I & O for Last 24 hours: Intake & Output 09/26/24 09/27/24 09/28/24 09/29/24 23:59 23:59 23:59 23:59 Output Total 0 / 0 Balance 0 / 0 Weight 36.344 kg Constitutional Constitutional: no acute distress *Routine HEENT Exam Head: Present normocephalic Eye: Present EOMI and PERRL ENT: Present mucous membranes moist *Routine Neck Exam Neck: Present supple; Absent lymphadenopathy *Routine Respiratory Exam Respiratory: Present crackles and normal respiratory effort *Routine Cardiovascular Exam Cardiovascular: Present RRR *Routine Abdominal Exam Abdominal: Present soft and normoactive bowel sounds; Absent tenderness *Routine Rectal Exam Rectal:: deferred *Routine Genitalia Exam Genitalia:: deferred *Routine Extremities Exam Extremities: Absent cyanosis, clubbing or edema *Routine Skin Exam Skin: Present warm; Absent rash *Routine Neurological Exam Neurological: Present moving all extremities Comments: Awake and alert, oriented x 2. Mild left facial droop with slurred speech. Assessment and Plan *Assessment and plan (1) Sepsis: Status: Acute Category: Medical Code(s): A41.9 - Sepsis, unspecified organism (2) Leukocytosis: Status: Acute Qualifiers: Leukocytosis type: eosinophilia Category: Medical Code(s): D72.829 - Elevated white blood cell count, unspecified (3) Thrombocytosis: Status: Acute Category: Medical Code(s): D75.839 - Thrombocytosis, unspecified (4) Allergic rhinitis: Status: Acute Qualifiers: Allergic rhinitis seasonality: unspecified Category: Medical Code(s): J30.9 - Allergic rhinitis, unspecified (5) History of nasal polyp: Status: Acute Category: Medical Code(s): Z87.09 - Personal history of other diseases of the respiratory system (6) Asthma: Status: Acute Qualifiers: Asthma complication type: unspecified Asthma persistence: intermittent Asthma severity: mild Qualified Code(s): J45.20 - Mild intermittent asthma, uncomplicated Category: Medical Code(s): J45.909 - Unspecified asthma, uncomplicated Plan #Sepsis Meets criteria for leukocytosis, fever and possible para sinusitis is infection Hematological/oncological disorder also considered given significant leukocytosis. Peripheral blood smear ordered and awaiting result Continue broad-spectrum antibiotic coverage with vancomycin and Rocephin. Patient has complete opacification of sinus cavities (Maxillary, frontal, spehnoid, ethmoid) on CTH imaging. Follow-up blood cultures Sputum culture ordered Will send RPP # Leukocytosis #Thrombocytosis White blood cell count of 52 with eosinophilia and neutrophilia. Possible concurrent issues going on. Patient had allergy testing recently which was positive with significantly elevated IgE at 1100. Patient has been accepted UC by Dr. Young for hematology, oncology consult for significant leukocytosis Peripheral smear ordered here and pendingl Continue broad-spectrum coverage for now # History of nasal polyps Was following with ENT at [facility]. Received steroid shot approximately 2 weeks ago to aid in shrinking of polyps. CT imaging with opacification of the sinus cavities. Will likely need inpatient ENT evaluation given fever and significant sinusitis #Asthma Not in exacerbation Continue bronchodilators Rounded on patient after nurse practitioner. Personally examined and interviewed patient. Agree with exam findings and care plan as documented. Concern for hypereosinophilia. Peripheral smear obtained and pending. Pulmonology consulted to assist with care.
[2024-09-29] MEDS: CEFTRIAXONE SODIUM 2 GM in 0.9 % SODIUM CHLORIDE 100 ML IV (22:00)
[2024-09-29] MEDS: VANCOMYCIN CONSULT REQUEST 1 EACH NOTAPPLIC (22:31)
[2024-09-29] MEDS: VANCOMYCIN HCL 750 MG in 0.9 % SODIUM CHLORIDE 250 ML 125 MG IV (22:45)
[2024-09-30 03:07] VITALS: BP 142/56; PULSE 86; RESP 18; TEMP 36.6; O2SAT 94
[2024-09-30 04:00] VITALS: BMI 16.6
--- NOTE | 2024-09-30 04:15 | EXP.SEPSISRE ---
[facility] Tissue Perfusion Eval Sepsis Re-Evaluation Performed: Yes Date Performed: 09/30/24 Time Performed: 00:00
[2024-09-30] MEDS: HYDROCODONE/APAP 5/325 MG TABLET 1 TAB PO ×2 (04:28→18:48)
[2024-09-30 04:30] VITALS: TEMP 37.3
--- NOTE | 2024-09-30 04:34 | PC.NURSE ---
PT IS RESTING IN BED. ALERT AND ORIENTED X4. LT SIDED FACIAL DROOP AND SLURRED SPEECH NOTED. PT HAD A RECTAL TEMP OF 101.2 ON ADMISSION. MEDICATED PER MAR WITH TYLENOL. RECTAL TEMP AT 0430 WAS 99.2. MEDICATED PER MAR FOR PAIN IN HER TOES. PT STATED IT FEELS LIKE HER ARTHRITIS. AMBULATES TO THE BATHROOM STANDBY ASSIST. LUNG SOUNDS HAVE SCATTERED RHONCHI. ABDOMEN SOFT/NON TENDER WITH ACTIVE BOWEL SOUNDS. WILL CONTINUE TO MONITOR.
--- NOTE | 2024-09-30 06:51 | MR_ITS ---
FINAL REPORT TECHNIQUE: Multiplanar and multisequence imaging of the brain was obtained before and after contrast injection. CLINICAL HISTORY: ALTERED MENTAL STATUS, FEVER 8 ml prohance COMPARISON: CT head dated 1 day prior. FINDINGS: Atrophy is noted with associated ex vacuo dilatation of the ventricles. There is no mass effect or midline shift. There are bilateral periventricular foci of T2 abnormality. No hydrocephalus. Abnormal signal intensity within the tash is likely related to chronic small vessel ischemia. On gradient echo imaging, there are a few scattered foci of hypointensity. These are located in the cerebellum bilaterally, in the left insular cortex, and the left basal ganglia. These could be hemosiderin. On diffusion-weighted imaging, there are foci of restricted diffusion in the bilateral periventricular white matter most consistent with areas of acute ischemia. There is a very small focus in the lateralmost aspect of the right basal ganglia. There is opacification of the bilateral maxillary sinuses, the ethmoid air cells, and the frontal sinuses. Post contrast images reveal no pathologic contrast enhancement. IMPRESSION: 1. Bilateral periventricular areas of acute ischemia. 2. Atrophy with changes likely related to chronic small vessel ischemia. 3. Paranasal sinus disease. Authenticated and ERN
[2024-09-30 07:14] LABS: Chloride 101 mmol/L (98-107)
[2024-09-30 07:15] LABS: Sodium 135 mmol/L (136-145)
[2024-09-30 07:18] LABS: Blood Urea Nitrogen 13 mg/dl (7-17); Calcium 7.7 mg/dl (8.4-10.2); Carbon Dioxide 33 mmol/L (22.0-30.0); Creatinine Clearance Estimated 23 mL/min (50-200); Estimated Glomerular Filt Rate 94 ml/min (>60); GFR (African American) 114 ML/MIN (>60); Glucose 74 mg/dl (74-100)
[2024-09-30 07:23] LABS: Basophils # 0.3 K/mm3 (0-0.2); Basophils % 0.7 % (0.1-2.0); Eosinophils # 15.3 K/mm3 (0.0-0.4); Hematocrit 35.7 % (37.0-47.0); Lymphocytes # 2.4 K/mm3 (0.7-4.5); Lymphocytes % 5.1 % (10-50); Mean Corpuscular HGB Conc 33.6 g/dL (31.8-35.4); Mean Corpuscular Hemoglobin 29.6 pg (27.0-31.2); Mean Corpuscular Volume 88.1 fl (81-99); Mean Platelet Volume 10.6 fl (7.4-10.4); Monocytes # 1.7 K/mm3 (0.1-1.0); Monocytes % 3.7 % (1.7-9.3); Neutrophils # 25.4 K/mm3 (1.8-7.8); Platelet Count 455 K/mm3 (142-424); Red Blood Count 4.05 M/mm3 (4.20-5.40); Red Cell Distribution Width 14.8 % (11.5-17.5)
[2024-09-30 07:31] LABS: MANUAL DIFFERENTIAL MANUAL DIFFERENTIAL (MANUAL DIFF); White Blood Count 46.2 K/mm3 (4.8-10.8)
--- NOTE | 2024-09-30 07:54 | EXP.PHA.CONS ---
Pharmacy Consult Date: 09/30/24 Time: 07:54 Referring provider: DR. BEYER Reason for Consult:: VANCOMYCIN DOSING Allergies Allergy/AdvReac Type Severity Reaction Status Date / Time diazepam AdvReac Unknown AGITATION Verified 09/04/24 10:05 meperidine AdvReac Unknown NA-NAUSEA/V Verified 09/04/24 10:05 OMITING Home Medications ?Medication ?Instructions ?Recorded ?Confirmed ?Type ascorbic acid (vitamin C) 500 mg 500 mg PO BID Supplement 08/16/17 09/04/24 History tablet (Vitamin C) atorvastatin 10 mg tablet 10 mg PO HS High cholesterol 08/16/17 09/29/24 History coenzyme Q10 300 mg capsule (Co 300 mg PO DAILY Supplement 08/16/17 09/04/24 History Q-10) digoxin 250 mcg (0.25 mg) tablet 250 mcg PO HS Heart disease 08/16/17 09/29/24 History (Digox) multivitamin 1 ea PO DAILY Supplement 08/16/17 09/04/24 History ipratropium 0.5 mg-albuterol 3 mg 3 ml inhalation NEEDED PRN sob 12/05/18 09/04/24 History (2.5 mg base)/3 mL nebulization soln albuterol sulfate 90 mcg/actuation 2 puff inhalation Q4-6H PRN Asthma 06/27/24 09/29/24 History aerosol inhaler celecoxib 200 mg capsule 200 mg PO DAILY 06/27/24 09/29/24 History latanoprost 0.005 % eye drops 1 drp Eye-Both HS 06/27/24 09/29/24 History fluticasone propionate 50 2 spray intranasal DAILY 90 days 06/30/24 09/04/24 Rx mcg/actuation nasal #16 grams spray,suspension (Flonase Allergy Relief) albuterol sulfate 90 mcg/actuation 2 inh inhalation Q6H PRN shortness 09/04/24 09/29/24 Rx aerosol inhaler of breath or wheezing 90 days #8.5 grams amlodipine 2.5 mg tablet 2.5 mg PO DAILY 09/04/24 09/29/24 History fluticasone 500 mcg-salmeterol 50 1 inh inhalation BID #180 ea 09/04/24 09/29/24 Rx mcg/dose blistr powdr for inhalation (Advair Diskus) fluticasone propionate 50 2 spray intranasal DAILY #16 grams 09/04/24 09/04/24 Rx mcg/actuation nasal spray,suspension (24 Hour Allergy Relief) ipratropium 0.5 mg-albuterol 3 mg 3 ml inhalation Q6H PRN shortness 09/04/24 09/04/24 Rx (2.5 mg base)/3 mL nebulization of breath or wheezing #90 mL soln montelukast 10 mg tablet 10 mg PO QPM 90 days #90 tabs 09/04/24 09/29/24 Rx New Prescriptions to Start Prescriptions: Height: 1.5 m Weight: 37.467 kg Laboratory Results:: Laboratory Results - last 24 hr 09/29/24 12:20: WBC 52.9 H*, RBC 4.35, Hgb 13.0, Hct 39.1, MCV 89.9, MCH 29.9, MCHC 33.2, RDW 15.0, Plt Count 512 H, MPV 10.5 H, Neut % (Auto) 52.0, Lymph % (Auto) 5.9 L, [place] % (Auto) 3.2, Eos % (Auto) 35.7 H, Baso % (Auto) 0.8, Neut # (Auto) 27.5 H, Lymph # (Auto) 3.1, [place] # (Auto) 1.7 H, Eos # (Auto) 18.9 H, Baso # (Auto) 0.4 H, Total Counted 100, Neutrophils % (Manual) 55, Lymphocytes % (Manual) 7 L, Monocytes % (Manual) 5, Eosinophils % (Manual) 33 H, Platelet Estimate Slight increase, RBC Morphology Normal, ESR 24, Retic Count (auto) 1.7, PT 10.4, INR 0.94, APTT 26.9, D-Dimer 1.16 H, Sodium 138, Potassium 4.3, Chloride 98, Carbon Dioxide 39 H, Anion Gap 5.3, BUN 20 H, Creatinine 0.60, Estimated GFR 94, Est GFR ( Amer) 114, Glucose 119 H, Uric Acid 4.3, Calcium 8.4, Phosphorus 3.6, Magnesium 1.8, Total Bilirubin 0.4, AST 95 H, ALT 68, Alkaline Phosphatase 109, Lactate Dehydrogenase 244 L, Troponin I < 0.01, C-Reactive Protein 93.6 H, Total Protein 6.7, Albumin 3.0 L, Globulin 3.7 H, Albumin/Globulin Ratio 0.8 L, Triglycerides 86, Cholesterol 117 L, LDL Cholesterol Direct 51.63 L, VLDL Cholesterol 17, HDL Cholesterol 31 L, Cholesterol/HDL Ratio 3.8 H, Plasma/Serum Alcohol < 10 09/29/24 17:30: Urine Color Yellow, Urine Appearance Clear, Urine pH 7.0, Ur Specific [place] 1.010, Urine Protein Negative, Urine Glucose (UA) Negative, Urine Ketones Negative, Urine Blood Negative, Urine Nitrate Negative, Urine Bilirubin Negative, Urine Urobilinogen 0.2, Ur Leukocyte Esterase Negative, Urine RBC None, Urine WBC None, Ur Squamous Epith Cells None, Urine Bacteria None, Urine Opiates Screen Negative, Urine Methadone Screen Negative, Ur Barbituates Screen Negative, Ur Phencyclidine Scrn Negative, Ur Amphetamines Screen Negative, U Benzodiazepines Scrn Negative, Urine Cocaine Screen Negative, U Marijuana (THC) Screen Negative 09/30/24 05:36: WBC 46.2 H*, RBC 4.05 L, Hgb 12.0 L, Hct 35.7 L, MCV 88.1, MCH 29.6, MCHC 33.6, RDW 14.8, Plt Count 455 H, MPV 10.6 H, Neut % (Auto) 55.0, Lymph % (Auto) 5.1 L, [place] % (Auto) 3.7, Eos % (Auto) 33.0 H, Baso % (Auto) 0.7, Neut # (Auto) 25.4 H, Lymph # (Auto) 2.4, [place] # (Auto) 1.7 H, Eos # (Auto) 15.3 H, Baso # (Auto) 0.3 H, Sodium 135 L, Potassium 4.0, Chloride 101, Carbon Dioxide 33 H, Anion Gap 5.0, BUN 13 D, Creatinine 0.60, Estimated Creat Clear 23, Estimated GFR 94, Est GFR ( Amer) 114, Glucose 74 D, Calcium 7.7 L Medical History: Medical History (Updated 09/29/24 @ 23:28 by Cody Quinn MD) Has been smoking tobacco for 10 years History of nasal polyp Allergic rhinitis Asthma HTN (hypertension) HLD (hyperlipidemia) Arthritis Heart disease COPD (chronic obstructive pulmonary disease) Irregular heart rate Assessment and Plan Assessment and plan all Dx Assessment and Plan for all problems:: Pharmacokinetic dosing service Objective: Patient: Floor: Age: 88 yo Serum creatinine: 0.60 mg/dL Height: 59.1 Inches Weight (kg): 37.5 Assessment: IBW (kg): 44.82 Dosing wt(kg): 37.5 Estimated Creatinine clearance (ml/min): 37.6 CRCL method: Cockcroft and Gault using ibw(default). Drug selected: Vancomycin Loading dose (mg): Vd (liters): 30.0 (factor used: 0.8 L/kg) Noah (hr-1): 0.036 Half life (hrs): 19.25 CLvanco=?? 1.080 L/hr Recommended dose: 500 mg Interval: 24 hrs Infusion time (hrs): 2.0 Predicted peak (mcg/mL): 27.8 Predicted trough (mcg/mL): 12.59 Total body weight is being used for vancomycin dosing. Recommendations: Give Vancomycin 500 mg q 24 hrs with an expected Cpeak of 27.8 mcg/ml and an expected Ctrough of 12.59 mcg/ml AUC 0-24 /AYALA Data: AYALA 0.5 mcg/mL:?? AUC/AYALA:? 925.9 AYALA 1.0 mcg/mL:?? AUC/AYALA:? 463.0 --------- AYALA 1.5 mcg/mL:?? AUC/AYALA:? 308.6 AYALA 2.0 mcg/mL:?? AUC/AYALA:? 231.5 Thank you for the consult, will continue to follow. -NAEL FARRELL, JAVON
[2024-09-30 08:00] VITALS: BP 134/56; PULSE 90; RESP 18; TEMP 36.3; O2SAT 91
[2024-09-30 08:08] LABS: Eosinophils % 43 % (0-3); Lymphocytes % 8 % (10-50); Monocytes % 1 % (2-9); Neutrophils % 36 % (42-76); RBC Morphology Normal; Total Cells Counted 100
[2024-09-30 08:09] LABS: Platelet Estimate Normal
[2024-09-30] MEDS: AMLODIPINE 2.5MG TABLET 2.5 MG PO (08:55)
--- NOTE | 2024-09-30 08:56 | [facility].PHAINT1 ---
Pharmacy Intervention Comments: MEDICATION RECONCILIATION COMPLETED ON PATIENT USING EXTERNAL FILL HISTORY FROM PHARMACY. -NAEL FARRELL, THOMASD
--- NOTE | 2024-09-30 09:37 | PC.NURSE ---
called and has no beds at this time.
--- NOTE | 2024-09-30 10:41 | P.CONS_ITS ---
History of Present Illness History of present illness: Ms. Gleason is a 88-year-old female with reported history of hypertension dyslipidemia COPD to the ER with complaints of nasal and facial droop also having leukocytosis, febrile and pulmonary was called for further evaluation and management. [facility] Disclaimer: The information contained in this section may have been updated after the patient was seen, as this information can be updated by other users. Medical History (Updated 09/30/24 @ 12:58 by Levy Em MD) Pneumonia Has been smoking tobacco for 10 years History of nasal polyp Allergic rhinitis Asthma HTN (hypertension) HLD (hyperlipidemia) Arthritis Heart disease COPD (chronic obstructive pulmonary disease) Irregular heart rate Surgical History History of hysterectomy History of appendectomy History of tonsillectomy History of phacoemulsification of cataract of both eyes with intraocular lens implantation Family History Other Family history of COPD (chronic obstructive pulmonary disease) Family history of cancer Social History (Updated 09/29/24 @ 21:02 by Kaylyn Hernández RN) Smoking Status: Never smoker years smoked: 10 alcohol intake: never current occupational status: retired Travel in the last 8 weeks: None household members: family housing: house current occupational exposures/hazards: No caffeine: Yes Have you lived/traveled outside [place] in past 30 days?: No Contact w/someone who lives/traveled outside [place] past 30 days?: No Exposure to someone with infectious disease in past 14 days?: No Do you have a fever (greater than 100.4 F or 38 C)?: No Have you tested positive for COVID-19: No Exposed to someone with COVID-19 in past 14 days?: No Do you have a sore throat?: No Do you have a cough?: No Do you have any weakness?: No Do you have any diarrhea?: No Are you experiencing any unusual bleeding?: No Do you have any muscle aches/pain?: No Do you have any abdominal pain?: No Are you experiencing loss of taste or smell?: No Review of Systems Constitutional Constitutional: Reports anorexia, Reports body ache(s) and Reports fatigue Eyes Eyes: Denies eye discharge, Denies dry eyes, Denies irritation and Denies itchy eyes ENT Ears, Nose, Mouth, and Throat: Denies epistaxis, Denies facial pain, Denies lip swelling and Denies throat swelling *Cardiovascular Cardiovascular: Reports dyspnea and Reports dyspnea on exertion *Respiratory Respiratory: Denies change in phlegm color, Reports chest congestion, Reports cough, Reports dyspnea, Reports dyspnea on exertion, Denies excessive phlegm production, Denies hemoptysis, Denies pain on inspiration, Denies pain with cough and Reports wheezing *Gastrointestinal Gastrointestinal: Denies abdominal pain, Denies belching and Denies cramping *Musculoskeletal Musculoskeletal: Reports back pain, Reports muscle weakness, Reports myalgias and Reports other (No small joint swelling or Pain) *Neurologic Neurologic: Reports abnormal speech Psychiatric Psychiatric: Denies homicidal ideation and Denies suicidal ideation Endocrine Endocrine: Reports fatigue and Denies heat intolerance Hematologic/Lymphatic Hematologic/Lymphatic: Denies easy bleeding and Denies lymphadenopathy Allergic/Immunologic Allergic/Immunologic: Denies itchy eyes, Denies lip swelling, Denies throat swelling and Reports wheezing Pulmonology Exam Inpatient Vital signs and Labs for Last 24 Hours: Temp Pulse Resp BP Pulse Ox O2 Del Method O2 Flow Rate 97.4 F L 90 18 134/56 L 91 L Nasal Cannula 3 09/30/24 08:00 09/30/24 08:00 09/30/24 08:00 09/30/24 08:00 09/30/24 08:00 09/30/24 09:54 09/30/24 09:54 Laboratory Results - last 24 hr 09/29/24 12:20: WBC 52.9 H*, RBC 4.35, Hgb 13.0, Hct 39.1, MCV 89.9, MCH 29.9, MCHC 33.2, RDW 15.0, Plt Count 512 H, MPV 10.5 H, Neut % (Auto) 52.0, Lymph % (Auto) 5.9 L, [place] % (Auto) 3.2, Eos % (Auto) 35.7 H, Baso % (Auto) 0.8, Neut # (Auto) 27.5 H, Lymph # (Auto) 3.1, [place] # (Auto) 1.7 H, Eos # (Auto) 18.9 H, B aso # (Auto) 0.4 H, Total Counted 100, Neutrophils % (Manual) 55, Lymphocytes % (Manual) 7 L, Monocytes % (Manual) 5, Eosinophils % (Manual) 33 H, Platelet Estimate Slight increase, RBC Morphology Normal, ESR 24, Retic Count (auto) 1.7, PT 10.4, INR 0.94, APTT 26.9, D-Dimer 1.16 H, Sodium 138, Potassium 4.3, Chloride 98, Carbon Dioxide 39 H, Anion Gap 5.3, BUN 20 H, Creatinine 0.60, Estimated GFR 94, Est GFR ( Amer) 114, Glucose 119 H, Uric Acid 4.3, Calcium 8.4, Phosphorus 3.6, Magnesium 1.8, Total Bilirubin 0.4, AST 95 H, ALT 68, Alkaline Phosphatase 109, Lactate Dehydrogenase 244 L, Troponin I < 0.01, C- Reactive Protein 93.6 H, Total Protein 6.7, Albumin 3.0 L, Globulin 3.7 H, A lbumin/Globulin Ratio 0.8 L, Triglycerides 86, Cholesterol 117 L, LDL Cholesterol Direct 51.63 L, VLDL Cholesterol 17, HDL Cholesterol 31 L, C holesterol/HDL Ratio 3.8 H, Plasma/Serum Alcohol < 10 09/29/24 17:30: Urine Color Yellow, Urine Appearance Clear, Urine pH 7.0, Ur Specific [place] 1.010, Urine Protein Negative, Urine Glucose (UA) Negative, Urine Ketones Negative, Urine Blood Negative, Urine Nitrate Negative, Urine Bilirubin Negative, Urine Urobilinogen 0.2, Ur Leukocyte Esterase Negative, Urine RBC None, Urine WBC None, Ur Squamous Epith Cells None, Urine Bacteria None, Urine Opiates Screen Negative, Urine Methadone Screen Negative, Ur Barbituates Screen Negative, Ur Phencyclidine Scrn Negative, Ur Amphetamines Screen Negative, U Benzodiazepines Scrn Negative, Urine Cocaine Screen Negative, U Marijuana (THC) Screen Negative 09/30/24 05:36: WBC 46.2 H*, RBC 4.05 L, Hgb 12.0 L, Hct 35.7 L, MCV 88.1, MCH 29.6, MCHC 33.6, RDW 14.8, Plt Count 455 H, MPV 10.6 H, Neut % (Auto) 55.0, L ymph % (Auto) 5.1 L, [place] % (Auto) 3.7, Eos % (Auto) 33.0 H, Baso % (Auto) 0.7, Neut # (Auto) 25.4 H, Lymph # (Auto) 2.4, [place] # (Auto) 1.7 H, Eos # (Auto) 15.3 H, Baso # (Auto) 0.3 H, Total Counted 100, Neutrophils % (Manual) 36 L, Band Neutrophils % 12.0 H, Lymphocytes % (Manual) 8 L, Monocytes % (Manual) 1 L, E osinophils % (Manual) 43 H, Platelet Estimate Normal, RBC Morphology Normal, S odium 135 L, Potassium 4.0, Chloride 101, Carbon Dioxide 33 H, Anion Gap 5.0, B UN 13 D, Creatinine 0.60, Estimated Creat Clear 23, Estimated GFR 94, Est GFR ( Amer) 114, Glucose 74 D, Calcium 7.7 L I & O for Labs for Last 24 Hours: Intake & Output 09/27/24 09/28/24 09/29/24 09/30/24 23:59 23:59 23:59 23:59 Intake Total 1091 / 1091 Output Total 0 / 200 200 / 200 Balance 0 / -200 891 / 891 Weight 80 lb 2 oz 82 lb 9.6 oz Constitutional: Present moderate distress Head: Present normocephalic and atraumatic ENT: Present normal exam, normal oropharynx and mucous membranes moist Neck: Present normal inspection and full ROM Respiratory: Present respiratory distress, rhonchi and able to speak in complete sentences; Absent prolonged expiratory phase, wheezes, crackles or diminished air movement Cardiac: Present S1/S2, Tachycardia and radial pulses present GI: Present soft and distention; Absent tenderness or guarding Rectal (female): Present deferred (female): Present deferred Skin: Present intact; Absent cyanosis or jaundice Neuro: Present alert, awake and oriented x 3 Extremities: Present normal inspection; Absent clubbing or cyanosis Psychiatric: Present normal affect and cooperative Meds Home Medications and Allergies Home Medications ?Medication ?Instructions ?Recorded ?Confirmed ?Type atorvastatin 10 mg tablet 10 mg PO HS 08/16/17 09/29/24 History coenzyme Q10 300 mg capsule (Co 300 mg PO DAILY Supplement 08/16/17 09/04/24 History Q-10) celecoxib 200 mg capsule 200 mg PO DAILY 06/27/24 09/29/24 History fluticasone propionate 50 2 spray intranasal DAILY 90 days 06/30/24 09/30/24 Rx mcg/actuation nasal #16 grams spray,suspension (Flonase Allergy Relief) amlodipine 2.5 mg tablet 2.5 mg PO DAILY 09/04/24 09/29/24 History fluticasone 500 mcg-salmeterol 50 1 inh inhalation BID #180 ea 09/04/24 09/29/24 Rx mcg/dose blistr powdr for inhalation (Advair Diskus) albuterol sulfate 90 mcg/actuation 2 inh inhalation Q6HP PRN 09/30/24 09/30/24 History aerosol inhaler shortness of breath or wheezing digoxin 250 mcg (0.25 mg) tablet 250 mcg PO DAILY 09/30/24 09/30/24 History montelukast 10 mg tablet 10 mg PO PM 09/30/24 09/30/24 History New Prescriptions to Start Prescriptions: Allergies Allergy/AdvReac Type Severity Reaction Status Date / Time diazepam AdvReac Unknown AGITATION Verified 09/04/24 10:05 meperidine AdvReac Unknown NA-NAUSEA/V Verified 09/04/24 10:05 OMITING Results Laboratory Findings 09/30/24 05:36 09/30/24 05:36 PT/INR, D-dimer PT 10.4 seconds (9.2-12.1) 09/29/24 12:20 INR 0.94 (0.9-1.1) 09/29/24 12:20 D-Dimer 1.16 ug/mL (0.0-0.5) H 09/29/24 12:20 Abnormal lab findings: Abnormal Labs 09/29/24 09/30/24 12:20 05:36 WBC 52.9 H* 46.2 H* RBC 4.05 L Hgb 12.0 L Hct 35.7 L Plt Count 512 H 455 H MPV 10.5 H 10.6 H Lymph % (Auto) 5.9 L 5.1 L Eos % (Auto) 35.7 H 33.0 H Neut # (Auto) 27.5 H 25.4 H [place] # (Auto) 1.7 H 1.7 H Eos # (Auto) 18.9 H 15.3 H Baso # (Auto) 0.4 H 0.3 H Neutrophils % (Manual) 36 L Band Neutrophils % 12.0 H Lymphocytes % (Manual) 7 L 8 L Monocytes % (Manual) 1 L Eosinophils % (Manual) 33 H 43 H D-Dimer 1.16 H Sodium 135 L Carbon Dioxide 39 H 33 H BUN 20 H Glucose 119 H Calcium 7.7 L AST 95 H Lactate Dehydrogenase 244 L C-Reactive Protein 93.6 H Albumin 3.0 L Globulin 3.7 H Albumin/Globulin Ratio 0.8 L Cholesterol 117 L LDL Cholesterol Direct 51.63 L HDL Cholesterol 31 L Cholesterol/HDL Ratio 3.8 H Assessment and Plan *Assessment and plan (1) Eosinophilia: Status: Acute Category: Medical Code(s): D72.10 - Eosinophilia, unspecified (2) Asthma: Status: Acute Qualifiers: Asthma severity: mild Asthma persistence: intermittent Asthma complication type: unspecified Qualified Code(s): J45.20 - Mild intermittent asthma, uncomplicated Category: Medical Code(s): J45.909 - Unspecified asthma, uncomplicated (3) Pneumonia: Status: Acute Category: Medical Code(s): J18.9 - Pneumonia, unspecified organism Plan Ms. Gleason is a 88-year-old female with reported history of hypertension dyslipidemia COPD to the ER with complaints of nasal and facial droop also having leukocytosis, febrile and pulmonary was called for further evaluation and management. Labs on admission significant leukocytosis with white count of 54. Eosinophilic predominant, count now at 15.3 K Patient also with history of nasal polys and asthma. Recently seen by ENT plan to initiate Dupixent. 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 BUN/creatinine within normal limits. Troponins within normal limits. CRP Elevated on this admission at 93.6. Plan: Incentive spirometry and flutter valve DuoNebs every 6 hours along with Pulmicort Q12 scheduled Respiratory viral PCR panel. Following peripheral smear Follow-up with ANCA and urine analysis Continue ceftriaxone azithromycin from pulmonary standpoint pending blood culture results. Hold off on initiating steroids pending final blood culture results.
[2024-09-30 11:22] LABS: Uric Acid 3.6 mg/dl (2.5-6.2)
[2024-09-30 11:40] LABS: Appearance,Urine CLEAR (Clear); Bilirubin,Urine Negative (Negative); Blood, Urine Negative (Negative); Color,Urine YELLOW (Yellow); Glucose,Urine (UA) Negative (Negative); Ketones,Urine Negative (Negative); Leukocyte Esterase,Urine Negative (Negative); Nitrate,Urine Negative (Negative); PH,Urine 6.5 (5.0-8.5); Protein,Urine Negative (Negative); Specific Gravity, Urine 1.015 (1.005-1.030); Urobilinogen,Urine 0.2 EU/dl (0.2)
[2024-09-30] MEDS: GADOTERIDOL INJ 10ML SYRINGE 8 ML IV (11:43)
[2024-09-30] MEDS: SODIUM CHLORIDE 0.9% 10ML SYR (RAD ONLY) 10 ML IV (11:43)
[2024-09-30 12:00] VITALS: BP 121/54; PULSE 80; RESP 20; TEMP 36.6; O2SAT 98
[2024-09-30 12:03] LABS: Microscopic, Urine URINE MICROSCOPIC (MICROSCOPIC)
[2024-09-30 12:21] LABS: Adenovirus,PCR Not Detected (NotDetected); Bordetella Pertussis Not Detected (NotDetected); Chlamydophila Pneumoniae, PCR Not Detected (NotDetected); Coronavirus 19, PCR Not Detected (NotDetected); Coronavirus 229E Not Detected (NotDetected); Coronavirus NL63 Not Detected (NotDetected); Coronavirus OC43 Not Detected (NotDetected); Coronovirus HKU1,PCR Not Detected (NotDetected); Human Metapneumovirus Not Detected (NotDetected); Influenza A, PCR Not Detected (NotDetected); Influenza AH1, 2009 Not Detected (NotDetected); Influenza AH1, PCR Not Detected (NotDetected); Influenza AH3,PCR Not Detected (NotDetected); Influenza B, PCR Not Detected (NotDetected); Mycoplasma Pneumoniae, PCR Not Detected (NotDetected); Parainfluenza 1, PCR Not Detected (NotDetected); Parainfluenza 2, PCR Not Detected (NotDetected); Parainfluenza 3, PCR Not Detected (NotDetected); Parainfluenza 4, PCR Not Detected (NotDetected); Respiratory Syncytial Virus Not Detected (NotDetected); Rhinovirus/Enterovirus Not Detected (NotDetected)
[2024-09-30 12:53] LABS: Bacteria,Urine Trace /lpf; Squamous Epithelial Cell,Urine Occasional #/hpf (0-5)
[2024-09-30] MEDS: METHYLPREDNISOLONE SOD SUCC 125MG VIAL 60 MG IV ×2 (13:20→20:22)
--- NOTE | 2024-09-30 15:47 | PC.NURSE ---
Pt. is AOX 4, 95% on RA, up with assist times one, 20g R ac NS @100, bed alarm active, cardiac diet, consult to Pulmonary, awaiting bed at .
[2024-09-30 16:00] VITALS: BP 137/75; PULSE 91; RESP 18; TEMP 37.6; O2SAT 96
--- NOTE | 2024-09-30 16:10 | EXP.ACUTE.PN ---
Subjective *Date: 09/30/24 *Time: 23:08 Interval history: Patient feeling somewhat better today. Denies any chest pain, nausea, vomiting. Focal neurologic deficits improved. Still complains of neuropathy. Daughter states patient's speech is somewhat slurred. Patient stable on 3 L oxygen. Afebrile. Tolerating p.o. intake. Medical Exam Vital signs and Labs for Last 24 Hours: Vital Signs Temp Pulse Pulse Resp BP BP Pulse Ox 09/30/24 13:57 09/30/24 12:33 09/30/24 12:00 97.9 F 80 20 121/54 L 98 09/30/24 09:54 09/30/24 09:00 09/30/24 08:00 09/30/24 08:00 97.4 F L 90 18 134/56 L 91 L 09/30/24 06:07 09/30/24 04:40 09/30/24 04:30 99.2 F 09/30/24 03:07 97.8 F 86 18 142/56 H 94 L 09/30/24 02:48 09/30/24 00:37 09/29/24 22:52 09/29/24 21:14 101.2 F H 90 20 148/74 H 97 09/29/24 21:00 09/29/24 20:37 98.4 F 86 14 146/96 H 09/29/24 20:30 09/29/24 20:30 84 19 146/96 H 96 09/29/24 20:00 86 24 144/93 H 96 09/29/24 19:30 86 25 H 139/62 96 09/29/24 19:09 95 H 25 H 157/110 H 96 09/29/24 17:16 81 108/91 L 97 09/29/24 16:30 85 116/88 97 O2 Del Method O2 Flow Rate 09/30/24 13:57 Room Air 09/30/24 12:33 Room Air 09/30/24 12:00 Nasal Cannula 3 09/30/24 09:54 Nasal Cannula 3 09/30/24 09:00 Nasal Cannula 3 09/30/24 08:00 Nasal Cannula 3 09/30/24 08:00 Room Air 09/30/24 06:07 Nasal Cannula 3 09/30/24 04:40 Nasal Cannula 3 09/30/24 04:30 09/30/24 03:07 Nasal Cannula 3 09/30/24 02:48 Nasal Cannula 3 09/30/24 00:37 Nasal Cannula 3 09/29/24 22:52 Nasal Cannula 3 09/29/24 21:14 Nasal Cannula 3 09/29/24 21:00 Nasal Cannula 3 09/29/24 20:37 Room Air, Nasal Cannula 3 09/29/24 20:30 Nasal Cannula 3 09/29/24 20:30 Nasal Cannula 3 09/29/24 20:00 Nasal Cannula 3 09/29/24 19:30 Nasal Cannula 3 09/29/24 19:09 Nasal Cannula 3 09/29/24 17:16 09/29/24 16:30 Intake and Output 09/30/24 09/30/24 09/30/24 07:59 15:59 23:59 Intake Total 731 / 2351 1620 / 2351 Output Total 200 / 200 0 / 200 Balance 531 / 2151 1620 / 2151 Intake: Intake, Oral Amount 720 / 720 Intake, Total IV Amount 731 / 1631 900 / 1631 0.9 % Sodium Chloride 1000ML 1, 731 / 1631 900 / 1631 000 ml @ 100 mls/hr IV .Q10H [facility] Rx#:[id number] Output: Output, Urine Amount 200 / 200 0 / 200 Other: Number of Voids 0 Number of Unmeasured Voids 0 1 Weight 37.467 kg Patient Weight 09/30/24 23:59 Weight 37.467 kg Laboratory Results - last 24 hr 09/29/24 12:20: ESR 24 09/29/24 17:30: Urine Color Yellow, Urine Appearance Clear, Urine pH 7.0, Ur Specific [place] 1.010, Urine Protein Negative, Urine Glucose (UA) Negative, Urine Ketones Negative, Urine Blood Negative, Urine Nitrate Negative, Urine Bilirubin Negative, Urine Urobilinogen 0.2, Ur Leukocyte Esterase Negative, Urine RBC None, Urine WBC None, Ur Squamous Epith Cells None, Urine Bacteria None, Urine Opiates Screen Negative, Urine Methadone Screen Negative, Ur Barbituates Screen Negative, Ur Phencyclidine Scrn Negative, Ur Amphetamines Screen Negative, U Benzodiazepines Scrn Negative, Urine Cocaine Screen Negative, U Marijuana (THC) Screen Negative 09/30/24 05:36: WBC 46.2 H*, RBC 4.05 L, Hgb 12.0 L, Hct 35.7 L, MCV 88.1, MCH 29.6, MCHC 33.6, RDW 14.8, Plt Count 455 H, MPV 10.6 H, Neut % (Auto) 55.0, Lymph % (Auto) 5.1 L, [place] % (Auto) 3.7, Eos % (Auto) 33.0 H, Baso % (Auto) 0.7, Neut # (Auto) 25.4 H, Lymph # (Auto) 2.4, [place] # (Auto) 1.7 H, Eos # (Auto) 15.3 H, Baso # (Auto) 0.3 H, Total Counted 100, Neutrophils % (Manual) 36 L, Band Neutrophils % 12.0 H, Lymphocytes % (Manual) 8 L, Monocytes % (Manual) 1 L, Eosinophils % (Manual) 43 H, Platelet Estimate Normal, RBC Morphology Normal, Sodium 135 L, Potassium 4.0, Chloride 101, Carbon Dioxide 33 H, Anion Gap 5.0, BUN 13 D, Creatinine 0.60, Estimated Creat Clear 23, Estimated GFR 94, Est GFR ( Amer) 114, Glucose 74 D, Uric Acid 3.6, Calcium 7.7 L 09/30/24 12:03: Urine Color Yellow, Urine Appearance Clear, Urine pH 6.5, Ur Specific [place] 1.015, Urine Protein Negative, Urine Glucose (UA) Negative, Urine Ketones Negative, Urine Blood Negative, Urine Nitrate Negative, Urine Bilirubin Negative, Urine Urobilinogen 0.2, Ur Leukocyte Esterase Negative, Urine RBC None, Urine WBC 3-5, Ur Squamous Epith Cells Occasional, Urine Bacteria Trace 09/30/24 12:15: Chlamy pneumoniae PCR Not detected, Adenovirus (PCR) Not detected, B. pertussis DNA (PCR) Not detected, Coronavirus OC43 (PCR) Not detected, Coronavirus HKU1 (PCR) Not detected, Coronavirus 229E (PCR) Not detected, SARS-CoV-2 (PCR) Not detected, Coronavirus NL63 (PCR) Not detected, Human Metapneumovir PCR Not detected, Influenza A (H1) PCR Not detected, Influ A (H1N1/09) PCR Not detected, Influenza A (H3) PCR Not detected, Influenza Type A (PCR) Not detected, Influenza Type B (PCR) Not detected, M. pneumoniae (PCR) Not detected, Parainfluenza 1 (PCR) Not detected, Parainfluenza 2 (PCR) Not detected, Parainfluenza 3 (PCR) Not detected, Parainfluenza 4 (PCR) Not detected, RSV (PCR) Not detected, Entero/Rhino (PCR) Not detected I & O for Labs for Last 24 Hours: Intake & Output 09/27/24 09/28/24 09/29/24 09/30/24 23:59 23:59 23:59 23:59 Intake Total 2351 / 2351 Output Total 0 / 200 200 / 200 Balance 0 / -200 1 / 215 Weight 36.344 kg 37.467 kg Microbiology Reports for the Last 24 Hours: Microbiology 09/29/24 14:06 Blood Blood Culture - Preliminary NO GROWTH AFTER 24 HOURS 09/29/24 13:54 Blood Blood Culture - Preliminary Constitutional: Present no acute distress, cachectic, chronically ill appearing and cooperative Head: Present atraumatic and normocephalic ENT: Present normal exam Respiratory: Present normal respiratory effort; Absent rhonchi, wheezes or crackles Cardiac: Present Reg Rate and Rhythm GI: Present soft and normal bowel sounds; Absent distention or tenderness Extremities: Present normal inspection and full ROM Skin: Present intact; Absent erythema Neuro: Present Cranial Nerve 2-12 Intact, Grossly Intact, alert, awake, oriented x 3 and moves all extremities Assessment and Plan *Assessment and plan (1) Sepsis: Status: Acute Category: Medical Code(s): A41.9 - Sepsis, unspecified organism (2) Eosinophilia: Status: Acute Category: Medical Code(s): D72.10 - Eosinophilia, unspecified (3) Leukocytosis: Status: Acute Qualifiers: Leukocytosis type: eosinophilia Category: Medical Code(s): D72.829 - Elevated white blood cell count, unspecified (4) Thrombocytosis: Status: Acute Category: Medical Code(s): D75.839 - Thrombocytosis, unspecified (5) Allergic rhinitis: Status: Acute Qualifiers: Allergic rhinitis seasonality: unspecified Category: Medical Code(s): J30.9 - Allergic rhinitis, unspecified (6) History of nasal polyp: Status: Acute Category: Medical Code(s): Z87.09 - Personal history of other diseases of the respiratory system (7) Asthma: Status: Acute Qualifiers: Asthma severity: mild Asthma persistence: intermittent Asthma complication type: unspecified Qualified Code(s): J45.20 - Mild intermittent asthma, uncomplicated Category: Medical Code(s): J45.909 - Unspecified asthma, uncomplicated (8) Pneumonia: Status: Acute Category: Medical Code(s): J18.9 - Pneumonia, unspecified organism Plan 88-year-old female who presents with leukocytosis, fever, new oxygen requirement. Concern for hypereosinophilia. Pulmonology consulted and assisting with care. Continues to require inpatient management. Problems addressed as follows: #Sepsis #Pneumonia Meets criteria for leukocytosis, fever and possible para sinusitis is infection along with pneumonia on chest imaging with new oxygen requirement Continue supplemental oxygen as needed, currently on 3 L oxygen. Goal sats greater 90% # Leukocytosis #Thrombocytosis # htypereosinophilia - Pulmonology consulted, discussed case today, recommend following up ANCA studies and urinalysis. Continue empiric antibiotics with ceftriaxone and azithromycin. Will hold on steroids pending blood cultures. 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 - WBC decreased to 48k, repeat CBC, CMP, ESR, CRP, Mg ordered for the morning -Inflammatory markers elevated with CRP 118 -Continue DuoNebs every 6 hours and Pulmicort twice daily -Respiratory viral panel negative -Peripheral smear still pending -Kidney function remains normal. BUN 13, creatinine 0.6 # History of nasal polyps Was following with ENT at [facility]. Received steroid shot approximately 2 weeks ago to aid in shrinking of polyps. CT imaging with opacification of the sinus cavities. #Hypertension: -Continue amlodipine 2.5 mg daily -Continue digoxin 62.5 mcg every 48 hours -Continue Lipitor 10 mg nightly #Asthma Not in exacerbation; Continue bronchodilators Full code
[2024-09-30 18:23] LABS: Anti-Centromere B Antibodies ND; Anti-Jo-1 ND; Antichromatin Antibodies ND; Antiscleroderma-70 Antibodies ND; RNP Antibodies ND; Sjogren's Anti-SS-A ND; Sjogren's Anti-SS-B ND
[2024-09-30 20:00] VITALS: BP 134/61; PULSE 80; RESP 16; TEMP 36.4; O2SAT 90
[2024-09-30] MEDS: CEFTRIAXONE SODIUM 2 GM in 0.9 % SODIUM CHLORIDE 100 ML IV (20:22)
[2024-09-30] MEDS: ATORVASTATIN 10MG TABLET 10 MG PO (20:23)
[2024-09-30 21:08] LABS: C-Reactive Protein 118.9 mg/L (0-4)
[2024-09-30] MEDS: VANCOMYCIN HCL 500 MG in 0.9 % SODIUM CHLORIDE 250 ML 125 MG IV (22:16)
[2024-10-01] VITALS (7 sets, daily range): BP systolic 129–157; BP diastolic 62–76; PULSE 73–92; RESP 16–18; TEMP 36.3–36.6; O2SAT 91–97; BMI 17.6
[2024-10-01] MEDS: 0.9 % SODIUM CHLORIDE 1000ML 1,000 ML 100 ML IV (01:53)
--- NOTE | 2024-10-01 02:49 | PC.NURSE ---
PT IS RESTING IN BED. ALERT AND ORIENTED X4. NO COMPLAINTS OF DISCOMFORT. AMBULATES TO THE BATHROOM WITH 1 ASSIST. LUNG SOUNDS DIMINISHED WITH SCATTERED RHONCHI. ABDOMEN SOFT/NON TENDER WITH ACTIVE BOWEL SOUNDS. WILL CONTINUE TO MONITOR.
[2024-10-01] MEDS: HYDROCODONE/APAP 5/325 MG TABLET 1 TAB PO ×3 (03:48→23:13)
[2024-10-01] MEDS: METHYLPREDNISOLONE SOD SUCC 125MG VIAL 60 MG IV (04:35)
[2024-10-01 06:15] LABS: Basophils # 0.2 K/mm3 (0-0.2); Basophils % 0.6 % (0.1-2.0); Eosinophils # 0.1 K/mm3 (0.0-0.4); Eosinophils % 0.2 % (0.1-12.0); Hematocrit 35.9 % (37.0-47.0); Hemoglobin 11.8 g/dL (12.2-16.2); Lymphocytes # 1.9 K/mm3 (0.7-4.5); Lymphocytes % 7.3 % (10-50); Mean Corpuscular HGB Conc 32.9 g/dL (31.8-35.4); Mean Corpuscular Hemoglobin 28.8 pg (27.0-31.2); Mean Corpuscular Volume 87.6 fl (81-99); Mean Platelet Volume 10.3 fl (7.4-10.4); Monocytes # 0.7 K/mm3 (0.1-1.0); Monocytes % 2.5 % (1.7-9.3); Neutrophils # 21.8 K/mm3 (1.8-7.8); Neutrophils % 84.2 % (37.0-80.0); Platelet Count 460 K/mm3 (142-424); Red Cell Distribution Width 14.8 % (11.5-17.5); White Blood Count 25.9 K/mm3 (4.8-10.8)
[2024-10-01 06:21] LABS: Albumin Level 2.6 g/dl (3.5-5.0); Chloride 104 mmol/L (98-107)
[2024-10-01 06:22] LABS: Potassium 4.9 mmoL/L (3.5-5.1); Sodium 135 mmol/L (136-145)
[2024-10-01 06:24] LABS: Alanine Aminotransferase 47 U/L (12-78); Alkaline Phosphatase 97 U/L (38-126); Anion Gap 4.9 mEq/L (5-15); Aspartate Amino Transferase 58 U/L (14-36); Bilirubin,Total 0.2 mg/dl (0.2-1.3); Blood Urea Nitrogen 22 mg/dl (7-17); Carbon Dioxide 31 mmol/L (22.0-30.0); Creatinine Clearance Estimated 24 mL/min (50-200); Estimated Glomerular Filt Rate 116 ml/min (>60); GFR (African American) 141 ML/MIN (>60); MANUAL DIFFERENTIAL MANUAL DIFFERENTIAL (MANUAL DIFF)
[2024-10-01 06:25] LABS: Albumin/Globulin Ratio 0.8 (1.1-1.8); Calcium 7.8 mg/dl (8.4-10.2); Globulin 3.4 g/dL (1.3-3.2); Glucose 159 mg/dl (74-100); Magnesium 1.8 mg/dl (1.6-2.3)
[2024-10-01 06:42] LABS: C-Reactive Protein 89.6 mg/L (0-4)
[2024-10-01 08:03] LABS: Lymphocytes % 4 % (10-50); Monocytes % 2 % (2-9); Neutrophils % 90 % (42-76); Total Cells Counted 100
[2024-10-01 08:12] LABS: Platelet Estimate Marked Increase; RBC Morphology Normal
[2024-10-01] MEDS: AMLODIPINE 2.5MG TABLET 2.5 MG PO (09:02)
--- NOTE | 2024-10-01 12:20 | PC.NURSE ---
[facility] called and bed cancelled.
[2024-10-01 14:12] LABS: Peripheral Smear Review Scanned Result
[2024-10-01] MEDS: SODIUM CHLORIDE 3% 15ML NEB 3 ML IH (14:38)
--- NOTE | 2024-10-01 16:28 | P.PN_ITS ---
Subjective *Date: 10/01/24 *Time: 16:44 Interval history: Patient feeling somewhat better today. Complaining of some ear discomfort but remains afebrile. Intermittently on room air. White count improved today from 46-25. Afebrile overnight. No nausea or vomiting. Tolerating p.o. intake. Having some slight swelling in her feet today. Daughter at bedside. States she feels patient is looking somewhat better Medical Exam Vital signs and Labs for Last 24 Hours: Vital Signs Temp Pulse Pulse Resp BP Pulse Ox O2 Del Method 10/01/24 16:14 Nasal Cannula 10/01/24 14:56 Nasal Cannula 10/01/24 14:40 78 18 10/01/24 12:50 Nasal Cannula 10/01/24 12:00 97.3 F L 92 H 18 157/71 H 91 L Room Air 10/01/24 10:08 Nasal Cannula 10/01/24 09:00 Room Air 10/01/24 08:00 97.8 F 86 16 142/62 H 95 Nasal Cannula 10/01/24 08:00 Room Air 10/01/24 05:00 Nasal Cannula 10/01/24 04:00 97.7 F 73 16 139/66 93 L Nasal Cannula 10/01/24 02:57 Nasal Cannula 10/01/24 00:55 Room Air 10/01/24 00:00 97.7 F 76 16 129/76 94 L Nasal Cannula 09/30/24 22:52 Nasal Cannula 09/30/24 20:00 Nasal Cannula 09/30/24 20:00 97.6 F 80 16 134/61 90 L Room Air 09/30/24 19:45 Nasal Cannula 09/30/24 18:52 Nasal Cannula 09/30/24 18:13 Room Air O2 Flow Rate 10/01/24 16:14 2 10/01/24 14:56 2 10/01/24 14:40 10/01/24 12:50 2 10/01/24 12:00 10/01/24 10:08 2 10/01/24 09:00 10/01/24 08:00 2 10/01/24 08:00 10/01/24 05:00 2 10/01/24 04:00 2 10/01/24 02:57 3 10/01/24 00:55 10/01/24 00:00 09/30/24 22:52 3 09/30/24 20:00 3 09/30/24 20:00 09/30/24 19:45 3 09/30/24 18:52 3 09/30/24 18:13 Intake and Output 10/01/24 10/01/24 10/01/24 07:59 15:59 23:59 Intake Total 1916 600 / 2517 Output Total 100 / 200 100 / 200 Balance 18167 500 / 2317 Intake: Intake, Oral Amount 600 / 600 Intake, Total IV Amount 1916 0.9 % Sodium Chloride 1000ML 1, 1916 000 ml @ 100 mls/hr IV .Q10H [facility] Rx#:[id number] Output: Output, Urine Amount 100 / 200 100 / 200 Other: Number of Unmeasured Voids 1 1 Weight 39.644 kg Patient Weight 10/01/24 23:59 Weight 39.644 kg Laboratory Results - last 24 hr 09/29/24 14:25: Leuk/Lymph Viability Comment, Leuk/Lym Gating Strategy Comment, Leuk/Lym Flow Cyto Comm Comment, Leuk/Lym Phenotype Chart Comment, Flow Cytometry Specimen Comment, Flow Clinical History Comment, Flow Total WBCs Comment, Flow Cytometry Comment Comment, Flow Cytometry Interp Comment, Flow Signing Patholog Comment 09/30/24 18:16: C-Reactive Protein 118.9 H, Double Strand DNA Ab TNP 10/01/24 05:45: WBC 25.9 H* D, RBC 4.10 L, Hgb 11.8 L, Hct 35.9 L, MCV 87.6, MCH 28.8, MCHC 32.9, RDW 14.8, Plt Count 460 H, MPV 10.3, Neut % (Auto) 84.2 H, Lymph % (Auto) 7.3 L, [place] % (Auto) 2.5, Eos % (Auto) 0.2, Baso % (Auto) 0.6, Neut # (Auto) 21.8 H, Lymph # (Auto) 1.9, [place] # (Auto) 0.7, Eos # (Auto) 0.1, Baso # (Auto) 0.2, Total Counted 100, Neutrophils % (Manual) 90 H, Band Neutrophils % 1.0, Lymphocytes % (Manual) 4 L, Atypical Lymphs % 3.0, Monocytes % (Manual) 2, Platelet Estimate Marked increase, RBC Morphology Normal, Sodium 135 L, Potassium 4.9 D, Chloride 104, Carbon Dioxide 31 H, Anion Gap 4.9 L, BUN 22 H D, Creatinine 0.50 L, Estimated Creat Clear 24, Estimated GFR 116, Est GFR ( Amer) 141 D, Glucose 159 H, Calcium 7.8 L, Magnesium 1.8, Total Bilirubin 0.2, AST 58 H D, ALT 47 D, Alkaline Phosphatase 97, C-Reactive Protein 89.6 H, Total Protein 6.0 L, Albumin 2.6 L, Globulin 3.4 H, Albumin/Globulin Ratio 0.8 L I & O for Labs for Last 24 Hours: Intake & Output 09/28/24 09/29/24 09/30/24 10/01/24 23:59 23:59 23:59 23:59 Intake Total 2621 / 2621 2517 / 2517 Output Total 0 / 200 600 / 700 200 / 200 Balance 0 / -200 2020 / 192 2317 / 2317 Weight 36.344 kg 37.467 kg 39.644 kg Microbiology Reports for the Last 24 Hours: Microbiology 09/29/24 14:06 Blood Blood Culture - Preliminary NO GROWTH AFTER 48 HOURS 09/29/24 13:54 Blood Blood Culture - Preliminary Constitutional: Present no acute distress, cachectic, chronically ill appearing and cooperative Head: Present atraumatic and normocephalic ENT: Present normal exam Respiratory: Present normal respiratory effort; Absent rhonchi, wheezes or crackles Cardiac: Present Reg Rate and Rhythm GI: Present soft and normal bowel sounds; Absent distention or tenderness Extremities: Present normal inspection, full ROM and edema (Trace in feet bilaterally) Skin: Present intact; Absent erythema Neuro: Present Cranial Nerve 2-12 Intact, Grossly Intact, alert, awake, oriented x 3 and moves all extremities Assessment and Plan *Assessment and plan (1) Sepsis: Status: Acute Category: Medical Code(s): A41.9 - Sepsis, unspecified organism (2) Eosinophilia: Status: Acute Qualifiers: 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 Qualified Code(s): 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] Category: Medical Code(s): D72.10 - Eosinophilia, unspecified (3) Leukocytosis: Status: Acute Qualifiers: Leukocytosis type: eosinophilia Category: Medical Code(s): D72.829 - Elevated white blood cell count, unspecified (4) Thrombocytosis: Status: Acute Category: Medical Code(s): D75.839 - Thrombocytosis, unspecified (5) Allergic rhinitis: Status: Acute Qualifiers: Allergic rhinitis seasonality: unspecified Category: Medical Code(s): J30.9 - Allergic rhinitis, unspecified (6) History of nasal polyp: Status: Acute Category: Medical Code(s): Z87.09 - Personal history of other diseases of the respiratory system (7) Asthma: Status: Acute Qualifiers: Asthma complication type: unspecified Asthma persistence: intermittent Asthma severity: mild Qualified Code(s): J45.20 - Mild intermittent asthma, uncomplicated Category: Medical Code(s): J45.909 - Unspecified asthma, uncomplicated (8) Pneumonia: Status: Acute Category: Medical Code(s): J18.9 - Pneumonia, unspecified organism Plan 88-year-old female who presents with leukocytosis, fever, new oxygen requirement. Concern for hypereosinophilia. Pulmonology consulted and assisting with care. Continues to require inpatient management. Problems addressed as follows: #Sepsis #Pneumonia Meets criteria for leukocytosis, fever and possible para sinusitis is infection along with pneumonia on chest imaging with new oxygen requirement Continue supplemental oxygen as needed, intermittently on room air up to 2 L. Goal sats greater 90% # Leukocytosis #Thrombocytosis # htypereosinophilia - Pulmonology consulted, discussed case today, recommend following up ANCA studies and urinalysis. Plan to continue ceftriaxone and azithromycin for at least 1 more day. Initiated on steroids with methylprednisolone. Continue 60 mg daily. Will monitor overnight. If doing well tomorrow, discharge home on oral steroids for outpatient follow-up. -White count decreased again to 25. Showing significant improvement. Eosinophil percentage down from 33% to 0.2%. 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 - repeat CBC, CMP, ESR, CRP, Mg ordered for the morning -Inflammatory markers improving with CRP of 89.6, down from 118. -Continue DuoNebs every 6 hours and Pulmicort twice daily -Respiratory viral panel negative -Peripheral smear reviewed showing hypereosinophilia. No blasts. No concern for leukemia. -Kidney function remains normal. BUN 13, creatinine 0.6 # History of nasal polyps Was following with ENT at [facility]. Received steroid shot approximately 2 weeks ago to aid in shrinking of polyps. CT imaging with opacification of the sinus cavities. #Hypertension: -Continue amlodipine 2.5 mg daily -Continue digoxin 62.5 mcg every 48 hours -Continue Lipitor 10 mg nightly #Asthma Not in exacerbation; Continue bronchodilators Full code Regular diet
--- NOTE | 2024-10-01 18:22 | PC.NURSE ---
Aox 4, up with assistance times one, bed alarm active, 96% on 02-2L NC, 22g R UA NS @ 100ML/HR, pain med given once this shift.
[2024-10-01] MEDS: ATORVASTATIN 10MG TABLET 10 MG PO (21:13)
[2024-10-01] MEDS: DIGOXIN 0.125MG TABLET 62.5 MCG PO (21:14)
[2024-10-01] MEDS: CEFTRIAXONE SODIUM 2 GM in 0.9 % SODIUM CHLORIDE 100 ML IV (21:16)
[2024-10-01 23:03] LABS: Vancomycin,Trough < 5.0 ug/mL (5.0-10.0)
[2024-10-01] MEDS: PHA TO NURSING INSTRUCTION 1 EACH NOTAPPLIC (23:47)
[2024-10-01] MEDS: VANCOMYCIN HCL 500 MG in 0.9 % SODIUM CHLORIDE 250 ML 125 MG IV (23:54)
[2024-10-02] VITALS: BP 139/70; PULSE 76; RESP 16; TEMP 36.4; O2SAT 96
--- NOTE | 2024-10-02 03:27 | PC.NURSE ---
PT IS RESTING IN BED. ALERT AND ORIENTED X4. MEDICATED PER MAR FOR DISCOMFORT. AMBULATES TO THE BATHROOM STANDBY ASSIST. LUNG SOUNDS DIMINISHED WITH SCATTERED RHONCHI. ABDOMEN SOFT/NON TENDER WITH ACTIVE BOWEL SOUNDS. O2 SATURATION HAS MAINTAINED 92-96% ON 2 L NC. WILL CONTINUE TO MONITOR.
[2024-10-02 04:00] VITALS: BP 145/70; PULSE 70; RESP 16; TEMP 36.6; O2SAT 96; BMI 17.1
[2024-10-02] MEDS: HYDROCODONE/APAP 5/325 MG TABLET 1 TAB PO (05:40)
[2024-10-02 06:38] LABS: Basophils # 0.1 K/mm3 (0-0.2); Basophils % 0.5 % (0.1-2.0); Eosinophils % 0.1 % (0.1-12.0); Hematocrit 30.9 % (37.0-47.0); Lymphocytes # 1.8 K/mm3 (0.7-4.5); Lymphocytes % 6.1 % (10-50); Mean Corpuscular HGB Conc 32.4 g/dL (31.8-35.4); Mean Corpuscular Hemoglobin 28.5 pg (27.0-31.2); Mean Platelet Volume 10.3 fl (7.4-10.4); Monocytes # 1.8 K/mm3 (0.1-1.0); Neutrophils # 24.1 K/mm3 (1.8-7.8); Neutrophils % 82.5 % (37.0-80.0); Platelet Count 410 K/mm3 (142-424); Red Blood Count 3.51 M/mm3 (4.20-5.40); Red Cell Distribution Width 14.9 % (11.5-17.5); White Blood Count 29.2 K/mm3 (4.8-10.8)
[2024-10-02 06:56] LABS: Albumin Level 2.4 g/dl (3.5-5.0); Chloride 107 mmol/L (98-107); Sodium 139 mmol/L (136-145)
[2024-10-02 06:57] LABS: Potassium 4.2 mmoL/L (3.5-5.1)
[2024-10-02 06:59] LABS: Alanine Aminotransferase 45 U/L (12-78); Anion Gap 6.2 mEq/L (5-15); Aspartate Amino Transferase 55 U/L (14-36); Blood Urea Nitrogen 25 mg/dl (7-17); Carbon Dioxide 30 mmol/L (22.0-30.0); Creatinine Clearance Estimated 23 mL/min (50-200); Estimated Glomerular Filt Rate 94 ml/min (>60); GFR (African American) 114 ML/MIN (>60)
[2024-10-02 07:00] LABS: Albumin/Globulin Ratio 0.8 (1.1-1.8); Alkaline Phosphatase 96 U/L (38-126); Calcium 7.8 mg/dl (8.4-10.2); Globulin 3.1 g/dL (1.3-3.2); Glucose 122 mg/dl (74-100); Total Protein,Serum 5.5 g/dl (6.3-8.2)
[2024-10-02 07:02] LABS: MANUAL DIFFERENTIAL MANUAL DIFFERENTIAL (MANUAL DIFF)
[2024-10-02 07:07] LABS: Magnesium 1.9 mg/dl (1.6-2.3)
[2024-10-02 07:13] LABS: C-Reactive Protein 40.2 mg/L (0-4)
[2024-10-02 07:26] LABS: Bilirubin,Total < 0.1 mg/dl (0.2-1.3)
[2024-10-02 08:00] VITALS: BP 158/85; PULSE 82; RESP 18; TEMP 36.6; O2SAT 94
--- NOTE | 2024-10-02 08:28 | EXP.PHA.CONS ---
Pharmacy Consult Date: 10/02/24 Time: 08:28 Referring provider: DR. MCKENNA Reason for Consult:: VANCOMYCIN TROUGH LEVEL AND DOSE ADJUSTMENT Allergies Allergy/AdvReac Type Severity Reaction Status Date / Time diazepam AdvReac Unknown AGITATION Verified 09/04/24 10:05 meperidine AdvReac Unknown NA-NAUSEA/V Verified 09/04/24 10:05 OMITING Home Medications ?Medication ?Instructions ?Recorded ?Confirmed ?Type atorvastatin 10 mg tablet 10 mg PO HS 08/16/17 09/29/24 History coenzyme Q10 300 mg capsule (Co 300 mg PO DAILY Supplement 08/16/17 09/04/24 History Q-10) celecoxib 200 mg capsule 200 mg PO DAILY 06/27/24 09/29/24 History fluticasone propionate 50 2 spray intranasal DAILY 90 days 06/30/24 09/30/24 Rx mcg/actuation nasal #16 grams spray,suspension (Flonase Allergy Relief) amlodipine 2.5 mg tablet 2.5 mg PO DAILY 09/04/24 09/29/24 History fluticasone 500 mcg-salmeterol 50 1 inh inhalation BID #180 ea 09/04/24 09/29/24 Rx mcg/dose blistr powdr for inhalation (Advair Diskus) albuterol sulfate 90 mcg/actuation 2 inh inhalation Q6HP PRN 09/30/24 09/30/24 History aerosol inhaler shortness of breath or wheezing digoxin 250 mcg (0.25 mg) tablet 250 mcg PO DAILY 09/30/24 09/30/24 History montelukast 10 mg tablet 10 mg PO PM 09/30/24 09/30/24 History New Prescriptions to Start Prescriptions: Height: 1.5 m Weight: 38.601 kg Laboratory Results:: Laboratory Results - last 24 hr 09/29/24 14:25: Leuk/Lymph Viability Comment, Leuk/Lym Gating Strategy Comment, Leuk/Lym Flow Cyto Comm Comment, Leuk/Lym Phenotype Chart Comment, Flow Cytometry Specimen Comment, Flow Clinical History Comment, Flow Total WBCs Comment, Flow Cytometry Comment Comment, Flow Cytometry Interp Comment, Flow Signing Patholog Comment 10/01/24 22:08: Vancomycin Trough < 5.0 L 10/02/24 05:35: WBC 29.2 H*, RBC 3.51 L, Hgb 10.0 L D, Hct 30.9 L, MCV 88.0, MCH 28.5, MCHC 32.4, RDW 14.9, Plt Count 410, MPV 10.3, Neut % (Auto) 82.5 H, Lymph % (Auto) 6.1 L, [place] % (Auto) 6.0, Eos % (Auto) 0.1, Baso % (Auto) 0.5, Neut # (Auto) 24.1 H, Lymph # (Auto) 1.8, [place] # (Auto) 1.8 H, Eos # (Auto) 0.0, Baso # (Auto) 0.1, Sodium 139, Potassium 4.2, Chloride 107, Carbon Dioxide 30, Anion Gap 6.2, BUN 25 H, Creatinine 0.60, Estimated Creat Clear 23, Estimated GFR 94, Est GFR ( Amer) 114, Glucose 122 H D, Calcium 7.8 L, Magnesium 1.9, Total Bilirubin < 0.1 L, AST 55 H, ALT 45, Alkaline Phosphatase 96, C-Reactive Protein 40.2 H D, Total Protein 5.5 L, Albumin 2.4 L, Globulin 3.1, Albumin/Globulin Ratio 0.8 L Medical History: Medical History (Updated 10/01/24 @ 16:31 by Jan Mckenna MD) Pneumonia Has been smoking tobacco for 10 years History of nasal polyp Allergic rhinitis Asthma HTN (hypertension) HLD (hyperlipidemia) Arthritis Heart disease COPD (chronic obstructive pulmonary disease) Irregular heart rate Assessment and Plan Assessment and plan all Dx Assessment and Plan for all problems:: BASED ON PATIENT FACTORS AND VANCOMYCIN TROUGH LEVEL OF <5 AFTER 3 DOSES, RECOMMEND INCREASING VANCOMYCIN DOSE TO 750MG EVERY 24 HOURS. PHARMACY WILL CONTINUE TO MONITOR AND WILL ADJUST VANCOMYCIN DOSE APPROPRIATE. -THOMAS MARTINEZD
[2024-10-02 09:38] LABS: Giant Platelets 1+; Lymphocytes % 9 % (10-50); Monocytes % 6 % (2-9); Neutrophils % 77 % (42-76); Total Cells Counted 100
[2024-10-02 09:40] LABS: Platelet Estimate Normal; RBC Morphology Normal
[2024-10-02] MEDS: METHYLPREDNISOLONE SOD SUCC 125MG VIAL 60 MG IV (09:55)
[2024-10-02] MEDS: AMLODIPINE 2.5MG TABLET 2.5 MG PO (09:55)
--- NOTE | 2024-10-02 10:06 | P.PN_ITS ---
Subjective *Date: 10/02/24 *Time: 12:34 Interval history: No acute respiratory vents overnight. Patient denies any new respiratory complaints. Pulmonology Exam Inpatient Vital signs and Labs for Last 24 Hours: Temp Pulse Resp BP Pulse Ox O2 Del Method O2 Flow Rate 97.8 F 82 18 158/85 H 94 L Nasal Cannula 2 10/02/24 08:00 10/02/24 08:00 10/02/24 08:00 10/02/24 08:00 10/02/24 08:00 10/02/24 08:00 10/02/24 08:00 Laboratory Results - last 24 hr 09/29/24 14:25: Leuk/Lymph Viability Comment, Leuk/Lym Gating Strategy Comment, Leuk/Lym Flow Cyto Comm Comment, Leuk/Lym Phenotype Chart Comment, Flow Cytometry Specimen Comment, Flow Clinical History Comment, Flow Total WBCs Comment, Flow Cytometry Comment Comment, Flow Cytometry Interp Comment, Flow Signing Patholog Comment 10/01/24 22:08: Vancomycin Trough < 5.0 L 10/02/24 05:35: WBC 29.2 H*, RBC 3.51 L, Hgb 10.0 L D, Hct 30.9 L, MCV 88.0, MCH 28.5, MCHC 32.4, RDW 14.9, Plt Count 410, MPV 10.3, Neut % (Auto) 82.5 H, Lymph % (Auto) 6.1 L, [place] % (Auto) 6.0, Eos % (Auto) 0.1, Baso % (Auto) 0.5, Neut # (Auto) 24.1 H, Lymph # (Auto) 1.8, [place] # (Auto) 1.8 H, Eos # (Auto) 0.0, Baso # (Auto) 0.1, Total Counted 100, Neutrophils % (Manual) 77 H, Band Neutrophils % 6.0, Lymphocytes % (Manual) 9 L, Atypical Lymphs % 2.0, Monocytes % (Manual) 6, Platelet Estimate Normal, Giant Platelets 1+, RBC Morphology Normal, Sodium 139, Potassium 4.2, Chloride 107, Carbon Dioxide 30, Anion Gap 6.2, BUN 25 H, Creatinine 0.60, Estimated Creat Clear 23, Estimated GFR 94, Est GFR ( Amer) 114, Glucose 122 H D, Calcium 7.8 L, Magnesium 1.9, Total Bilirubin < 0.1 L, AST 55 H, ALT 45, Alkaline Phosphatase 96, C-Reactive Protein 40.2 H D, Total Protein 5.5 L, Albumin 2.4 L, Globulin 3.1, Albumin/Globulin Ratio 0.8 L Temp Pulse Resp BP Pulse Ox O2 Del Method O2 Flow Rate 97.4 F L 90 18 134/56 L 91 L Nasal Cannula 3 09/30/24 08:00 09/30/24 08:00 09/30/24 08:00 09/30/24 08:00 09/30/24 08:00 09/30/24 09:54 09/30/24 09:54 Laboratory Results - last 24 hr 09/29/24 12:20: WBC 52.9 H*, RBC 4.35, Hgb 13.0, Hct 39.1, MCV 89.9, MCH 29.9, MCHC 33.2, RDW 15.0, Plt Count 512 H, MPV 10.5 H, Neut % (Auto) 52.0, Lymph % (Auto) 5.9 L, [place] % (Auto) 3.2, Eos % (Auto) 35.7 H, Baso % (Auto) 0.8, Neut # (Auto) 27.5 H, Lymph # (Auto) 3.1, [place] # (Auto) 1.7 H, Eos # (Auto) 18.9 H, Baso # (Auto) 0.4 H, Total Counted 100, Neutrophils % (Manual) 55, Lymphocytes % (Manual) 7 L, Monocytes % (Manual) 5, Eosinophils % (Manual) 33 H, Platelet Estimate Slight increase, RBC Morphology Normal, ESR 24, Retic Count (auto) 1.7, PT 10.4, INR 0.94, APTT 26.9, D-Dimer 1.16 H, Sodium 138, Potassium 4.3, Chloride 98, Carbon Dioxide 39 H, Anion Gap 5.3, BUN 20 H, Creatinine 0.60, Estimated GFR 94, Est GFR ( Amer) 114, Glucose 119 H, Uric Acid 4.3, Calcium 8.4, Phosphorus 3.6, Magnesium 1.8, Total Bilirubin 0.4, AST 95 H, ALT 68, Alkaline Phosphatase 109, Lactate Dehydrogenase 244 L, Troponin I < 0.01, C- Reactive Protein 93.6 H, Total Protein 6.7, Albumin 3.0 L, Globulin 3.7 H, Albumin/Globulin Ratio 0.8 L, Triglycerides 86, Cholesterol 117 L, LDL Cholesterol Direct 51.63 L, VLDL Cholesterol 17, HDL Cholesterol 31 L, Cholesterol/HDL Ratio 3.8 H, Plasma/Serum Alcohol < 10 09/29/24 17:30: Urine Color Yellow, Urine Appearance Clear, Urine pH 7.0, Ur Specific [place] 1.010, Urine Protein Negative, Urine Glucose (UA) Negative, Urine Ketones Negative, Urine Blood Negative, Urine Nitrate Negative, Urine Bilirubin Negative, Urine Urobilinogen 0.2, Ur Leukocyte Esterase Negative, Urine RBC None, Urine WBC None, Ur Squamous Epith Cells None, Urine Bacteria None, Urine Opiates Screen Negative, Urine Methadone Screen Negative, Ur Barbituates Screen Negative, Ur Phencyclidine Scrn Negative, Ur Amphetamines Screen Negative, U Benzodiazepines Scrn Negative, Urine Cocaine Screen Negative, U Marijuana (THC) Screen Negative 09/30/24 05:36: WBC 46.2 H*, RBC 4.05 L, Hgb 12.0 L, Hct 35.7 L, MCV 88.1, MCH 29.6, MCHC 33.6, RDW 14.8, Plt Count 455 H, MPV 10.6 H, Neut % (Auto) 55.0, Lymph % (Auto) 5.1 L, [place] % (Auto) 3.7, Eos % (Auto) 33.0 H, Baso % (Auto) 0.7, Neut # (Auto) 25.4 H, Lymph # (Auto) 2.4, [place] # (Auto) 1.7 H, Eos # (Auto) 15.3 H, Baso # (Auto) 0.3 H, Total Counted 100, Neutrophils % (Manual) 36 L, Band Neutrophils % 12.0 H, Lymphocytes % (Manual) 8 L, Monocytes % (Manual) 1 L, Eosinophils % (Manual) 43 H, Platelet Estimate Normal, RBC Morphology Normal, Sodium 135 L, Potassium 4.0, Chloride 101, Carbon Dioxide 33 H, Anion Gap 5.0, BUN 13 D, Creatinine 0.60, Estimated Creat Clear 23, Estimated GFR 94, Est GFR ( Amer) 114, Glucose 74 D, Calcium 7.7 L I & O for Labs for Last 24 Hours: Intake & Output 09/29/24 09/30/24 10/01/24 10/02/24 23:59 23:59 23:59 23:59 Intake Total 2621 / 2621 3457 / 3457 1190 / 1190 Output Total 0 / 200 600 / 700 200 / 200 0 / 0 Balance 0 / -200 2020 3257 / 3257 1190 / 1190 Weight 80 lb 2 oz 82 lb 9.6 oz 87 lb 6.4 oz 85 lb 1.6 oz Intake & Output 09/27/24 09/28/24 09/29/24 09/30/24 23:59 23:59 23:59 23:59 Intake Total 1091 / 1091 Output Total 0 / 200 200 / 200 Balance 0 / -200 891 / 891 Weight 80 lb 2 oz 82 lb 9.6 oz Microbiology Reports for the Last 24 Hours: Microbiology 10/01/24 16:52 Sputum - Expectorated Sputum Gram Stain - Final 09/29/24 14:06 Blood Blood Culture - Preliminary NO GROWTH AFTER 48 HOURS 09/29/24 13:54 Blood Blood Culture - Preliminary Constitutional: Present moderate distress Head: Present normocephalic and atraumatic ENT: Present normal exam, normal oropharynx and mucous membranes moist Neck: Present normal inspection and full ROM Respiratory: Present respiratory distress and able to speak in complete s entences; Absent prolonged expiratory phase, rhonchi, wheezes, crackles or diminished air movement Cardiac: Present S1/S2, Tachycardia and radial pulses present GI: Present soft and distention; Absent tenderness or guarding Rectal (female): Present deferred (female): Present deferred Skin: Present intact; Absent cyanosis or jaundice Neuro: Present alert, awake and oriented x 3 Extremities: Present normal inspection; Absent clubbing or cyanosis Psychiatric: Present normal affect and cooperative Assessment and Plan *Assessment and plan (1) Eosinophilia: Status: Acute Qualifiers: 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 Gleason is a 88-year-old female with reported history of hypertension dyslipidemia COPD to the ER with complaints of nasal and facial droop also having leukocytosis, febrile and pulmonary was called for further evaluation and management. Labs on admission significant leukocytosis with white count of 54. Eosinophilic predominant, count now at 15.3 K Patient also with history of nasal polys and asthma. Recently seen by ENT plan to initiate Dupixent. 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 BUN/creatinine within normal limits. Troponins within normal limits. CRP Elevated on this admission at 93.6. Interval update: Blood cultures no growth so far. Initiated on methylprednisolone 60 mg every 8 hours with significant decline in his glucose from 15 K to 0. Steroids were eventually weaned to methylprednisolone 60 mg IV daily with stable eosinophilia. continue to show neutrophilic predominant leukocytosis. Peripheral smear not concerning for any blast crisis. Continue to receive antibiotics. MRI upon admission showed opacification of bilateral frontal maxillary sinusitis which is likely the possible source of her current infection along with noted mild airspace disease. Respiratory viral PCR panel negative. UA no evidence of hematuria. Sputum cultures growing moderate growth of gram-negative rods. On room air saturating 94% this morning. Will follow with 6-minute walk testing. Plan: Incentive spirometry and flutter valve DuoNebs every 6 hours along with Pulmicort Q12 scheduled Antibiotics can be weaned to levofloxacin to complete a total of 10-day course for possible pneumonia and recurrent sinus infections in the setting of her sputum cultures showing gram-negative rods. Continue prednisone 40 mg daily for 10 days followed by 20 mg x 10 days followed 10mg x 10 days followed by discontinuation Patient continue to follow with the ENT at [facility], prescribed Dupixent for nasal polyposis. 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 Will follow with ENT records on as outpatient basis
[2024-10-02 12:00] VITALS: BP 156/81; PULSE 99; RESP 20; TEMP 36.6; O2SAT 92
--- NOTE | 2024-10-02 12:29 | P.DS_ITS ---
General Admission date:: 09/29/24 Discharge date: 10/02/24 HPI HPI HPI: This is an 88-year-old female with a past medical history of hypertension, hyperlipidemia, COPD, irregular heart rate on digoxin who presents emergency department with her [id number] for concerns for stroke. Etgyisoz-of-yuv states that she was last known normal around 7 PM last night. At some point today she developed possible slurring speech with may be some left-sided facial droop. They waited several hours to see if it would get better and it did not so they brought her to the emergency department. Patient has recently been undergoing allergen testing for allergic rhinitis and sinus polyps. Has seen ENT at [facility] (DR Yoon). Per [id number], recently received 1 dose of steroids IM to hopefully improve sinus congestion. Was set to undergo CT of her sinuses tomorrow. Hvqwoayh-mo-bsw denies any history of cancer, blood dyscrasias or any other history is associated with abnormal white blood cell counts Emergency department workup notable for significant leukocytosis with a white blood cell count of 52,000 primary predominance of eosinophils and neutrophil. Neurological workup negative. CT scan of the head does show near opacification of all sinuses to include maxillary, ethmoid, sphenoid and frontal sinuses. CT chest CT abdomen pelvis negative. On further chart review patient did see Dr. Em (pulmonology) in office on 09/04/2024 and was noted to have significant elevated IgE levels at 1113, allergy testing panel positive as well as peripheral eosinophil count of 1800. Given her predominant leukocytosis it was felt that she would benefit from tertiary transfer for hematology/oncology consult. Peripheral blood smear has been sent but is send out and will be not available until tomorrow Initial presentation patient did not appear septic or infectious. But on admission patient was noted to have a rectal temp of 101.2. Blood cultures obtained and broad-spectrum antibiotics initiated. Given some neurological concerns, [facility] was consulted for neurology and recommends aspirin and MRI in AM. Patient has been accepted by to Dr. Young but awaiting bed. Given prolonged wait time, it was felt she would benefit from hospitalization until bed available. Hospital Course Hospital Course Hospital Course: 88-year-old female who presents with leukocytosis, fever, new oxygen requirement. Concern for hypereosinophilia. Pulmonology consulted and assisting with care. Workup and treatment showed improvement and response to steroids. 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 Stable discharge home with further management as an outpatient. Showing clinical improvement. No need to transfer to higher level of care at this time. Problems addressed as follows: #Sepsis #Pneumonia Meets criteria for leukocytosis, fever and possible para sinusitis is infection along with pneumonia on chest imaging with new oxygen requirement. Initiated on antibiotics. Showed gradual steroids for hypereosinophilia. Will complete empiric course of Levaquin for pneumonia. Initially on supplemental oxygen, gradually able to wean to room air by day of discharge. No oxygen requirement at time of discharge. Tolerated walk test with O2 sats above 90%. # Leukocytosis #Thrombocytosis # htypereosinophilia -Pulmonology consulted for possible pneumonia and hypereosinophilic syndrome. Recommend peripheral smear and ANCA studies along with urinalysis. Initially on ceftriaxone and azithromycin, transitioned to Levaquin to complete course of antibiotics for pneumonia. Initiated on steroids at a concern for hypereosinophilic syndrome such as EGPA. Patient had significant improvement in white count dropping from 52-29 by day of discharge. Clinically showing improvement. Inflammatory markers showing improvement as well. CRP dropped from approximately 90-40 after initiation of steroids. Tolerating nebulizers with improvement in breathing. Respiratory panel was negative. Peripheral smear showed hypereosinophilia with no blasts. No concern for leukemia. Kidney function normal. No casts in urine. Stable discharge home with further management as an outpatient with pulmonology. ANCA studies still pending at time of discharge # History of nasal polyps Was following with ENT at [facility]. Received steroid shot approximately 2 weeks ago to aid in shrinking of polyps. CT imaging with opacification of the sinus cavities. Recommend continuing to follow with ENT at [facility] in [place] for immune modulation for nasal polyps. Given concern for EGPA, Dupixent would be appropriate to continue. Hypertension: -Continue amlodipine 2.5 mg daily -Continue digoxin 62.5 mcg every 48 hours -Continue Lipitor 10 mg nightly #Asthma Not in exacerbation; Continue bronchodilators Total time spent on discharge 35 minutes in counseling, documentation, chart review, and direct care with patient. Exam Data for Last 24 hours Vital signs and Labs for Last 24 Hours: Temp Pulse Resp BP Pulse Ox O2 Del Method O2 Flow Rate 97.8 F 82 18 158/85 H 94 L Nasal Cannula 2 10/02/24 08:00 10/02/24 08:00 10/02/24 08:00 10/02/24 08:00 10/02/24 08:00 10/02/24 08:00 10/02/24 08:00 Laboratory Results - last 24 hr 09/29/24 14:25: Leuk/Lymph Viability Comment, Leuk/Lym Gating Strategy Comment, Leuk/Lym Flow Cyto Comm Comment, Leuk/Lym Phenotype Chart Comment, Flow Cytometry Specimen Comment, Flow Clinical History Comment, Flow Total WBCs Comment, Flow Cytometry Comment Comment, Flow Cytometry Interp Comment, Flow Signing Patholog Comment 10/01/24 22:08: Vancomycin Trough < 5.0 L 10/02/24 05:35: WBC 29.2 H*, RBC 3.51 L, Hgb 10.0 L D, Hct 30.9 L, MCV 88.0, MCH 28.5, MCHC 32.4, RDW 14.9, Plt Count 410, MPV 10.3, Neut % (Auto) 82.5 H, Lymph % (Auto) 6.1 L, [place] % (Auto) 6.0, Eos % (Auto) 0.1, Baso % (Auto) 0.5, Neut # (Auto) 24.1 H, Lymph # (Auto) 1.8, [place] # (Auto) 1.8 H, Eos # (Auto) 0.0, Baso # (Auto) 0.1, Total Counted 100, Neutrophils % (Manual) 77 H, Band Neutrophils % 6.0, Lymphocytes % (Manual) 9 L, Atypical Lymphs % 2.0, Monocytes % (Manual) 6, Platelet Estimate Normal, Giant Platelets 1+, RBC Morphology Normal, Sodium 139, Potassium 4.2, Chloride 107, Carbon Dioxide 30, Anion Gap 6.2, BUN 25 H, Creatinine 0.60, Estimated Creat Clear 23, Estimated GFR 94, Est GFR ( Amer) 114, Glucose 122 H D, Calcium 7.8 L, Magnesium 1.9, Total Bilirubin < 0.1 L, AST 55 H, ALT 45, Alkaline Phosphatase 96, C-Reactive Protein 40.2 H D, Total Protein 5.5 L, Albumin 2.4 L, Globulin 3.1, Albumin/Globulin Ratio 0.8 L I & O for Last 24 hours: Intake & Output 09/29/24 09/30/24 10/01/24 10/02/24 23:59 23:59 23:59 23:59 Intake Total 2621 / 2621 3457 / 3457 1190 / 1190 Output Total 0 / 200 600 / 700 200 / 200 0 / 0 Balance 0 / -200 2020 3257 / 3257 1190 / 1190 Weight 36.344 kg 37.467 kg 39.644 kg 38.601 kg Microbiology Reports for the Last 24 Hours: Microbiology 10/01/24 16:52 Sputum - Expectorated Sputum Gram Stain - Final 10/01/24 16:52 Sputum - Expectorated Sputum Sputum Culture - Preliminary Gram Negative Rods 09/29/24 14:06 Blood Blood Culture - Preliminary NO GROWTH AFTER 48 HOURS 09/29/24 13:54 Blood Blood Culture - Preliminary Constitutional Constitutional: no acute distress, thin, chronically ill appearing and cooperative *Routine HEENT Exam Head: Present normocephalic Eye: Present EOMI and PERRL ENT: Present mucous membranes moist *Routine Neck Exam Neck: Present supple; Absent lymphadenopathy *Routine Respiratory Exam Respiratory: Present prolonged expiratory phase; Absent rhonchi, wheezes or crackles *Routine Cardiovascular Exam Cardiovascular: Present RRR *Routine Abdominal Exam Abdominal: Present soft and normoactive bowel sounds; Absent tenderness *Routine Rectal Exam Patient deferred: visual exam *Routine Exam Patient deferred: external exam *Routine Extremities Exam Extremities: Present edema (1+ in feet bilaterally); Absent cyanosis or clubbing *Routine Skin Exam Skin: Present intact and warm; Absent rash *Routine Neurological Exam Neurological: Present alert, oriented X3 and moving all extremities; Absent altered mental status Results Data Completed and Pending Labs on day of discharge: Labs from last 24 hours 10/02/24 10/01/24 09/29/24 05:35 22:08 14:25 WBC 29.2 H* RBC 3.51 L Hgb 10.0 L D Hct 30.9 L MCV 88.0 MCH 28.5 MCHC 32.4 RDW 14.9 Plt Count 410 MPV 10.3 Neut % (Auto) 82.5 H Lymph % (Auto) 6.1 L [place] % (Auto) 6.0 Eos % (Auto) 0.1 Baso % (Auto) 0.5 Neut # (Auto) 24.1 H Lymph # (Auto) 1.8 [place] # (Auto) 1.8 H Eos # (Auto) 0.0 Baso # (Auto) 0.1 Total Counted 100 Neutrophils % (Manual) 77 H Band Neutrophils % 6.0 Lymphocytes % (Manual) 9 L Atypical Lymphs % 2.0 Monocytes % (Manual) 6 Platelet Estimate Normal Giant Platelets 1+ RBC Morphology Normal Sodium 139 Potassium 4.2 Chloride 107 Carbon Dioxide 30 Anion Gap 6.2 BUN 25 H Creatinine 0.60 Estimated Creat Clear 23 Estimated GFR 94 Est GFR ( Amer) 114 Glucose 122 H D Calcium 7.8 L Magnesium 1.9 Total Bilirubin < 0.1 L AST 55 H ALT 45 Alkaline Phosphatase 96 C-Reactive Protein 40.2 H D Total Protein 5.5 L Albumin 2.4 L Globulin 3.1 Albumin/Globulin Ratio 0.8 L Vancomycin Trough < 5.0 L Leuk/Lymph Viability Comment Leuk/Lym Gating Strategy Comment Leuk/Lym Flow Cyto Comm Comment Leuk/Lym Phenotype Chart Comment Flow Cytometry Specimen Comment Flow Clinical History Comment Flow Total WBCs Comment Flow Cytometry Comment Comment Flow Cytometry Interp Comment Flow Signing Patholog Comment Preliminary micro results at discharge 10/01/24 16:52 Sputum Culture - Preliminary Sputum - Expectorated Sputum Gram Negative Rods 09/29/24 14:06 Blood Culture - Preliminary Blood NO GROWTH AFTER 48 HOURS 09/29/24 13:54 Blood Culture - Preliminary Blood DS: Diagnosis Discharge Diagnosis (1) Eosinophilia: Status: Acute Code(s): D72.10 - Eosinophilia, unspecified Qualifiers: 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 Qualified Code(s): 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] (2) Asthma: Status: Acute Code(s): J45.909 - Unspecified asthma, uncomplicated Qualifiers: Asthma complication type: unspecified Asthma persistence: intermittent Asthma severity: mild Qualified Code(s): J45.20 - Mild intermittent asthma, uncomplicated (3) Pneumonia: Status: Acute Code(s): J18.9 - Pneumonia, unspecified organism Meds Home Medications and Allergies Home Medications ?Medication ?Instructions ?Recorded ?Confirmed ?Type atorvastatin 10 mg tablet 10 mg PO HS 08/16/17 09/29/24 History coenzyme Q10 300 mg capsule (Co 300 mg PO DAILY Supplement 08/16/17 09/04/24 History Q-10) celecoxib 200 mg capsule 200 mg PO DAILY 06/27/24 09/29/24 History fluticasone propionate 50 2 spray intranasal DAILY 90 days 06/30/24 09/30/24 Rx mcg/actuation nasal #16 grams spray,suspension (Flonase Allergy Relief) amlodipine 2.5 mg tablet 2.5 mg PO DAILY 09/04/24 09/29/24 History fluticasone 500 mcg-salmeterol 50 1 inh inhalation BID #180 ea 09/04/24 09/29/24 Rx mcg/dose blistr powdr for inhalation (Advair Diskus) albuterol sulfate 90 mcg/actuation 2 inh inhalation Q6HP PRN 09/30/24 09/30/24 History aerosol inhaler shortness of breath or wheezing digoxin 250 mcg (0.25 mg) tablet 250 mcg PO DAILY 09/30/24 09/30/24 History montelukast 10 mg tablet 10 mg PO PM 09/30/24 09/30/24 History levofloxacin 750 mg tablet 750 mg PO DAILY 6 days #3 tabs 10/02/24 Rx prednisone 10 mg tablet 10 mg PO DIRECTED #48 tabs 10/02/24 Rx New Prescriptions to Start Prescriptions: levoJan Palma prednisone Jan Altamirano Allergies Allergy/AdvReac Type Severity Reaction Status Date / Time diazepam AdvReac Unknown AGITATION Verified 09/04/24 10:05 meperidine AdvReac Unknown NA-NAUSEA/V Verified 09/04/24 10:05 OMITING Discharge Plan Disposition Patient Disposition: Home, Self-Care Condition: Fair Discharge Order Discharge Orders: Discharge Order (Routine); Ordered 10/02/24 Ordered By: Jan Altamirano Follow up Plan Follow up with: Kobe Ramsey MD [Primary Care Provider] - 10/07/24 10:45 am Levy Em MD [Physician] - 10/09/24 1:00 pm Prescriptions/Medication Reconciliation: New levofloxacin 750 mg tablet 750 mg PO DAILY 6 Days Qty: 3 0RF Rx Instructions: first dose Sunday10/04/24 prednisone 10 mg tablet 10 mg PO DIRECTED Qty: 48 0RF Rx Instructions: 40mg daily for 7 days, taper as follows thereafter: 30mg daily for 3 days, 20 mg daily for 3 days, 10 mg daily for 3 days, 5mg daily for 3 days then stop Continued celecoxib 200 mg capsule 200 mg PO DAILY Patient Comments: TAKE 1 CAPSULE BY MOUTH ONCE DAILY amlodipine 2.5 mg tablet 2.5 mg PO DAILY fluticasone propion-salmeterol [Advair Diskus] 500-50 mcg/dose blister with device 1 inh inhalation BID Qty: 180 2RF fluticasone propionate [Flonase Allergy Relief] 50 mcg/actuation spray,suspension 2 spray intranasal DAILY 90 Days Qty: 16 2RF Rx Instructions: administer into each nostril Co Q-10 300 MG capsule 300 mg PO DAILY atorvastatin 10 MG tablet 10 mg PO HS digoxin 250 mcg (0.25 mg) tablet 250 mcg PO DAILY montelukast 10 mg tablet 10 mg PO PM albuterol sulfate 90 mcg/actuation HFA aerosol inhaler 2 inh inhalation Q6HP PRN (Reason: shortness of breath or wheezing) Problem Reconciliation Problems Reviewed?: Yes Patient Discharge Instructions ACTIVITY: Continue current activity DIET: continue same diet Patient Instructions: DI for Leukocytosis Print Language: Kiswahili Providers Primary Care Provider: Kobe Ramsey Admit Provider: Simon Hassan Attending Provider: Simon Hassan
[2024-10-02] MEDS: levoFLOXacin 750 MG TABLET PO (13:13)
[2024-10-02 14:23] LABS: Antinuclear Antibodies (ANA) Negative (Negative); Cytoplasmic (C-ANCA) <1:20 titer (Neg:<1:20); Perinuclear (P-ANCA) <1:20 titer (Neg:<1:20)
[2024-10-02 15:02] VITALS: BMI 17.1
--- NOTE | 2024-10-06 11:17 | SW/DCPLANNER ---
Phoned patient x2. Patients mailbox is full and cant accept voicemails at this time. Hayden Luo
== END 2024-10-02 15:02 | disposition home or self-care (01) | DRG 871 ==
LOC: ER 15:56 → 2ND 20:31
PROVIDERS: Emergency Medicine; Internal Medicine Adolescent Medicine; Internal Medicine Pulmonary Disease; Nurse Practitioner Acute Care; Admitting Provider Student in an Organized Health Care Education/Training Program; Emergency Provider Emergency Medicine; PCP Family Medicine; Visit Provider Student in an Organized Health Care Education/Training Program
DX: A41.9 Sepsis, unspecified organism (principal); J15.1 Pneumonia due to Pseudomonas; D72.110 Idiopathic hypereosinophilic syndrome [IHES]; J44.89 Other specified chronic obstructive pulmonary disease; F17.210 Nicotine dependence, cigarettes, uncomplicated; I10 Essential (primary) hypertension; J33.9 Nasal polyp, unspecified; D75.839 Thrombocytosis, unspecified; E78.5 Hyperlipidemia, unspecified; J45.20 Mild intermittent asthma, uncomplicated; Z83.6 Family history of other diseases of the respiratory system; Z80.9 Family history of malignant neoplasm, unspecified; Z79.899 Other long term (current) drug therapy; Z79.02 Long term (current) use of antithrombotics/antiplatelets; Z79.51 Long term (current) use of inhaled steroids; Z88.5 Allergy status to narcotic agent
CPT/HCPCS: 36415; 70450; 70496; 70498; 70553; 71045; 71275; 74177; 80048; 80053; 80061; 80202; 80307; 80320; 81001; 83615; 83735; 84100; 84484; 84550; 85007; 85025; 85044; 85378; 85610; 85651; 85730; 86036; 86038; 86140; 86235; 87040; 87070; 87077; 87186; 87205; 87633; 93005; 99291; A9576; J0696; J2919; J3370; J7030; J7120; Q9967